=== PATIENT | female | born 1970 | race Caucasian/White ===

== ENCOUNTER → 2020-05-28 | Outpatient (CLI) | payer OTHER, SELFPAY ==
[2020-05-28 15:46] VITALS: BMI 37.3
[2020-05-28 22:19] LABS: Absolute Neutrophil Count 6.8 X10^3/uL (2.0-7.7); Basophil# 0.04 X10^3/uL; Basophil% 0.4 % (0-1); Eosinophil# 0.13 X10^3/uL; Eosinophils% 1.3 % (0-5); Hematocrit 46.8 % (37-47); Hemoglobin 14.5 g/dL (12.0-15.0); Lymphocyte % 23.5 % (19-41); Mean Corpuscular Hgb 27.7 pg (27.0-32.0); Mean Corpuscular Volume 89.5 fL (81-99); Mean Platelet Vol. 8.7 fl (6.2-12.0); Monocyte# 0.53 X10^3/uL; Monocyte% 5.4 % (0-10); NRBC Flagged by Analyzer 0 % (0-5); Neutrophil # 6.77 X10^3/uL (2.7-7.7); Neutrophil % 69.3 % (47-70); Platelet Count 443 K/mm3 (150-450); RBC Distribution Width CV 13.1 % (11.6-14.6); RBC Distribution Width SD 43.3 fl (35.1-43.9); Red Blood Count 5.23 M/mm3 (4.2-5.4); White Blood Count 9.8 K/mm3 (4.4-11.0)
[2020-05-28 22:37] LABS: ALB/GLOB Ratio 1.2 RATIO (0.9-2.4); AST(SGOT) 12 U/L (15-37); Alanine Aminotransfer ALT/SGPT 13 U/L (13-56); Albumin, Serum 4.1 g/dL (3.2-5.0); Alkaline Phosphatase 87 U/L (45-117); Anion Gap 2 (5-15); BUN 13 mg/dL (7-18); BUN/Creat Ratio 13.5 RATIO (10-20); Calcium,Total 8.8 mg/dL (8.5-10.1); Chloride 108 mmol/L (98-107); Cholesterol 171 mg/dL (200); Creatinine, Serum 0.97 mg/dL (0.55-1.02); EST Glomerular Filtration Rate 65 mL/min (>60); Est Glom Filt Rate - Afr Amer 79 mL/min (>60); Globulin 3.3 g/dL (2.2-4.2); Glucose 107 mg/dL (74-106); High Density Lipoprotein 47 mg/dL; Protein, Total 7.4 g/dL (6.4-8.2); Sodium Level 137 mmol/L (136-145); Triglycerides 117 mg/dL; Very Low Density Lipoprotein 23 mg/dL (5-40)
== END | disposition home or self-care (01) ==
PROVIDERS: Referring Provider Nurse Practitioner; Visit Provider Nurse Practitioner
DX: Z00.00 Encounter for general adult medical examination without abnormal findings (principal)
CPT/HCPCS: 80053; 80061; 85025

== ENCOUNTER → 2021-02-08 07:08 | Outpatient (CLI) | payer OTHER, SELFPAY ==
--- NOTE | 2021-02-08 07:09 | MRI_ITS ---
STUDY: MRI RIGHT SHOULDER REASON FOR EXAM: Right shoulder pain, decreased range of motion, no specific injury. TECHNIQUE: Standardized fat and water weighted pulse sequences were obtained in all 3 orthogonal planes. COMPARISON: Radiographs 10/09/2020. FINDINGS: Normal supraspinatus tendon. Normal infraspinatus tendon. Normal subscapularis tendon. Normal teres minor tendon. Normal supraspinatus muscle. Normal infraspinatus muscle. Normal subscapularis muscle. Normal teres minor muscle. Normal glenohumeral articulation. There is cystic change/bone edema in the posterior aspect of the greater tuberosity (T2 coronal images 8-10). Normal biceps labral complex. Normal intracapsular long biceps tendon. Normal labrum. Normal capsulo- ligamentous complex. There is mild acromioclavicular arthrosis without substantial undersurface osteophytes (T2 sagittal image 9). There is a Type I morphology (flat undersurface), with a neutral orientation. There is no subacromial-subdeltoid bursal fluid. Normal visualized coracohumeral and coracoacromial ligaments. Normal deltoid muscle. Normal trapezius muscle. MRI/Upper Ext Joint Only(Routine) IMPRESSION: Mild acromioclavicular arthrosis. Cystic change/bone edema in the posterior aspect of the greater tuberosity. No demonstrated rotator cuff tear. Electronically Signed: Efren Leonard MD at 8:54 EDT Tel , Service support ,
--- NOTE | 2021-02-08 07:09 | MRI_ITS ---
STUDY: MRI LEFT SHOULDER REASON FOR EXAM: Left shoulder pain, decreased range of motion, no specific injury. TECHNIQUE: Standardized fat and water weighted pulse sequences were obtained in all 3 orthogonal planes. COMPARISON: None. FINDINGS: There is mild supraspinatus tendinosis (T2 coronal images 10-12) without discrete tendon tear. There is mild subscapularis tendinosis (T2 axial image 7) without discrete tendon tear. Normal subscapularis tendon. Normal teres minor tendon. Normal supraspinatus muscle. Normal infraspinatus muscle. Normal subscapularis muscle. Normal teres minor muscle. There is a glenohumeral joint effusion with fluid extending into the bicipital tendon sheath. There is mild cystic change posterior aspect of the greater tuberosity. Normal biceps labral complex. Normal intracapsular long biceps tendon. Normal labrum. Normal capsulo- ligamentous complex. There is mild acromioclavicular arthrosis without substantial undersurface osteophytes (T2 coronal image 12). There is a Type I morphology (flat undersurface), with a neutral orientation. There is no subacromial-subdeltoid bursal fluid. Normal visualized coracohumeral and coracoacromial ligaments. Normal deltoid muscle. Normal trapezius muscle. MRI/Upper Ext Joint Only(Routine) IMPRESSION: Mild supraspinatus and infraspinatus tendinosis without demonstrated rotator cuff tear. Mild acromioclavicular arthrosis. Glenohumeral joint effusion. Electronically Signed: Efren Leonard MD at 8:36 EDT Tel , Service support ,
== END ==
PROVIDERS: PCP Nurse Practitioner; Referring Provider Orthopaedic Surgery; Visit Provider Orthopaedic Surgery
DX: M75.21 Bicipital tendinitis, right shoulder (principal); M75.22 Bicipital tendinitis, left shoulder; M75.81 Other shoulder lesions, right shoulder; M75.82 Other shoulder lesions, left shoulder; M25.512 Pain in left shoulder; R20.0 Anesthesia of skin
CPT/HCPCS: 73221

== ENCOUNTER → 2021-07-02 | Outpatient (CLI) | payer OTHER, SELFPAY ==
[2021-07-03 01:26] LABS: Absolute Lymphocyte Count 2.17 X10^3/uL (0.83-4.51); Absolute Neutrophil Count 4.9 X10^3/uL (2.0-7.7); Basophil# 0.05 X10^3/uL; Basophil% 0.6 % (0-1); Eosinophil# 0.12 X10^3/uL; Eosinophils% 1.5 % (0-5); Hematocrit 46.8 % (37-47); Hemoglobin 14.5 g/dL (12.0-15.0); Lymphocyte # 2.17 X10^3/ul (0.83-4.51); Lymphocyte % 27.7 % (19-41); Mean Corpuscular Hgb 27.9 pg (27.0-32.0); Mean Corpuscular Volume 90.2 fL (81-99); Mean Platelet Vol. 8.8 fl (6.2-12.0); Monocyte# 0.55 X10^3/uL; NRBC Flagged by Analyzer 0 % (0-5); Neutrophil # 4.93 X10^3/uL (2.7-7.7); Neutrophil % 62.9 % (47-70); Platelet Count 445 K/mm3 (150-450); RBC Distribution Width CV 12.1 % (11.6-14.6); RBC Distribution Width SD 40.4 fl (35.1-43.9); Red Blood Count 5.19 M/mm3 (4.2-5.4); White Blood Count 7.8 K/mm3 (4.4-11.0)
[2021-07-03 01:35] LABS: AST(SGOT) 10 U/L (15-37); Alanine Aminotransfer ALT/SGPT 16 U/L (13-56); Albumin, Serum 3.9 g/dL (3.2-5.0); Alkaline Phosphatase 102 U/L (45-117); Anion Gap 5 (5-15); BUN 11 mg/dL (7-18); BUN/Creat Ratio 12.9 RATIO (10-20); Calcium,Total 9.6 mg/dL (8.5-10.1); Chloride 104 mmol/L (98-107); Creatinine, Serum 0.86 mg/dL (0.55-1.02); EST Glomerular Filtration Rate 75 mL/min (>60); Est Glom Filt Rate - Afr Amer 91 mL/min (>60); Globulin 3.8 g/dL (2.2-4.2); Glucose 95 mg/dL (74-106); Potassium 5.7 mmol/L (3.5-5.1); Protein, Total 7.7 g/dL (6.4-8.2); Sodium Level 139 mmol/L (136-145)
== END | disposition home or self-care (01) ==
PROVIDERS: PCP Nurse Practitioner; Referring Provider Nurse Practitioner; Visit Provider Nurse Practitioner
DX: D64.9 Anemia, unspecified (principal)
CPT/HCPCS: 80053; 85025

== ENCOUNTER → 2022-07-30 | Outpatient (CLI) | payer OTHER, SELFPAY ==
[2022-07-30 22:10] LABS: Absolute Lymphocyte Count 2.35 X10^3/uL (0.83-4.51); Absolute Neutrophil Count 4.5 X10^3/uL (2.0-7.7); Basophil# 0.04 X10^3/uL; Basophil% 0.5 % (0-1); Eosinophils% 1.3 % (0-5); Hematocrit 43.9 % (37-47); Hemoglobin 14.6 g/dL (12.0-15.0); Lymphocyte # 2.35 X10^3/ul (0.83-4.51); Lymphocyte % 31.4 % (19-41); Mean Corp Hgb Conc 33.3 g/dL (32-36); Mean Corpuscular Hgb 29.2 pg (27.0-32.0); Mean Corpuscular Volume 87.8 fL (81-99); Mean Platelet Vol. 8.9 fl (6.2-12.0); Monocyte% 6.7 % (0-10); NRBC Flagged by Analyzer 0 % (0-5); Neutrophil # 4.48 X10^3/uL (2.7-7.7); Platelet Count 395 K/mm3 (150-450); RBC Distribution Width CV 12.7 % (11.6-14.6); RBC Distribution Width SD 40.5 fl (35.1-43.9); White Blood Count 7.5 K/mm3 (4.4-11.0)
[2022-07-30 22:35] LABS: ALB/GLOB Ratio 1.2 RATIO (0.9-2.4); AST(SGOT) 10 U/L (15-37); Alanine Aminotransfer ALT/SGPT 12 U/L (13-56); Albumin, Serum 3.9 g/dL (3.2-5.0); Alkaline Phosphatase 93 U/L (45-117); Anion Gap 4 (5-15); BUN 14 mg/dL (7-18); BUN/Creat Ratio 13.6 RATIO (10-20); CRP, High Sensitivity Cardiac 3.53 mg/L; Calcium,Total 9.6 mg/dL (8.5-10.1); Chloride 106 mmol/L (98-107); Cholesterol 184 mg/dL (200); Creatinine, Serum 1.03 mg/dL (0.55-1.02); EST Glomerular Filtration Rate 60 mL/min (>60); Est Glom Filt Rate - Afr Amer 73 mL/min (>60); Globulin 3.3 g/dL (2.2-4.2); Glucose 94 mg/dL (74-106); High Density Lipoprotein 55 mg/dL; Lipase 90 U/L (73-393); Potassium 4.4 mmol/L (3.5-5.1); Protein, Total 7.2 g/dL (6.4-8.2); Sodium Level 139 mmol/L (136-145); Thyroid Stim Hormone (TSH) 1.04 uIU/mL (0.358-3.74); Triglycerides 106 mg/dL; Very Low Density Lipoprotein 21 mg/dL (5-40)
== END | disposition home or self-care (01) ==
PROVIDERS: PCP Nurse Practitioner; Visit Provider Nurse Practitioner
DX: R10.11 Right upper quadrant pain (principal); R10.13 Epigastric pain; R14.0 Abdominal distension (gaseous)
CPT/HCPCS: 80053; 80061; 83690; 84443; 85025; 86141

== ENCOUNTER → 2023-08-19 | Outpatient (CLI) | payer OTHER, SELFPAY ==
[2023-08-19 20:33] LABS: Absolute Lymphocyte Count 2.64 X10^3/uL (0.83-4.51); Absolute Neutrophil Count 4.3 X10^3/uL (2.0-7.7); Basophil# 0.06 X10^3/uL; Basophil% 0.8 % (0-1); Eosinophil# 0.11 X10^3/uL; Eosinophils% 1.5 % (0-5); Hematocrit 44.1 % (37-47); Hemoglobin 13.8 g/dL (12.0-15.0); Lymphocyte # 2.64 X10^3/ul (0.83-4.51); Lymphocyte % 34.9 % (19-41); Mean Corp Hgb Conc 31.3 g/dL (32-36); Mean Corpuscular Hgb 27.8 pg (27.0-32.0); Mean Corpuscular Volume 88.9 fL (81-99); Mean Platelet Vol. 8.7 fl (6.2-12.0); Monocyte# 0.48 X10^3/uL; Monocyte% 6.3 % (0-10); NRBC Flagged by Analyzer 0 % (0-5); Neutrophil # 4.27 X10^3/uL (2.7-7.7); Neutrophil % 56.4 % (47-70); Platelet Count 406 K/mm3 (150-450); RBC Distribution Width CV 12.8 % (11.6-14.6); RBC Distribution Width SD 41.8 fl (35.1-43.9); Red Blood Count 4.96 M/mm3 (4.2-5.4); White Blood Count 7.6 K/mm3 (4.4-11.0)
[2023-08-19 21:03] LABS: ALB/GLOB Ratio 1.1 RATIO (0.9-2.4); AST(SGOT) 10 U/L (15-37); Alanine Aminotransfer ALT/SGPT 14 U/L (13-56); Albumin, Serum 3.8 g/dL (3.2-5.0); Alkaline Phosphatase 108 U/L (45-117); Anion Gap 2 (5-15); BUN 12 mg/dL (7-18); BUN/Creat Ratio 12.6 RATIO (10-20); Calcium,Total 9.2 mg/dL (8.5-10.1); Chloride 107 mmol/L (98-107); Cholesterol 188 mg/dL (200); Creatinine, Serum 0.95 mg/dL (0.55-1.02); EST Glomerular Filtration Rate 66 mL/min (>60); Est Glom Filt Rate - Afr Amer 79 mL/min (>60); Globulin 3.4 g/dL (2.2-4.2); Glucose 94 mg/dL (74-106); High Density Lipoprotein 62 mg/dL; Potassium 5.1 mmol/L (3.5-5.1); Protein, Total 7.2 g/dL (6.4-8.2); Sodium Level 140 mmol/L (136-145); Thyroid Stim Hormone (TSH) 1.36 uIU/mL (0.358-3.74); Triglycerides 109 mg/dL; Very Low Density Lipoprotein 22 mg/dL (5-40)
[2023-08-19 21:04] LABS: Vitamin D,25 Hydroxy 55.8 ng/mL
[2023-08-19 21:15] LABS: Hemoglobin A1c 5.5 % (3.8-5.6)
== END | disposition home or self-care (01) ==
PROVIDERS: PCP Nurse Practitioner; Visit Provider Nurse Practitioner
DX: D64.9 Anemia, unspecified (principal); F31.9 Bipolar disorder, unspecified; R53.83 Other fatigue
CPT/HCPCS: 80053; 80061; 82306; 83036; 84443; 85025

== ENCOUNTER → 2024-03-03 | Outpatient (CLI) | payer OTHER, SELFPAY ==
[2024-03-03 21:33] LABS: Absolute Lymphocyte Count 2.56 X10^3/uL (0.83-4.51); Absolute Neutrophil Count 4.6 X10^3/uL (2.0-7.7); Basophil# 0.05 X10^3/uL; Basophil% 0.6 % (0-1); Eosinophil# 0.07 X10^3/uL; Eosinophils% 0.9 % (0-5); Hematocrit 45.1 % (37-47); Hemoglobin 14.4 g/dL (12.0-15.0); Lymphocyte # 2.56 X10^3/ul (0.83-4.51); Mean Corp Hgb Conc 31.9 g/dL (32-36); Mean Corpuscular Hgb 28.2 pg (27.0-32.0); Mean Corpuscular Volume 88.4 fL (81-99); Mean Platelet Vol. 8.7 fl (6.2-12.0); Monocyte% 6.5 % (0-10); NRBC Flagged by Analyzer 0 % (0-5); Neutrophil # 4.55 X10^3/uL (2.7-7.7); Neutrophil % 58.7 % (47-70); Platelet Count 389 K/mm3 (150-450); RBC Distribution Width CV 12.9 % (11.6-14.6); White Blood Count 7.8 K/mm3 (4.4-11.0)
[2024-03-03 21:57] LABS: ALB/GLOB Ratio 1.1 RATIO (0.9-2.4); AST(SGOT) 17 U/L (15-37); Alanine Aminotransfer ALT/SGPT 15 U/L (13-56); Alkaline Phosphatase 92 U/L (45-117); Anion Gap 7 (5-15); BUN 16 mg/dL (7-18); Calcium,Total 9.9 mg/dL (8.5-10.1); Chloride 103 mmol/L (98-107); EST Glomerular Filtration Rate 62 mL/min (>60); Est Glom Filt Rate - Afr Amer 75 mL/min (>60); Globulin 3.8 g/dL (2.2-4.2); Glucose 102 mg/dL (74-106); Lipase 29 U/L (13-75); Potassium 5.2 mmol/L (3.5-5.1); Protein, Total 7.8 g/dL (6.4-8.2); Sodium Level 138 mmol/L (136-145); Thyroid Stim Hormone (TSH) 1.54 uIU/mL (0.358-3.74)
== END | disposition home or self-care (01) ==
PROVIDERS: PCP Nurse Practitioner; Visit Provider Nurse Practitioner
DX: R14.0 Abdominal distension (gaseous) (principal); R10.11 Right upper quadrant pain; R11.2 Nausea with vomiting, unspecified; M54.50 Low back pain, unspecified; N20.0 Calculus of kidney; D64.9 Anemia, unspecified
CPT/HCPCS: 80053; 83690; 84443; 85025; 87086; 87088

== ENCOUNTER → 2025-02-03 | Outpatient (CLI) | payer OTHER, SELFPAY ==
--- NOTE | 2025-02-03 14:17 | CT_ITS ---
PROCEDURE: LOW DOSE CT LUNG SCREENING 02/03/2025 REASON FOR EXAM: CURRENTLY VAPING, QUIT SMOKING CIGARETTES IN 2014 TECHNIQUE: Low Dose CT Lung screening without contrast. Coronal and Sagittal reconstruction series were provided. One or more dose reduction techniques were used (e.g., Automated exposure control, adjustment of the mA and/or kV according to patient size, use of iterative reconstruction technique). REFERENCE LINK: [facility] Lung-RADS RADIATION DOSE SUMMARY: CTDlvol: 4.0 mGy DLP: 145 mGycm COMPARISON: CT abdomen and pelvis 07/27/2024 FINDINGS: PULMONARY NODULES: (Only nodules >3mm are reported) Pulmonary Nodules: No suspicious nodule. Lymph Nodes:Unremarkable Heart and Vasculature:Normal heart size. No coronary calcification. Lungs and Airways: Scarring or atelectasis in the lingula. Otherwise clear. Pleura:Unremarkable Upper Abdomen: Cholecystectomy clips. Bones:Unremarkable CT/Low Dose CT Lung Screening IMPRESSION: Lung-RADS Category: 1 NEGATIVE. RECOMMEND 12-MONTH SCREENING LDCT. Other Significant Findings: None. Reading Location: [facility]
== END | disposition home or self-care (01) ==
PROVIDERS: PCP Nurse Practitioner; Referring Provider Nurse Practitioner Family; Visit Provider Nurse Practitioner Family
DX: Z87.891 Personal history of nicotine dependence (principal); F17.290 Nicotine dependence, other tobacco product, uncomplicated
CPT/HCPCS: 71271

== ENCOUNTER → 2025-02-07 | Outpatient (CLI) | payer OTHER, SELFPAY | END | disposition home or self-care (01) | PROVIDERS: PCP Nurse Practitioner; Referring Provider Nurse Practitioner Family; Visit Provider Nurse Practitioner Family | DX: R06.02 Shortness of breath (principal) | CPT/HCPCS: 94060; 94726; 94729 ==

== ENCOUNTER → 2025-02-09 | Outpatient (CLI) | payer OTHER, SELFPAY ==
[2025-02-09 08:15] VITALS: PULSE 103; PULSE 107; PULSE 110; PULSE 112; PULSE 113; PULSE 117; PULSE 93; O2SAT 94; O2SAT 95; O2SAT 96; O2SAT 97; O2SAT 98
--- NOTE | 2025-02-10 12:10 | PCM.PSN.6M ---
PSN 6 Minute Walk Test 6 Minute Walk Test 6 Minute Walk Test: 6 Minute Walk Test PSN:6-Minute Walk Test Start: 02/09/25 08:29 Freq: Status: Active Protocol: [id number] Document 02/09/25 08:15 AEH (Rec: 02/09/25 08:35 AEH [id number]) 6 Minute Walk Test Date Performed 02/09/25 Time Performed 08:15 Height 5 ft 5 in Weight: 198 lb Weight in Pounds 198.[address]: Helio Assistive device None used: Pre-test Oxygen Delivery Room Air Method Pulse Ox (%) 97 Pulse Rate (60-100 93 beats/min) Dyspnea Tato Scale ( 0 0-10) Exertion Tato Scale 6 (6-20) 1st minute Oxygen Delivery Room Air Method Pulse Ox (%) 95 Pulse Rate (60-100 110 H beats/min) 2nd minute Oxygen Delivery Room Air Method Pulse Ox (%) 94 Pulse Rate (60-100 107 H beats/min) 3rd minute Oxygen Delivery Room Air Method Pulse Ox (%) 95 Pulse Rate (60-100 110 H beats/min) 4th minute Oxygen Delivery Room Air Method Pulse Ox (%) 95 Pulse Rate (60-100 113 H beats/min) 5th minute Oxygen Delivery Room Air Method Pulse Ox (%) 96 Pulse Rate (60-100 112 H beats/min) 6th minute Oxygen Delivery Room Air Method Pulse Ox (%) 97 Pulse Rate (60-100 117 H beats/min) Dyspnea Tato Scale ( 1 0-10) Exertion Tato Scale 12 (6-20) Post-test Oxygen Delivery Room Air Method Pulse Ox (%) 98 Pulse Rate (60-100 103 H beats/min) Full Laps Walked 21 Partial Lap, Number 29 of Tiles Walked Total Distance 1268 Walked (ft) Interpretation Interpretation: The patient ambulated 1268 feet over the course of 6 minutes beginning on room air without assistive devices. Pretesting oxygen saturation was noted to be 97% on room air. With ambulation, the alexandra oxygen saturation was 94%. There was no significant exertional oxygen desaturation. Recommendations Recommendations: There is no indication for the use of supplemental oxygen at this time.
== END | disposition home or self-care (01) ==
LOC: PSN 08:00
PROVIDERS: PCP Nurse Practitioner; Referring Provider Nurse Practitioner Family; Visit Provider Nurse Practitioner Family
DX: R06.02 Shortness of breath (principal)
CPT/HCPCS: 94618

== ENCOUNTER → 2025-03-22 | Outpatient (CLI) | payer OTHER, SELFPAY ==
[2025-03-22 10:26] LABS: Mean Corp Hgb Conc 32.6 g/dL (32-36); Mean Corpuscular Hgb 28.7 pg (27.0-32.0); Mean Corpuscular Volume 88.3 fL (81-99); Mean Platelet Vol. 8.5 fl (6.2-12.0); Platelet Count 347 K/mm3 (150-450); RBC Distribution Width CV 12.9 % (11.6-14.6); RBC Distribution Width SD 41.9 fl (35.1-43.9); Red Blood Count 4.87 M/mm3 (4.2-5.4); White Blood Count 5.9 K/mm3 (4.4-11.0)
[2025-03-22 11:06] LABS: ALB/GLOB Ratio 1.6 RATIO (0.9-2.4); AST(SGOT) 18 U/L (<=31); Alanine Aminotransfer ALT/SGPT 8 U/L (<=34); Albumin, Serum 4.3 g/dL (3.5-5.0); Alkaline Phosphatase 129 U/L (35-104); Anion Gap 8 (5-15); BUN 16 mg/dL (4-19); BUN/Creat Ratio 16.2 RATIO (10-20); Calcium,Total 9.5 mg/dL (7.6-11.0); Carbon Dioxide 27.6 mmol/L (21.0-32.0); Chloride 107 mmol/L (98-108); Cholesterol 180 mg/dL (<=200); Creatinine, Serum 0.99 mg/dL (0.70-1.20); EST Glomerular Filtration Rate 68 (>60); Globulin 2.7 g/dL (2.2-4.2); Glucose 100 mg/dL (70-99); High Density Lipoprotein 59 mg/dL; Low Density Lipoprotein Calc. 108 mg/dL; Potassium 4.6 mmol/L (3.3-5.1); Sodium Level 143 mmol/L (133-145); Total Bilirubin 0.21 mg/dL (0.00-1.30); Triglycerides 63 mg/dL; Very Low Density Lipoprotein 13 mg/dL (5-40); cholesterol:hdl ratio screen 3.05
== END | disposition home or self-care (01) ==
LOC: LAB 09:50
PROVIDERS: PCP Nurse Practitioner; Referring Provider Internal Medicine Cardiovascular Disease; Visit Provider Internal Medicine Cardiovascular Disease
DX: R42 Dizziness and giddiness (principal); R06.09 Other forms of dyspnea; R03.0 Elevated blood-pressure reading, without diagnosis of hypertension; F17.200 Nicotine dependence, unspecified, uncomplicated
CPT/HCPCS: 36415; 80053; 80061; 84443; 85027

== ENCOUNTER 2025-04-26 12:31 | Outpatient (CLI) | payer OTHER, SELFPAY ==
--- NOTE | 2025-04-26 12:35 | ECHOD_ITS ---
Reason For Study Reason For Study: DYSPNEA/SOB Procedure This was a 2D Doppler, Color Flow transthoracic echocardiogram. Exam performed in department. Left Ventricle Normal size and thickness. The LV ejection fraction is 65 %. Normal diastololic function. Right Ventricle Normal right ventricle. Atria The left and right atria are normal. Mitral Valve Mild (1+) posteriorly directed mitral valve insufficiency. Tricuspid Valve Trivial tricuspid valve insufficiency. Unable to estimate RV systolic pressure due to insufficient tricuspid regurgitant envelope. Aortic Valve Trisinus/trileaflet aortic valve. Pulmonic Valve The pulmonic valve is not well visualized. Trivial pulmonic valve insufficiency. Great Vessels Normal sized aortic root. Pericardium/Pleural No pericardial effusion. MMode/2D Measurements & Calculations LVIDd: 4.2 cm IVSd: 1.0 cm Ao root diam: 3.2 cm LVIDs: 3.0 cm LVPWd: 0.98 cm LA dimension: 3.5 cm RVDd: 2.7 cm FS: 29.6 % LAV(MOD-bp): 21.4 ml LVAd ap4: 25.7 cm2 SV(MOD-sp4): 44.6 ml LAV(MOD-bp) Indexed: 10.8 ml/m2 LVLd ap4: 7.4 cm SI(MOD-sp4): 22.5 ml/m2 LAV(MOD-sp2): 21.9 ml EDV(MOD-sp4): 73.1 ml LAV(MOD-sp4): 20.9 ml EDV(sp4-el): 76.5 ml LVAs ap4: 14.5 cm2 LVLs ap4: 6.4 cm ESV(MOD-sp4): 28.5 ml ESV(sp4-el): 27.7 ml EF(MOD-sp4): 61.0 % EF(sp4-el): 63.8 % SV(sp4-el): 48.8 ml LA A4 area: 10.9 cm2 LA dimension(2D): 3.5 cm RA A4 area: 11.2 cm2 TAPSE: 1.9 cm Time Measurements MV dec time: 0.18 sec Doppler Measurements & Calculations MV E max darshan: 71.2 cm/sec Lat Peak E' Darshan: 9.3 cm/sec Med Peak E' Darshan: 8.4 cm/sec MV A max darshan: 75.5 cm/sec E/E' lat: 7.6 E/E' med: 8.5 MV E/A: 0.94 Ao V2 max: 118.7 cm/sec LV V1 max: 98.1 cm/sec PA V2 max: 83.2 cm/sec Ao max P.6 mmHg LV V1 max P.8 mmHg TR max darshan: 200.8 cm/sec TR max P.1 mmHg ECHO/Echo Complete Interpretation Summary The LV ejection fraction is 65 %. Mild (1+) posteriorly directed mitral valve insufficiency. Ordering Physician: Zeb Bernal Referring Physician: YOLIS ARNOLD Performed By: Mattie Hubbard RDCS
--- NOTE | 2025-04-26 12:35 | CDU_ITS ---
Reason For Study Reason For Study: Dizziness Rt. Velocities/BP Lt. Velocities/BP Prox CCA 98.1/31.1 cm/sec. Prox CCA 59.8/22 cm/sec. Mid CCA 85/27.8 cm/sec. Mid CCA 87.2/32.4 cm/sec. Dist CCA 72.9/27.8 cm/sec. Dist CCA 66.4/23 cm/sec. Prox ICA 60.8/22.3 cm/sec. Prox ICA 63.6/23 cm/sec. Mid ICA 71.8/32.2 cm/sec. Mid ICA 70.2/35.2 cm/sec. Dist ICA 73.5/13.5 cm/sec. Dist ICA 70.2/30.5 cm/sec. Rt. ICA/CCA = 0.86. Lt. ICA/CCA = 0.81. Prox ECA 79.5/23.4 cm/sec. Prox ECA 71.1/20.1 cm/sec. Rt. Vert. 45.6/21.1 cm/sec. Lt. Vert. 57/26.7 cm/sec. Right Extracranial There is intimal thickening but no significant atherosclerotic plaque noted in the right common carotid artery. There is homogeneous, smooth atherosclerotic plaque noted in the right internal carotid artery. There is intimal thickening but no significant atherosclerotic plaque noted in the right external carotid artery. Antegrade flow is noted in the right vertebral artery. Left Extracranial There is intimal thickening but no significant atherosclerotic plaque noted in the left common carotid artery. There is intimal thickening but no significant atherosclerotic plaque noted in the left internal carotid artery. There is intimal thickening but no significant atherosclerotic plaque noted in the left external carotid artery. Antegrade flow is noted in the left vertebral artery. Procedure Carotid Duplex 18322. This is a Carotid Duplex examination using B-mode, color flow and specral Doppler. Exam performed in department. VL/Carotid Duplex Ultrasound Interpretation Summary Mild (<50%) stenosis right extracranial internal carotid. Normal left extracranial internal carotid. Patent and antegrade vertebrals bilaterally. Ordering Physician: Zeb Bernal Referring Physician: Niesha Dalton Performed By: Cristine Velasco RVT
--- NOTE | 2025-04-26 12:37 | CT_ITS ---
PROCEDURE: LIMITED CHEST CT CARDIAC ONLY 04/26/2025 REASON FOR EXAM: ELEVATED BLOOD PRESSURE READING WITHOUT DIAGNOSIS OF HYPERTENSION TECHNIQUE: LIMITED CHEST CT CARDIAC ONLY CONTRAST: Isovue 370. 80 mL injected intravenously One or more dose reduction techniques were used (e.g., Automated exposure control, adjustment of the mA and/or kV according to patient size, use of iterative reconstruction technique). RADIATION DOSE SUMMARY: CTDlvol: 45 mGy DLP: 2344.91 mGycm COMPARISON: None FINDINGS: Small benign-appearing mediastinal lymph nodes. No significant coronary artery calcification is seen. The heart is not enlarged. The lungs are clear. CT/Limited Chest CT Cardiac Only IMPRESSION: No coronary artery calcification is seen. Reading Location: [id number]
[2025-04-26 13:55] VITALS: BP 91/26; PULSE 69; RESP 16; O2SAT 97; BMI 33.3
[2025-04-26 14:23] VITALS: BP 125/63; PULSE 68; RESP 14; O2SAT 99
--- NOTE | 2025-04-29 11:50 | CCTA.WCONT ---
CCTA w/Cont Coronary Arteries Date of Study:: 04/26/25 Elevated blood pressure Coronary Calcium Scoring: High-resolution Computed Tomographic imaging of the chest was performed on [04/26/2025], with particular attention paid to the coronary arteries. Intravenous contrast agent was administered per protocol and images reconstructed and displayed. LEFT MAIN CORONARY ARTERY: Arises from the left coronary cusp and bifurcates the left anterior descending artery and left circumflex artery. No significant stenosis or plaquing is noted [] LEFT ANTERIOR DESCENDING CORONARY ARTERY: Arises from the left main coronary artery and courses towards the apex of the ventricle with no significant atherosclerotic plaquing or stenosis noted. [] LEFT CIRCUMFLEX CORONARY ARTERY:No atherosclerotic plaque noted Right coronary artery; dominant vessel with no significant atherosclerotic plaquing noted. [] [] CORONARY CALCIUM SCORE:0 [] Findings Coronary Artery Left Main (LM): 0 Left Anterior Descending (LAD): 0 Left Circumflex (LCX): 0 Right Coronary Artery (RCA): 0 Total Agatston Score: 0 Percentile Rankin% Calcium Scoring Interpretation: Different methods to categorize the overall amount of coronary plaque. Overall amount CAC SIS Visual of coronary plaque P1 Mild -100 <2 1-2 vessels with mild amount of plaque P2 Moderate 101-300 3-4 1-2 vessels with moderate amount, 3 vessels with mild amount of plaque P3 Severe 301-999 5-7 3 vessels with moderate amount, 1 vessel with severe amount of plaque P4 Extensive >1000 >8 2-3 vessels with severe amount of plaque Conclusion: No atherosclerotic plaque
== END 2025-04-26 23:59 | disposition home or self-care (01) ==
LOC: CT 12:32
PROVIDERS: PCP Nurse Practitioner; Referring Provider Internal Medicine Cardiovascular Disease; Visit Provider Internal Medicine Cardiovascular Disease
DX: R03.0 Elevated blood-pressure reading, without diagnosis of hypertension (principal); R42 Dizziness and giddiness; R06.09 Other forms of dyspnea; F17.210 Nicotine dependence, cigarettes, uncomplicated; I65.21 Occlusion and stenosis of right carotid artery; I05.9 Rheumatic mitral valve disease, unspecified
CPT/HCPCS: 75571; 75574; 76380; 93306; 93880; Q9967

== ENCOUNTER → 2025-08-21 | Outpatient (CLI) | payer OTHER, SELFPAY ==
--- OUTSIDE RECORDS SUMMARY | 2025-08-21 23:48 | XMS RPT_ITS | CCD ---
Author Organization [facility] Care Team Providers Care Broacher Name Role Phone Debby Dumont Unavailable Unavailabl e Debby Dumont Unavailable Unavaila ble Dalton TEA TASTER.GAS WELDER, Yolis L Primary Care Provide r Dalton TEA TASTER.GAS WELDER, Yolis L Primary Care Provide r Dalton TEA TASTER.GAS WELDER, Yolis L Primary Care Provide r HENRI CR Attending Unavailable HENRI CR Admitting Unavailable DALTON, YOLIS L Primary Care Unavailable HENRI CR Attending Unavailable DALTON, YOLIS L Primary Care Unavailable MATEO LOPEZ Attending Unavailable DALTON, YOLIS L Primary Care Unavailable DALTON, YOLIS L Primary Care Unavailable DALTON, YOLIS L Primary Care Unavailable HENRI CR Attending Unavailable DALTON, YOLIS L Primary Care Unavailable MATEO LOPEZ Referring Unavailable DALTON, YOLIS L Primary Care Unavailable DALTON, YOLIS L Primary Care Unavailable ALEJANDRA STAPLETON Attending Unavailable DALTON, YOLIS L Primary Care Unavailable DALTON, YOLIS L Referring Unavailable DALTON, YOLIS L Primary Care Unavailable DALTON, YOLIS L Primary Care Unavailable DALTON, YOLIS L Referring Unavailable Dalton ANIMAL CARE SUPERVISOR-C, Yolis Primary Care Provider Sha ANIMAL CARE SUPERVISOR-CYolis Attending Provider [phone] Sha ANIMAL CARE SUPERVISOR-C Yolis Referring Provider Juan MAK-iDana Jackson Attending Provider Juan MAK-CDiana Referring Provider Juan MAK-Diana Jackson Other Provider Dr. Paul Coronel DO Attending Provider Dalton ANIMAL CARE SUPERVISOR-C, Yolis Primary Care Provider Dalton ANIMAL CARE SUPERVISOR-C, Yolis Referring Provider Gabe CASTANO, Dr. Carrington Attending Provider Dr. Paul Coronel DO Attending Provider Gabe CASTANO, Dr. Carrington Referring Provider Justin CASTANO, Dr. Brantley Attending Provider Gabe CASTANO, Dr. Carrington Other Provider Vinod CASTANO, Dr. Kirk Attending Provider Diana Ng Attending Unavailable Diana Ng Referring Unavailable Dalton ANIMAL CARE SUPERVISOR, Yolis Primary Care Unavailable Gabe, Zeb Referring Unavailable Gabe, Zeb Attending Unavailable Dalton ANIMAL CARE SUPERVISOR, Yolis Primary Care Unavailable Gabe, Zeb Attending Unavailable Gaeb, Zeb Referring Unavailable Dalton ANIMAL CARE SUPERVISOR, Yolis Primary Care Unavailable Diana Ng Attending Unavailable Diana Ng Referring Unavailable Dalton ANIMAL CARE SUPERVISOR, Yolis Primary Care Unavailable Gabe, Zeb Referring Unavailable Fercho Anderson Attending Unavailable Dalton ANIMAL CARE SUPERVISOR, Yolis Primary Care Unavailable Diana Ng Consulting Unavailable Diana Ng Referring Unavailable Dalton ANIMAL CARE SUPERVISOR, Yolis Primary Care Unavailable Paul Coronel Attending Unavailable Gabe, Zeb Consulting Unavailable Gabe, Zeb Referring Unavailable Dalton ANIMAL CARE SUPERVISOR, Yolis Primary Care Unavailable Reagan Brock Attending Unavailable Gabe, Zeb Attending Unavailable Dalton ANIMAL CARE SUPERVISOR, Yolis Primary Care Unavailable Dalton ANIMAL CARE SUPERVISOR, Yolis Referring Unavailable Diana Ng Attending Unavailable Dalton ANIMAL CARE SUPERVISOR, Yolis Referring Unavailable Dalton ANIMAL CARE SUPERVISOR, Yolis Primary Care Unavailable Diana Ng Attending Unavailable Dalton ANIMAL CARE SUPERVISOR, Yolis Referring Unavailable Dalton ANIMAL CARE SUPERVISOR, Yolis Primary Care Unavailable Gabe, Zeb Attending Unavailable Dalton ANIMAL CARE SUPERVISOR, Yolis Primary Care Unavailable Gabe, Zeb Referring Unavailable Dalton ANIMAL CARE SUPERVISOR, Yolis Primary Care Unavailable Reagan Brock Attending Unavailable Diana Ng Referring Unavailable Dalton ANIMAL CARE SUPERVISOR, Yolis Primary Care Unavailable Paul Coronel Attending Unavailable Diana Ng Attending Unavailable Diana Ng Referring Unavailable Yolis Dalton NP Primary Care Unavailable Diana Ng Attending Unavailable Diana Ng Referring Unavailable Yolis Dalton NP [facility] Care Unavailable Medications Current Medications Medication Drug Class(es) Dates Sig (Normalized) Sig (Original) amoxicillin 875 mg oral tablet (1 source) Penicillin-class Antibacterial Start: 11-07-2024 End: 11-14-2024 take 1 tablet by mouth twice daily amoxicillin (AMOXIL) 875 mg tablet Indications: Acute otitis media, right Take 1 tablet by mouth two times a day for 7 days. 14 tablet 11/07/2024 11/14/2024 Active ibuprofen 600 mg oral tablet (5 sources) Nonsteroidal Anti-inflammatory Drug Start: 05-19-2024 take 1 tablet by mouth every six hours as needed ibuprofen (MOTRIN) 600 mg tablet Take 1 tablet by mouth every 6 hours as needed for pain. 30 tablet 1 05/19/2024 Active lidocaine 0.05 mg/mg medicated patch (1 source) Antiarrhythmic, Amide Local Anesthetic Start: 02-11-2023 End: 03-13-2023 lidocaine (LIDODERM) 5 % Apply 1 Patch as directed once daily for 30 doses. to affected area. Remove patch after 12 hours. 15 Patch 0 02/11/2023 03/13/2023 Active Comment on above: Apply 1 Patch as dir ected once daily for 30 doses. to affected area. Remove patch after 12 hours. ondansetron 4 mg oral tablet (14 sources) Serotonin-3 Receptor Antagonist Start: 06-08-2024 End: 07-06-2024 take 1 tablet by mouth every eight hours as needed ondansetron (ZOFRAN) 4 mg tablet Take 1 tablet by mouth every 8 hours as needed for nausea/vomiting (for nausea.) for up to 28 days. 30 tablet 1 06/08/2024 07/06/2024 Active Start: 08-27-2021 End: 05-17-2024 take 1 tablet by mouth every eight hours as needed ondansetron (ZOFRAN) 4 mg tablet Take 1 tablet by mouth every 8 hours as needed for nausea/vomiting. 15 tablet 08/27/2021 05/17/2024 Discontinued (Course of therapy completed) Comment on above: Take 1 tablet by lacey every 8 hours as needed for nausea/vomiting. predniSONE 10 mg oral tablet (20 sources) Start: 11-07-2024 predniSONE (DELTASONE) 10 mg tablet Indications: Acute otitis media, right Day #1 - 6 tablets PO then Day #2 - 5 tablets PO then Day #3 - 4 tablets PO then Day #4 - 3 tablets PO then Day #5 - 2 tablets PO then Day #6 - 1 tablet PO 21 tablet 11/07/2024 Active Start: 08-25-2024 End: 11-09-2024 take 2 tablets by mouth once daily Prednisone 20 mg tablet Discontinued 40 mg PO DAILY 20 September 15, 2024 5:49pm November 09, 2024 5:17pm Start: 06-04-2021 End: 07-30-2022 take 2 tablets by mouth once daily Prednisone 20 mg tablet Discontinued 40 mg PO DAILY July 02, 2021 3:08pm July 30, 2022 3:09pm Start: 06-04-2021 End: 07-30-2022 take 40 mg by mouth once daily Prednisone Discontinued 40 MG PO DAILY July 02, 2021 2:08pm July 30, 2022 2:09pm traMADol hydrochloride 100 mg oral tablet (20 sources) Opioid Agonist Start: 11-09-2024 take 1 tablet by mouth twice daily as needed for pain Tramadol 100 mg tablet Active 100 mg PO TWICE A DAY as needed for pain 60 30 5 November 09, 2024 5:10pm Thoracic back pain Pain in thoracic spine Start: 03-04-2024 End: 05-19-2024 take 1 tablet by mouth every eight hours as needed traMADol 100 mg tablet Take 100 mg by mouth every 8 hours as needed for pain. 0 03/04/2024 05/19/2024 Discontinued Start: 03-03-2024 End: 07-25-2024 take 1 tablet by mouth twice daily as needed for pain Tramadol 100 mg tablet Discontinued 100 mg PO TWICE A DAY as needed for pain 60 30 March 03, 2024 12:00am July 25, 2024 6:04pm Start: 01-08-2022 End: 05-17-2024 take 1 tablet by mouth every four hours as needed for pain traMADol (ULTRAM) 50 mg tablet Indications: Impingement syndrome of shoulder region, unspecified laterality Take 1 tablet by mouth every 4 hours as needed for pain. for pain. 40 tablet 04/01/2022 02/11/2023 Discontinued Start: 12-03-2021 take 1 tablet by lacey th every four hours as needed for pain traMADol (ULTRAM) 50 mg tablet Indications: Impingement syndrome of shoulder region, unspecified laterality Take 1 tablet by mouth every 4 hours as needed for pain. for pain. 40 tablet 0 12/03/2021 Active Start: 09-11-2020 End: 07-02-2021 take 1 tablet by mouth every eight hours as needed for pain Tramadol 50 mg tablet Discontinued 50 mg PO Q8H as needed for pain L shoulder pain 60 5 January 24, 2021 1:29pm July 02, 2021 3:07pm stop all other narcotics and ibuprofen meds Comment on above: Take 1 tablet by lacey th every 4 hours as needed for pain. for pain. Completed/Discontinued Medications Medication Drug Class(es) Dates Sig (Normalized) Sig (Original) acetaminophen 325 mg / oxyCODONE hydrochloride 5 mg oral tablet (5 sources) Opioid Agonist Start: 02-14-2022 End: 02-11-2023 take 1-2 tablets by mouth every eight hours as needed for pain oxyCODONE-acetamino phen (PERCOCET) 5-325 mg tablet Indications: Postoperative pain Take 1-2 tablets by mouth every 8 hours as needed for pain. 20 tablet 02/14/2022 02/11/2023 Discontinued Comment on above: Take 1-2 tablets by mouth every 8 hours as needed for pain. [id number] 200 actuat albuterol 0.09 mg/actuat metered dose inhaler (20 sources) beta2-Adrenergic Agonist Start: 09-15-2024 End: 03-22-2025 Albuterol Sulfate 90 mcg/actuation HFA aerosol inhaler Discontinued 1 NMA INHALATION Q4H as needed for shortness of breath or wheezing 8.5 September 15, 2024 5:48pm March 22, 2025 8:58am Start: 06-20-2019 End: 07-30-2022 Albuterol Sulfate (Proair Hf a) 90 mcg/actuation HFA aerosol inhaler Discontinued 1 NMA INHALATION Q4H as needed for shortness of breath or wheezing 8.5 October 21, 2019 4:29pm July 30, 2022 3:09pm Start: 06-20-2019 End: 07-30-2022 take 1 puff(s) by inhalation every four hours Albuterol Sulfate (Proair Hfa) 90 mcg/actuation HFA aerosol inhaler Discontinued 1 PUFF INHALATION Q4H 8.5 October 21, 2019 3:29pm July 30, 2022 2:09pm amoxicillin 875 mg / clavulanate 125 mg oral tablet (16 sources) Penicillin-class Antibacterial Start: 09-15-2024 End: 11-09-2024 Amoxicillin-Pot Clavulanate 875-125 mg tablet Discontinued 1 {tbl} PO TWICE A DAY 20 0 September 15, 2024 5:48pm November 09, 2024 5:17pm Start: 10-21-2019 End: 05-28-2020 Amoxicillin-Pot Clavulanate 875-125 mg tablet Discontinued 1 {tbl} PO TWICE A DAY 20 0 October 21, 2019 1:00am May 28, 2020 3:43pm Start: 10-21-2019 End: 05-28-2020 take 1 tablet by mouth twice daily Amoxicillin-Pot Clavulanate Discontinued 1 TABLET PO TWICE A DAY October 21, 2019 12:00am May 28, 2020 2:43pm azithromycin 250 mg oral tablet (7 sources) Macrolide Antimicrobial Start: 08-25-2024 End: 08-30-2024 take 2 tablets by mouth once daily, then take 1 tablet by mouth once daily at mealtime Azithromycin 250 mg tablet Discontinued 250 mg PO daily 6 5 0 August 25, 2024 1:00am August 29, 2024 1:00am August 30, 2024 1:08am 2 po qd for 1 day then 1 po qd for 4 days with food or after eating benzonatate 200 mg oral capsule (9 sources) Non-narcotic Antitussive Start: 06-20-2019 End: 08-29-2019 take 1 capsule by mouth three times daily as needed for cough Benzonatate 200 mg capsule Discontinued 200 mg PO THREE TIMES A DAY as needed for cough 60 2 June 20, 2019 12:00am August 29, 2019 4:24pm 120 actuat budesonide 0.16 mg/actuat / formoterol fumarate 0.0045 mg/actuat metered dose inhaler (20 sources) Corticosteroid, beta2-Adrenergic Agonist Start: 10-21-2019 End: 10-09-2020 Budesonide-Formote rol (Symbicort) 160-4.5 mcg/actuation HFA aerosol inhaler Discontinued 2 NMA INHALATION TWICE A DAY 30.6 3 June 14, 2020 1:36pm October 09, 2020 9:13am Start: 10-21-2019 End: 10-09-2020 take 1 puff(s) by inhalation twice daily Budesonide-Formoterol (Symbicort) 160-4.5 mcg/actuation HFA aerosol inhaler Discontinued 2 PUFF INHALATION TWICE A DAY 30.6 June 14, 2020 12:36pm October 09, 2020 8:13am cefdinir 300 mg oral capsule (9 sources) Cephalosporin Antibacterial Start: 06-04-2021 End: 07-02-2021 take 1 capsule by mouth twice daily Cefdinir 300 mg capsule Discontinued 300 mg PO TWICE A DAY 20 0 June 04, 2021 12:00am July 02, 2021 3:06pm ciprofloxacin 500 mg oral tablet (20 sources) Quinolone Antimicrobial Start: 07-02-2021 End: 07-30-2022 take 1 tablet by mouth twice daily Ciprofloxacin Hcl (Cipro) 500 mg tablet Discontinued 500 mg PO TWICE A DAY 20 0 July 02, 2021 12:00am July 30, 2022 3:09pm Start: 06-20-2019 End: 10-21-2019 take 1 tablet by mouth twice daily Ciprofloxacin Hcl 500 mg tablet Discontinued 500 mg PO TWICE A DAY 20 0 August 29, 2019 4:28pm October 21, 2019 4:28pm cyclobenzaprine hydrochloride 5 mg oral tablet (7 sources) Muscle Relaxant Start: 03-03-2024 End: 03-22-2025 take 1 tablet by mouth three times daily as needed for muscle spasms Cyclobenzaprine 5 mg tablet Discontinued 5 mg PO THREE TIMES A DAY as needed for muscle spasm 90 3 March 03, 2024 12:00am March 22, 2025 8:58am DULoxetine 30 mg delayed release oral capsule (13 sources) Serotonin and Norepinephrine Reuptake Inhibitor Start: 03-03-2024 End: 03-22-2025 take 1 capsule by mouth once daily Duloxetine 30 mg capsule,delayed release(DR/EC) Discontinued 30 mg PO daily 90 3 May 30th, 2024 12:00am March 22, 2025 8:58am escitalopram 5 mg oral tablet (9 sources) Serotonin Reuptake Inhibitor Start: 04-19-2019 End: 11-07-2024 take 1 tablet by mouth once daily escitalopram oxalate (LEXAPRO) 5 mg tablet Take 5 mg by mouth once daily. 04/19/2019 11/07/2024 Discontinued (Course of therapy completed) lamoTRIgine 150 mg oral tablet (20 sources) Mood Stabilizer, Anti-epileptic Agent Start: 12-21-2019 take 2 tablets by mouth once daily lamoTRIgine (LAMICTAL) 150 mg tablet Indications: Bipolar 2 disorder (HCC) TAKE 2 TABLETS BY MOUTH EVERY DAY 60 tablet 12/21/2019 Active Start: 06-20-2019 End: 07-25-2024 take 1 tablet by mouth twice daily Lamotrigine (Lamictal) 150 mg tablet Discontinued 150 mg PO TWICE A DAY 60 June 12, 2020 7:46pm July 02, 2021 3:09pm take 1 tablet by lacey twice daily LaMICtal 150 MG Oral Tablet TAKE 1 TABLET TWICE DAILY. Refills: 0 DO Active Comment on above: TAKE 2 TABLETS BY [facility] EVERY DAY 1 ml medroxyPROGESTERone acetate 150 mg/ml injection (3 sources) Progestin Depo-Provera 150 MG/ML Intramuscular Suspension Refills: 0 DO Active meloxicam 7.5 mg oral tablet (3 sources) Nonsteroidal Anti-inflammatory Drug Start: End: take 1 tablet by mouth once daily Meloxicam 7.5 mg tablet Discontinued 7.5 mg PO daily 7 February 15, 2025 12:00am March 22, 2025 8:58am Tiotropium-Olodaterol (7 sources) Anticholinergic, beta2-Adrenergic Agonist Start: End: Tiotropium-Olodatero l (Stiolto Respimat) 2.5-2.5 mcg/actuation mist Discontinued 2 NMA INHALATION daily 4 January 13, 2025 12:00am February 15, 2025 3:52pm Start: 01-13-2025 End: 02-15-2025 Tiotropium-Olodaterol (Stiol to Respimat) 2.5-2.5 mcg/actuation mist Discontinued 2 NMA INHALATION daily January 13, 2025 12:00am February 15, 2025 3:52pm Start: 01-13-2025 Tiotropium-Olo daterol (Stiolto Respimat) 2.5-2.5 mcg/actuation mist Active 2 NMA INHALATION daily January 13, 2025 12:00am oseltamivir 75 mg oral capsule (7 sources) Neuraminidase Inhibitor Start: 08-25-2024 End: 08-30-2024 take 1 capsule by mouth twice daily Oseltamivir 75 mg capsule Discontinued 75 mg PO TWICE A DAY 10 5 0 August 25, 2024 1:00am August 29, 2024 1:00am August 30, 2024 1:08am oxyCODONE hydrochloride 5 mg oral tablet (3 sources) Opioid Agonist Start: 04-19-2019 take 1 tablet by mouth every six hours as needed for pain oxyCODONE HCl - 5 MG Oral Tablet TAKE 1 TABLET EVERY 6 HOURS NEEDED FOR SEVERE PAIN. Quantity: 20 Refills: 0 Debby Dumont DO Start : 19-Apr-2019 Active sulfamethoxazole 800 mg / trimethoprim 160 mg oral tablet (15 sources) Dihydrofolate Reductase Inhibitor Antibacterial, Sulfonamide Antimicrobial Start: 09-17-2023 End: 09-27-2023 Sulfamethoxazole- Trimethoprim 800-160 mg tablet Discontinued 1 {tbl} PO TWICE A DAY 20 10 September 17, 2023 1:00am September 26, 2023 1:00am September 27, 2023 1:04am hematuria Start: 04-30-2023 End: 05-10-2023 Sulfamethoxazole-Trimethopri m 800-160 mg tablet Discontinued 1 {tbl} PO TWICE A DAY 20 April 30, 2023 12:00am May 09, 2023 12:00am May 10, 2023 12:03am hematuria Start: 04-30-2023 End: 05-10-2023 take 1 tablet by mouth twice daily Sulfamethoxazole-Trimethoprim Discontinu ed 1 TABLET PO TWICE A DAY 20 April 29, 2023 11:00pm May 09, 2023 11:03pm Umeclidinium-Vilanterol (7 sources) Anticholinergic, beta2-Adrenergic Agonist Start: 01-11-2025 End: 01-13-2025 Umeclidinium-Vilanterol (Anoro Ellipta) 62.5-25 mcg/actuation blister with device Discontinued 1 NMA INHALATION Q24H 60 1 January 11, 2025 12:00am January 13, 2025 4:29pm Start: 01-11-2025 End: 01-13-2025 Umeclidinium-Vilanterol (Ano ro Ellipta) 62.5-25 mcg/actuation blister with device Discontinued 1 NMA INHALATION Q24H 60 January 11, 2025 12:00am January 13, 2025 4:29pm zolpidem tartrate 5 mg oral tablet (12 sources) gamma-Aminobutyric Acid-ergic Agonist Start: 10-01-2021 End: 05-17-2024 take 1 tablet by mouth at bedtime as needed zolpidem (AMBIEN) 5 mg tablet Indications: Other insomnia Take 1 tablet by mouth at bedtime as needed (insomnia) for up to 10 days. for insomnia. 10 tablet 12/06/2021 05/17/2024 Discontinued (Course of therapy completed) Comment on above: Take 1 tablet by mouth at bedtime as nee ded for up to 10 days. Take 1 tablet by lacey th at bedtime as needed (insomnia) for up to 10 days. for insomnia. Problems Active Problems Problem Classification Problem Date Documented Da te Episodic/Chronic Abdominal pain (19 sources) Right upper quadrant pain; Translations: [Right upper quadrant pain] Onset: 03-16-2024 07-30-2022 Episodic Anxiety disorders (3 sources) Anxiety; Translations: [Anxiety] Chronic Attention-deficit, conduct, and disruptive behavior disorders (17 sources) Adult attention deficit hyperactivity disorder ; Translations: [Attention-deficit hyperactivity disorder, unspecified type] Onset: 06-20-2014 11-11-2017 Chronic Biliary tract disease (17 sources) Gallstone; Translations: [Calculus of gallbladder without cholecystitis without obstruction] Onset: 05-18-2024 Resolved: 06-30-2024 05-17-2024 Episodic Calculus of urinary tract (7 sources) Kidney stone; Translations: [Calculus of kidney] 03-03-2024 Episodic Cardiac dysrhythmias (20 sources) Palpitations; Translations: [Palpitations] Onset: 11-11-2017 07-16-2017 Episodic Chronic obstructive pulmonary disease and bronchiectasis (9 sources) Bronchitis; Translations: [Bronchitis, not specified as acute or chronic] 06-20-2019 Episodic Conditions associated with dizziness or vertigo (20 sources) Dizziness; Translations: [Dizziness and giddiness] Onset: 03-29-2025 Resolved: 08-12-2021 08-12-2021 Episodic Deficiency and other anemia (9 sources) Anemia; Translations: [Anemia, unspecified] 08-19-2023 Episodic Fever of unknown origin (9 sources) Fever; Translations: [Fever, unspecified] 06-20-2019 Episodic Influenza (7 sources) Influenza; Translations: [Influenza due to unidentified influenza virus with other respiratory manifestations] 08-25-2024 Episodic Intestinal obstruction without hernia (16 sources) Unspecified intestinal obstruction, unspecified as to partial versus complete obstruction; Translations: [Gallstone ileus] Onset: 07-27-2024 07-26-2024 Episodic Malaise and fatigue (16 sources) Fatigue; Translations: [Other fatigue] Onset: 06-10-2024 08-19-2023 Episodic Mood disorders (20 sources) Bipolar disorder; Translations: [Bipolar disorder, most recent episode depression] Onset: 06-20-2014 11-11-2017 Chronic Nausea and vomiting (8 sources) Nausea with vomiting, unspecified; Translations: [Nausea and vomiting] Onset: 03-16-2024 03-06-2024 Episodic Nonspecific chest pain (10 sources) Chest pain; Translations: [Chest pain, unspecified] Onset: 03-22-2025 Episodic Nutritional deficiencies (17 sources) Vitamin D deficiency; Translations: [Vitamin D deficiency, unspecified] Onset: 11-11-2017 11-11-2017 Chronic Osteoarthritis (17 sources) Osteoarthritis of left hip joint; Translations: [Unilateral primary osteoarthritis, left hip] Onset: 06-20-2014 11-11-2017 Chronic Other circulatory disease (6 sources) Elevated blood-pressure reading without diagnosis of hypertension; Translations: [Elevated blood-pressure reading, without diagnosis of hypertension] 03-22-2025 Episodic Other circulatory disease (2 sources) Elevated blood-pressure reading, without diagnosis of hypertension; Translations: [Elevated blood-pressure reading, without diagnosis of hypertension] Onset: 05-14-2025 Episodic Other connective tissue disease (1 source) Tendinitis of shoulder region; Translations: [Other enthesopathies, not elsewhere classified] Episodic Other connective tissue disease (8 sources) Swelling of finger ; Translations: [Other specified soft tissue disorders] 04-30-2023 Episodic Other connective tissue disease (8 sources) Tendonitis of left shoulder; Translations: [Other enthesopathies, not elsewhere classified] 02-19-2021 Episodic Other ear and sense organ disorders (1 source) Otalgia, right ear; Translations: [Otalgia, unspecified] 11-07-2024 Episodic Other gastrointestinal disorders (9 sources) Abdominal bloating; Translations: [Abdominal distension (gaseous)] 07-30-2022 Episodic Other lower respiratory disease (20 sources) Dyspnea; Translations: [Shortness of breath] 05-28-2020 Episodic Other lower respiratory disease (9 sources) Wheezing; Translations: [Wheezing] 06-20-2019 Episodic Other lower respiratory disease (7 sources) Shortness of breath Episodic Other lower respiratory disease (6 sources) Dyspnea on exertion; Translations: [Other forms of dyspnea] 03-22-2025 Episodic Other lower respiratory disease (2 sources) Other forms of dyspnea; Translations: [Other forms of dyspnea] Onset: 03-22-2025 Episodic Other lower respiratory disease (2 sources) Shortness of breath; Translations: [Shortness of breath] Onset: 03-02-2025 Episodic Other nervous system disorders (9 sources) Numbness of upper limb; Translations: [Anesthesia of skin] 09-11-2020 Episodic Other non-traumatic joint disorders (1 source) Chronic pain of right upper limb; Translations: [Pain in right shoulder] Episodic Other non-traumatic joint disorders (2 sources) Shoulder pain; Translations: [Pain in left shoulder] Episodic Other non-traumatic joint disorders (8 sources) Pain in left shoulder; Translations: [Left shoulder pain] 09-11-2020 Episodic Other non-traumatic joint disorders (8 sources) Pain in right shoulder; Translations: [Right shoulder pain] 02-19-2021 Episodic Other nutritional; endocrine; and metabolic disorders (3 sources) Obesity; Translations: [Obesity] Chronic Other nutritional; endocrine; and metabolic disorders (3 sources) Body mass index 30+ - obesity; Translations: [BMI 34.0-34.9,adult] Chronic Other nutritional; endocrine; and metabolic disorders (18 sources) Obese class I; Translations: [Obesity, unspecified] Onset: 01-13-2018 01-13-2018 Chronic Other skin disorders (7 sources) Sebaceous cyst of skin; Translations: [Sebaceous cyst] 09-17-2023 Episodic Other skin disorders (7 sources) Skin lesion; Translations: [Disorder of the skin and subcutaneous tissue, unspecified] 09-18-2023 Episodic Other upper respiratory infections (9 sources) Maxillary sinusitis; Translations: [Chronic maxillary sinusitis] 10-21-2019 Chronic Other upper respiratory infections (1 source) Sore throat symptom; Translations: [Acute pharyngitis, unspecified] 11-07-2024 Episodic Otitis media and related conditions (8 sources) Acute right otitis media; Translations: [Otitis media, unspecified, right ear] 11-07-2024 Episodic Residual codes; unclassified (2 sources) Pain; Translations: [Pain, unspecified] Episodic Skin and subcutaneous tissue infections (8 sources) Infection of nail bed of finger; Translations: [Cellulitis of unspecified finger] 04-30-2023 Episodic Spondylosis; intervertebral disc disorders; other back problems (17 sources) Lumbar spondylosis; Translations: [Spondylosis without myelopathy or radiculopathy, lumbar region] Onset: 11-11-2017 11-11-2017 Chronic Spondylosis; intervertebral disc disorders; other back problems (20 sources) Pain in the coccyx; Translations: [Acute low back pain] Onset: 06-20-2014 Resolved: 08-12-2021 08-12-2021 Episodic Substance-related disorders (20 sources) Nicotine dependence with current use; Translations: [Nicotine dependence, unspecified, uncomplicated] Onset: 03-22-2025 08-12-2021 Chronic Comment on above: 24 pack year history , quit 2014 Unclassified (4 sources) increasing shortness of breath Unclassified (4 sources) R06.02 - Shortness of breath,R07.9 - Chest pain, unspecified Past or Other Problems Problem Classification Problem Date Documented Date Episodic/Chronic Essential hypertension (9 sources) Essential hypertension; Translations: [Essential (primary) hypertension] Resolved: 01-13-2018 01-13-2018 Chronic Other connective tissue disease (15 sources) Non-traumatic partial tear of left rotator cuff; Translations: [Incomplete rotator cuff tear or rupture of left shoulder, not specified as traumatic] Onset: 08-12-2021 Resolved: 07-01-2022 09-20-2021 Episodic Other connective tissue disease (19 sources) Impingement syndrome of right shoulder region; Translations: [Impingement syndrome of right shoulder] Onset: 09-18-2021 09-18-2021 Episodic Other connective tissue disease (15 sources) Abnormal posture; Translations: [Abnormal posture] Onset: 09-19-2021 Resolved: 07-01-2022 09-19-2021 Episodic Other connective tissue disease (13 sources) Shoulder girdle weakness; Translations: [Other symptoms and signs involving the musculoskeletal system] Onset: 09-20-2021 Resolved: 02-14-2022 09-20-2021 Episodic Other connective tissue disease (11 sources) Impingement syndrome of shoulder region; Translations: [Impingement syndrome of unspecified shoulder] Onset: 08-12-2021 Resolved: 08-27-2021 Episodic Other fractures (3 sources) Fracture of rib; Translations: [Fracture of rib of right side] Episodic Other injuries and conditions due to external causes (1 source) Unspecified injury of thorax, initial encounter; Translations: [Rib injury] Onset: 06-13-2024 Episodic Other non-traumatic joint disorders (15 sources) Shoulder stiff; Translations: [Stiffness of left shoulder, not elsewhere classified] Onset: 09-20-2021 Resolved: 07-01-2022 09-20-2021 Episodic Residual codes; unclassified (3 sources) H/O: Disorder; Translations: [History of attention deficit disorder] Episodic Residual codes; unclassified (3 sources) At risk of disease; Translations: [At risk for bone density loss] Screening and history of mental health and substance abuse codes (1 source) Personal history of nicotine dependence; Translations: [Personal history of nicotine dependence] Onset: 02-08-2025 Episodic Sprains and strains (13 sources) Strain of biceps brachii muscle and/or tendon; Translations: [Strain of muscle, fascia and tendon of other parts of biceps, right arm, subsequent encounter] Onset: 01-15-2022 Resolved: 02-14-2022 Episodic Unclassified (6 sources) Patient encounter status; Translations: [Contraceptive management] Unclassified (9 sources) vaginal 05-05-2022 Results Test Name Value Interpretation Reference Range Facility Echocardiogram study reportO rdered By: Zeb Bernal on 05-01-2025 Study report [facility] [place] [address] Echo Complete 04/26/25 1302 MR#: [id number] Acct: [id number] Name: RORO BAZAN Rep #:[id number] : 1970 55 From: Zeb Bernal MD Attending Dr: Dr. Zeb Bernal MD Status: REG CLI Ordering Dr: Zeb Bernal MD Date: Location: [place] Sex: F C Admitted: Reason For Study Reason For Study: DYSPNEA/SOB Procedure This was a 2D Doppler, Color Flow transthoracic echocardiogram. Exam performed in department. Left Ventricle Normal size and thickness. The LV ejection fraction is 65 %. Normal diastololic function. Right Ventricle Normal right ventricle. Atria The left and right atria are normal. Mitral Valve Mild (1+) posteriorly directed mitral valve insufficiency. Tricuspid Valve Trivial tricuspid valve insufficiency. Unable to estimate RV systolic pressure due to insufficient tricuspid regurgitant envelope. Aortic Valve Trisinus/trileaflet aortic valve. Pulmonic Valve The pulmonic valve is not well visualized. Trivial pulmonic valve insufficiency. Great Vessels Normal sized aortic root. Pericardium/Pleural No pericardial effusion. MMode/2D Measurements & Calculations LVIDd: 4.2 cm IVSd: 1.0 cm Ao root diam: 3.2 cm LVIDs: 3.0 cm LVPWd: 0.98 cm LA dimension: 3.5 cm RVDd: 2.7 cm FS: 29.6 % LAV(MOD-bp): 21.4 ml LVAd ap4: 25.7 cm2 SV(MOD-sp4): 44.6 ml LAV(MOD-bp) Indexed: 10.8 ml/m2 LVLd ap4: 7.4 cm SI(MOD-sp4): 22.5 ml/m2 LAV(MOD-sp2): 21.9 ml EDV(MOD-sp4): 73.1 ml LAV(MOD-sp4): 20.9 ml EDV(sp4-el): 76.5 ml LVAs ap4: 14.5 cm2 LVLs ap4: 6.4 cm ESV(MOD-sp4): 28.5 ml ESV(sp4-el): 27.7 ml EF(MOD-sp4): 61.0 % EF(sp4-el): 63.8 % SV(sp4-el): 48.8 ml LA A4 area: 10.9 cm2 LA dimension(2D): 3.5 cm RA A4 area: 11.2 cm2 TAPSE: 1.9 cm Time Measurements MV dec time: 0.18 sec Doppler Measurements & Calculations MV E max steve: 71.2 cm/sec Lat Peak E' Steve: 9.3 cm/sec Med Peak E' Steve: 8.4 cm/sec MV A max steve: 75.5 cm/sec E/E' lat: 7.6 E/E' med: 8.5 MV E/A: 0.94 Ao V2 max: 118.7 cm/sec LV V1 max: 98.1 cm/sec PA V2 max: 83.2 cm/sec Ao max P.6 mmHg LV V1 max P.8 mmHg TR max steve: 200.8 cm/sec TR max P.1 mmHg ECHO/Echo Complete Interpretation Summary The LV ejection fraction is 65 %. Mild (1+) posteriorly directed mitral valve insufficiency. Ordering Physician: Zeb Bernal Referring Physician: YOLIS DALTON Performed By: Mattie Hubbard RDCS 05/01/25 1209 Date _ Zeb Bernal MD CC: ANIMAL CARE SUPERVISOR-C Yolis Dalton; Dr. Zeb Bernal MD ~ Date Dictated: 04/26/25 1302 Date Transcribed: 05/01/25 1209 Phlebotomy Manager: Signed [facility] Work Phone: Coronary Angiography CTon Coronary Angiography CT [facility] Imaging Services [address] [place] [address] 04/29/25 1150 MR#: [id number] Acct: [id number] Name: RORO BAZAN Rep #: [id number] : 1970 55 From: Reagan Brock MD PCP: JRODI Stauffer Status:REG CLI Y Location: CT CCTA w/Cont Coronary Arteries Date of Study:: 04/26/25 Elevated blood pressure Coronary Calcium Scoring: High-resolution Computed Tomographic imaging of the chest was performed on [04/26/2025], with particular attention paid to the coronary arteries. Intravenous contrast agent was administered per protocol and images reconstructed and displayed. LEFT MAIN CORONARY ARTERY: Arises from the left coronary cusp and bifurcates the left anterior descending artery and left circumflex artery. No significant stenosis or plaquing is noted [] LEFT ANTERIOR DESCENDING CORONARY ARTERY: Arises from the left main coronary artery and courses towards the apex of the ventricle with no significant atherosclerotic plaquing or stenosis noted. [] LEFT CIRCUMFLEX CORONARY ARTERY:No atherosclerotic plaque noted Right coronary artery; dominant vessel with no significant atherosclerotic plaquing noted. [] [] CORONARY CALCIUM SCORE:0 [] Findings Coronary Artery Left Main (LM): 0 Left Anterior Descending (LAD): 0 Left Circumflex (LCX): 0 Right Coronary Artery (RCA): 0 Total Agatston Score: 0 Percentile Rankin% Calcium Scoring Interpretation: Different methods to categorize the overall amount of coronary plaque. Overall amount CAC SIS Visual of coronary plaque P1 Mild -100 <2 1-2 vessels with mild amount of plaque P2 Moderate 101-300 3-4 1-2 vessels with moderate amount, 3 vessels with mild amount of plaque P3 Severe 301-999 5-7 3 vessels with moderate amount, 1 vessel with severe amount of plaque P4 Extensive >1000 >8 2-3 vessels with severe amount of plaque Conclusion: No atherosclerotic plaque 04/29/25 1205 Date Reagan Brock MD Cosigner Signature (if applicable): Date CC: ANIMAL CARE SUPERVISOR-C Yolis Dalton; Dr. Zeb Bernal MD; Dr. Reagan Brock MD Signed [facility] Carotid Duplex Ultrasoundon 04-26-2025 Carotid Duplex Ultrasound [facility] Cardiovascular Services [address] [place] [address] Carotid Duplex Ultrasound 04/26/25 1248 MR#: [id number] Acct: [id number] Name: RORO BAZAN Rep #: [id number] : 1970 55 From: Fercho Anderson MD Attending Dr: Dr. Zeb Bernal MD Status: REG CLI Ordering Dr: Zeb Bernal MD Date: 04/26/25 Location: CT Sex: F C Admitted: Reason For Study Reason For Study: Dizziness Rt. Velocities/BP Lt. Velocities/BP Prox CCA 98.1/31.1 cm/sec. Prox CCA 59.8/22 cm/sec. Mid CCA 85/27.8 cm/sec. Mid CCA 87.2/32.4 cm/sec. Dist CCA 72.9/27.8 cm/sec. Dist CCA 66.4/23 cm/sec. Prox ICA 60.8/22.3 cm/sec. Prox ICA 63.6/23 cm/sec. Mid ICA 71.8/32.2 cm/sec. Mid ICA 70.2/35.2 cm/sec. Dist ICA 73.5/13.5 cm/sec. Dist ICA 70.2/30.5 cm/sec. Rt. ICA/CCA = 0.86. Lt. ICA/CCA = 0.81. Prox ECA 79.5/23.4 cm/sec. Prox ECA 71.1/20.1 cm/sec. Rt. Vert. 45.6/21.1 cm/sec. Lt. Vert. 57/26.7 cm/sec. Right Extracranial There is intimal thickening but no significant atherosclerotic plaque noted in the right common carotid artery. There is homogeneous, smooth atherosclerotic plaque noted in the right internal carotid artery. There is intimal thickening but no significant atherosclerotic plaque noted in the right external carotid artery. Antegrade flow is noted in the right vertebral artery. Left Extracranial There is intimal thickening but no significant atherosclerotic plaque noted in the left common carotid artery. There is intimal thickening but no significant atherosclerotic plaque noted in the left internal carotid artery. There is intimal thickening but no significant atherosclerotic plaque noted in the left external carotid artery. Antegrade flow is noted in the left vertebral artery. Procedure Carotid Duplex 80572. This is a Carotid Duplex examination using B-mode, color flow and specral Doppler. Exam performed in department. VL/Carotid Duplex Ultrasound Interpretation Summary Mild (<50%) stenosis right extracranial internal carotid. Normal left extracranial internal carotid. Patent and antegrade vertebrals bilaterally. Ordering Physician: Zeb Bernal Referring Physician: Yolis Dalton Performed By: Cristine Velasco, T 04/26/25 1556 Date Fercho Anderson MD CC: JORDI Dalton; Dr. Zeb Bernal MD Date Dictated: 04/26/25 1248 Date Transcribed: 04/26/251555 Phlebotomy Manager: Signed [facility] Duplex ultrasound of carotid artery reportOrdered By: Fercho Anderson on 04-26-2025 Study report [facility] Cardiovascular Services [address] [facility] [place] [address] Carotid Duplex Ultrasound 04/26/25 1248 MR#: [id number] Acct: [id number] Name: RORO BAZAN Rep #:[id number] : 1970 55 From: Fercho Boucher Attending Dr: Dr. Zeb Bernal MD Status: REG CLI Ordering Dr: Zeb Bernal MD Date: Location: CT Sex: F C Admitted: Reason For Study Reason For Study: Dizziness Rt. Velocities/BP Lt. Velocities/BP Prox CCA 98.1/31.1 cm/sec. Prox CCA 59.8/22 cm/sec. Mid CCA 85/27.8 cm/sec. Mid CCA 87.2/32.4 cm/sec. Dist CCA 72.9/27.8 cm/sec. Dist CCA 66.4/23 cm/sec. Prox ICA 60.8/22.3 cm/sec. Prox ICA 63.6/23 cm/sec. Mid ICA 71.8/32.2 cm/sec. Mid ICA 70.2/35.2 cm/sec. Dist ICA 73.5/13.5 cm/sec. Dist ICA 70.2/30.5 cm/sec. Rt. ICA/CCA = 0.86. Lt. ICA/CCA = 0.81. Prox ECA 79.5/23.4 cm/sec. Prox ECA 71.1/20.1 cm/sec. Rt. Vert. 45.6/21.1 cm/sec. Lt. Vert. 57/26.7 cm/sec. Right Extracranial There is intimal thickening but no significant atherosclerotic plaque noted in the right common carotid artery. There is homogeneous, smooth atherosclerotic plaque noted in the right internal carotid artery. There is intimal thickening but no significant atherosclerotic plaque noted in the right external carotid artery. Antegrade flow is noted in the right vertebral artery. Left Extracranial There is intimal thickening but no significant atherosclerotic plaque noted in the left common carotid artery. There is intimal thickening but no significant atherosclerotic plaque noted in the left internal carotid artery. There is intimal thickening but no significant atherosclerotic plaque noted in the left external carotid artery. Antegrade flow is noted in the left vertebral artery. Procedure Carotid Duplex 29084. This is a Carotid Duplex examination using B-mode, color flow and specral Doppler. Exam performed in department. VL/Carotid Duplex Ultrasound Interpretation Summary Mild (<50%) stenosis right extracranial internal carotid. Normal left extracranial internal carotid. Patent and antegrade vertebrals bilaterally. Ordering Physician: Zeb Bernal Referring Physician: Yolis Dalton Performed By: Cristine Velasco RVTalat 04/26/25 1556 Date _ Fercho Anderson MD CC: ANIMAL CARE SUPERVISOR-C Yolis Dalton; Dr. Zeb Bernal MD ~ Date Dictated: 04/26/25 1248 Date Transcribed: 04/26/25 1556 Phlebotomy Manager: Signed [facility] Work Phone: Echo Completeon 04-26-2025 Echo Complete [facility] Cardiovascular Services [address] [place] [address] Echo Complete 04/26/25 1302 MR#: [id number] Acct: [id number] Name: RORO BAZAN Rep #: [id number] : 1970 55 From: Zeb Bernal MD Attending Dr: Dr. Zeb Bernal MD Status: REG CLI Ordering Dr: Zeb Bernal MD Date: 04/26/25 Location: CT Sex: F C Admitted: Reason For Study Reason For Study: DYSPNEA/SOB Procedure This was a 2D Doppler, Color Flow transthoracic echocardiogram. Exam performed in department. Left Ventricle Normal size and thickness. The LV ejection fraction is 65 %. Normal diastololic function. Right Ventricle Normal right ventricle. Atria The left and right atria are normal. Mitral Valve Mild (1+) posteriorly directed mitral valve insufficiency. Tricuspid Valve Trivial tricuspid valve insufficiency. Unable to estimate RV systolic pressure due to insufficient tricuspid regurgitant envelope. Aortic Valve Trisinus/trileaflet aortic valve. Pulmonic Valve The pulmonic valve is not well visualized. Trivial pulmonic valve insufficiency. Great Vessels Normal sized aortic root. Pericardium/Pleural No pericardial effusion. MMode/2D Measurements Calculations LVIDd: 4.2 cm IVSd: 1.0 cm Ao root diam: 3.2 cm LVIDs: 3.0 cm LVPWd: 0.98 cm LA dimension: 3.5 cm RVDd: 2.7 cm FS: 29.6 % LAV(MOD-bp): 21.4 ml LVAd ap4: 25.7 cm2 SV(MOD-sp4): 44.6 ml LAV(MOD-bp) Indexed: 10.8 ml/m2 LVLd ap4: 7.4 cm SI(MOD-sp4): 22.5 ml/m2 LAV(MOD-sp2): 21.9 ml EDV(MOD-sp4): 73.1 ml LAV(MOD-sp4): 20.9 ml EDV(sp4-el): 76.5 ml LVAs ap4: 14.5 cm2 LVLs ap4: 6.4 cm ESV(MOD-sp4): 28.5 ml ESV(sp4-el): 27.7 ml EF(MOD-sp4): 61.0 % EF(sp4-el): 63.8 % SV(sp4-el): 48.8 ml LA A4 area: 10.9 cm2 LA dimension(2D): 3.5 cm RA A4 area: 11.2 cm2 TAPSE: 1.9 cm Time Measurements MV dec time: 0.18 sec Doppler Measurements Calculations MV E max steve: 71.2 cm/sec Lat Peak E' Steve: 9.3 cm/sec Med Peak E' Steve: 8.4 cm/sec MV A max steve: 75.5 cm/sec E/E' lat: 7.6 E/E' med: 8.5 MV E/A: 0.94 Ao V2 max: 118.7 cm/sec LV V1 max: 98.1 cm/sec PA V2 max: 83.2 cm/sec Ao max P.6 mmHg LV V1 max P.8 mmHg TR max steve: 200.8 cm/sec TR max P.1 mmHg ECHO/Echo Complete Interpretation Summary The LV ejection fraction is 65 %. Mild (1+) posteriorly directed mitral valve insufficiency. Ordering Physician: Zeb Bernal Referring Physician: YOLIS DALTON Performed By: Mattie Hubbard RDCS 05/01/25 1209 Date Zeb Bernal MD CC: ANIMAL CARE SUPERVISOR-C Yolis Dalton; Dr. Zeb Bernal MD Date Dictated: 04/26/25 1302 Date Transcribed: 05/01/25 1209 Phlebotomy Manager: Signed [facility] Limited Chest CT Cardiac Onl yon 04-26-[address] Cardiac Only [facility] Imaging Services [address] [place] [address] Cardiac Only MR#: [id number] Acct: [id number] Name: RORO BAZAN Rep #: [id number] : 1970 F 55 From: Maurizio calle MD PCP: JORDI Stauffer Status: [facility] CL Study: Limited Chest CT Cardiac Only Date of Exam: Exam# [id number] Ordering Dr: Zeb Bernal MD PROCEDURE: LIMITED CHEST CT CARDIAC ONLY 04/26/2025 REASON FOR EXAM: ELEVATED BLOOD PRESSURE READING WITHOUT DIAGNOSIS OF HYPERTENSION TECHNIQUE: LIMITED CHEST CT CARDIAC ONLY CONTRAST: Isovue 370. 80 mL injected intravenously One or more dose reduction techniques were used (e.g., Automated exposure control, adjustment of the mA and/or kV according to patient size, use of iterative reconstruction technique). RADIATION DOSE SUMMARY: CTDlvol: 45 mGy DLP: 2344.91 mGycm COMPARISON: None FINDINGS: Small benign-appearing mediastinal lymph nodes. No significant coronary artery calcification is seen. The heart is not enlarged. The lungs are clear. CT/Limited Chest CT Cardiac Only IMPRESSION: No coronary artery calcification is seen. Reading Location: [id number] CC: JORDI Dalton; Dr. Zeb Bernal MD Phlebotomy Manager: Signed [facility] Anion gap in Serum or Plasma Ordered By: Zeb Bernal on 03-22-2025 Anion gap [Moles/Vol] 8 mmol/L 5-15 [facility] BUN/creatinine ratioOrdered By: Zeb Bernal on 03-22-2025 Urea nitrogen/Creatinine [Mass ratio] 16.2 mg/mg 10- [facility] Bilirubin, totalOrdered By: Zeb Bernal on 03-22-2025 Bilirubin [Mass/Vol] 0.21 mg/dL 0.00-1.30 [facility] CBC-Complete Blood Cnt No Di ffon 03-22-2025 Erythrocyte distribution width (RBC) [Ratio] 12.9 % Normal 11.6-14.6 [facility] Comment on above: Performed By: #### L 500.4100, L501.9520, L500.4050, L100.0500 #### [facility] [address] [place], [address] Hematocrit (Bld) [Volume fraction] 43.0 % Normal 37-47 [facility] Comment on above: Performed By: #### L 500.4100, L501.9520, L500.4050, L100.0500 #### [facility] [address] [place], [address] Hemoglobin (Bld) [Mass/Vol] 14.0 g/dL Normal 12.0-15.0 [facility] Comment on above: Performed By: #### L 500.4100, L501.9520, L500.4050, L100.0500 #### [facility] [address] [place], [address] MCH (RBC) [Entitic mass] 28.7 pg Normal 27.0-32.0 [facility] Comment on above: Performed By: #### L 500.4100, L501.9520, L500.4050, L100.0500 #### [facility] [address] [place], [address] MCHC (RBC) [Mass/Vol] 32.6 g/dL Normal 32-36 [facility] Comment on above: Performed By: #### L 500.4100, L501.9520, L500.4050, L100.0500 #### [facility] [address] [place], [address] MCV (RBC) [Entitic vol] 88.3 fL Normal 81-99 [facility] Comment on above: Performed By: #### L 500.4100, L501.9520, L500.4050, L100.0500 #### [facility] [address] [place], [address] Platelet mean volume (Bld) [Entitic vol] 8.5 fL Normal 6.2-12.0 [facility] Comment on above: Performed By: #### L 500.4100, L501.9520, L500.4050, L100.0500 #### [facility] [address] [place], [address] Platelets (Bld) [#/Vol] 347 10*3/uL Normal 150-450 [facility] Comment on above: Performed By: #### L 500.4100, L501.9520, L500.4050, L100.0500 #### [facility] [address] [place], [address] RBC (Bld) [#/Vol] 4.87 10*6/uL Normal 4.2-5.4 [facility] Comment on above: Performed By: #### L 500.4100, L501.9520, L500.4050, L100.0500 #### [facility] [address] [place], [address] RDW SD 41.9 fl Normal 35.1-43.9 [facility] Comment on above: Performed By: #### L 500.4100, L501.9520, L500.4050, L100.0500 #### [facility] [address] [place], [address] WBC (Bld) [#/Vol] 5.9 10*3/uL Normal 4.4-11.0 [facility] Comment on above: Performed By: #### L 500.4100, L501.9520, L500.4050, L100.0500 #### [facility] [address] [place], [address] Calculated very low density lipoprotein (VLDL) cholesterol measurementOrdered By: Zeb Bernal on 03-22-2025 Calculated very low density lipoprotein (VLDL) cholesterol measurement 13 mg/dL 5-40 [facility] Carbon dioxide, total [Moles /volume] in Central venous bloodOrdered By: Zeb Bernal on 03-22-2025 CO2 [Moles/Vol] 27.6 mmol/L 21.0-32.0 [facility] Cardiology Visit Reporton Cardiology Visit Report [facility] [address] [place] [address] OFFICE VISIT Date of Service: 03/22/25 MR#: [id number] Acct: [id number] Name: RORO BAZAN Rep #: [id number] : 1970 Provider: Dr. Zeb Bernal MD Age/Sex: 55/F [place] [facility] [place]: Signed HPI HPI History of Present Illness Details: This lady has history of bipolar disorder. According to her, he has been having shortness of breath with exertion for about 2 years now. According to her, it has been worsening. Denies any associated chest tightness. No arm, neck or jaw discomfort. Denies orthopnea or PND. No ankle edema. Also complains of occasional dizziness where and she feels lightheaded. No syncope or presyncope. She has previously had a tilt table test done. It was reported as negative. Denies any palpitations. Per patient, she generally feels tired and fatigued. Per her, when she wakes up she feels exhausted. 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: No Accompanied by: Self Is patient in pain?: No Allergies No Known Allergies Allergy (Verified 03/22/25 08:57) Medications ???Medication ???Instructions ???Recorded ???Confirmed ???Type lamotrigine 150 mg tablet 150 mg PO BID #180 tabs 07/25/24 0 03/22/25 Rx (Lamictal) tramadol 100 mg tablet 100 mg PO BID PRN pain 30 days #60 11/09/24 03/22/25 Rx tabs Have you fallen in the past year?: Yes PFSH Medical History Dizziness and giddiness Chest pain Smoking greater than 20 pack years Thoracic back pain Fatigue Epigastric abdominal pain Left arm numbness Shortness of breath Gallbladder adhesions vaginal Left elbow fracture Tachycardia Bipolar 1 disorder Pneumonia Surgical History History of cholecystectomy Family History Father Myocardial infarction Hypertension Mother Breast cancer FH: cholecystectomy Brother FH: cholecystectomy Other CVA (cerebral vascular accident) Diabetes Heart disease Social History household members: spouse and children housing: house Electronic Cigarette Use: with nicotine alcohol intake: current alcohol intake frequency: holidays/special occasions only ROS Const Const: Positive for fatigue and weakness ENT ENT: Positive for dizziness; Negative for balance problems Cardio Chest Pain: No Palpitations: Yes Edema: Bilateral Muscle aches with walking: None Resp Respiratory: Positive for SOB with activity and SOB at rest; Negative for SOB orthopnea SOB lying down GI GI: Positive for heartburn; Negative nausea or vomiting Musc Musc: Negative for muscle weakness or balance problems Neuro Neuro: Positive for dizziness, lightheadedness, near syncope and weakness; Negative for syncope Endo Endo: Positive for fatigue Cardiology Exam Const Appearance: comfortable and no acute distress Nutritional Appearance: well nourished Neck Neck: no JVD Carotids: Negative bruit Chest Auscultation: Bilateral: Clear to Auscultation Cardio Rate: regular rate Rhythm: regular rhythm Heart sounds: S1 normal and S2 normal Neuro General: patient alert, patient awake and patient oriented x3 Extremities Lower Extremity Edema: None: Bilateral Supplemental Info Supplemental Information Labs: No Data to Display Diagnostics: No Data to Display Pulmonary: Pulmonary Exercise Test Past Visits: Cardiology Visit 03/22/25 Assessment and Plan Assessment and Plan (1) Dyspnea on exertion: Status: Chronic Plan: ECG shows poor R wave progression across the precordial leads. This could be because of body habitus and lead placement. However given her symptomatology, will check echocardiogram. Workup for ischemic heart disease is indicated. Patient is interested in having definitive testing done. Will check coronary CT angio. (2) Dizziness: Status: Chronic Plan: Check bilateral carotid Doppler. (3) Elevated blood pressure reading without diagnosis of hypertension: Status: Acute Plan: Diastolic blood pressure elevated. Patient will have her blood pressure checked at her PCPs office in 1 week. (4) Nicotine (more content not included)... Normal [facility] Chloride assayOrdered By: Carmelo Bernal on 03-22-2025 Chloride [Moles/Vol] 107 mmol/L 98-108 [facility] Comprehensive Metabolic Prof ilon 03-22-2025 Albumin [Mass/Vol] 4.3 g/dL Normal 3.5-5.0 [facility] Comment on above: Performed By: #### L 500.4100, L501.9520, L500.4050, L100.0500 #### [facility] [address] [place], [address] Albumin/Globulin [Mass ratio] 1.6 {ratio} Normal 0.9-2.4 [facility] Comment on above: Performed By: #### L 500.4100, L501.9520, L500.4050, L100.0500 #### [facility] [address] [place], [address] ALK PHOS 129 U/L High 35-104 [facility] Comment on above: Performed By: #### L 500.4100, L501.9520, L500.4050, L100.0500 #### [facility] [address] [place], [address] ALT [Catalytic activity/Vol] 8 U/L Normal <=34 [facility] Comment on above: Performed By: #### L 500.4100, L501.9520, L500.4050, L100.0500 #### [facility] [address] [place], [address] AST [Catalytic activity/Vol] 18 U/L Normal <=31 [facility] Comment on above: Performed By: #### L 500.4100, L501.9520, L500.4050, L100.0500 #### [facility] [address] [place], [address] Bilirubin [Mass/Vol] 0.21 mg/dL Normal 0.00-1.30 [facility] Comment on above: Performed By: #### L 500.4100, L501.9520, L500.4050, L100.0500 #### [facility] [address] [place], [address] BUN/CRE 16.2 RATIO Normal 10-20 [facility] Comment on above: Performed By: #### L 500.4100, L501.9520, L500.4050, L100.0500 #### [facility] [address] [place], [address] Calcium [Mass/Vol] 9.5 mg/dL Normal 7.6-11.0 [facility] Comment on above: Performed By: #### L 500.4100, L501.9520, L500.4050, L100.0500 #### [facility] [address] [place], [address] Chloride [Moles/Vol] 107 mmol/L Normal 98-108 [facility] Comment on above: Performed By: #### L 500.4100, L501.9520, L500.4050, L100.0500 #### [facility] [address] [place], [address] CO2 [Moles/Vol] 27.6 mmol/L Normal 21.0-32.0 [facility] Comment on above: Performed By: #### L 500.4100, L501.9520, L500.4050, L100.0500 #### [facility] [address] [place], [address] Creatinine [Mass/Vol] 0.99 mg/dL Normal 0.70-1.20 [facility] Comment on above: Performed By: #### L 500.4100, L501.9520, L500.4050, L100.0500 #### [facility] [address] [place], [address] GAP 8 Normal 5-15 [facility] Comment on above: Performed By: #### L 500.4100, L501.9520, L500.4050, L100.0500 #### [facility] [address] [place], [address] GFR/1.73 sq M.predicted among non-blacks MDRD (S/P/Bld) [Vol rate/Area] 68 mL/min/{1.73_m2} Normal >60 [facility] Comment on above: Result Comment: mL/m in/1.73m2 CKD-EPI Creatinine Equation (2020) Performed By: #### L 500.4100, L501.9520, L500.4050, L100.0500 #### [facility] [address] [place], [address] Globulin (S) [Mass/Vol] 2.7 g/dL Normal 2.2-4.2 [facility] Comment on above: Performed By: #### L 500.4100, L501.9520, L500.4050, L100.0500 #### [facility] [address] [place], [address] Glucose [Mass/Vol] 100 mg/dL High 70-99 [facility] Comment on above: Performed By: #### L 500.4100, L501.9520, L500.4050, L100.0500 #### [facility] [address] [place], [address] Potassium [Moles/Vol] 4.6 mmol/L Normal 3.3-5.1 [facility] Comment on above: Performed By: #### L 500.4100, L501.9520, L500.4050, L100.0500 #### [facility] [address] [place], [address] Sodium [Moles/Vol] 143 mmol/L Normal 133-145 [facility] Comment on above: Performed By: #### L 500.4100, L501.9520, L500.4050, L100.0500 #### [facility] [address] [place], [address] T PROT 7.0 g/dL Normal 5.9-8.4 [facility] Comment on above: Performed By: #### L 500.4100, L501.9520, L500.4050, L100.0500 #### [facility] [address] [place], [address] Urea nitrogen [Mass/Vol] 16 mg/dL Normal 4-19 [facility] Comment on above: Performed By: #### L 500.4100, L501.9520, L500.4050, L100.0500 #### [facility] [address] [place], [address] Erythrocyte distribution wid th ratioOrdered By: Zeb Bernal on 03-22-2025 Erythrocyte distribution width (RBC) [Ratio] 12.9 % 11.6-14.6 [facility] Erythrocyte distribution wid th standard deviationOrdered By: Zeb Bernal on 03-22-2025 Erythrocyte distribution width (RBC) [Ratio] 41.9 fl 35.1-43.9 [facility] Glomerular filtration rate ( GFR) estimation/1.73 sq m using serum, plasma, or whole bOrdered By: Zeb Bernal on 03-22-2025 GFR/1.73 sq M.predicted among non-blacks MDRD (S/P/Bld) [Vol rate/Area] 68 mL/min/{1.73_m2} >60 [facility] Comment on above: mL/min/1.73m2 CKD-EP I Creatinine Equation (2020) Hematocrit Auto (Bld) [Volum e fraction]Ordered By: Zeb Bernal on 03-22-2025 Hematocrit (Bld) [Volume fraction] 43.0 % 37-47 [facility] Hemoglobin measurementOrdere d By: Zeb Bernal on 03-22-2025 Hemoglobin (Bld) [Mass/Vol] 14.0 g/dL 12.0-15.0 [facility] LDL calc ser/plasOrdered By: Zeb Bernal on 03-22-2025 Cholesterol in LDL [Mass/Vol] 108 mg/dL [facility] Comment on above: Ysckpmocvy=635-583 m g/dL & Higher Ilce=205 mg/dL or greater Laboratory - Chemistry and C hemistry - challengeOrdered By: Zeb Bernal on 03-22-2025 AST [Catalytic activity/Vol] 18 U/L <32 [facility] Lipid Profileon 03-22-2025 CHOL:HDL 3.05 Normal [facility] Comment on above: Performed By: #### L 500.4100, L501.9520, L500.4050, L100.0500 #### [facility] [address] [place], [address] Cholesterol [Mass/Vol] 180 mg/dL Normal <=200 [facility] Comment on above: Result Comment: Chol esterol level, Desirable <200 mg/dL Borderline high cholesterol 200-239 mg/dL High cholesterol >=240 mg/dL Recommendations of the NCEP Adult Treatment Panel for the following risk-cutoff thresholds for the [place] population. Performed By: #### L 500.4100, L501.9520, L500.4050, L100.0500 #### [facility] [address] [place], [address] Cholesterol in HDL [Mass/Vol] 59 mg/dL Normal [facility] Comment on above: Result Comment: Bobbi onal Cholesterol Education Program (NCEP) guidelines: <40 mg/dL: Low HDL-cholesterol (major risk factor for CHD) >= 60 mg/dL: High HDL-cholesterol (negative risk factor for CHD) HDL-cholesterol is affected by a number of factors, e.g. smoking, exercise, hormones, sex and age. Performed By: #### L 500.4100, L501.9520, L500.4050, L100.0500 #### [facility] [address] [place], [address] Cholesterol in LDL [Mass/Vol] 108 mg/dL Normal [facility] Comment on above: Result Comment: Bord iphucl=645-722 mg/dL Higher Brdf=283 mg/dL or greater Performed By: #### L 500.4100, L501.9520, L500.4050, L100.0500 #### [facility] [address] [place], [address] Cholesterol in VLDL [Mass/Vol] 13 mg/dL Normal 5-40 [facility] Comment on above: Performed By: #### L 500.4100, L501.9520, L500.4050, L100.0500 #### [facility] [address] [place], [address] Triglyceride [Mass/Vol] 63 mg/dL Normal [facility] Comment on above: Result Comment: The drugs N-Acetylcysteine and Metamizole may falsely depress this assay. Normal range: <150 mg/dL Borderline High: 150-199 mg/dL High: 200-499 mg/dL Very High: >500 mg/dL Performed By: #### L 500.4100, L501.9520, L500.4050, L100.0500 #### [facility] [address] [place], [address] MCV (mean corpuscular volume ) determinationOrdered By: Zeb Bernal on 03-22-2025 MCV (RBC) [Entitic vol] 88.3 fL 81-99 [facility] Mean corpuscular hemoglobin (MCH) determinationOrdered By: Zeb Bernal on 03-22-2025 MCH (RBC) [Entitic mass] 28.7 pg 27.0-32.0 [facility] Mean corpuscular hemoglobin concentration (MCHC) determinationOrdered By: Zeb Bernal on 03-22-2025 MCHC (RBC) [Mass/Vol] 32.6 g/dL 32-36 [facility] Mean platelet volume determi nationOrdered By: Zeb Bernal on 03-22-2025 Platelet mean volume (Bld) [Entitic vol] 8.5 fL 6.2-12.0 [facility] Platelet countOrdered By: Carmelo Bernal on 03-22-2025 Platelets (Bld) [#/Vol] 347 10*3/uL 150-450 [facility] Potassium measurement (mass/ volume)Ordered By: Zeb Bernal on 03-22-2025 Potassium (Unsp spec) [Mass/Vol] 4.6 mmol/L 3.3-5.1 [facility] RBC Auto (Bld) [#/Vol]Ordere d By: Zeb Bernal on 03-22-2025 RBC (Bld) [#/Vol] 4.87 10*6/uL 4.2-5.4 [facility] Screening total cholesterol/ high density lipoprotein (HDL) cholesterol ratioOrdered By: Zeb Bernal on 03-22-2025 Cholesterol.total/Choles terol in HDL [Mass ratio] 3.05 {ratio} [facility] Serum creatinine measurement (mass/volume)Ordered By: Zeb Bernal on 03-22-2025 Creatinine [Mass/Vol] 0.99 mg/dL 0.70-1.20 [facility] Serum globulin measurementOr dered By: Zeb Bernal on 03-22-2025 Globulin (S) [Mass/Vol] 2.7 g/dL 2.2-4.2 [facility] Serum glucose measurement (m ass/volume)Ordered By: Zeb Bernal on 03-22-2025 Glucose [Mass/Vol] 100 mg/dL High 70-99 [facility] Serum or plasma alanine galvez otransferase (ALT) measurementOrdered By: Zeb Bernal on 03-22-2025 ALT [Catalytic activity/Vol] 8 U/L <35 [facility] Serum or plasma albumin kwabena urement (mass/volume)Ordered By: Zeb Bernal on 03-22-2025 Albumin [Mass/Vol] 4.3 g/dL 3.5-5.0 [facility] Serum or plasma albumin/glob ulin mass ratioOrdered By: Zeb Bernal on 03-22-2025 Albumin/Globulin [Mass ratio] 1.6 {ratio} 0.9-2.4 [facility] Serum or plasma alkaline mario sphatase measurementOrdered By: Zeb Bernal on 03-22-2025 ALP [Catalytic activity/Vol] 129 U/L High 35-104 [facility] Serum or plasma calcium kwabena urement (mass/volume)Ordered By: Zeb Bernal on 03-22-2025 Calcium [Mass/Vol] 9.5 mg/dL 7.6-11.0 [facility] Serum or plasma cholesterol in HDL measurement (mass/volume)Ordered By: Zeb Bernal on 03-22-2025 Cholesterol in HDL [Mass/Vol] 59 mg/dL >40 [facility] Comment on above: National Cholesterol Education Program (NCEP) guidelines:<40 mg/dL: Low HDL-cholesterol (major risk factor for CHD)>= 60 mg/dL: High HDL-cholesterol (negative risk factor for CHD)HDL-cholesterol is affected by a number of factors, e.g. smoking, exercise, hormones, sex and age. Serum or plasma cholesterol measurement (mass/volume)Ordered By: Zeb Bernal on 03-22-2025 Cholesterol [Mass/Vol] 180 mg/dL <201 [facility] Comment on above: Cholesterol level, D esirable <200 mg/dLBorderline high cholesterol 200-239 mg/dLHigh cholesterol >=240 mg/dLRecommendations of the NCEP Adult Treatment Panel for the following risk-cutoff thresholds for the [place] population. Serum or plasma urea nitroge n measurement (mass/volume)Ordered By: Zeb Bernal on 03-22-2025 Urea nitrogen [Mass/Vol] 16 mg/dL 4-19 [facility] Sodium levelOrdered By: Shyam Bernal on 03-22-2025 Sodium [Moles/Vol] 143 mmol/L 133-145 [facility] TSH DL <= 0.005 mIU/L QnOrde red By: Zeb Bernal on 03-22-2025 TSH Qn 1.750 uIU/mL 0.300-4.200 [facility] Thyroid Stim Hormone (TSH)on 03-22-2025 TSH 1.750 uIU/mL Normal 0.300-4.200 [facility] Comment on above: Performed By: #### L 500.8730, L501.8787, L500.4050, L100.0500 #### [facility] [address] [place], [place], [id number] Total proteinOrdered By: Telly Bernal on 03-22-2025 Protein [Mass/Vol] 7.0 g/dL 5.9-8.4 [facility] Triglycerides measurementOrd ered By: Zeb Bernal on 03-22-2025 Triglyceride [Mass/Vol] 63 mg/dL <199 [facility] Comment on above: The drugs N-Acetylcy steine and Metamizole may falsely depress this assay. Normal range: <150 mg/dLBorderline High: 150-199 mg/dLHigh: 200-499 mg/dLVery High: >500 mg/dL White blood cell (WBC) count Ordered By: Zeb Bernal on 03-22-2025 WBC (Bld) [#/Vol] 5.9 10*3/uL 4.4-11.0 [facility] Pulmonary Visit Reporton Pulmonary Visit Report [facility] [place] [address] [place] [address] OFFICE VISIT Date of Service: 02/15/25 MR#: [id number] Acct: [id number] Name: RORO BAZAN Rep #: [id number] : 1970 Provider: Diana Ng NP Age/Sex: 55/F [place] [facility] Status: Signed Assessment and Plan Assessment and Plan (1) Smoking greater than 20 pack years: Status: Acute Comment: 24 pack year history, quit 2014 Plan: Continue with complete smoking cessation. There is no pulmonary nodules identified on CT imaging. I have recommended repeating LDCT in 1 year, ordered accordingly. (2) Shortness of breath: Status: Acute Plan: Evidence of COPD and asthma are not seen on the recent PFT. The patient has not received benefit with using LABA/LAMA combination inhaled therapy, this can be discontinued at this time. Cardiovascular disease is in the differential for her shortness of breath along with chest pain. She does report family history of cardiovascular disease. An ECHO may need to be updated to evaluate her PA pressure but given her symptoms today I am recommending referral to cardiology at this time for further workup. I have recommended a nocturnal oximetry be performed and follow-up at this practice in 4 weeks to discuss results. The patient is agreeable to this plan. All questions were answered today. (3) Chest pain: Status: Acute Qualifiers: Chest pain type: unspecified Qualified Code(s): R07.9 - Chest pain, unspecified Plan: I have given the patient a trial of meloxicam for pleurisy although I am not fully convinced that this is present today. I have recommended referral to cardiology for further work up. Orders: Orders Low Dose CT Lung Screening 02/02/26 F17.210 - Nicotine dependence, cigarettes, uncomplicated OutPt Pulse Ox/Cont Overnight Today R06.02 - Shortness of breath Referrals Cardiology R06.02 - Shortness of breath, R07.9 - Chest pain, unspecified Medications: New meloxicam 7.5 mg PO QDAY 7 tabs 0RF Discontinued tiotropium-olodaterol 2.5-2.5 mcg/actuation (Stiolto Respimat) Discontinued Reason: Pt no longer taking 2 puffs inhalation QDAY 4 grams 2RF Plan Details Follow Up: 4 Weeks (LMR) HPI HPI Comments Details: Patient is a 54-year-old female who presents today for evaluation of abnormal CT. She is ambulatory and currently on room air. The patient had a CT of her abdomen completed in July 2020 for which showed atelectasis in the lingula and right middle lobe. She underwent a chest x-ray in September 2024 which showed no abnormalities. She reported to her general practitioner that she has had increasing shortness of breath in the last year. She has not completed pulmonary function studies. She reports that an ECHO was completed through [facility] approximately 5 years ago. She denies wheezing. When asked about shortness of breath she reports that she does breathe heavy . 2 flights of stairs will produce shortness of breath that will recover in a few minutes after stopping activity. Sometimes activities of daily living will produce shortness of breath. She denies chest tightness. She reports that a dry cough is present and that it is constant. Today she reports it as squeaky . She reports stabbing pain in the right side posterior back that does not radiate. Ibuprofen does not improve pain. This can occur through the night and awaken her. This occurs at random when she is exerting and also when she is seated. She does not feel rested on awakening. She reports that it is like I'm not getting enough oxygen because I yawn throughout the day. She reports that she has little energy and feels like its hard to complete her daily tasks. She does not snore or awaken herself at night gasping for air. She denies fever, chills, body aches. She has been given a trial of Stiolto inhaler and is using it compliantly but has not felt benefit in regards to her shortness of breath. She used to have bronchitis 3 times a year. She quit smoking in 2014. She started in 1990, she smoked a pack a day. She now uses e-cigarettes. She has not had pneumonia. She has no history of asthma. She has an as needed inhaler but does not use this routinely as she has not noticed significant benefit from it. I do not have a recent echocardiogram on file. There was an attempt to obtain this from the [facility] indicates that there is not one on file from that facility. Documentation reviewed with patient today includes: LDCT from February 03, 2025 shows no suspicious pulmonary nodules. Recommendation is to repeat screening in 12 months. PFT from February 07, 2025 shows grossly normal pulmonary function studies. 6-minute walk test from February 09, 2025 shows alexandra oxygen saturation at 94%. No significant exertional oxygen desaturation is present. Intake Vital Si (more content not included)... 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 Status: REG CLI Location: PSN Date: Sex: F C PSN 6 Minute Walk Test 6 Minute Walk Test 6 Minute Walk Test: 6 Minute Walk Test PSN:6-Minute Walk Test Start: 02/09/25 08:29 Freq: Status: Active Protocol: RESP.6MINW Document 02/09/25 08:15 AEH (Rec: 02/09/25 08:35 AEH [id number]) 6 Minute Walk Test Date Performed 02/09/25 Time Performed 08:15 Height 5 ft 5 in Weight: 198 lb Weight in Pounds 198.[address]: L.Rufener Assistive device None used: Pre-test Oxygen Delivery Room Air Method Pulse Ox (%) 97 Pulse Rate (60-100 93 beats/min) Dyspnea Tato Scale ( 0 0-10) Exertion Tato Scale 6 (6-20) 1st minute Oxygen Delivery Room Air Method Pulse Ox (%) 95 Pulse Rate (60-100 110 H beats/min) 2nd minute Oxygen Delivery Room Air Method Pulse Ox (%) 94 Pulse Rate (60-100 107 H beats/min) 3rd minute Oxygen Delivery Room Air Method Pulse Ox (%) 95 Pulse Rate (60-100 110 H beats/min) 4th minute Oxygen Delivery Room Air Method Pulse Ox (%) 95 Pulse Rate (60-100 113 H beats/min) 5th minute Oxygen Delivery Room Air Method Pulse Ox (%) 96 Pulse Rate (60-100 112 H beats/min) 6th minute Oxygen Delivery Room Air Method Pulse Ox (%) 97 Pulse Rate (60-100 117 H beats/min) Dyspnea Tato Scale ( 1 0-10) Exertion Tato Scale 12 (6-20) Post-test Oxygen Delivery Room Air Method Pulse Ox (%) 98 Pulse Rate (60-100 103 H beats/min) Full Laps Walked 21 Partial Lap, Number 29 of Tiles Walked Total Distance 1268 Walked (ft) Interpretation Interpretation: The patient ambulated 1268 feet over the course of 6 minutes beginning on room air without assistive devices. Pretesting oxygen saturation was noted to be 97% on room air. With ambulation, the alexandra oxygen saturation was 94%. There was no significant exertional oxygen desaturation. Recommendations Recommendations: There is no indication for the use of supplemental oxygen at this time. 02/10/25 121 Date Paul Coronel DO CC: Date Dictated: 02/10/25 121 Date Transcribed: 02/10/251209 Phlebotomy Manager: Dr. Paul Coronel DO Signed Normal [facility] Low Dose CT Lung Screeningon 02-03-[address] Lung Screening [facility] Imaging Services [address] [place] [id number] Lung Screening MR#: [id number] Acct: [id number] Name: RORO BAZAN Rep #: [id number] : 1970 F 55 From: Luis Armando Garnica MD PCP: JORDI Stauffer Status: [facility] CLI Study: Low Dose CT Lung Screening Date of Exam: 02/03 Exam# [id number] Ordering Dr: Diana Ng NP- C PROCEDURE: LOW DOSE CT LUNG SCREENING 02/03/2025 REASON FOR EXAM: CURRENTLY VAPING, QUIT SMOKING CIGARETTES IN 2014 TECHNIQUE: Low Dose CT Lung screening without contrast. Coronal and Sagittal reconstruction series were provided. One or more dose reduction techniques were used (e.g., Automated exposure control, adjustment of the mA and/or kV according to patient size, use of iterative reconstruction technique). REFERENCE LINK: [facility] Lung-RADS RADIATION DOSE SUMMARY: CTDlvol: 4.0 mGy DLP: 145 mGycm COMPARISON: CT abdomen and pelvis 07/27/2024 FINDINGS: PULMONARY NODULES: (Only nodules >3mm are reported) Pulmonary Nodules: No suspicious nodule. Lymph Nodes:Unremarkable Heart and Vasculature:Normal heart size. No coronary calcification. Lungs and Airways: Scarring or atelectasis in the lingula. Otherwise clear. Pleura:Unremarkable Upper Abdomen: Cholecystectomy clips. Bones:Unremarkable CT/Low Dose CT Lung Screening IMPRESSION: Lung-RADS Category: 1 NEGATIVE. RECOMMEND 12-MONTH SCREENING LDCT. Other Significant Findings: None. Reading Location: [id number] CC: OBDULIO-Renetta Dalton; Diana Ng NP Phlebotomy Manager: Signed Normal [facility] Pulmonary Visit Reporton Pulmonary Visit Report [facility] of [address] [place] [address] OFFICE VISIT Date of Service: 01/11/25 MR#: [id number] Acct: [id number] Name: RORO BAZAN Rep #: [id number] : 1970 Provider: Diana Ng NP Age/Sex: 54/F [place] [facility] Status: Signed Assessment and Plan Assessment and Plan (1) Smoking greater than 20 pack years: Status: Acute Comment: 24 pack year history, quit 2014 Plan: LDCT is recommended today. Discussed current USPS TF guidelines for low-dose screening lung CT. Discussed risk/benefits including overdiagnosis, false positives and need for further testing. Counseled on importance of smoking cessation and adherence to screening program until patient no longer meets criteria. Patient is asymptomatic from lung cancer and is willing to undergo further testing and treatment if lung cancer is detected. (2) Shortness of breath: Status: Acute Plan: COPD, asthma, cardiovascular disease are in the differential for her shortness of breath. PFT and 6MWT to further assess lung functioning. I am highly suspecting COPD and am recommending a trial of LABA/LAMA therapy. The patient is agreeable today. The inhaler was sent into her pharmacy- [facility], 1 puff daily. She has been given instruction on how to use it. Further recommendations will be forthcoming pending testing. An ECHO may need to be updated to evaluate her PA pressure- I would like to obtain her previous ECHO to review on follow up. Orders: Orders PFT Complete - DLCO, Spirometry b/a bronchodilators, lung volumes 02/07/25 R06.02 - Shortness of breath Simple Pulmonary Exercise Test 02/09/25 R06.02 - Shortness of breath Low Dose CT Lung Screening 01/11/25 F17.210 - Nicotine dependence, cigarettes, uncomplicated Medications: New umeclidinium-vilanter ol 62.5-25 mcg/actuation ([facility] Ellipta) 1 inh inhalation Q24H 60 ea 1RF Plan Details Follow Up: 6-8 weeks (LMR) HPI HPI Comments Details: Patient is a 54-year-old female who presents today for evaluation of abnormal CT. She is ambulatory and currently on room air. The patient had a CT of her abdomen completed in July 2020 for which showed atelectasis in the lingula and right middle lobe. She underwent a chest x-ray in September 2024 which showed no abnormalities. She reported to her general practitioner that she has had increasing shortness of breath in the last year. She has not completed pulmonary function studies. She reports that an ECHO was completed through [facility] approximately 5 years ago. She denies wheezing. She reports that she has shortness of breath which occurs when she tries to take in a deep breath. Sometimes activities of daily living will produce shortness of breath. She denies chest pain and chest tightness. She reports that a dry cough is present and that it is constant. She does not feel rested on awakening. She reports that she has little energy and feels like its hard to complete her daily tasks. She does not snore or awaken herself at night gasping for air. She denies fever, chills, body aches. She used to have bronchitis 3 times a year. She quit moking in 2014. She started in 1990, she smoked a pack a day. She now uses e-cigarettes. She has not had pneumonia. She has no history of asthma. She has an as needed inhaler but does not use this routinely as she has not noticed significant benefit from it. 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 [employer] Technician Required: No DME Vendor: n/a Accompanied by: Is patient in pain?: No Allergies No Known Allergies Allergy (Verified 01/11/25 14:09) Medications ???Medication ???Instructions ???Recorded ???Confirmed ???Type cyclobenzaprine 5 mg tablet 5 mg PO TID PRN muscle spasm #90 0 03/03/24 01/11/25 Rx tabs duloxetine 30 mg capsule,delayed 30 mg PO QDAY #90 caps 03/03/24 Rx release lamotrigine 150 mg tablet 150 mg PO BID #180 tabs 07/25/24 0 01/11/25 Rx (Lamictal) albuterol sulfate 90 mcg/actuation 1 puff inhalation Q4H PRN 01/11/25 Rx aerosol inhaler shortness of breath or wheezing #8.5 grams tramadol 100 mg tablet 100 mg PO BID PRN pain 30 days #60 11/09/24 01/11/25 Rx tabs umeclidinium 62.5 mcg-vilanterol 1 inh inhalation Q24H #60 ea 01/1101/11/25 Rx 25 mcg/actuation powdr for inhalation (Anoro Ellipta) [facility] ... Normal [facility] XR CHEST 2V FRONTAL/LATon XR CHEST 2V FRONTAL/LAT * * *Final Repor t* * * DATE OF EXAM: Sep 16 2024 4:39PM LDX 5291 - XR CHEST 2V FRONTAL/LAT / PROCEDURE REASON: shortness of breath * * * * Physician Interpretation * * * * EXAMINATION: CHEST RADIOGRAPH (2 VIEW FRONTAL and LATERAL) CLINICAL HISTORY: Shortness of breath. MQ: XC2_6 EXAM DATE/TIME: 09/16/2024 4:39 PM COMPARISON: 06/13/2024. RESULT: Lines, tubes, and devices: None. Lungs and pleura: No consolidation. No lung mass. No pleural effusion. No pneumothorax. Cardiomediastinal silhouette: Normal cardiomediastinal silhouette. Bones and soft tissues: Unremarkable. IMPRESSION: Stable and unremarkable exam with no acute radiographic abnormality. Phlebotomy Manager: PSCB Transcribe Date/Time: Sep 18 2024 10:02A Dictated by : SHERYL SAMS MD This examination was interpreted and the report reviewed and electronically signed by: SHERYL SAMS MD on Sep 18 2024 10:03AM EST [id number] N Normal [facility] CT ABDOMEN W IVCONon 10-23-[address] ABDOMEN W IVCON * * *Final Report* * * DATE OF EXAM: Jul 27 2024 3:57PM [facility] 0533 - CT ABDOMEN W IVCON / PROCEDURE REASON: K56.609 Unspecified intestinal obstruction, unspecified as to partial versus com * * * * Physician Interpretation * * * * EXAMINATION: CT ABDOMEN WITH IV CONTRAST CLINICAL HISTORY: Abdominal pain TECHNIQUE: CT of the abdomen was performed using standard technique, scanning from just above the dome of the diaphragm to the iliac crest. MQ: CTAbdW_4 Contrast: IV: 100 ml of Omnipaque 350 CT Radiation dose: Integrated Dose-length product (DLP) for this visit = 512.46 mGy*cm. CT Dose Reduction Employed: Automated exposure control(AEC) and iterative recon COMPARISON: 07/24/2005. RESULT: Liver: There is no focal discrete hepatic mass. Biliary: The patient is status post cholecystectomy. There is biliary dilation, likely related to the cholecystectomy. Spleen: No mass. No splenomegaly. Pancreas: There is no obvious focal discrete pancreatic mass or pancreatic ductal dilation. Adrenals:No mass. Kidneys: There is no hydronephrosis or perinephric fluid collection. GI tract: There are no dilated loops of bowel to suggest obstruction. Apparent wall thickening of loops of colon is felt to relate to underdistention. Lymph nodes: No abdominal lymphadenopathy. Mesentery/Peritoneum: No abdominal ascites. Retroperitoneum: No mass. Vasculature: No abdominal aortic aneurysm. Atherosclerotic disease. Bones/Soft Tissues: Tiny umbilical hernia, containing omental fat. No destructive bony lesion. Lower thorax: Atelectasis seen within the lingula and right middle lobe. IMPRESSION: 1. No acute abdominal process is identified. No bowel obstruction. 2. Status post cholecystectomy. Biliary dilation, likely related to the cholecystectomy. Phlebotomy Manager: PSCB Transcribe Date/Time: Jul 28 2024 4:26P Dictated by : TERRIE GREENFIELD MD This examination was interpreted and the report reviewed and electronically signed by: TERRIE GREENFIELD MD on Jul 28 2024 4:30PM EST [id number] N Normal [facility] ALLIED HEALTHon 06-13-2024 ALLIED HEALTH HNO ID: [id number] Author: PRESTON ARCOS RT(R) Service: ? Author Type: Technologist Type: Allied Health Filed: 06/13/2024 12:51 Note Text: Radiology Service Progress Note PATIENT NAME: Roro Bazan DATE OF SERVICE: June 13, 2024 TIME: 12:50 PM PATIENT IDENTITY VERIFICATION COMPLETED USING TWO (2) IDENTIFIERS: Name and Date of confirmed by patient verbally. FALL SCREENING: Has the patient had 2 falls in the last year or 1 fall with injury or currently using an Ambulatory Assistive Device (Walker, Cane, Wheelchair, Crutches, etc.)? Emergency Room Patient: Screened in ED PATIENT GENDER DATA: Female. status: : No status: NO. PATIENT RELEVANT IMPLANT DATA REVIEWED: Not Applicable PATIENT PRESENTS WITH AN IMPLANTABLE OR ATTACHED UTILITY LOCATOR: No RADIOLOGY DEPARTMENT: General X-ray: Exam(s) Completed: Rib X-Ray: Right PERIPHERAL IV DATA: Not applicable SIGNED BY: RT Bella(R) June 13, 2024 12:50 PM Normal [facility] ED PROV NOTEon 06-13-2024 ED PROV NOTE HNO ID: [id number] Author: ALEJANDRA STAPLETON MD Service: Emergency Medicine Author Type: Physician Type: ED Provider Notes Filed: 06/13/2024 19:41 Note Text: ED Provider Note Patient Name: Roro Bazan : 1970 SERVICE DATE: 06/13/24 History Patient presents with: Fall Rib Injury HPI Patient is a 54-year-old female who has history as below presenting with complaints of rib pain after fall. History is provided by patient, family member at the bedside. Reports that 2 days ago she was getting up off the couch when her leg and falling asleep. She states that she fell forward and hit the right side of her ribs. No head injury, did not hit her head, no LOC. Been having some right sided rib pain since then. No shortness of breath. Taking Motrin for pain as needed, last dose yesterday. Was concerned that she was having persisting pain symptoms so presents for assessment with concern for possible fracture. PAST MEDICAL HISTORY No date: Bulimia No date: Chronic back pain Comment: DDD No date: Dizzy No date: Hip pain No date: IBS (irritable bowel syndrome) Comment: pt denies No date: Impingement syndrome of shoulder region No date: Impingement syndrome of shoulder region 08/12/2021: Nontraumatic incomplete tear of left rotator cuff No date: Nontraumatic incomplete tear of right rotator cuff No date: Palpitations No date: Tachycardia PAST SURGICAL HISTORY 05/19/2024: LAPS SURG CHOLECYSTECTOMY W/CHOLANGIOGRAPHY Comment: under fluoroscopy. Dr. Cr 08/27/2021: SHOULDER SURGERY HX; Left Comment: Left shoulder surgery for rotator cuff and bursitis No date: SHOULDER SURGERY HX; Right FAMILY HISTORY Problem Relation Age of Onset other (other) Mother Breast Cancer Mother Hypertension Father Coronary Artery Disease Father other (cholecystectomy) Brother Heart Maternal Aunt NC Heart Maternal Uncle two uncles with NC Ovarian cancer Other Social History Tobacco Use Smoking status: Former Current packs/day: 0.00 Average packs/day: 0.5 packs/day for 24.0 years (12.0 ttl pk-yrs) Types: Cigarettes Start date: 1990 Quit date: 2014 Years since quittin.6 Smokeless tobacco: Never Vaping Use Vaping status: current everyday user Start date: 08/05/2016 Substances: Nicotine, Flavoring Substance and Sexual Activity Alcohol use: Yes Comment: Ocassionally Drug use: No Sexual activity: Not on file ALLERGIES No Known Allergies Review of Systems Per HPI Physical Exam Vitals [06/13/24 1143] BP Pulse Temp Temp src Resp SpO2 Weight Height 120/82 (!) 100 36.2 ?C (97.1 ?F) -- 16 95 % 90.7 kg (200 lb) 1.753 m (5' 9) Physical Exam Well-appearing, non-toxic and in no obvious distress. Hemodynamically stable and afebrile Heart RRR w/o murmurs; Distal pulses intact Lungs CTAB, present bilaterally symmetric. No wheezing rales or rhonchi. No increased work of breathing or accessory muscle usage. Does have some tenderness palpation of the right lateral chest wall without underlying crepitus or deformity. No bruising on inspection. Abd soft, NT, ND Patient moves all 4 extremities spontaneously and without deficit Diagnostic Testing ED Labs Ordered and Reviewed - No data to display Procedures ED Course / Clinical Impression Clinical Impressions as of 06/13/241936 Rib injury MDM / Disposition / Plan MDM Patient is a 54-year-old female with history as above presenting with complaints of RIGHT rib pain after fall. History and exam as above. Medical record reviewed. Additional encounters reviewed: last PCP visit from 03/03/24 HPI obtained from patient, family at bedside DDx considered: Concern at this time for rib contusion, possible overlying rib fracture. Low suspicion for pneumothorax given she does have breath sounds bilaterally present symmetric. No respiratory symptoms no shortness of breath. She does symptomatically with Rincon and recommended x-ray imaging given fall occurred a few days ago. ED COURSE: I personally reviewed the radiographs and the radiology report. CXR/RIBS RESULT: No pneumothorax. No fractures or dislocations are seen. Results reviewed with patient, at the bedside. Discussed at this time no evidence of acute traumatic injury. Recommended incentive spirometry, expectant management and supportive care. OTC recommended for pain relief. She is to follow-up outpatient with primary care. Return precautions reviewed. Patient discharged from the Emergency Department. I do not feel that the patient's evaluation reveals any acute reason for admission at this time. I instructed them to either follow up with their primary care physician or promptly return to the Emergency Department for reevaluation should symptoms worsen or new symptoms develop. I explained what symptoms would indicate the need to return to the Emergency Department. Shared decision making was used. The (more content not included)... Normal [facility] XR RIB/CHST 3V AP RIB/OBL/CH ST Abel 06-13-2024 XR RIB/CHST 3V AP RIB/OBL/CHST R * * *Final Report* * * DATE OF EXAM: Jun 13 2024 12:49PM LDX 5244 - XR RIB/CHST 3V AP RIB/OBL/CHST R / PROCEDURE REASON: Trauma * * * * Physician Interpretation * * * * XR RIB/CHST 3V AP RIB/OBL/CHST R HISTORY: 54 years old Clinical information: Trauma Fall, c/o right anterior rib pain that radiates laterally/posteriorly TECHNIQUE: Images: XR RIB/CHST 3V AP RIB/OBL/CHST R Comparison: 06/05/2020 chest exam. RESULT: No pneumothorax. No fractures or dislocations are seen. IMPRESSION: No acute abnormalities Phlebotomy Manager: GIOVANNA Transcribe Date/Time: Jun 13 2024 1:08P Dictated by : CA ALVES MD This examination was interpreted and the report reviewed and electronically signed by: CA ALVES MD on Jun 13 2024 1:09PM EST [id number] Normal [facility] CBC panel Auto (Bld)on 06-10 Erythrocyte distribution width (RBC) [Ratio] 12.6 % Normal 11.5-15.0 [facility] Comment on above: Order Comment: Speci men Type: BLOOD SPECIMEN Ordering Facility: [facility] Address: [address] [place] [address] Performed By: #### 5 8410-2 #### [facility] CLIA [id number] [address] [place] [address] [place] [facility] Hematocrit (Bld) [Volume fraction] 43.3 % Normal 36.0-46.0 [facility] Comment on above: Order Comment: Speci men Type: BLOOD SPECIMEN Ordering Facility: [facility] Address: [address] [place] [address] Performed By: #### 5 8410-2 #### [facility] CLIA [id number] [address] [place] [address] [facility] [place] Hemoglobin (Bld) [Mass/Vol] 13.7 g/dL Normal 11.5-15.5 [facility] Comment on above: Order Comment: Speci men Type: BLOOD SPECIMEN Ordering Facility: [facility] Address: [address] [place] [address] Performed By: #### 5 8410-2 #### [facility] CLIA [id number] [address] MCH (RBC) [Entitic mass] 28.5 pg Normal 26.0-34.0 [facility] Comment on above: Order Comment: Speci men Type: BLOOD SPECIMEN Ordering Facility: [facility] Address: [address] [place] [address] Performed By: #### 5 8410-2 #### [facility] CLIA [id number] [address] [place], [place] [id number] [place] MCHC (RBC) [Mass/Vol] 31.6 g/dL Normal 30.5-36.0 [facility] Comment on above: Order Comment: Speci men Type: BLOOD SPECIMEN Ordering Facility: [facility] Address: [address] [place] [address] Performed By: #### 5 8410-2 #### [facility] CLIA [id number] [address] [place] [id number] [facility] MCV (RBC) [Entitic vol] 90.0 fL Normal 80.0-100.0 [facility] Comment on above: Order Comment: Speci men Type: BLOOD SPECIMEN Ordering Facility: [facility] Address: [address] [place] [address] Performed By: #### 5 8410-2 #### [facility] CLIA [id number] [address] [place] [address] [place] Platelet mean volume (Bld) [Entitic vol] 8.3 fL Low 9.0-12.7 [facility] Comment on above: Order Comment: Speci men Type: BLOOD SPECIMEN Ordering Facility: [facility] Address: [address] [place] [address] Performed By: #### 5 8410-2 #### [facility] CLIA [id number] [address] [place] [address] [place] Platelets (Bld) [#/Vol] 324 10*3/uL Normal 150-400 [facility] Comment on above: Order Comment: Speci men Type: BLOOD SPECIMEN Ordering Facility: [facility] Address: [address] [place] [address] Performed By: #### 5 8410-2 #### [facility] CLIA [id number] [address] [place] [address] [place] RBC (Bld) [#/Vol] 4.81 10*6/uL Normal 3.90-5.20 [facility] Comment on above: Order Comment: Speci men Type: BLOOD SPECIMEN Ordering Facility: [facility] Address: [address] [place] [address] Performed By: #### 5 8410-2 #### [facility] CLIA [id number] [address] [place] [address] [place] WBC (Bld) [#/Vol] 7.60 10*3/uL Normal 3.70-11.00 [facility] Comment on above: Order Comment: Speci men Type: BLOOD SPECIMEN Ordering Facility: [facility] Address: [address] [place] [address] Performed By: #### 5 8410-2 #### [facility] CLIA [id number] [address] [place] [address] [facility] Comprehensive metabolic 2000 panelon 06-10-2024 Albumin [Mass/Vol] 4.3 g/dL Normal 3.9-4.9 [facility] Comment on above: Order Comment: Speci men Type: BLOOD SPECIMEN Ordering Facility: [facility] Address: [address] [place] [address] Performed By: #### 2 4323-8 #### [facility] CLIA [id number] [address] [place], [place] [id number] [place] [address] [place] ALP [Catalytic activity/Vol] 104 U/L Normal 34-123 [facility] Comment on above: Order Comment: Speci men Type: BLOOD SPECIMEN Ordering Facility: [facility] Address: [address] [place] [address] Performed By: #### 2 4323-8 #### [facility] CLIA [id number] [address] ALT With P-5'-P [Catalytic activity/Vol] 10 U/L Normal 7-38 [facility] Comment on above: Order Comment: Speci men Type: BLOOD SPECIMEN Ordering Facility: [facility] Address: [address] [place] [address] Performed By: #### 2 4323-8 #### [facility] CLIA [id number] [address] Anion gap [Moles/Vol] 9 mmol/L Normal 8-15 [facility] Comment on above: Order Comment: Speci men Type: BLOOD SPECIMEN Ordering Facility: [facility] Address: [address] [place] [address] Performed By: #### 2 4323-8 #### [facility] CLIA [id number] [address] [facility] AST With P-5'-P [Catalytic activity/Vol] 13 U/L Normal 13-35 [facility] Comment on above: Order Comment: Speci men Type: BLOOD SPECIMEN Ordering Facility: [facility] Address: [address] [place] [address] Performed By: #### 2 4323-8 #### [facility] CLIA [id number] [address] [place] [address] [place] Bilirubin [Mass/Vol] 0.2 mg/dL Normal 0.2-1.3 [facility] Comment on above: Order Comment: Speci men Type: BLOOD SPECIMEN Ordering Facility: [facility] Address: [address] [place] [address] Performed By: #### 2 4323-8 #### [facility] CLIA [id number] [address] [place] [address] [place] Calcium [Mass/Vol] 9.1 mg/dL Normal 8.5-10.2 [facility] Comment on above: Order Comment: Speci men Type: BLOOD SPECIMEN Ordering Facility: [facility] Address: [address] [place] [address] Performed By: #### 2 4323-8 #### [facility] CLIA [id number] [address] [place] [address] [place] Chloride [Moles/Vol] 100 mmol/L Normal 98-107 [facility] Comment on above: Order Comment: Speci men Type: BLOOD SPECIMEN Ordering Facility: [facility] Address: [address] [place] [address] Performed By: #### 2 4323-8 #### [facility] CLIA [id number] [address] [place] [address] [place] CO2 [Moles/Vol] 29 mmol/L Normal 22-30 [facility] Comment on above: Order Comment: Speci men Type: BLOOD SPECIMEN Ordering Facility: [facility] Address: [address] [place] [address] Performed By: #### 2 4323-8 #### [facility] CLIA [id number] [address] [place] [address] [place] Creatinine [Mass/Vol] 1.00 mg/dL High 0.58-0.96 [facility] Comment on above: Order Comment: Campos hoang Type: BLOOD SPECIMEN Ordering Facility: [facility] Address: [address] [place] [address] Performed By: #### 2 4323-8 #### [facility] CLIA [id number] [address] [place] [address] [place] Creatinine and Glomerular filtration rate.predicted panel (S/P/Bld) 68 mL/min/1.73m??? Normal >=60 [facility] Comment on above: Order Comment: Campos hoang Type: BLOOD SPECIMEN Ordering Facility: [facility] Address: [address] [place] [address] Result Comment: Toma mated Glomerular Filtration Rate (eGFR) is calculated using the 2020 CKD-EPI creatinine equation. This equation utilizes serum creatinine, sex, and age as parameters. The creatinine assay has traceable calibration to isotope dilution-mass spectrometry. Refer to KDIGO guidelines for clinical interpretation. In patients with unstable renal function, e.g. those with acute kidney injury, the eGFR may not accurately reflect actual GFR. Performed By: #### 2 4323-8 #### [facility] CLIA [id number] [address] [place] [address] [place] Glucose [Mass/Vol] 98 mg/dL Normal 74-99 [facility] Comment on above: Order Comment: Campos hoang Type: BLOOD SPECIMEN Ordering Facility: [facility] Address: [address] [place] [address] Result Comment: The [place] Diabetes Association (ADA) provides guidance for cutoff values for fasting glucose and random glucose. The ADA defines fasting as no caloric intake for at least 8 hours. Fasting plasma glucose results between 100 to 125 mg/dL indicate increased risk for diabetes (prediabetes). Fasting plasma glucose results greater than or equal to 126 mg/dL meet the criteria for diagnosis of diabetes. In the absence of unequivocal hyperglycemia, results should be confirmed by repeat testing. In a patient with classic symptoms of hyperglycemia or hyperglycemic crisis, random plasma glucose results greater than or equal to 200 mg/dL meet the criteria for diagnosis of diabetes. Reference: Standards of Medical Care in Diabetes 2016, [place] Diabetes Association. Diabetes Care. 2016.39(Suppl 1). Performed By: #### 2 4323-8 #### [facility] CLIA [id number] [address] [place] [address] [place] Potassium [Moles/Vol] 4.3 mmol/L Normal 3.7-5.1 [facility] Comment on above: Order Comment: Speci men Type: BLOOD SPECIMEN Ordering Facility: [facility] Address: [address] [place] [address] Performed By: #### 2 4323-8 #### [facility] CLIA [id number] [address] [place] [address] [place] Protein [Mass/Vol] 6.9 g/dL Normal 6.3-8.0 [facility] Comment on above: Order Comment: Speci men Type: BLOOD SPECIMEN Ordering Facility: [facility] Address: [address] [place] [address] Performed By: #### 2 4323-8 #### [facility] CLIA [id number] [address] [place] [address] [place] Sodium [Moles/Vol] 138 mmol/L Normal 136-144 [facility] Comment on above: Order Comment: Speci men Type: BLOOD SPECIMEN Ordering Facility: [facility] Address: [address] [place] [address] Performed By: #### 2 4323-8 #### [facility] CLIA [id number] [address] [place] [address] [place] Urea nitrogen [Mass/Vol] 10 mg/dL Normal 7-21 [facility] Comment on above: Order Comment: Speci men Type: BLOOD SPECIMEN Ordering Facility: [facility] Address: [address] [place] [address] Performed By: #### 2 4323-8 #### [facility] CLIA [id number] [address] [place] [address] [place] Ferritin SerPl-mCncon 2023 Ferritin [Mass/Vol] 73.0 ng/mL Normal 14.7-205.1 [facility] Comment on above: Order Comment: Speci men Type: BLOOD SPECIMEN Ordering Facility: [facility] Address: [address] [place] [address] Performed By: #### 2 276-4, 77589-7 #### [facility] CLIA [id number] [address] Iron and Iron binding capaci ty panelon 06-10-2024 Iron [Mass/Vol] 47 ug/dL Normal 41-186 [facility] Comment on above: Order Comment: Speci men Type: BLOOD SPECIMEN Ordering Facility: [facility] Address: [address] [place] [address] Performed By: #### 2 276-4, 41194-7 #### [facility] CLIA [id number] [address] Iron binding capacity [Mass/Vol] 286 ug/dL Normal 232-386 [facility] Comment on above: Order Comment: Speci men Type: BLOOD SPECIMEN Ordering Facility: [facility] Address: [address] [place] [address] Performed By: #### 2 276-4, 51228-3 #### [facility] CLIA [id number] [address] Iron saturation [Mass fraction] 16.4 % Normal 15.0-57.0 [facility] Comment on above: Order Comment: Speci men Type: BLOOD SPECIMEN Ordering Facility: [facility] Address: [address] [place] [address] Performed By: #### 2 276-4, 95431-3 #### [facility] CLIA [id number] [address] CNOVon 06-08-2024 CNOV Office Visit ([facility] ) RORO BAZAN ([id number]) 1970 F Date Time Provider Department 06/08/24 2:30 PM MATEO LOPEZ During your visit today, we recorded the following information about you: Mateo Lopez PA-C 06/08/2024 2:52 PM Signed IMPRESSION: Patient is status post a laparoscopic cholecystectomy WITH intraoperative cholangiograms. PLAN: Post-op patient instructions were reviewed with the patient. A low fat diet is encouraged, with slow reintroduction of fatty foods. We discussed that occasional right up quadrant symptoms similar to the preoperative complaints can occur in the first couple of weeks post operatively. Patient will obtain blood work to look for any causes of recent fatigue. Zofran was ordered for nausea. Recommend follow up with PCP/MEDICAID NURSE for additional fatigue work up. I have explained to Ms. Bazan that she may return to normal activity with the following restrictions: no lifting greater than 40 lbs for the next 2 weeks. I have encouraged her to contact me at any time with any questions or concerns that may arise. FOLLOW UP: [address] Cr SUBJECTIVE: Roro Bazan presents for follow up of her laparoscopic cholecystectomy on 05/19/[address] Henri Cr. Patient complaints: Nausea, Constipation, and continued discomfort in RUQ with fatigue Patient denies: Vomiting, Diarrhea, Fever, Chills, Redness around wound, and Drainage from incision/s OBJECTIVE: General Appearance: alert, oriented and in no acute distress Abdomen: soft and non-tender Incision: well approximated, no signs or symptoms of infection , and clean, dry and intact SURGICAL PATHOLOGY: Gallbladder, cholecystectomy: - Chronic cholecystitis with cholelithiasis and cholesterolosis Mateo Lopez PA-C 06/08/2024 Allergies As of Date: 06/08/2024 (No Known Allergies) Date Reviewed: 06/08/2024 Reviewed by: Nicol Parks MA - Fully Assessed Reason for Visit: Post-Op Visit [1236] Cmt: 05/19 SG LCw/C Primary Visit Diagnosis:S/P laparoscopic cholecystectomy [Z90.49] Other Visit Diagnoses:Malaise and fatigue [R53.81, R53.83] Gallstones [K80.20] Order(s):COMPLETE BLOOD COUNT [SQCBC] Order #: [id number] FUTURE COMPREHENSIVE METABOLIC PANEL [SQCMP] Order #: [id number] FUTURE ondansetron (ZOFRAN) 4 mg tabletTake 1 tablet by mouth every 8 hours as needed for nausea/vomiting (for nausea.) for up to 28 days.Disp: 30 tabletRfl: 1 IRON AND TIBC [SQIRON] Order #: [id number] FUTURE FERRITIN [SQFERR] Order #: [id number] FUTURE Prescriptions as of 06/08/2024 - ondansetron (ZOFRAN) 4 mg tablet Take 1 tablet by mouth every 8 hours as needed for nausea/vomiting (for nausea.) for up to 28 days. - ibuprofen (MOTRIN) 600 mg tablet Take 1 tablet by mouth every 6 hours as needed for pain. - escitalopram oxalate (LEXAPRO) 5 mg tablet Take 5 mg by mouth once daily. - DULoxetine (CYMBALTA) 30 mg capsule Take 1 capsule by mouth every afternoon. - lamoTRIgine (LAMICTAL) 150 mg tablet TAKE 2 TABLETS BY MOUTH EVERY DAY Problem List As Of Date 06/08/2024 Noted Resolved Essential hypertension [I10] 01/13/2018 Dizziness [R42] 08/12/2021 Palpitations [R00.2] Adult ADHD [F90.9] 06/20/2014 Acute lumbar back pain [M54.50] 06/20/2014 08/12/2021 Bipolar disorder with depression (HCC) [F31.9] 06/20/2014 Degenerative joint disease of left hip [M16.12] 06/20/2014 Spondylosis of lumbar region without myelopathy*11/11/2017 Tachycardia [R00.0] 11/11/2017 Vitamin D deficiency [E55.9] 11/11/2017 Obesity, Class I, BMI 30-34.9 E66.9 [E66.9] 01/13/2018 Impingement syndrome of shoulder region [M75.40]08/12/2021 08/27/2021 Nontraumatic incomplete tear of left rotator cu*08/12/2021 07/01/2022 Nicotine dependence with current use [F17.200] Impingement syndrome of right shoulder [M75.41] 09/18/2021 Posture abnormality [R29.3] 09/19/2021 07/01/2022 Limitation of joint motion of left shoulder [M2*09/20/2021 07/01/2022 Shoulder weakness [R29.898] 09/20/2021 02/14/2022 Biceps strain, right, subsequent encounter [S46*01/15/2022 02/14/2022 Gallstones [K80.20] 05/18/2024 Prescriptions ordered this encounter Disp Refills Start End ONDANSETRON HCL 4 MG TABLET 30 t* 1 06/08/2024 07/06/2024 Route: ORAL Sig: Take 1 tablet by mouth every 8 hours as needed for nausea/vomiting (for nausea.) for up to 28 days. Disposition: Return in about 2 weeks (around 06/22/2024) for LC . Follow-up and Disposition History for Encounter Date Provider Department Center 06/08/2024 [id number], [facility] Encounter Status:Closed by MATEO LOPEZ on 06/08/[address] [facility] CNCOon 05-23-2024 CNCO Letter Text Normal [facility] ANES POSTPROC EVALon 024 ANES POSTPROC EVAL HNO ID: [id number] Author: ANGUS NÚÑEZ DO Service: Anesthesiology Author Type: Anesthesiologist Type: Anesthesia Postprocedure Evaluation Filed: 05/19/2024 12:17 Note Text: POST ANESTHESIA EVALUATION NOTE : 1970 Procedure Summary Date: 05/19/24 Room / Location: [facility] OR / [facility] OR Anesthesia Start: 741 Anesthesia Stop: 918 Procedure: LAPAROSCOPIC CHOLECYSTECTOMY (Abdomen) Diagnosis: Gallstones (Gallstones [K80.20]) Surgeons: Henri Cr MD Responsible Provider: Angus Núñez DO Anesthesia Type: general ASA Status: 2 Anesthesia Type: general Airway Type: ETT Last Vitals Vitals Value Taken Time BP 137/74 05/19/24 1048 Temp 36.2 ?C (97.2 ?F) 05/19/24 1120 Pulse 79 05/19/24 1048 Resp 16 05/19/24 1048 SpO2 95 % 05/19/24 1048 Post Anesthesia Patient Status Patient Evaluation: PACU. PACU/ICU Patient Condition: stable. Anticipated Disposition: phase 2 then home. Neurological Status: aware and responsive. Pulmonary Status: breathing comfortably on room air Airway Control: returned to baseline unsupported. Cardiovascular Status: stable. Pain Management: clinically adequate - multimodal analgesia pain management approach Postoperative Hydration: acceptable. Intraoperative Events: no significant anesthesia events Post Operative Nausea/Vomiting Status: no significant post operative nausea or vomiting Recommendation: continue current plan of care and further care per PACU/ICU/floor team. Anesthesia Observations No Documentation SIGNATURE: Angus Núñez DO PATIENT NAME: Roro Bazan DATE: May 19, 2024 TIME: 12:16 PM CSN: [id number] [facility] ANES PRE-OPon 05-19-2024 ANES PRE-OP HNO ID: [id number] Author: ANGUS NÚÑEZ DO Service: Anesthesiology Author Type: Anesthesiologist Type: Anesthesia Preprocedure Evaluation Filed: 05/19/2024 07:06 Note Text: ANESTHESIOLOGY DAY OF SURGERY NOTE : 1970 Procedure Information Date/Time: 05/19/24729 Procedure: LAPAROSCOPIC CHOLECYSTECTOMY (Abdomen) - Laparoscopic cholecystectomy with intraoperative cholangiograms Location: [facility] OR / [facility] OR Surgeons: Henri Cr MD Estimated body mass index is 33.28 kg/m? as calculated from the following: Height as of this encounter: 165.1 cm (5' 5). Weight as of this encounter: 90.7 kg (200 lb). Most recent hematocrit and potassium results: Hematocrit 44.1 04/26/2019 Potassium 3.7 04/26/2019 Relevant Problems No relevant active problems I - PHYSICAL EVALUATION AIRWAY Patient intubated: No. Tracheostomy tube not present Mallampati: II. TM distance: >3 FB. Neck ROM: full ROM without neurological symptoms. Mouth opening: adequate. Short neck: no. Thick neck: no DENTAL Dental findings: teeth intact. II - ANESTHESIA PLAN ASA Score: 2 Anesthetic Plan: general Airway type: ETT NPO Status: adequate Beta Abbi Monitoring Plan Monitoring plan: standard ASA. Post Procedure Analgesic Plan Postoperative analgesic plan: parenteral or oral opioids, multimodal analgesia and per surgical service. Informed Consent Anesthetic risks, benefits, alternatives, personnel and consent discussed: yes. Patient / Responsible Democrat agrees to proceed: yes Patient / Surrogate agrees to blood products: Yes DNR status not reviewed with patient and/or family prior to surgery. Significant changes in the patient condition since the History and Physical, not otherwise documented in primary service progress note: no. Potential Anesthesia issues that may suggest increased risk of complications or contraindication to planned procedure: none. Discussed the possibility of lip / dental damage: yes Vitals Value Taken Time BP 106/70 05/19/2445 Pulse 94 05/19/2445 Resp 18 05/19/2445 Temp 36.2 ?C (97.2 ?F) 05/19/2445 SpO2 97 % 05/19/24644 Facility-Administered Medications as of 05/19/2024 Medication Dose Route Frequency acetaminophen 1,000 mg tab(s) (TYLENOL) 1,000 mg ORAL As Directed promethazine 12.5 mg tab(s) (PHENERGAN) 12.5 mg ORAL ONCE lactated ringers iv infusion 5-30 mL/hr INTRAVENOUS CONTINUOUS Outpatient Medications as of 05/19/2024 Medication Sig DULoxetine (CYMBALTA) 30 mg capsule Take 1 capsule by mouth every afternoon. lamoTRIgine (LAMICTAL) 150 mg tablet TAKE 2 TABLETS BY MOUTH EVERY DAY escitalopram oxalate (LEXAPRO) 5 mg tablet Take 5 mg by mouth once daily. traMADol 100 mg tablet Take 100 mg by mouth every 8 hours as needed for pain. I have interviewed and examined the patient. I have reviewed the medical record and/or the pre-anesthesia evaluation, pertinent labs, and test results. This contains updated information obtained within 48 hours of Surgery/Procedure. SIGNATURE: Angus Núñez DO PATIENT NAME: Roro Bazan DATE: May 19, 2024 TIME: 7:03 AM CSN: [id number] [facility] BRIEF OP NOTon 05-19-2024 BRIEF OP NOT HNO ID: [id number] Author: HENRI CR MD Service: General Surgery Author Type: Physician Type: Brief Op Note Filed: 05/19/2024 08:59 Note Text: BRIEF OPERATIVE / PROCEDURE NOTE LOG ID: [id number] SURGERY/PROCEDURE DATE: 05/19/2024 INCISION/PROCEDURE START TIME: 8:13 AM INCISION CLOSE/PROCEDURE END TIME: SURGEON(S)/PROCEDURAL IST(S) AND BUSINESS OWNER/ENGINEER(S): Surgeon(s) and Role: * Henri Cr MD - Primary Nurse Practitioner: Marielena Abel APRN.CNP Physician Paint Line Operator: Katie Winchester PA-C SURGERY/PROCEDURE(S): Laparoscopic cholecystectomy with intraoperative cholangiograms ANESTHESIA: General FINDINGS: nl ioc ESTIMATED BLOOD LOSS: minimal SPECIMENS: 1 COMPLICATIONS: None CLOSURE TECHNIQUE: Primary PRE-OP/PRE-PROCEDURE DIAGNOSIS: symptomatic cholelithiasis POST-OP/POST-PROCEDUR E DIAGNOSIS: Same as Preop Patient was accompanied to the next level of care by a licensed practitioner from the surgical team pending completion of this brief op note (or operative note) The surveyor's assistant KEIRA/ZARA was used as no other surveyor's assistant such as resident, fellow, RN or other physician available. Assistants role in surgery was assisting in exposure, and closure Dictated # [id number] SIGNATURE: Henri Cr MD PATIENT NAME: Roro Bazan DATE: May 19, 2024 TIME: 8:55 AM Normal [facility] HISTORY PHYSICALon HISTORY PHYSICAL HNO ID: [id number] Author: HENRI CR MD Service: General Surgery Author Type: Physician Type: H&P Filed: 05/19/2024 07:38 Note Text: UPDATED HISTORY AND PHYSICAL EXAMINATION SERVICE DATE: 05/19/2024 SERVICE TIME: 7:37 AM PHYSICAL EXAM MUST BE COMPLETED ON ADMISSION The History and Physical (completed in the past 30 days) has been reviewed and the patient has been examined. The contents accurately reflect the patient's condition with the following additions or revisions since the HANDP was completed. Examination indicates no changes. This HANDP can be found in the Electronic Medical Record dated 05/17/2024. SIGNATURE: Henri Cr MD PATIENT NAME: Roro Bazan DATE: May 19, 2024 TIME: 7:37 AM Normal [facility] OPERATIVE NOon 05-19-2024 OPERATIVE NO HNO ID: [id number] Author: HENRI CR MD Service: General Surgery Author Type: Physician Type: Operative Report Filed: 05/19/2024 11:29 Note Text: [facility] - Operative Report RORO BAZAN : 1970 AGE: 54. SEX: F PATIENT TYPE: A HOSP [facility]: [facility] LOCATION: [facility] ATTENDING PHYSICIAN: Henri Cr M.D. CSN NUMBER: [id number] DATE OF SURGERY/PROCEDURE: 05/19/2024 INCISION/PROCEDURE START TIME: 8:13 a.m. INCISION CLOSE/PROCEDURE END TIME: 8:59 AM PREOPERATIVE DIAGNOSIS: Symptomatic cholelithiasis. POSTOPERATIVE DIAGNOSIS: Symptomatic cholelithiasis. The surveyor's assistant PA was used as no other surveyor's assistant such as resident, fellow, RN, or other physician was available. Paint Line Operator's role in surgery was assisting in exposure and closure. SURGEON: Henri Cr M.D. BUSINESS OWNER/ENGINEER: Radha Roland CNP. SURGERY/PROCEDURE: Laparoscopic cholecystectomy with intraoperative cholangiograms under fluoroscopy. ANESTHESIA: General. FINDINGS: Normal cholangiograms. ESTIMATED BLOOD LOSS: Minimal. SPECIMEN: 1. COMPLICATIONS: None. CLOSURE TECHNIQUE: Primary. INDICATIONS: A 54-year-old female with symptomatic cholelithiasis. Risks and benefits of proceeding with laparoscopic cholecystectomy were discussed. Patient expressed understanding and wished to proceed. DESCRIPTION OF PROCEDURE: The patient was taken to operating room, placed in supine position. After satisfactory induction of general anesthesia, the patient's abdomen was prepped and draped in a sterile fashion. A 5 mm supraumbilical incision was then made. Abdomen entered under direct vision using the Optiview trocar, insufflated to 15 mmHg. I then placed an 11 mm epigastric midline trocar followed by 2 subcostal right upper quadrant 5 mm trocars. Using 2 hand technique, we identified the gallbladder which was encased in the adhesions from the mesocolon. These were bluntly taken down, identifying the cystic duct infundibular junction. This area was cleared. Cystic duct then clipped, incised. Cholangiograms were obtained showing free flow to the duodenum, patent left and right hepatic ducts, no filling defects, therefore removed the cholangiocath, clipped the cystic duct x3, and transected it. Due to some slight dilation of the duct and just barely covering clips, I opted also to add an Endoloop to secure the duct. I then identified the cystic artery, clipped x2, and transected. I identified a small posterior branch. This was also clipped. Bovie cautery was then used to take the gallbladder from the liver bed, placed in an Endopouch, removed through the epigastric port. Liver bed was lightly irrigated, aspirated, and found to be hemostatic. No evidence of bile leak. No other gross upper abdominal abnormalities noted. Therefore, removed the epigastric trocar. 0 PDS [id number] suture used to reapproximate the fascia with a good airtight closure under direct vision using the drone pilot guide. Remaining trocars were removed. CO2 expelled out of the abdomen. 5-0 Vicryl subcuticular stitch used to reapproximate the skin. Skin glue applied. The patient awakened from anesthesia without difficulty and taken to PACU in stable condition. Henri Cr M.D. SMG:[id number] /[id number] [facility] SURGICAL PATHOLOGYon 024 CASE REPORT Normal [facility] Comment on above: Order Comment: Speci men Type: TISSUE SPECIMEN Ordering Facility: [facility] Address: [address] [place] [address] Result Comment: Surg [facility] Pathology Report Case: [id number] Authorizing Provider: Henri Cr MD Collected: 05/19/2024 07:59 AM Ordering Location: [facility] Surgery Received: 05/19/2024 10:28 AM Pathologist: Oliva Werner MD Specimen: Gallbladder Performed By: #### S #### [facility] CLIA [id number] [address] [place] [address] [place] CLINICAL HISTORY Normal [facility] Comment on above: Order Comment: Speci men Type: TISSUE SPECIMEN Ordering Facility: [facility] Address: [address] [place] [address] Result Comment: Pre- op diagnosis: Gallstones [K80.20] Performed By: #### S #### [facility] CLIA [id number] [address] [place] [address] [place] FINAL DIAGNOSIS Normal [facility] Comment on above: Order Comment: Speci men Type: TISSUE SPECIMEN Ordering Facility: [facility] Address: [address] [place] [address] Result Comment: Gall bladder, cholecystectomy: - Chronic cholecystitis with cholelithiasis and cholesterolosis. Performed By: #### S #### [facility] CLIA [id number] [address] [place] [address] [place] FINAL PERFORMING LAB Normal [facility] Comment on above: Order Comment: Speci men Type: TISSUE SPECIMEN Ordering Facility: [facility] Address: [address] [place] [address] Result Comment: Diag nostic interpretation performed at [facility], [address] [place] [address] CLIA# [id number] Casing Crew Pusher: Gerald Dorado M.D. Performed By: #### S #### [facility] CLIA [id number] [address] [place] [address] GROSS DESCRIPTION A. Gallbladder Normal [facility] Comment on above: Order Comment: Speci men Type: TISSUE SPECIMEN Ordering Facility: [facility] Address: [address] [place] [address] Result Comment: Rece ived in formalin labeled as gallbladder is a fragmented gallbladder reapproximated to measures 6.7 x 3.5 x 1.8 cm. The gallbladder is completely fragmented absent neck. The recognizable cystic duct margin is slightly dilated with a 0.6 cm lumen. The pink-kumar serosa is smooth and glistening. Green-yellow viscous bile is mildly present in the lumen. A single yellow-pale green, spherical, firm calculus is present in the container measuring 1.2 x 0.8 x 0.6 cm. The mucosa is bile-stained and velvety with longitudinally oriented yellow streaks more prominent at the mucosal ridges. Sectioning reveals a wall thickness ranging from 0.2 to 0.3 cm. Subserosal adipose tissue is moderately present. Palpation does not reveal any possible lymph nodes. Lining Caser sections are submitted in 1 cassette. Gross examination performed at [facility], [address] [place] [address] CLIA#[id number] [facility] May 19, 2024 3:30 PM Performed By: #### S #### [facility] CLIA [id number] [address] [place], [place] [address] [id number] [place] XR CHOLANGIOGRAM INTRAOPon 0 05-19-2024 XR CHOLANGIOGRAM INTRAOP * * *Final Repo rt* * * DATE OF EXAM: May 19 2024 8:44AM MDR [id number] - XR CHOLANGIOGRAM INTRAOP / PROCEDURE REASON: GALLSTONES/ LAP LENA WITH GRAMS * * * * Physician Interpretation * * * * HISTORY: Gallstones TECHNIQUE: Fluoroscopic intraoperative intensifier screen images were done. Fluoroscopic Radiation Summary: Plane A, Air Kerma: 6.1 mGy Dose Area Product (DAP): Fluoro time: 0:13 min:sec Single cinematic run intensifier screen images was acquired. RESULT: Contrast is shown in the biliary tree and flowing into the duodenum. No dilatation or obvious filling defect is seen. IMPRESSION: As in results. Phlebotomy Manager: GIOVANNA Transcribe Date/Time: May 19 2024 8:56A Dictated by : EVELIA YIP MD This examination was interpreted and the report reviewed and electronically signed by: EVELIA YIP MD on May 19 2024 8:56AM EST [id number] [facility] 05-17-2024 [facility] Office Visit (HILDA ) RORO BAZAN ([id number]) 1970 F Date Time Provider Department 05/17/24 10:30 AM HENRI CR During your visit today, we recorded the following information about you: Pulse Blood pressure Weight Height 100/minute 122/90 90.7 kg 1.664 m Henri Cr MD 05/19/2024 7:36 AM Signed Assessment IMPRESSION AND PLAN: 54 year old wf with symptomatic cholelithiasis Risks, benefits and alternatives of proceeding with laparoscopic cholecystectomy were discussed with risks to include but not limited to hemorrhage, infection, possibility of common bile duct injury, possible intra-abdominal organ injury ,possible conversion to open. Patient expressed understanding and wishes to proceed. HPI: Roro Bazan is a 54 year old female,She presents for the evaluation of right upper quad and right back pain beginning this past winter assoc with fatigue,nausea and emesis, bloating. Wakes up with epigastric pain. Is not on low fat diet. Had us truq 03/18 with gallstone in neck of gb. Today mild ruq pain, has not eaten yet PAST MEDICAL HISTORY No date: Bulimia No date: Chronic back pain Comment: DDD No date: Dizzy No date: Hip pain No date: IBS (irritable bowel syndrome) Comment: pt denies No date: Impingement syndrome of shoulder region No date: Impingement syndrome of shoulder region 08/12/2021: Nontraumatic incomplete tear of left rotator cuff No date: Nontraumatic incomplete tear of right rotator cuff No date: Palpitations No date: Tachycardia PAST SURGICAL HISTORY 08/27/2021: SHOULDER SURGERY HX; Left Comment: Left shoulder surgery for rotator cuff and bursitis No date: SHOULDER SURGERY HX; Right FAMILY HISTORY Problem Relation Age of Onset other (other) Mother Breast Cancer Mother Hypertension Father Coronary Artery Disease Father other (cholecystectomy) Brother Heart Maternal Aunt NC Heart Maternal Uncle two uncles with NC Ovarian cancer Other CURRENT MEDICATIONS: escitalopram oxalate (LEXAPRO) 5 mg tablet Take 5 mg by mouth once daily. DULoxetine (CYMBALTA) 30 mg capsule Take 1 capsule by mouth every afternoon. traMADol 100 mg tablet Take 100 mg by mouth every 8 hours as needed for pain. lamoTRIgine (LAMICTAL) 150 mg tablet TAKE 2 TABLETS BY MOUTH EVERY DAY CURRENT ALLERGIES: ALLERGIES No Known Allergies Social History Tobacco Use Smoking status: Former Packs/day: 0.50 Years: 24.00 Additional pack years: 0.00 Total pack years: 12.00 Types: Cigarettes Quit date: 2014 Years since quittin.6 Smokeless tobacco: Never Vaping Use Vaping Use: current everyday user Start date: 08/05/2016 Substances: Nicotine, Flavoring Substance Use Topics Alcohol use: Yes Comment: Ocassionally Drug use: No Ros: As above EXAM: BP 122/90 Pulse 100 Ht 166.4 cm (5' 5.51) Wt 90.7 kg (200 lb) LMP (LMP Unknown) BMI 32.76 kg/m? BP 122/90 Pulse 100 Ht 166.4 cm (5' 5.51) Wt 90.7 kg (200 lb) LMP (LMP Unknown) BMI 32.76 kg/m? Body mass index is 32.76 kg/m?. General appearance: Well appearing, alert, in no acute distress Head: Normocephalic, atraumatic Eyes: Anicteric sclera , Pupils are equally round and reactive Neck: No JVD, Trachea midline Lungs:Clear to auscultation, no wheezing or rhonchi Heart: RRR without murmur, gallop, or rubs. No ectopy Abdomen: Abdomen soft, tn in ruq,Non distended. No masses, organomegaly Extremities:No clubbing, cyanosis, or edema. Neuro: Alert and oriented times three, No apparent distress RADIOLOGY: 03/16/2024 ruq us Gallstone in neck of gallbladder Henri Cr MD 05/18/2024 2:16 PM Allergies As of Date: 05/17/2024 (No Known Allergies) Date Reviewed: 05/17/2024 Reviewed by: Henri Cr MD - Fully Assessed Reason for Visit: Consult [173] Cmt: Gallbladder pains Primary Visit Diagnosis:Gallstones [K80.20] Order(s):SURGICAL REQUEST - ELECTIVE (05/2020) [[id number]] Order #: [id number]: 1 Prescriptions as of 05/19/2024 - escitalopram oxalate (LEXAPRO) 5 mg tablet Take 5 mg by mouth once daily. - DULoxetine (CYMBALTA) 30 mg capsule Take 1 capsule by mouth every afternoon. - traMADol 100 mg tablet Take 100 mg by mouth every 8 hours as needed for pain. - lamoTRIgine (LAMICTAL) 150 mg tablet TAKE 2 TABLETS BY MOUTH EVERY DAY Facility-Administered Medications as of 05/19/2024 - acetaminophen 1,000 mg tab(s) (TYLENOL) - lactated ringers iv infusion - scopolamine 1 mg over 3 days 1 Patch (TRANSDERM-SCOP) Problem List As Of Date 05/17/2024 Noted Resolved Essential hypertension [I10] 01/13/2018 Dizziness [R42] 08/12/2021 Palpitations [R00.2] Adult ADHD [F90.9] 06/20/2014 Acute lumbar back pain [M54.50] 06/20/2014 08/12/2021 Bipolar disorder with depression (HCC) [F31.9] 06/20/2014 Degenerative joint disease of left (more content not included)... Normal [facility] US ABD RIGHT UPPER QUADRANTo n 03-16-2024 US ABD RIGHT UPPER QUADRANT * * *Final Report* * * DATE OF EXAM: Mar 16 2024 5:05PM LDU 1032 - US ABD RIGHT UPPER QUADRANT / PROCEDURE REASON: R10.11 RUQ pain, R11.2 Nauesa and vomiting * * * * Physician Interpretation * * * * EXAMINATION: RIGHT UPPER QUADRANT ULTRASOUND CLINICAL HISTORY: Right upper quadrant pain, nausea and vomiting TECHNIQUE: Sonography of the right upper quadrant was performed. Images were obtained and stored in a permanent archive. MQ: [id number] COMPARISON: 03/07/2024 renal ultrasound. RESULT: Pancreas: Normal sonographic appearance. Portions obscured: tail Liver: Echotexture: Normal, homogeneous. Echogenicity: Normal Surface contour: Smooth Lesions: None. Biliary: No intrahepatic biliary duct dilation. CBD: 0.5 cm at the hilum. Gallbladder: Normal caliber -Contents: Gallstone near the neck of the gallbladder -Wall: Normal -Other: No pericholecystic fluid. Right Kidney: No hydronephrosis. Ascites: None. IMPRESSION: Gallstone in the neck of the gallbladder. No wall thickening, bile duct dilatation or pericholecystic fluid Phlebotomy Manager: [facility] Transcribe Date/Time: Mar 18 2024 2:23P Dictated by : CA ALVES MD This examination was interpreted and the report reviewed and electronically signed by: CA LAVES MD on Mar 18 2024 2:24PM EST [id number] N Normal [facility] US KIDNEY/BLADDERon 03-07-20 US KIDNEY/BLADDER * * *Final Report* * * DATE OF EXAM: Mar 07 2024 3:03PM LDU 1055 - US KIDNEY/BLADDER / PROCEDURE REASON: N20.0 Kidney stones * * * * Physician Interpretation * * * * EXAMINATION: RENAL ULTRASOUND CLINICAL HISTORY: Right-sided flank pain TECHNIQUE: Sonography of the kidneys and urinary bladder was performed. Images were obtained and stored in a permanent archive. MQ: [id number] COMPARISON: None RESULT: Right Kidney: -Renal length: 10.8 cm -Parenchyma: Normal parenchymal echogenicity. Normal parenchymal thickness. -Collecting system: No hydronephrosis. -Calculus: No echogenic, shadowing calculus. -Lesion: None. Left Kidney: -Renal length: 9.6 cm -Parenchyma: Normal parenchymal echogenicity. Normal parenchymal thickness. -Collecting system: No hydronephrosis. -Calculus: No echogenic, shadowing calculus. -Lesion: None. Bladder: Normal sonographic appearance. IMPRESSION: Normal sonographic appearance of the kidneys and urinary bladder. Negative for hydronephrosis. [facility]bot[facility] Transcribe Date/Time: Mar 08 2024 8:05A Dictated by : NIKKIE BENTLEY MD This examination was interpreted and the report reviewed and electronically signed by: NIKKIE BENTLEY MD on Mar 08 2024 8:07AM EST [id number] N Normal [facility] Absolute lymphocyte countOrd ered By: Yolis Dalton on 08-19-2023 Lymphocytes Auto (Unsp spec) [#/Vol] 2.64 10*3/uL 0.83-4.51 [facility] Basophil percentageOrdered B y: Yolis Dalton on 08-19-2023 Basophils/100 WBC (Bld) 0.8 % 0-1 [facility] Bilirubin [Mass/Vol] 0.20 mg/dL 0.20-1.00 [facility] Comment on above: For patients on eltr ombopag therapy, use of Dimension Schulter TBIL is not recommended. Chloride [Moles/Vol] 107 mmol/L 98-107 [facility] Cholesterol [Mass/Vol] 188 mg/dL <200 [facility] Comment on above: <200 mg/dL Desirable 200-240 mg/dL Borderline >240 mg/dL High Risk Eosinophils/100 WBC (Bld) 1.5 % 0-5 [facility] Glucose [Mass/Vol] 94 mg/dL 74-106 [facility] Neutrophils (Bld) [#/Vol] 4.3 10*3/uL 2.0-7.7 [facility] Neutrophils/100 WBC (Bld) 56.4 % 47-70 [facility] Potassium [Moles/Vol] 5.1 mmol/L 3.5-5.1 [facility] Protein [Mass/Vol] 7.2 g/dL 6.4-8.2 [facility] Sodium [Moles/Vol] 140 mmol/L 136-145 [facility] Triglyceride [Mass/Vol] 109 mg/dL <199 [facility] Comment on above: The drugs N-Acetylcy steine and Metamizole may falsely depress this assay.Serum Triglycerides Reference Interval Normal <150 mg/dL Borderline high 150 - 199 mg/dL High 200 - 499 mg/dL Very High > or = 500 mg/dL WBC (Bld) [#/Vol] 7.6 10*3/uL 4.4-11.0 [facility] Blood erythrocytes count (nu mber/volume)Ordered By: Yolis Dalton on 08-19-2023 RBC (Bld) [#/Vol] 4.96 10*6/uL 4.2-5.4 [facility] Blood hemoglobin measurement (mass/volume)Ordered By: Yolis Dalton on 08-19-2023 Hemoglobin (Bld) [Mass/Vol] 13.8 g/dL 12.0-15.0 [facility] Blood lymphocytes/100 leukoc ytesOrdered By: Yolis Dalton on 08-19-2023 Lymphocytes/100 WBC (Bld) 34.9 % 19-41 [facility] Blood monocytes/100 leukocyt esOrdered By: Yolis Dalton on 08-19-2023 Monocytes/100 WBC (Bld) 6.3 % 0-10 [facility] Blood platelet mean volumeOr dered By: Yolis Dalton on 08-19-2023 Platelet mean volume (Bld) [Entitic vol] 8.7 fL 6.2-12.0 [facility] Determination of erythrocyte mean corpuscular volume (MCV)Ordered By: Yolis Dalton on 08-19-2023 MCV (RBC) [Entitic vol] 88.9 fL 81-99 [facility] Hematocrit Auto (Bld) [Volum e fraction]Ordered By: Yolis Dalton on 08-19-2023 Hematocrit (Bld) [Volume fraction] 44.1 % 37-47 [facility] Laboratory - Chemistry and C hemistry - challengeOrdered By: Yolis Dalton on 08-19-2023 ALP [Catalytic activity/Vol] 108 U/L 45-117 [facility] ALT [Catalytic activity/Vol] 14 U/L 13-56 [facility] CO2 [Moles/Vol] 31.0 mmol/L 21.0-32.0 [facility] Globulin (S) [Mass/Vol] 3.4 g/dL 2.2-4.2 [facility] Urea nitrogen/Creatinine [Mass ratio] 12.6 mg/mg 10-20 [facility] - Hematology and Cell countsOrdered By: Yolis Dalton on 08-19-2023 Erythrocyte distribution width (RBC) [Entitic vol] 41.8 fL 35.1-43.9 [facility] Erythrocyte distribution width (RBC) [Ratio] 12.8 % 11.6-14.6 [facility] Immature granulocytes/100 WBC (Bld) 0.100 % 0.0-0.9 [facility] Comment on above: IG% - Immature Granu locytes (promyelocytes, myelocytes and metamyelocytes) > 1% indicates that a LEFT SHIFT is Present. MCH (RBC) [Entitic mass] 27.8 pg 27.0-32.0 [facility] Nucleated RBC/100 WBC (Bld) [Ratio] 0 % 0-5 [facility] MCHC Auto (RBC) [Mass/Vol]Or dered By: Yolis Dalton on 08-19-2023 MCHC (RBC) [Mass/Vol] 31.3 g/dL 32-36 [facility] No Panel InformationOrdered By: Yolis Dalton on 08-19-2023 Estimated GFR (MDRD) Amer 79 mL/min >60 [facility] Comment on above: GFR Calc Estimated GFR (MDRD) Non-Af Amer 66 mL/min >60 [facility] Comment on above: Non- GFR Calc Thyroid Stimulating Hormone (TSH) 1.36 uIU/mL 0.358-3.74 [facility] Vitamin D 25-Hydroxy 55.8 ng/mL [facility] Comment on above: Vitamin D 25(OH) Sta tus Range Deficiency <20 ng/mL (50nmol/L) Insufficiency 20 - 30 ng/mL (50 - 75 nmol/L) Sufficiency 30 - 100 ng/mL (75 - 250 nmol/L) Toxicity >100 ng/mL (>250 nmol/L) Platelets bldOrdered By: Thom Dalton on 08-19-2023 Platelets (Bld) [#/Vol] 406 10*3/uL 150-450 [facility] Serum or plasma albumin kwabena urement (mass/volume)Ordered By: Yolis Dalton on 08-19-2023 Albumin [Mass/Vol] 3.8 g/dL 3.2-5.0 [facility] Serum or plasma albumin/glob ulin mass ratioOrdered By: Yolis Dalton on 08-19-2023 Albumin/Globulin [Mass ratio] 1.1 {ratio} 0.9-2.4 [facility] Serum or plasma calcium wkabena urement (mass/volume)Ordered By: Yolis Dalton on 08-19-2023 Calcium [Mass/Vol] 9.2 mg/dL 8.5-10.1 [facility] Serum or plasma cholesterol in HDL measurement (mass/volume)Ordered By: Yolis Dalton on 08-19-2023 Cholesterol in HDL [Mass/Vol] 62 mg/dL >40 [facility] Comment on above: The drugs N-Acetylcy steine and Metamizole may falsely depress this assay. Reference Range HDL <40 mg/dL Low HDL Cholesterol HDL >or= 60 mg/dL High HDL Cholesterol Serum or plasma cholesterol in VLDL measurement (mass/volume)Ordered By: Yolis Dalton on 08-19-2023 Cholesterol in VLDL [Mass/Vol] 22 mg/dL 5-40 [facility] Serum or plasma creatinine m easurement (mass/volume)Ordered By: Yolis Dalton on 08-19-2023 Creatinine [Mass/Vol] 0.95 mg/dL 0.55-1.02 [facility] Comment on above: The validity of the calculated GFR & GFRAA in patients over 70 years has not been determined. Clinical correlation is essential. Serum or plasma low density lipoprotein (LDL) cholesterol measurement (mass/volume)Ordered By: Yolis Dalton on 08-19-2023 Cholesterol in LDL [Mass/Vol] 104 mg/dL 0-130 [facility] Serum or plasma urea nitroge n measurement (mass/volume)Ordered By: Yolis Dalton on 08-19-2023 Urea nitrogen [Mass/Vol] 12 mg/dL 7-18 [facility] Thin prep Papanicolaou smear with manual screeningOrdered By: Yolis Dalton on 08-19-2023 Thin prep Papanicolaou smear with manual screening 10 U/L 15-37 [facility] Thin prep Papanicolaou smear with manual screening 2 5-15 [facility] Whole blood hemoglobin A1c/t otal hemoglobin ratio (mass fraction)Ordered By: Yolis Dalton on 08-19-2023 HbA1c (Bld) [Mass fraction] 5.5 % 3.8-5.6 [facility] Comment on above: Normal < 5.7 % Predi abetic 5.7 - 6.4 % Diabetic >or= 6.5 % Please note range changes. XR Shoulder - left 3 Viewson 02-13-2023 IMPRESSION: Findings suggestive glenohumeral joint Phlebotomy Manager: [facility] Transcribe Date/Time: Feb 13 2023 1:02P Dictated by : MARISELA GUZMAN MD This examination was interpreted and the report reviewed and electronically signed by: MARISELA GUZMAN MD on Feb 13 2023 1:04PM [facility] * * *Final Report* * * DATE OF EXAM: Feb 11 2023 8:11AM CARLEE 5252 - XR SHLDR >/=3V AP/ANSHUL AP/OTHR LT / PROCEDURE REASON: [id number] * * * * Physician Interpretation * * * * PROCEDURE: Left shoulder INDICATION: Pain .LEFT SHOULDER PAIN TECHNIQUE: XR SHLDR >/=3V AP/ANSHUL AP/OTHR LT COMPARISON: 02/11/2023 FINDINGS: Inferior subluxation of the humeral head in relation to the bony glenoid. This can be seen with joint effusion. No fracture. Minimal spurring at the glenohumeral and acromioclavicular joints without joint space narrowing. Acromiohumeral interval is maintained. [facility] Provider, Laura Kaye - 02/13/2023 * * *Final Report* * * DATE OF EXAM: Feb 11 2023 8:11AM CARLEE 5252 - XR SHLDR >/=3V AP/ANSHUL AP/OTHR LT / PROCEDURE REASON: [id number] * * * * Physician Interpretation * * * * PROCEDURE: Left shoulder INDICATION: Pain .LEFT SHOULDER PAIN TECHNIQUE: XR SHLDR >/=3V AP/ANSHUL AP/OTHR LT COMPARISON: 02/11/2023 FINDINGS: Inferior subluxation of the humeral head in relation to the bony glenoid. This can be seen with joint effusion. No fracture. Minimal spurring at the glenohumeral and acromioclavicular joints without joint space narrowing. Acromiohumeral interval is maintained. IMPRESSION IMPRESSION: Findings suggestive glenohumeral joint Phlebotomy Manager[facility] Transcribe Date/Time: Feb 13 2023 1:02P Dictated by : MARISELA GUZMAN MD This examination was interpreted and the report reviewed and electronically signed by: MARISELA GUZMAN MD on Feb 13 2023 1:04PM EST [facility] XR Shoulder - left 3 ViewsOr dered By: [facility] Provider on 02-13-2023 [facility] XR Shoulder - left 3 Viewson 02-11-2023 Radiology Study [facility]narrative[facility] Absolute lymphocyte counton 07-30-2022 Lymphocytes Auto (Unsp spec) [#/Vol] 2.35 10*3/uL 0.83-4.51 [facility] Work Phone: Basophil percentageon 2021 Basophils/100 WBC (Bld) 0.5 % 0-1 [facility] Work Phone: Bilirubin [Mass/Vol] 0.30 mg/dL 0.20-1.00 [facility] Work Phone: Comment on above: For patients on eltr ombopag therapy, use of Dimension Schulter TBIL is not recommended. Chloride [Moles/Vol] 106 mmol/L 98-107 [facility] Work Phone: Cholesterol [Mass/Vol] 184 mg/dL <200 [facility] Work Phone: Comment on above: <200 mg/dL Desirable 200-240 mg/dL Borderline >240 mg/dL High Risk Eosinophils/100 WBC (Bld) 1.3 % 0-5 [facility] Work Phone: Glucose [Mass/Vol] 94 mg/dL 74-106 [facility]: Neutrophils (Bld) [#/Vol] 4.5 10*3/uL 2.0-7.7 [facility] Work Phone: Neutrophils/100 WBC (Bld) 60.0 % 47-70 [facility] Work Phone: Potassium [Moles/Vol] 4.4 mmol/L 3.5-5.1 [facility] Work Phone: Protein [Mass/Vol] 7.2 g/dL 6.4-8.2 [facility] Work Phone: Sodium [Moles/Vol] 139 mmol/L 136-145 [facility] Work Phone: Triglyceride [Mass/Vol] 106 mg/dL <199 [facility] Work Phone: Comment on above: The drugs N-Acetylcy steine and Metamizole may falsely depress this assay.Serum Triglycerides Reference Interval Normal <150 mg/dL Borderline high 150 - 199 mg/dL High 200 - 499 mg/dL Very High > or = 500 mg/dL WBC (Bld) [#/Vol] 7.5 10*3/uL 4.4-11.0 [facility] Work Phone: Blood erythrocytes count (nu mber/volume)on 07-30-2022 RBC (Bld) [#/Vol] 5.00 10*6/uL 4.2-5.[facility]: Blood hemoglobin measurement (mass/volume)on 07-30-2022 Hemoglobin (Bld) [Mass/Vol] 14.6 g/dL 12.0-15.0 [facility] Work Phone: Blood lymphocytes/100 leukoc yteson 07-30-2022 Lymphocytes/100 WBC (Bld) 31.4 % 19-41 [facility] Work Phone: Blood monocytes/100 leukocyt eson 07-30-2022 Monocytes/100 WBC (Bld) 6.7 % 0-10 [facility] Work Phone: Blood platelet mean volumeon 07-30-2022 Platelet mean volume (Bld) [Entitic vol] 8.9 fL 6.2-12.0 [facility] Work Phone: Determination of erythrocyte mean corpuscular volume (MCV)on 07-30-2022 MCV (RBC) [Entitic vol] 87.8 fL 81-99 [facility] Work Phone: Hematocrit Auto (Bld) [Volum e fraction]on 07-30-2022 Hematocrit (Bld) [Volume fraction] 43.9 % 37-47 [facility] Work Phone: Laboratory - Chemistry and C hemistry - challengeon 07-30-2022 ALP [Catalytic activity/Vol] 93 U/L 45-117 [facility] Work Phone: ALT [Catalytic activity/Vol] 12 U/L 13-56 [facility] Work Phone: CO2 [Moles/Vol] 29.0 mmol/L 21.0-32.0 [facility] Work Phone: Globulin (S) [Mass/Vol] 3.3 g/dL 2.2-4.2 [facility] Work Phone: Lipase [Catalytic activity/Vol] 90 U/L 73-393 [facility] Work Phone: Urea nitrogen/Creatinine [Mass ratio] 13.6 mg/mg 10-20 [facility] Work Phone: Laboratory - Hematology and Cell countson 07-30-2022 Erythrocyte distribution width (RBC) [Entitic vol] 40.5 fL 35.1-43.9 [facility] Work Phone: Erythrocyte distribution width (RBC) [Ratio] 12.7 % 11.6-14.6 [facility] Work Phone: Immature granulocytes/100 WBC (Bld) 0.100 % 0.0-0.9 [facility] Work Phone: Comment on above: IG% - Immature Granu locytes (promyelocytes, myelocytes and metamyelocytes) > 1% indicates that a LEFT SHIFT is Present. MCH (RBC) [Entitic mass] 29.2 pg 27.0-32.0 [facility] Work Phone: Nucleated RBC/100 WBC (Bld) [Ratio] 0 % 0-5 [facility] Work Phone: MCHC Auto (RBC) [Mass/Vol]on 07-30-2022 MCHC (RBC) [Mass/Vol] 33.3 g/dL 32-36 [facility] Work Phone: No Panel Informationon 07-30 C-Reactive Protein High Sensitivity 3.53 mg/L <3.00 [facility] Work Phone: Comment on above: Low Relative Risk of CVD <1.0 mg/L Average Relative Risk of CVD 1.0 - 3.0 mg/L High Relative Risk of CVD >3.0 mg/L Estimated GFR (MDRD) Amer 73 mL/min >60 [facility] Work Phone: Comment on above: GFR Calc Estimated GFR (MDRD) Non-Af Amer 60 mL/min >60 [facility] Work Phone: Comment on above: Non- GFR Calc Thyroid Stimulating Hormone (TSH) 1.04 uIU/mL 0.358-3.74 [facility] Work Phone: Platelets bldon 07-30-2022 Platelets (Bld) [#/Vol] 395 10*3/uL 150-450 [facility] Work Phone: Serum or plasma albumin kwabena urement (mass/volume)on 07-30-2022 Albumin [Mass/Vol] 3.9 g/dL 3.2-5.0 [facility] Work Phone: Serum or plasma albumin/glob ulin mass ratioon 07-30-2022 Albumin/Globulin [Mass ratio] 1.2 {ratio} 0.9-2.4 [facility] Work Phone: Serum or plasma calcium kwabena urement (mass/volume)on 07-30-2022 Calcium [Mass/Vol] 9.6 mg/dL 8.5-10.1 [facility] Work Phone: Serum or plasma cholesterol in HDL measurement (mass/volume)on 07-30-2022 Cholesterol in HDL [Mass/Vol] 55 mg/dL >40 [facility] Work Phone: Comment on above: The drugs N-Acetylcy steine and Metamizole may falsely depress this assay. Reference Range HDL <40 mg/dL Low HDL Cholesterol HDL >or= 60 mg/dL High HDL Cholesterol Serum or plasma cholesterol in VLDL measurement (mass/volume)on 07-30-2022 Cholesterol in VLDL [Mass/Vol] 21 mg/dL 5-40 [facility] Work Phone: Serum or plasma creatinine m easurement (mass/volume)on 07-30-2022 Creatinine [Mass/Vol] 1.03 mg/dL 0.55-1.02 [facility] Work Phone: Comment on above: The validity of the calculated GFR & GFRAA in patients over 70 years has not been determined. Clinical correlation is essential. Serum or plasma low density lipoprotein (LDL) cholesterol measurement (mass/volume)on 07-30-2022 Cholesterol in LDL [Mass/Vol] 108 mg/dL 0-130 [facility] Work Phone: Serum or plasma urea nitroge n measurement (mass/volume)on 07-30-2022 Urea nitrogen [Mass/Vol] 14 mg/dL 7-18 [facility] Work Phone: Thin prep Papanicolaou smear with manual screeningon 07-30-2022 Thin prep Papanicolaou smear with manual screening 10 U/L 15-37 [facility] Work Phone: Thin prep Papanicolaou smear with manual screening 4 5-15 [facility] Work Phone: XR SHOULDER 2V AP/TRUE AP LT on 09-13-2020 XR SHOULDER 2V AP/TRUE AP LT Final Report DATE OF EXAM: Sep 13 2020 2:51PM LDX 5254 - XR SHOULDER 2V AP/TRUE AP LT / PROCEDURE REASON: LT. SHOULDER PAIN Physician Interpretation EXAMINATION: XR SHOULDER 2V AP/TRUE AP LT CLINICAL HISTORY: Pt. states she fell three yrs. ago fractured elbow, has had pain in left shoulder since then it keeps getting worse Technique: XR SHOULDER 2V AP/TRUE AP LT -- LEFT with 3 views on 4 images Comparison: None RESULT: No fracture or dislocation. Normal glenohumeral joint space. Normal AC joint. Acromiohumeral interval is maintained. Visualized ribs are intact. Adjacent lungs are clear. IMPRESSION: No acute osseous findings. Phlebotomy Manager: [facility] Transcribe Date/Time: Sep 13 2020 3:41P Dictated by : REYNALDO NAIDU MD This examination was interpreted and the report reviewed and electronically signed by: REYNALDO NAIDU MD on Sep 13 2020 3:42PM EST Normal [facility] XR CHEST 2V FRONTAL/LATon XR CHEST 2V FRONTAL/LAT Final Report DATE OF EXAM: Jun 05 2020 2:40PM LDX 5291 - XR CHEST 2V FRONTAL/LAT / PROCEDURE REASON: SOB R06.02 Physician Interpretation XR CHEST 2V FRONTAL/LAT INDICATION: SOB R06.02 50 years/Female RESULT: COMPARISON: 02/16/2019 The heart size is normal. No pneumothorax The lung gonzalez are clear of infiltrate. No mediastinal or hilar adenopathy. The costophrenic angles are clear. The bony structures are intact. IMPRESSION: no active cardiopulmonary disease Phlebotomy Manager: [facility] Transcribe Date/Time: Jun 05 2020 6:35P Dictated by : MACI BARTLETT MD This examination was interpreted and the report reviewed and electronically signed by: MACI BARTLETT MD on Jun 05 2020 6:36PM EST Normal [facility] Otheron 04-19-2019 XR Ribs - left 3 views Please click on t he link to view the study images Normal [facility] Work Phone: XR Sacrum and Coccyx 2 views Please click on the link to view the study images Normal [facility] Work Phone: XR Ribs - left 3 views Interpreted by: JENNY CHAIREZ04/20/19 17:43MRN: [id number] Name: RORO BAZAN STUDY:BN RIBS, UNILATERAL, W PA CXR 3 VIEWS;Right; 04/19/2019 11:39 am INDICATION:fragility rib fracture - right 5th rib. COMPARISON:None. ORDERING CLINICIAN:DEBBY DUMONT FINDINGS:PA view of the chest and 2 additional views of the right ribs wereobtained. Chest: There is no evidence of a pneumothorax, pleural effusion orfocal consolidation. The cardiomediastinal silhouette is withinnormal limits. Ribs: There is no evidence of an acute fracture or expansile lesion.A radiopaque density is noted overlying the right lateral chest wall. IMPRESSION:1. No evidence of a right rib fracture.2. No acute pulmonary process. Electronically signed by: JENNY CHAIREZ 04/20/19 17:43 Normal [facility] Work Phone: Comment on above: ORDER REVISED TO A R IBS, UNILATERAL, W PA CXR 3 VIEWS BY RADIOLOGIST XR Sacrum and Coccyx 2 views Interpreted by: KATHERINE OLIVIER04/21/19 07:27MRN: [id number] Name: RORO BAZAN STUDY:SACRUM/COCCYX, MIN 2 VIEWS; 04/19/2019 11:39 am INDICATION:pain, fall. COMPARISON:None. ORDERING CLINICIAN:DEBBY DUMONT FINDINGS:No fracture identified. IMPRESSION:No fracture of the sacrum or coccyx identified. Electronically signed by: KATHERINE OLIVIER 04/21/19 07:27 [facility] Work Phone: Comment on above: ORDER REVISED TO A S ACRUM/COCCYX, MIN 2 VIEWS BY RADIOLOGIST Primary Care Visit (Text/For ms)on 04-19-2019 Primary Care Visit (Text/Forms) Diagnoses/Problems Bipolar disorder (296.80) (F31.9) Fracture of rib of right side (807.00) (S22.31XA) At risk for bone density loss (V49.89) (Z91.89) Contraceptive management (V25.9) (Z30.9) Coccyx pain (724.79) (M53.3) Anxiety (300.00) (F41.9) Encounter for screening for osteoporosis (V82.81) (Z13.820) Orders Start: Escitalopram Oxalate 5 MG Oral Tablet; Take 1 tablet daily C Reactive Protein, Serum; Specimen Source:Blood (BLD); Status:Active; Requested for:[id number]; Complete Blood Count + Differential; Specimen Source:Blood (BLD); Status:Active; Requested for:[id number]; Comprehensive Metabolic Panel; Status:Active; Requested for:[id number]; Parathormone Intact, Serum; Specimen Source:Blood (BLD); Status:Active; Requested for:[id number]; Phosphorus, Serum; Specimen Source:Blood (BLD); Status:Active; Requested for:[id number]; Protein Electrophoresis + IF Serum; Specimen Source:Blood (BLD); Status:Active; Requested for:[id number]; Sedimentation Rate, Erythrocyte; Specimen Source:Blood (BLD); Status:Active; Requested for:[id number]; TSH WITH REFLEX TO FREE T4 IF ABNORMAL; Specimen Source:Blood (BLD); Status:Active; Requested for:[id number]; Vitamin D 25-Hydroxy; Specimen Source:Blood (BLD); Status:Active; Requested for:[id number]; Endocrinology Referral Evaluation and Treatment 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 : pain, fall Start: oxyCODONE HCl - 5 MG Oral Tablet; TAKE 1 TABLET EVERY 6 HOURS NEEDED FOR SEVERE PAIN Xray Bone Density, Dexa 1 or More Sites; Status:Hold For - Scheduling; Requested for:[id number]; Radiologist to Determine Optimal Study : Y What are the patient's signs and symptoms? : fragility rib fracture Xray Ribs Unilateral 2 View; Status:Hold For - Scheduling; Requested for:[id number]; Laterality : Right Radiologist to Determine Optimal Study : Y What are the patient's signs and symptoms? : fragility rib fracture - right 5th rib Patient Discussion/Summary 5th Right Rib fracture, fragility, no known trauma or preceding event- Check bone density test Check dedicated rib xray- ensure no other rib fractures Refer to endocrinology --- Dr. Laith Abbasi DO [facility] [address] [place] [id number] Bone health support: Make sure you are getting at least 1,200 mg daily of calcium (preferred via dietary intake, okay for supplements if needed), and 2,000 IU of vitamin D3 daily. Encourage weight bearing exercise as able, along with balance and strength training Reduce fall risk in the home Sacral/coccyx pain, fall on stairs- Check xrays NSAIDs- start with ibuprofen or aleve, rest, ice Short course of oxycocdone for severe pain -- advised will not be refilled. Do not drive with this medication. Do not use alcohol with this medication. [place]AR[place] reviewed Refer to MEDICAID NURSE for contraceptive management- consider IUD Advised stopping DEPO and switching to alternative management due to concerns for bone density Dr. Jaylyn Cee, Dr. Ivonne Santana [employer] [facility] [id number] [facility], [address] [place], [place] [id number] Bipolar disorder- Refer to psychiatry Will start low dose lexapro for anxiety for now - she was cautioned that this can sometimes worsen bipolar disorder so will watch closely. Psychologist AND Psychiatrist [facility] Adult [phone] [facility] [email or web address] [address] [place] [address] [facility] [place] [id number], [place] [address] [place] [address] [place] [address] Follow up 2 months Provider Impressions Provider Impressions Free Text Note Form: A total of 50 minutes were spent [id number] with the patient during this encounter and over half of that time was spent on counseling and coordination of care. Chief Complaint to establish History of Present Illness RORO is a new patient here to get established. Prior PCP: - Dr Nicol Hutchinson Specialists include: - None She is on lamictal for bipolar disorder - was managed per last PCP - saw psychiatry years ago but has been stable Not doing counseling - did in past but didn't help much She was on zoloft at one time but didn't seem to help She has been very tearful and feeling anxious lately Denies any manic episodes recently She would like to try a medication for the anxiety She is on depo for contraception -- has been on for 17 years Prior to that was on OCP Weight gain- 12 pounds since Nov - no changes in diet or exercise Feels a little moodier and anxious- mostly about work, daughter (age 17), feels like she is going to jump out of her skin Works at [employer] She had labs done through work this morning- screening labs Previously was on concerta for ADD - reports was diagnosed as an adult Then switched PCPs as hers retired and last PCP would not prescribe Recently diagnosed with a right 5th rib fracture-- pain started end of february- saw last PCP for it- reports CXR was normal, she had a normal mammogram, not sure how it fractured Then had U/S done finally weeks later which showed rib fracture Still has minimal pain Slipped down stairs this weekend - still having some tailbone pain and has bruising on right buttocks Hurts to sit on that side Review of Systems See scanned document Active Problems Bipolar disorder (296.80) (F31.9) BMI 34.0-34.9,adult (V85.34) (Z68.34) Obesity (278.00) (E66.9) Past Medical History History of attention deficit disorder (V11.8) (Z86.59) Surgical History No history of surgery Family History Family history of malignant neoplasm of breast (V16.3) (Z80.3) Family history of hypertension (V17.49) (Z82.49) Family history of myocardial infarction (V17.3) (Z82.49) Family history of malignant neoplasm of ovary (V16.41) (Z80.41) Social History Alcohol use (V49.89) (Z78.9) Caffeine use (V49.89) (Z78.9) Employed Former smoker (V15.82) (Z87.891) Parent Current Meds Medication NameInstruction Depo-Provera 150 MG/ML Intramuscular Suspension LaMICtal 150 MG Oral TabletTAKE 1 TABLET TWICE DAILY. Allergies No Known Allergies Vitals Vital Signs Recorded: [id number] 10:20AM Temperature: 98.8 F Heart Rate: 83 Respiration: 14 Systolic: 123 Diastolic: 85 Height: 5 ft 5.5 in Weight: 212 lb 3 oz BMI Calculated: 34.77 BSA Calculated: 2.04 O2 Saturation: 98 LMP: Depo Physical Exam Constitutional: Well developed, well nourished, alert and in no acute distress Eyes: Normal external exam. Neck: Supple, no lymphadenopathy or masses. Thyroid normal. Cardiovascular: Regular rate and rhythm, normal S1 and S2, no murmurs, gallops, or rubs. Radial pulses normal. No peripheral edema. Pulmonary: No respiratory distress, lungs clear to auscultation bilaterally. No wheezes, rhonchi, rales. Chest: Right 5th anterior rib is mildly tender. Sacrum: Ecchymosis noted over right sacrum, with tenderness. Skin: Warm, well perfused, normal skin turgor and color. Neurologic: Cranial nerves II-XII grossly intact. Psychiatric: Mood calm and affect normal. Signatures Electronically signed by : Debby Dumont DO; Apr 19 2019 11:15AM EST (Author) Normal [facility] RIBS, UNILATERAL, W PA CXR 3 VIEWSon 04-19-2019 RIBS, UNILATERAL, W PA CXR 3 VIEWS Patient Name: RORO BAZAN STUDY: BN RIBS, UNILATERAL, W PA CXR 3 VIEWS;Right; 04/19/2019 11:39 am INDICATION: fragility rib fracture - right 5th rib. COMPARISON: None. ACCESSION NUMBER(S): [id number] ORDERING CLINICIAN: DEBBY DUMONT FINDINGS: PA view of the chest and 2 additional views of the right ribs were obtained. Chest: There is no evidence of a pneumothorax, pleural effusion or focal consolidation. The cardiomediastinal silhouette is within normal limits. Ribs: There is no evidence of an acute fracture or expansile lesion. A radiopaque density is noted overlying the right lateral chest wall. IMPRESSION: 1. No evidence of a right rib fracture. 2. No acute pulmonary process. Electronically signed by: JENNY CHAIREZ DO Normal [facility] SACRUM/COCCYX, MIN 2 VIEWSon 04-19-2019 SACRUM/COCCYX, MIN 2 VIEWS Patient Name: RORO BAZAN STUDY: SACRUM/COCCYX, MIN 2 VIEWS; 04/19/2019 11:39 am INDICATION: pain, fall. COMPARISON: None. ACCESSION NUMBER(S): [id number] ORDERING CLINICIAN: DEBBY DUMONT FINDINGS: No fracture identified. IMPRESSION: No fracture of the sacrum or coccyx identified. Electronically signed by: KATHERINE OLIVIER MD Normal [facility] Primary Care Visit (Text/For ms)on 04-11-2019 Primary Care Visit (Text/Forms) No report was sent Normal [facility] Vital Signs Date Time Vital Sign Value Performing Clinician Facility 04-26-2025 14:23-0400 Diastolic blood pressure 63 mm[Hg] Yolis Dalton ANIMAL CARE SUPERVISOR-C Work Phone: [facility] 04-26-2025 14:23-0400 Heart rate 68 /min Yolis Dalton ANIMAL CARE SUPERVISOR-C Work Phone: [facility] 04-26-2025 14:23-0400 Respiratory rate 14 /min Yolis Dalton ANIMAL CARE SUPERVISOR-C Work Phone: [facility] 04-26-2025 14:23-0400 SaO2% (BldA) [Mass fraction] 99 % Yolis Dalton ANIMAL CARE SUPERVISOR-C Work Phone: [facility] 04-26-2025 14:23-0400 Systolic blood pressure 125 mm[Hg] Yolis Dalton ANIMAL CARE SUPERVISOR-C Work Phone: [facility] 04-26-2025 13:55-0400 Body height 165.1 cm Yolis Dalton ANIMAL CARE SUPERVISOR-C Work Phone: [facility] 04-26-2025 13:55-0400 Body mass index (BMI) [Ratio] 33.3 kg/m2 Yolisxander Dalton ANIMAL CARE SUPERVISOR-C Work Phone: [facility] 04-26-2025 13:55-0400 Body weight 90.71 kg Yolis Dalton ANIMAL CARE SUPERVISOR-C Work Phone: [facility] 03-22-2025 08:56-0400 Body height 166.37 cm Yolisxander Dalton ANIMAL CARE SUPERVISOR-C Work Phone: [facility] 03-22-2025 08:56-0400 Body mass index (BMI) [Ratio] 33 kg/m2 Yolisxander Dalton ANIMAL CARE SUPERVISOR-C Work Phone: [facility] 03-22-2025 08:56-0400 Body weight 91.62 kg Yolis Dalton ANIMAL CARE SUPERVISOR-C Work Phone: [facility] 03-22-2025 08:56-0400 Diastolic blood pressure 91 mm[Hg] Yolis Dalton ANIMAL CARE SUPERVISOR-C Work Phone: [facility] 03-22-2025 08:56-0400 Heart rate 82 /min Yolis Dalton ANIMAL CARE SUPERVISOR-C Work Phone: [facility] 03-22-2025 08:56-0400 SaO2% (BldA) [Mass fraction] 99 % Yolsi Dalton ANIMAL CARE SUPERVISOR-C Work Phone: [facility] 03-22-2025 08:56-0400 Systolic blood pressure 125 mm[Hg] Yolis Dalton ANIMAL CARE SUPERVISOR-C Work Phone: [facility] 02-15-2025 08:44-0400 Body height 165.1 cm Yolis Dalton ANIMAL CARE SUPERVISOR-C Work Phone: [facility] 02-15-2025 08:44-0400 Body mass index (BMI) [Ratio] 33.3 kg/m2 Yolisxander Dalton ANIMAL CARE SUPERVISOR-C Work Phone: [facility] 02-15-2025 08:44-0400 Body temperature 97.2 [degF] Yolisxander Dalton ANIMAL CARE SUPERVISOR-C Work Phone: [facility] 02-15-2025 08:44-0400 Body weight 90.71 kg Yolis Dalton ANIMAL CARE SUPERVISOR-C Work Phone: [facility] 02-15-2025 08:44-0400 Diastolic blood pressure 85 mm[Hg] Yolis Dalton ANIMAL CARE SUPERVISOR-C Work Phone: [facility] 02-15-2025 08:44-0400 Heart rate 83 /min Yolis Dalton ANIMAL CARE SUPERVISOR-C Work Phone: [phone] [place] [address] 02-15-2025 08:44-0400 Respiratory rate 20 /min Yolisxander Dalton ANIMAL CARE SUPERVISOR-C Work Phone: [facility] 02-15-2025 08:44-0400 SaO2% (BldA) [Mass fraction] 95 % Yolis Dalton ANIMAL CARE SUPERVISOR-C Work Phone: [facility] 02-15-2025 08:44-0400 Systolic blood pressure 122 mm[Hg] Yolis Dalton ANIMAL CARE SUPERVISOR-C Work Phone: [facility] 02-09-2025 08:15-0400 Body height 165.1 cm Yolis Dalton ANIMAL CARE SUPERVISOR-C Work Phone: [facility] 02-09-2025 08:15-0400 Body weight 89.81 kg Yolis Dalton ANIMAL CARE SUPERVISOR-C Work Phone: [facility] 02-09-2025 08:15-0400 Heart rate 93 /min oYlis Dalton ANIMAL CARE SUPERVISOR-C Work Phone: [facility] 02-09-2025 08:15-0400 SaO2% (BldA) [Mass fraction] 97 % Yolisxander MooreDalton ANIMAL CARE SUPERVISOR-C Work Phone: [facility] 01-11-2025 08:25-0400 Body height 167.64 cm Yolis Dalton ANIMAL CARE SUPERVISOR-C Work Phone: [facility] 01-11-2025 08:25-0400 Body mass index (BMI) [Ratio] 31.8 kg/m2 Yolis Dalton ANIMAL CARE SUPERVISOR-C Work Phone: [facility] 01-11-2025 08:25-0400 Body temperature 97.3 [degF] Yolisxander Dalton ANIMAL CARE SUPERVISOR-C Work Phone: [facility] 01-11-2025 08:25-0400 Body weight 89.35 kg Yolisxander Dalton ANIMAL CARE SUPERVISOR-C Work Phone: [facility] 01-11-2025 08:25-0400 Diastolic blood pressure 93 mm[Hg] Yolisxander Dalton ANIMAL CARE SUPERVISOR-C Work Phone: [facility] 01-11-2025 08:25-0400 Heart rate 97 /min Yolisxander MooreDalton ANIMAL CARE SUPERVISOR-C Work Phone: [facility] 01-11-2025 08:25-0400 Respiratory rate 18 /min Yolis Dalton ANIMAL CARE SUPERVISOR-C Work Phone: [facility] 01-11-2025 08:25-0400 SaO2% (BldA) [Mass fraction] 95 % Yolis Dalton ANIMAL CARE SUPERVISOR-C Work Phone: [facility] 01-11-2025 08:25-0400 Systolic blood pressure 130 mm[Hg] Yolis Dalton ANIMAL CARE SUPERVISOR-C Work Phone: [facility] 11-09-2024 16:01-0500 Body mass index (BMI) [Ratio] 32.8 kg/m2 Yolisxander Dalton ANIMAL CARE SUPERVISOR-C Work Phone: [facility] 11-09-2024 16:01-0500 Body temperature 97.5 [degF] Yolis Dalton ANIMAL CARE SUPERVISOR-C Work Phone: [facility] 11-09-2024 16:01-0500 Body weight 92.07 kg Yolis Dalton ANIMAL CARE SUPERVISOR-C Work Phone: [facility] 11-09-2024 16:01-0500 Diastolic blood pressure 70 mm[Hg] Yolis Dalton ANIMAL CARE SUPERVISOR-C Work Phone: [facility] 11-09-2024 16:01-0500 Heart rate 104 /min Yolis Dalton ANIMAL CARE SUPERVISOR-C Work Phone: [facility] 11-09-2024 16:01-0500 Respiratory rate 18 /min Yolis Dalton ANIMAL CARE SUPERVISOR-C Work Phone: [facility] 11-09-2024 16:01-0500 SaO2% (BldA) [Mass fraction] 97 % Yolis Dalton ANIMAL CARE SUPERVISOR-C Work Phone: [facility] 11-09-2024 16:01-0500 Systolic blood pressure 100 mm[Hg] Yolis Dalton ANIMAL CARE SUPERVISOR-C Work Phone: [facility] 11-07-2024 09:52-0500 Body height 166.4 cm Olga Wormald PA-C Work Phone: [facility] 11-07-2024 09:52-0500 Body mass index (BMI) [Ratio] 33.13 kg/m2 Olga Wormald PA-C Work Phone: [facility] 11-07-2024 09:52-0500 Body temperature 98.71 [degF] Olga Wormald PA-C Work Phone: [facility] 11-07-2024 09:52-0500 Body weight 91.7 kg Olga Wormald PA-C Work Phone: [facility] 11-07-2024 09:52-0500 Diastolic blood pressure 91 mm[Hg] Olga Wormald PA-C Work Phone: [facility] 11-07-2024 09:52-0500 Heart rate 102 /min Olga Mckinneyald PA-C Work Phone: [facility] 11-07-2024 09:52-0500 SaO2% (BldA) [Mass fraction] 98 % Olga Mckinneyald PA-C Work Phone: [facility] 11-07-2024 09:52-0500 Systolic blood pressure 130 mm[Hg] Olga Mckinneyald PA-C Work Phone: [facility] 05-17-2024 11:08-0400 Body height 166.4 cm Henri rC MD Work Phone: [facility] 05-17-2024 11:08-0400 Body mass index (BMI) [Ratio] 32.76 kg/m2 Henri Cr MD Work Phone: [facility] 05-17-2024 11:08-0400 Body weight 90.72 kg Henri Cr MD Work Phone: [facility] 05-17-2024 11:08-0400 Diastolic blood pressure 90 mm[Hg] Henri Cr MD Work Phone: [facility] 05-17-2024 11:08-0400 Heart rate 100 /min Henri Cr MD Work Phone: [facility] 05-17-2024 11:08-0400 Systolic blood pressure 122 mm[Hg] Henri Cr MD Work Phone: [facility] 08-19-2023 15:34-0500 Body height 167.64 cm [facility] 08-19-2023 15:34-0500 Body mass index (BMI) [Ratio] 32.5 kg/m2 [facility] 08-19-2023 15:34-0500 Body weight 91.62 kg [facility] 04-30-2023 15:16-0400 Body mass index (BMI) [Ratio] 32.5 kg/m2 [facility] 04-30-2023 15:16-0400 Body temperature 97.2 [degF] [facility] 04-30-2023 15:16-0400 Body weight 91.62 kg [facility] 04-30-2023 15:16-0400 Diastolic blood pressure 80 mm[Hg] [facility] 04-30-2023 15:16-0400 Heart rate 96 /min [facility] 04-30-2023 15:16-0400 Respiratory rate 18 /min [facility] 04-30-2023 15:16-0400 SaO2% (BldA) [Mass fraction] 96 % [facility] 04-30-2023 15:16-0400 Systolic blood pressure 115 mm[Hg] [facility] 07-30-2022 15:08-0400 Body height 167.64 cm [facility] Work Phone: 07-30-2022 15:08-0400 Body mass index (BMI) [Ratio] 32.5 kg/m2 [facility] Work Phone: 07-30-2022 15:08-0400 Body temperature 97 [degF] [facility] Work Phone: 07-30-2022 15:08-0400 Body weight 91.62 kg [facility] Work Phone: 07-30-2022 15:08-0400 Diastolic blood pressure 80 mm[Hg] [facility] Work Phone: 07-30-2022 15:08-0400 Heart rate 95 /min [facility] Work Phone: 07-30-2022 15:08-0400 Respiratory rate 18 /min [facility] Work Phone: 07-30-2022 15:08-0400 SaO2% (BldA) [Mass fraction] 97 % [facility] Work Phone: 07-30-2022 15:08-0400 Systolic blood pressure 122 mm[Hg] [facility] Work Phone: 01-15-2022 15:23-0400 Body height 166.4 cm Pacc 1 Work Phone: [facility] 01-15-2022 15:23-0400 Body temperature 97.5 [degF] Pacc 1 Work Phone: [facility] 01-15-2022 15:23-0400 Body weight 95.25 kg Pacc 1 Work Phone: [facility] 01-15-2022 15:23-0400 Diastolic blood pressure 82 mm[Hg] Pacc 1 Work Phone: [facility] 01-15-2022 15:23-0400 Heart rate 104 /min Pacc 1 Work Phone: [facility] 01-15-2022 15:23-0400 Respiratory rate 16 /min Pacc 1 Work Phone: [facility] 01-15-2022 15:23-0400 SaO2% (BldA) [Mass fraction] 96 % Pacc 1 Work Phone: [facility] 01-15-2022 15:23-0400 Systolic blood pressure 120 mm[Hg] Pacc 1 Work Phone: [facility] 04-19-2019 12:20-0400 BMI (Body Mass Index) 34.77 kg/m2 Debby Dumont [facility] Work Phone: 04-19-2019 12:20-0400 Body Temperature 98.8 [degF] Debby Dumont [facility] Work Phone: 04-19-2019 12:20-0400 Body weight 96.25 kg Debby Dumont [facility] Work Phone: 04-19-2019 12:20-0400 BP Diastolic 85 mm[Hg] Debby Dumont [facility] Work Phone: 04-19-2019 12:20-0400 BP Systolic 123 mm[Hg] Debby Dumont -[facility] Work Phone: 04-19-2019 12:20-0400 BSA (Body Surface Area) 2.04 m2 Debby Dumont MP-[facility] Work Phone: 04-19-2019 12:20-0400 Height 166.37 cm Debby Cazaresl MP-[facility] Work Phone: 04-19-2019 12:20-0400 Pulse (Heart Rate) 83 /min Debby Julia [facility] Work Phone: 04-19-2019 12:20-0400 Pulse Oximetry 98 % Debby Julia [facility] Work Phone: 04-19-2019 12:20-0400 Respiratory Rate 14 /min Debby Dumont [facility] Work Phone: Encounters Encounter Date Encounter Type Care Provider Facility Start: 04-29-2025 ambulatory [facility] Facility:[facility] Start: 04-29-2025 Non-patient / Non-visit Dr. Myra CASTANO -[facility] Start: 04-26-2025 Non-patient / Non-visit Dr. Zeb rodríguez MD -[facility] Start: 04-26-2025 End: 04-26-[address] Zeb Bernal MD -Cat Scan [facility] Work Phone: Start: 04-26-2025 End: 04-26-2025 ambulatory Yolis Dalton ANIMAL CARE SUPERVISOR-C Work Phone: -Cat Scan [facility] Start: 04-26-2025 ambulatory Zeb Gabe Facility:[facility] Start: 03-22-2025 End: 03-22-2025 ambulatory Yolis Dalton ANIMAL CARE SUPERVISOR-C Work Phone: [facility] Work Phone: Start: 03-22-2025 End: 03-22-[address] Zeb Bernal MD -Laboratory Work Phone: Start: 03-22-2025 End: 03-22-[address] Zeb Bernal MD -[facility] Work Phone: Start: 03-22-2025 End: 03-22-2025 ambulatory Yolis Dalton ANIMAL CARE SUPERVISOR-C Work Phone: [facility] Work Phone: Start: 03-22-2025 End: 03-22-2025 ambulatory Zeb Bernal Facility:[facility] Start: 03-07-2025 ambulatory Diana Ng Facili ty:[facility] Start: 02-15-2025 End: 02-15-2025 Patient encounter procedure OBDULIO Ng -[facility] Work Phone: Start: 02-15-2025 End: 02-15-2025 ambulatory Yolis Dalton ANIMAL CARE SUPERVISOR-C Work Phone: [facility] Work Phone: Start: 02-10-2025 ambulatory Diana Ng Facili ty:[facility] Start: 02-10-2025 Non-patient / Non-visit Dr. Paul See own DO -[facility] Start: 02-09-2025 End: 02-09-2025 ambulatory Yolis Dalton ANIMAL CARE SUPERVISOR-C Work Phone: [facility] Work Phone: Start: 02-09-2025 End: 02-09-2025 Patient encounter procedure OBDULIO Ng -Pulmonary Services/Neurology Work Phone: Start: 02-09-2025 End: 02-09-2025 ambulatory Diana Ng Facility:[facility] Start: 02-07-2025 Non-patient / Non-visit Dr. Paul See own DO -[facility] Start: 02-07-2025 End: 02-07-2025 ambulatory Yolis Dalton ANIMAL CARE SUPERVISOR-C Work Phone: [facility] Work Phone: Start: 02-07-2025 End: 02-07-2025 Patient encounter procedure OBDULIO Ng -Pulmonary Services/Neurology Work Phone: Start: 02-07-2025 End: 02-07-2025 ambulatory Diana Ng Facility:[facility] Start: 02-03-2025 End: 02-03-2025 ambulatory Yolis Dalton ANIMAL CARE SUPERVISOR-C Work Phone: [facility] Work Phone: Start: 02-03-2025 End: 02-03-2025 Patient encounter procedure OBDULIO Ng -Cat Scan, [facility] Work Phone: Start: 02-03-2025 End: 02-03-2025 ambulatory Diana Ng Facility:[facility] Start: 01-11-2025 End: 01-11-2025 Patient encounter procedure OBDULIO Ng -[facility] Work Phone: Start: 01-11-2025 End: 01-11-2025 ambulatory Diana Ng [facility] Start: 11-07-2024 End: 11-07-2024 Patient encounter procedure Olga Jorge PA-C Work Phone: [facility] Comment on above: Acute otitis media, right (Primary Dx); Sore throat; Fatigue, unspecified type; Right ear pain Start: 09-16-2024 ambulatory YOLIS DALTON Facil ity:[facility] Start: 09-16-2024 End: 09-16-2024 Subsequent hospital visit by physician [facility] Start: 07-27-2024 ambulatory YOLIS DALTON Facil ity:[facility] Start: 07-27-2024 End: 07-27-2024 Subsequent hospital visit by physician [facility] Work Phone: [facility] Comment on above: Unspecified intestin al obstruction, unspecified as to partial versus complete obstruction [K56.609] Start: 06-22-2024 End: 06-22-2024 ambulatory HENRI CR Facility:[facility] Start: 06-22-2024 End: 06-22-2024 Patient encounter procedure Henri Cr MD Work Phone: General Surgery Comment on above: Gallstones (Primary Dx) Start: 06-13-2024 End: 06-13-2024 Emergency department patient visit YOLIS DALTON Facility:[facility] Start: 06-10-2024 End: 06-10-2024 ambulatory YOLIS DALTON Facility:[facility] Start: 06-08-2024 End: 06-08-2024 ambulatory MATEO LOPEZ Facility:[facility] Start: 06-08-2024 End: 06-08-2024 Patient encounter procedure Mateo Lopez PA-C Work Phone: General Surgery Comment on above: S/P laparoscopic cho lecystectomy (Primary Dx); Malaise and fatigue; Gallstones Start: 05-19-2024 End: 05-19-2024 ambulatory HENRI CR Facility:[facility] Start: 05-17-2024 End: 05-17-2024 ambulatory YOLIS DALTON Facility:[facility] Start: 05-17-2024 End: 05-17-2024 ambulatory YOLIS DALTON Facility:[facility] Start: 05-17-2024 End: 05-17-2024 Patient encounter procedure Henri Cr MD Work Phone: General Surgery Comment on above: Gallstones (Primary Dx) Start: 03-16-2024 ambulatory YOLIS DALTON Facil ity:[facility] Start: 03-16-2024 End: 03-16-2024 Subsequent hospital visit by physician [facility] Comment on above: Right upper quadrant pain [R10.11] Start: 03-07-2024 ambulatory YOLIS Misael MOOREDALTON Facil ity:[facility] Start: 03-07-2024 End: 03-07-2024 Subsequent hospital visit by physician [facility] Comment on above: Back Pain Start: 08-19-2023 End: 08-19-2023 ambulatory [facility] Work Phone: Start: 08-19-2023 End: 08-19-2023 Patient encounter procedure [facility]Laboratory, Specimen Work Phone: Start: 02-11-2023 End: 02-11-2023 Patient encounter procedure Vibha Delgado DO Work Phone: Orthopaedics Comment on above: Impingement syndrome of right shoulder (Primary Dx); Impingement syndrome of shoulder region, unspecified laterality; Strain of right biceps, initial encounter; Strain of long head of biceps, left, initial encounter Start: 02-11-2023 End: 02-11-2023 Subsequent hospital visit by physician [facility] Nahed Gautam Work Phone: Radiology Comment on above: Pain [R52] Start: 01-06-2023 Orders Only Vibha Dickerson Sandy DO Work Phone: [facility] Comment on above: Pain (Primary Dx) Start: 07-30-2022 End: 07-30-2022 ambulatory [facility] Work Phone: Start: 07-30-2022 End: 07-30-2022 Patient encounter procedure [facility]Labor[facility], Specimen Start: 03-27-2022 ambulatory Vibha Delgado DO Work Phone: Orthopaedics Comment on above: Tramidol Start: 02-28-2022 End: 02-28-2022 Patient encounter procedure Vibha Delgado DO Work Phone: Orthopaedics Comment on above: Impingement syndrome of right shoulder (Primary Dx); Chronic right shoulder pain Start: 01-15-2022 End: 01-15-2022 PAT [place] [id number] Work Phone: Pre Anesthesia Comment on above: Pre-operative examin ation (Primary Dx); Biceps strain, right, subsequent encounter; Bipolar disorder with depression (HCC); Nicotine dependence with current use; Obesity, Class I, BMI 30-34.9 E66.9; Tachycardia Start: 01-15-2022 End: 01-15-2022 Preprocedural examination done [facility] Work Phone: Pre Anesthesia Start: 01-03-2022 ambulatory Vibha Partidaaylin Work Phone: Orthopaedics Comment on above: FMLA Start: 12-26-2021 ambulatory Vibha Delgado DO Work Phone: Orthopaedics Comment on above: FMLA Start: 12-17-2021 Admission to [facility] Vibha Delgado DO Work Phone: Orthopaedics Comment on above: Surgery Start: 12-17-2021 ambulatory Vibha Delgado DO Work Phone: [facility] Start: 05-28-2020 Patient encounter status [facility] Procedures Date Procedure Procedure Detail Performing Clinician Start: 04-26-2025 Cardiac computed tomography for calcium scoring Yolis Dalton ANIMAL CARE SUPERVISOR-C Work Phone: Start: 02-03-2025 CT of chest Yolis Dalton ANIMAL CARE SUPERVISOR-C Work Phone: Start: 02-11-2023 Radex shoulder complete minimum 2 views Vibha Partidafabianoberry DO Work Phone: Start: 04-19-2019 25 hydroxy includes fractions if performed Debby Julia Start: 04-19-2019 Assay of parathormone Debby Carmicha el Start: 04-19-2019 Assay of phosphorus inorganic Debby Julia Start: 04-19-2019 Blood count complete auto&auto difrntl wbc Debby Athens Start: 04-19-2019 C-reactive protein Debby Athens Start: 04-19-2019 Comprehensive metabolic 2000 panel Debby Julia Start: 04-19-2019 Protein Electrophoresis + IF Serum Debby Athens Start: 04-19-2019 Sedimentation rate rbc automated Debby [place] Start: 04-19-2019 TSH WITH REFLEX TO FREE T4 IF ABNORMAL Debby Julia Start: 04-19-2019 Xray Bone Density, Dexa 1 or More Sites Debby Athens Start: 04-19-2019 Xray Ribs Unilateral 2 View Debby Julia Start: 04-19-2019 Xray Sacrum + Coccyx Min 2 View Debby Julia Start: 04-19-2019 Lipid 1996 panel - Serum or Plasma [facility] Start: 02-22-2019 Mammography Vibha Delgado DO Work Phone: Start: 12-28-2018 Adult depression screening assessment Vibha Delgado DO Work Phone: History of cholecystectomy S/P laparoscopic cholecystectomy Mateo Lopez PA-C Work Phone: History of No histor y of surgery Debby Dumont Plan of Treatment Date Care Activity Detail Author Start: 07-22-2028 Urine microalbumin profile [facility] Start: 06-10-2027 Diabetes Screening Diabetes Screenin g [facility] Start: 03-22-2025 Evaluation of diagnostic study results [facility] Start: 02-15-2025 Patient referral [facility] Work Phone: Start: 02-09-2025 Walking distance 6 minutes [facility] Start: 11-09-2024 Patient referral [facility] Work Phone: Start: 06-22-2024 End: 06-22-2024 Patient encounter procedure 06/22/2024 8:00 AM EDT Office Visit General Surgery [address] [facility] [address] [place], [place] [id number] Henri Cr MD [address] [facility] [address] [place], [place] [id number] 2 wk LC General Surgery Comment on above: 2 wk LC Start: 06-08-2024 End: 09-07-2024 CBC panel - Blood by Automated count COMPLETE BLOOD COUNT Lab Routine Malaise and fatigue Expected: 06/08/2024, Expires: 09/07/2024 [facility] Work Phone: Comment on above: Expected: 06/08/2024 , Expires: 09/07/2024 Start: 06-08-2024 End: 09-07-2024 Comprehensive metabolic 2000 panel - Serum or Plasma COMPREHENSIVE METABOLIC PANEL Lab Routine Malaise and fatigue Expected: 06/08/2024, Expires: 09/07/2024 [facility] Comment on above: Expected: 06/08/2024 , Expires: 09/07/2024 Start: 06-08-2024 End: 09-07-2024 Ferritin [Mass/volume] in Serum or Plasma FERRITIN Lab Routine Malaise and fatigue Expected: 06/08/2024, Expires: 09/07/2024 [facility] Comment on above: Expected: 06/08/2024 , Expires: 09/07/2024 Start: 06-08-2024 End: 09-07-2024 Iron and Iron binding capacity panel - Serum or Plasma IRON AND TIBC Lab Routine Malaise and fatigue Expected: 06/08/2024, Expires: 09/07/2024 [facility] Comment on above: Expected: 06/08/2024 , Expires: 09/07/2024 Start: 06-05-2024 Covid-19 Vaccine ( season) Covid-19 Vaccine () [facility] Start: 06-05-2024 Covid-19 Vaccine () Covid-19 Vaccine () [facility] Start: 06-05-2024 Influenza vaccination [facility] Start: 06-02-2024 End: 06-02-2024 Patient encounter procedure 06/02/2024 1:45 PM EDT Office Visit General Surgery [address] [place] [id number] Mateo Lopez PA-C [address] [place] [address] Follow up Laparoscopic cholecystectomy with intraoperative cholangiograms 05/19 General Surgery Comment on above: Follow up Laparoscop ic cholecystectomy with intraoperative cholangiograms 05/19 Start: 05-19-2024 End: 05-19-2024 Laparoscopy surg cholecystectomy LAPAROSCOPIC CHOLECYSTECTOMY Gallstones 05/19/2024 7:42 AM EDT [facility] Start: 04-19-2024 Lipid panel Lipid Screening [facility] Start: 04-19-2024 LIPID SCREEN LIPID SCREEN [facility] Start: 03-11-2024 End: 03-11-2024 Patient encounter procedure 03/11/2024 5:00 PM EDT Appointment [facility] [address] [place] [id number] R10.11 RUQ pain [facility] Comment on above: R10.11 RUQ pain Start: 10-05-2023 Behavioral Health Screening Behavioral Health Screening [facility] Start: 06-05-2023 Covid-19 Vaccine ( season) Covid-19 Vaccine ( season) [facility] Start: 06-05-2023 Influenza vaccination INFLUENZ A (Season Ended) [facility] Start: 10-05-2022 DEPRESSION ASSESSMENT DEPRESSION ASS ESSMENT [facility] Start: 06-05-2022 Influenza vaccination INFLUENZ A (Season Ended) [facility] Start: 04-26-2022 DIABETES SCREEN DIABETES SCREEN [facility] Start: 04-26-2022 Diabetes Screening Diabetes Screenin g [facility] Start: 01-27-2022 Pneumococcal Vaccine : 50+ (1 of 1 - PCV) Pneumococcal Vaccine: 50+ (1 of 1 - PCV) [facility] Start: 01-27-2022 SHINGRIX VACCINE (1 of 2) SHINGRIX VACCINE (1 of 2) [facility] Start: 01-22-2022 PAP TESTING PAP TESTING [facility] Start: 01-22-2022 Screening for malign ant neoplasm of cervix Pap Testing [facility] Start: 06-05-2021 Influenza vaccination INFLUENZA (#1) [facility] Start: 02-23-2020 Mammography MAMMOGRAM [facility] Start: 02-23-2020 Screening for malign ant neoplasm of breast Mammogram Screening [facility] Start: 01-23-2020 Screening for malign ant neoplasm of cervix Cervical Cancer Screening [facility] Start: 12-29-2019 Adult depression screening assessment DEPRESSION SCREENING [facility] Start: 04-19-2019 Xray Bone Dens ity, Dexa 1 or More Sites [facility] Work Phone: Start: 01-27-2017 COLOGUARD (FIT-DNA) COLOGUARD (FIT-D NA) [facility] Start: 01-27-2017 Colonoscopy COLONOSCOPY [facility] Start: 01-27-2017 COLORECTAL CANCER SCREENING COLORECTAL CANCER SCREENING [facility] Start: 01-27-[address] COLONOGRAPHY [facility] Start: 01-27-2017 FECAL OCCULT BLOOD FECAL OCCULT BLOO D [facility] Start: 01-27-2017 Screening for malign ant neoplasm of colon [facility] Start: 01-27-2017 SIGMOIDOSCOPY SIGMOIDOSCOPY [facility] Start: 01-27-2002 HPV TESTING HPV TESTING [facility] Start: 01-27-2002 Screening for malign ant neoplasm of cervix HPV Testing [facility] Start: 01-27-1991 Hepatitis B Vaccine (1 of 3 - 19+ 3-dose series) Hepatitis B Vaccine (1 of 3 - 19+ 3-dose series) [facility] Start: 01-27-1990 Anxiety Screening Anxiety Screening [facility] Start: 01-27-1990 Depression Screening Depression Scre ening [facility] Start: 01-27-1990 HIV SCREENING HIV SCREENING [facility] Start: 01-27-1990 HIV screening HIV Screening [facility] Start: 01-27-1977 COVID-19 VACCINE (#1) COVID-19 VACCI NE (#1) [facility] Start: 01-27-1977 COVID-19 VACCINE (1) COVID-19 VACCIN E (1) [facility] Start: 1972 COVID-19 VACCINE (#1) COVID-19 VACCI NE (#1) [facility] Start: 1970 HEPATITIS B (1 of 3 - 3-dose series) HEPATITIS B (1 of 3 - 3-dose series) [facility] Complete blood count [facility] Comprehensive metabo lic 1999 panel - Serum or Plasma [facility] Continuous pulse oximetry [facility] CT Chest [facility] Chest [facility] CT for calcium scori ng WO contrast and CTA W contrast IV Heart and coronary arteries [facility] Lipid 1996 panel - Serum or Plasma [facility] Patient referral [facility] Work Phone: Thyroid stimulating hormone measurement [facility] US Carotid arteries [facility] Gallbladder [facility] Work Phone: US Heart [facility] End: 02-05-2024 XR SHOULDER GENERAL 3V OR MORE AP/TRUE AP/OTHER LEFT XR SHOULDER GENERAL 3V OR MORE AP/TRUE AP/OTHER LEFT Radiology Routine Pain 1 Occurrences starting 01/06/2023 until 02/05/2024 [facility] Work Phone: Comment on above: 1 Occurrences starti ng 01/06/2023 until 02/05/2024 [facility] Work Phone: [facility] NEGATED: Highlighted row has been ruled out! 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 [employer] [id number] 2017-Present [phone] [address] [place] [address] PPO [id number] Unknown [id number] Unknown [facility] [place] [id number] Unknown [id number] 62 Unknown [id number] 62 Unknown [id number] 62 Unknown [id number] [id number] 62 Unknown [id number] [id number] 62 Unknown [id number] [id number] 62 Unknown [id number] [id number] 62 Unknown [id number] [id number] 62 Unknown [id number] [id number] 62 Unknown [id number] [id number] 62 Unknown [id number] [id number] 62 Unknown [id number] [id number] 62 Unknown [id number] [id number] 62 Unknown [id number] [id number] 62 Unknown [id number] [id number] 62 Social History Date Type Detail Facility Start: 01-22-2017 End: 02-11-2023 Tobacco smoking status NHIS Ex-smoker [facility] Start: 10-05-1990 End: 10-05-2014 History of tobacco use Current smoker [facility] Start: 10-05-1990 End: 10-05-2014 History of tobacco use Cigarette Smoker [facility] Start: 01-22-2017 End: 02-11-2023 Cigarettes smoked current (pack per day) - Reported 0.5 [facility] Start: 01-22-2017 End: 02-11-2023 Tobacco use and exposure Smokeless tobacco non-user [facility] Start: 12-06-2021 End: 11-07-2024 Alcohol intake Current drinker of alcohol (finding) [facility] Start: 09-18-2021 History SDOH Alcohol Comment Ocassionally [facility] Start: 1970 Sex Assigned At Not on file [facility] Start: 12-08-2021 End: 12-18-2021 Exposure to SARS-CoV-2 (event) Unable to assess [facility] Start: 01-05-2022 End: 02-14-2022 Exposure to SARS-CoV-2 (event) Not sure [facility] Start: 1970 Sex Assigned At Female [facility] Start: 01-24-2021 End: 01-24-2021 Tobacco smoking status NHIS Unknown if ever smoked [facility] Start: 12-28-2018 End: 02-11-2023 Tobacco use panel [facility] Adult Depression Screening Assessment 0 [facility] Start: 02-21-2022 Gender identity Identifies as female gender (finding) [facility] NEGATED: Highlighted row - - [facility] Work Phone: Medical Equipment Procedure Code Equipment Code Equipment Origin al Text Equipment Identifier Dates Lnt Implant Syst em 4.75 Bc [id number] [id number] Start: 08-27-2021 Lnt Implant Syst em 4.75 Bc [employer] [id number] Start: 10-01-2021 Functional Status Date Assessment Result Facility 04-19-2019 IO PHQ9 IO PHQ9 11- Mode rate Depression [facility] Work Phone: NEGATED: Highlighted row Functional performance Functional status health issues are not documented Disease [facility] Work Phone: Mental Status Date Assessment Result Facility 04-26-2025 Cognitive function Awake;Alert;[facility] Work Phone: NEGATED: Highlighted row Cognitive function [Interpretation] Cognitive status health issues are not documented Disease [facility] Work Phone: Clinical Notes 08-12-2021 to 05-01-2025 Note Date & Type Note Facility 05-01-2025 Radiology Diagnostic study note [facility] Imaging Services [address] [place], [place] [address] Limited Chest CT Cardiac Only MR#: [id number] Acct: [id number] Name: RORO BAZAN Rep #: [id number] : 1970 F 55 From: Jefe Duarte MD PCP: Yolis Dalton NP-C Status: REG CLI Study:Limited Chest CT Cardiac Only Date of E xam: 04/26/25 Exam# [id number] Ordering Dr: Carmelo Bernal MD PROCEDURE: LIMITED CHEST CT CARDIAC ONLY 04/26/2025 REASON FOR EXAM: ELEVATED BLOOD PRESSURE READING WITHOUT DIAGNOSIS OF HYPERTENSION TECHNIQUE: LIMITED CHEST CT CARDIAC ONLY CONTRAST: Isovue 370. 80 mL injected intravenously One or more dose reduction techniques were used (e.g., Automated exposure control, adjustment of the mA and/or kV according to patient size, use of iterative reconstruction technique). RADIATION DOSE SUMMARY: CTDlvol: 45 mGy DLP: 2344.91 mGycm COMPARISON: None FINDINGS: Small benign-appearing mediastinal lymph nodes. No significant coronary artery calcification is seen. The heart is not enlarged. The lungs are clear. CT/Limited Chest CT Cardiac Only IMPRESSION: No coronary artery calcification is seen. Reading Location: [id number] CC: JORDI Dalton; Dr. Zeb Bernal MD ~ Phlebotomy Manager: Signed [facility] 04-29-2025 Radiology Diagnostic study note [facility] Imaging Services [address] [place] [address] 04/29/25 1150 MR#: [id number] Acct: [id number] Name: RORO BAZAN Rep #:[id number] : 1970 55 From: Reagan Brock MD PCP: JORDI Stauffer Status:REG CLI Y Location: CT CCTA w/Cont Coronary Arteries Date of Study:: 04/26/25 Elevated blood pressure Coronary Calcium Scoring: High-resolution Computed Tomographic imaging of the chest was performed on [04/26/2025], with particular attention paid to the coronary arteries. Intravenous contrast agent was administered per protocol and images reconstructed and displayed. LEFT MAIN CORONARY ARTERY: Arises from the left coronary cusp and bifurcates the left anterior descending artery and left circumflex artery. No significant stenosis or plaquing is noted [] LEFT ANTERIOR DESCENDING CORONARY ARTERY: Arises from the left main coronary artery and courses towards the apex of the ventricle with no significant atherosclerotic plaquing or stenosis noted. [] LEFT CIRCUMFLEX CORONARY ARTERY:No atherosclerotic plaque noted Right coronary artery; dominant vessel with no significant atherosclerotic plaquing noted. [] [] CORONARY CALCIUM SCORE:0 [] Findings Coronary Artery Left Main (LM): 0 Left Anterior Descending (LAD): 0 Left Circumflex (LCX): 0 Right Coronary Artery (RCA): 0 Total Agatston Score: 0 Percentile Rankin% Calcium Scoring Interpretation: Different methods to categorize the overall amount of coronary plaque. Overall amount CAC SIS Visual of coronary plaque P1 Mild -100 <2 1-2 vessels with mild amount of plaque P2 Moderate 101-300 3-4 1-2 vessels with moderate amount, 3 vessels with mild amount of plaque P3 Severe 301-999 5-7 3 vessels with moderate amount, 1 vessel with severe amount of plaque P4 Extensive >1000 >8 2-3 vessels with severe amount of plaque Conclusion: No atherosclerotic plaque 04/29/25 1205 Date __ _ Reagan Brock MD Cosigner Signature (if applicable): Date ___ CC: ANIMAL CARE SUPERVISOR-C Yolis Dalton; Dr. Zeb Bernal MD; Dr. Reagan Brock MD ~ Signed [facility] Work Phone: 03-22-2025 Progress note [facility] 03-22-2025 Progress note Note Date/Time March 22, 2025 9:25am [facility] [address] [place] [address]. [address] [place] [address] OFFICE VISIT Date of Service: 03/22/25 MR#: [id number] Acct: [id number] Name: RORO BAZAN Rep #: [id number] : 1970 Provider: Dr. Shyam Bernal MD Age/Sex: 55/F Location[facility] Status: Signed HPI HPI History of Present Illness Details: This lady has history of bipolar disorder. According to her, he has been havingshortness of breath with exertion for about 2 years now. According to her, it has been worsening. Denies any associated chest tightness. No arm, neck or jawdiscomfort. Denies orthopnea or PND. No ankle edema. Also complains of occasional dizziness where and she feels lightheaded. No syncope or presyncope. She has previously had a tilt table test done. It was reported as negative. Denies any palpitations. Per patient, she generally feels tired and fatigued. Per her, when she wakes upshe feels exhausted. 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: No Accompanied by: Self Is patient in pain?: No Allergies No Known Allergies Allergy (Verified 03/22/25 08:57) Medications ?Medication ?Instructions ?Recorded ?Confirmed ?Type lamotrigine 150 mg tablet 150 mg PO BID #180 tabs 07/0603/22/25 Rx (Lamictal) tramadol 100 mg tablet 100 mg PO BID PRN pain 30 da ys #60 11/09/24 03/22/25 Rx tabs Have you fallen in the past year?: Yes PFSH Medical History Dizziness and giddiness Chest pain Smoking greater than 20 pack years Thoracic back pain Fatigue Epigastric abdominal pain Left arm numbness Shortness of breath Gallbladder adhesions vaginal Left elbow fracture Tachycardia Bipolar 1 disorder Pneumonia Surgical History History of cholecystectomy Family History Father Myocardial infarction Hypertension Mother Breast cancer FH: cholecystectomy Brother FH: cholecystectomy Other CVA (cerebral vascular accident) Diabetes Heart disease Social History household members: spouse and children housing: house Electronic Cigarette Use: with nicotine alcohol intake: current alcohol intake frequency: holidays/special occasions only ROS Const Const: Positive for fatigue and weakness ENT ENT: Positive for dizziness; Negative for balance problems Cardio Chest Pain: No Palpitations: Yes Edema: Bilateral Muscle aches with walking: None Resp Respiratory: Positive for SOB with activity and SOB at rest; Negative for SOB orthopneaundefinedSOB lying down GI GI: Positive for heartburn; Negative nausea or vomiting Musc Musc: Negative for muscle weakness or balance problems Neuro Neuro: Positive for dizziness, lightheadedness, near syncope and weakness; Negative for syncope Endo Endo: Positive for fatigue Cardiology Exam Const Appearance: comfortable and no acute distress Nutritional Appearance: well nourished Neck Neck: no JVD Carotids: Negative bruit Chest Auscultation: Bilateral: Clear to Auscultation Cardio Rate: regular rate Rhythm: regular rhythm Heart sounds: S1 normal and S2 normal Neuro General: patient alert, patient awake and patient oriented x3 Extremities Lower Extremity Edema: None: Bilateral Supplemental Info Supplemental Information Labs: No Data to Display Diagnostics: No Data to Display Pulmonary: Pulmonary Exercise Test Past Visits: Cardiology Visit 03/22/25 Assessment and Plan Assessment and Plan (1) Dyspnea on exertion: Status: Chronic Plan: ECG shows poor R wave progression across the precordial leads. This could be because of body habitus and lead placement. However given her symptomatology, will check echocardiogram. Workup for ischemic heart disease is indicated. Patient is interested in havingdefinitive testing done. Will check coronary CT angio. (2) Dizziness: Status: Chronic Plan: Check bilateral carotid Doppler. (3) Elevated blood pressure reading without diagnosis of hypertension: Status: Acute Plan: Diastolic blood pressure elevated. Patient will have her blood pressure checkedat her PCPs office in 1 week. (4) Nicotine dependence: Status: Chronic Plan: Previous history of smoking but now vapes. Counseled to quit. (5) Bipolar disorder: Status: Chronic Plan: As per PCP/neurology. (6) Fatigue: Status: Chronic Qualifiers: Fatigue type: unspecified Qualified Code(s): R53.83 - Other fatigue Plan: I recommend that patient be screened for sleep apnea. Defer workup to PCP. Check complete blood count, complete metabolic panel and TSH. Orders: Orders 12 Lead EKG performed by [facility] Today R06.02 - Shortness of breath, R07.9 - Chest pain, unspecified, R42 - Dizziness and giddiness Plan Details Follow Up: 3 Months Coding Level of Care Code Off vis,new,level 4 Diagnoses Dyspnea on exertion R06.09 Dizziness R42 Elevated blood pressure reading without diagnosis of hypertension R03.0 Nicotine dependence F17.200 Bipolar disorder F31.9 Fatigue, unspecified type R53.83 Fatigue type: unspecified Coding Level of Care Code Off vis,new,level 4 Diagnoses Dyspnea on exertion R06.09 Dizziness R42 Elevated blood pressure reading without diagnosis of hypertension R03.0 Nicotine dependence F17.200 Bipolar disorder F31.9 Fatigue, unspecified type R53.83 Fatigue type: unspecified Clinical Quality Measures Falls Risk Screening/Assistive Devices Have you fallen in the past year?: Yes 03/22/25924 <Electronically signed by Zeb Bernal MD> Date _ Zeb Bernal MD Cosigner Signature: Date (if applicable) CC: BLANCAC Yolis Dalton ~ [facility] Work Phone: 1(722) 735-763905-09-2025 Procedure [facility]Neurology [address] [place] [address] MR#: [id number] Acct: [id number] Name: RORO BAZAN [place] Rep #:[id number] : 1970 55 From: Paul Coronel DO Referring Dr: Diana Ng ANIMAL CARE SUPERVISOR-C Status: REG CLI Location: N Date: Sex: F C PSN 6 Minute Walk Test 6 Minute Walk Test 6 Minute Walk Test: 6 Minute Walk Test PSN:6-Minute Walk Test Start: 02/09/25 08:29 Freq: Status: Active Protocol: [id number] Document 02/09/25 08:15 AEH (Rec: 02/09/25 08:35 AEH [id number]) 6 Minute Walk Test Date Performed 02/09/25 Time Performed 08:15 Height 5 ft 5 in Weight: 198 lb Weight in Pounds 198.[address]: Helio Assistive device None used: Pre-test Oxygen Delivery Room Air Method Pulse Ox (%) 97 Pulse Rate (60-100 93 beats/min) Dyspnea Tato Scale ( 0 0-10) Exertion Tato Scale 6 (6-20) 1st minute Oxygen Delivery Room Air Method Pulse Ox (%) 95 Pulse Rate (60-100 110 H beats/min) 2nd minute Oxygen Delivery Room Air Method Pulse Ox (%) 94 Pulse Rate (60-100 107 H beats/min) 3rd minute Oxygen Delivery Room Air Method Pulse Ox (%) 95 Pulse Rate (60-100 110 H beats/min) 4th minute Oxygen Delivery Room Air Method Pulse Ox (%) 95 Pulse Rate (60-100 113 H beats/min) 5th minute Oxygen Delivery Room Air Method Pulse Ox (%) 96 Pulse Rate (60-100 112 H beats/min) 6th minute Oxygen Delivery Room Air Method Pulse Ox (%) 97 Pulse Rate (60-100 117 H beats/min) Dyspnea Tato Scale ( 1 0-10) Exertion Tato Scale 12 (6-20) Post-test Oxygen Delivery Room Air Method Pulse Ox (%) 98 Pulse Rate (60-100 103 H beats/min) Full Laps Walked 21 Partial Lap, Number 29 of Tiles Walked Total Distance 1268 Walked (ft) Interpretation Interpretation: The patient ambulated 1268 feet over the course of 6 minutes beginning on room air without assistive devices. Pretesting oxygen saturation was noted to be 97%on room air. With ambulation, the alexandra oxygen saturation was 94%. There was no significant exertional oxygen desaturation. Recommendations Recommendations: There is no indication for the use of supplemental oxygen at this time. 02/10/25 1211 O> Date _ Paul Coronel DO CC: ~ Date Dictated: 02/10/25 1210 Date Transcribed: 02/10/25 1210 Phlebotomy Manager: Dr. Paul Coronel DO Signed [facility]05-04-2025 Radiology Diagnostic study note [facility] Imaging Services [address] [place], [place] [address] Low Dose CT Lung Screening MR#: [id number] Acct: [id number] Name: RORO BAZAN Rep #: [id number] : 1970 F 55 From: Elsie Garnica MD PCP: JORDI Stauffer Status: REG CLI Study:Low Dose CT Lung Screening Date of Exam : 02/03/25 Exam# [id number] Ordering Dr: Diana NgC PROCEDURE: LOW DOSE CT LUNG SCREENING 02/03/2025 REASON FOR EXAM: CURRENTLY VAPING, QUIT SMOKING CIGARETTES IN 2014 TECHNIQUE: Low Dose CT Lung screening without contrast. Coronal and Sagittal reconstructionseries were provided. One or more dose reduction techniques were used (e.g., Automated exposure control, adjustment of the mA and/or kV according to patient size, use of iterative reconstruction technique). REFERENCE LINK: [place] Lung-RADS RADIATION DOSE SUMMARY: CTDlvol: 4.0 mGy DLP: 145 mGycm COMPARISON: CT abdomen and pelvis 07/27/2024 FINDINGS: PULMONARY NODULES: (Only nodules >3mm are reported) Pulmonary Nodules: No suspicious nodule. Lymph Nodes:Unremarkable Heart and Vasculature:Normal heart size. No coronary calcification. Lungs and Airways: Scarring or atelectasis in the lingula. Otherwise clear. Pleura:Unremarkable Upper Abdomen: Cholecystectomy clips. Bones:Unremarkable CT/Low Dose CT Lung Screening IMPRESSION: Lung-RADS Category: 1 NEGATIVE. RECOMMEND 12-MONTH SCREENING LDCT. Other Significant Findings: None. Reading Location: [facility] CC: JORDI Dalton; Diana Ng NP ~ Phlebotomy Manager: Signed [facility]04-09-2025 Evaluation note* Diagnosis Onset Date Resolution Status Admit Date Shortness of breath acute January 11, 2025 1:55pm Smoking greater than 20 pack years acute January 11, 2025 1:55pm Chest pain acute February 15, 2025 3:02pm Shortness of breath acute February 022024 3:02pm Smoking greater than 20 pack years acute February 15, 2025 3 :02pm Elevated blood pressure read ing without diagnosis of hypertension acute March 22, 2025 8:46am Bipolar disorder chronic March 8:46am Dizziness chronic March 22 8:46am Dyspnea on exertion chronic March 22, 2025 8:46am Fatigue chronic March 22 8:46am Nicotine dependence chronic March 22, 2025 8:46am [facility] Work Phone: 1(181) 696-551402-05-2025 Chief complaint+Reason for visit Narrative * Chief Complaint Admit Date medication refills & referral pulmonary November 09, 2024 3:28pm Increasing SOB, atelectasis RML January 1:55pm CURRENTLY VAPING, QUIT SMOKING CIGARETTE S February 03, 2025 2:14pm R06.02 - Shortness of breath February 07 6:39am Reason for Visit Admit Date Shortness of breath November 09, 2024 3 :28pm Thoracic back pain November 09, 2024 3 :28pm Shortness of breath January 11, 2025 1:55 pm Smoking greater than 20 pack years January 11, 2025 1:55pm [facility] Work Phone: 1(575) 172-508502-05-2025 Chief complaint+Reason for visit Narrative * Chief Complaint Admit Date medication refills & referral pulmonary November 09, 2024 3:28pm Increasing SOB, atelectasis RML January 1:55pm CURRENTLY VAPING, QUIT SMOKING CIGARETTE S February 03, 2025 2:14pm R06.02 - Shortness of breath February 07 6:39am R06.02 - Shortness of breath February 09 8:00am R06.02 - Shortness of breath February 10 12:10pm Reason for Visit Admit Date Shortness of breath November 09, 2024 3 :28pm Thoracic back pain November 09, 2024 3 :28pm Shortness of breath January 11, 2025 1:55 pm Smoking greater than 20 pack years January 11, 2025 1:55pm [facility] Work Phone: 1(539) 962-430702-05-2025 Chief complaint+Reason for visit Narrative * Chief Complaint Admit Date medication refills & referral pulmonary November 09, 2024 3:28pm Increasing SOB, atelectasis RML January 1:55pm CURRENTLY VAPING, QUIT SMOKING CIGARETTE S February 03, 2025 2:14pm R06.02 - Shortness of breath February 07 6:39am R06.02 - Shortness of breath February 09 8:00am R06.02 - Shortness of breath February 10 12:10pm 5 wk fu February 15, 2025 3:02p m Reason for Visit Admit Date Shortness of breath November 09, 2024 3 :28pm Thoracic back pain November 09, 2024 3 :28pm Shortness of breath January 11, 2025 1:55 pm Smoking greater than 20 pack years January 11, 2025 1:55pm Shortness of breath February 15, 2025 3:02p m Smoking greater than 20 pack years February 022024 3:02pm [facility] Work Phone: 1(675) 775-292002-05-2025 Evaluation note* Diagnosis Onset Date Resolution Status Admit Date Shortness of breath acute u 2024 3:28pm Thoracic back pain acute 2024 3:28pm Shortness of breath acute January 11, 2025 1:55pm Smoking greater than 20 pack years acute January 11, 2025 1:55pm [facility] Work Phone: 1([phone]) 589-818202-05-2025 Evaluation note* Diagnosis Onset Date Resolution Status Admit Date Shortness of breath acute Febru 2024 3:28pm Thoracic back pain acute Februa 2024 3:28pm Shortness of breath acute January 11, 2025 1:55pm Smoking greater than 20 pack years acute January 11, 2025 1:55pm Shortness of breath acute February 022024 3:02pm Smoking greater than 20 pack years acute February 15, 2025 3 :02pm [facility] Work Phone: 1(524) 762-211502-03-2025 Instructions* Patient Instructions* Olga Jorge PA-C - 11/07/2024 10:00 AM EST Otitis Media An ear infection is also called otitis media. Blocked or swollen eustachian tubes can cause an infection. Eustachian tubes connect the middle ear to the back of the nose and throat. They drain fluid from the middle ear. You may have a buildup of fluid in your ear. Germs build up in the fluid and infection develops. Medicines: You may need any of the following: Acetaminophen decreases pain and fever. It is available without a doctor's order. Ask how much to take and how often to take it. Follow directions. Read the labels of all other medicines you are using to see if they also contain acetaminophen, or ask your doctor or pharmacist. Acetaminophen can cause liver damage if not taken correctly. Do not use more than 4 grams (4,000 milligrams) total of acetaminophen in one day. NSAIDs , such as ibuprofen, help decrease swelling, pain, and fever. This medicine is available with or without a doctor's order. NSAIDs can cause stomach bleeding or kidney problems in certain people. If you take blood thinner medicine, always ask your healthcare provider if NSAIDs are safe for you. Always read the medicine label and follow directions. Ear drops may contain medicine to decrease pain and inflammation. Antibiotics help treat a bacterial infection. Take your medicine as directed. Contact your healthcare provider if you think your medicine is not helping or if you have side effects. Tell him or her if you are allergic to any medicine. Keep a list of the medicines, vitamins, and herbs you take. Include the amounts, and when and why you take them. Bring the list or the pill bottles to follow-up visits. Carry your medicine list with you in caseof an emergency. Self-care: Apply heat on your ear for 15 to 20 minutes, 3 to 4 times a day or as directed. You can apply heat with an electric heating pad, hot water bottle, or warm compress. Always put a cloth between your skin and the heat pack to prevent velasco. Heat helps decrease pain. Apply ice on your ear for 15 to 20 minutes, 3 to 4 times a day for 2 days or as directed. Use an ice pack, or put crushed ice in a plastic bag. Cover it with a towel before you apply it to your ear. Ice decreases swelling and pain. Call your doctor if: You see blood or pus draining from your ear. Your ear pain gets worse or does not go away, even after treatment. The outside of your ear is red or swollen. You are vomiting or have diarrhea. You have questions or concerns about your condition or care. Go to the emergency department if: You have clear fluid coming from your ear. You have a stiff neck, headache, and a fever. documented in this [facility] History of Present illness Narrative* Olga Jorge PA-C - 11/07/2024 9:38 AM EST Subjective Roro Bazan is a 54 year old female with a past medical history of bipolar disorder and ADHD who presents to [facility] care today for evaluation of right- sided sore throat, right ear pain, and right-sided chest tightness for the past couple days. She denies having any fevers. No known exposure to COVID-19, influenza, RSV, or strep pharyngitis. Review of Systems Constitutional: Negative for chills, diaphoresis and fever. HENT: Positive for ear pain (right) and sore throat (right sided). Negative for congestion. Eyes: Negative for discharge and redness. Respiratory: Positive for chest tightness (right sided). Negative for cough and shortness of breath. Neurological: Negative for weakness and headaches. All other systems reviewed and are negative. Objective LMP (LMP Unknown) Physical Exam Vitals reviewed. Constitutional: General: She is not in acute distress. Appearance: Normal appearance. She is normal weight. She is not ill-appearing or toxic-appearing. Comments: The patient appears to be non-toxic, in no acute distress, and resting comfortably on thetable. HENT: Head: Normocephalic and atraumatic. Right Ear: Ear canal and external ear normal. Tympanic membrane is injected and erythematous. Left Ear: Tympanic membrane, ear canal and external ear normal. Mouth/Throat: Mouth: Mucous membranes are moist. Pharynx: Oropharynx is clear. Posterior oropharyngeal erythema present. No oropharyngeal exudate. Eyes: Extraocular Movements: Extraocular movements intact. Cardiovascular: Rate and Rhythm: Normal rate and regular rhythm. Heart sounds: Normal heart sounds. No murmur heard. No friction rub. No gallop. Pulmonary: Effort: Pulmonary effort is normal. No respiratory distress. Breath sounds: Normal breath sounds. No wheezing. Musculoskeletal: General: Normal range of motion. Cervical back: Normal range of motion. Skin: General: Skin is warm and dry. Findings: No erythema or rash. Neurological: General: No focal deficit present. Mental Status: She is alert and oriented to person, place, and time. Mental status is at baseline. Psychiatric: Mood and Affect: Mood normal. Behavior: Behavior normal. Thought Content: Thought content normal. Assessment and Plan Examination of the oropharynx reveals posterior oropharyngeal erythema with no edema or exudate. Uvula is midline. No trismus. Examination of the right ear reveals erythema and injection of the tympanic membrane consistent with acute otitis media. Patient counseled regarding suspected diagnosis andgiven prescriptions for amoxicillin and prednisone. Advised to follow-up with primary care as needed for any new or worsening symptoms. ASSESSMENT/PLAN: 1. Acute otitis media, right - ICD9: 382.9, ICD10: H66.91 (primary diagnosis) - AMOXICILLIN 875 MG TABLET - PREDNISONE 10 MG TABLET 2. Sore throat - ICD9: 462, ICD10: J02.9 3. Fatigue, unspecified type - ICD9: 780.79, ICD10: R53.83 4. Right ear pain - ICD9: 388.70, ICD10: H92.01 Medical Decision Making: Problems: Low: Acute, uncomplicated illness or injury Risk: Minimal: Minimal risk from testing/treatment Moderate: Drug management Medical Decision Making Level: 3 - Low I spent a total of 20 minutes on the date of the service which included preparing to see the patient, [id number] patient care, completing clinical documentation, performing a medically appropriate examination, counseling and educating the patient/family/caregiver, and ordering medications, tests,or procedures. Olga Jorge PA-C documented in this encounterMer[facility]10-23-2024 History of Present illness Narrative* Luis Armando Mota, CT - 07/27/2024 4:00 PM EDT Radiology Service Progress Note DATE OF SERVICE: July 27, 2024 TIME: 3:58 PM PATIENT IDENTITY VERIFICATION COMPLETED USING TWO (2) STANDARD IDENTIFIERS: Name and Date of confirmed by patient verbally. FALL SCREENING: Has the patient had 2 falls in the last year or 1 fall with injury or currently using an Ambulatory Assistive Device (Walker, Cane, Wheelchair, Crutches, etc.)? No PATIENT GENDER DATA: Female. status: : No status: NO. PATIENT RELEVANT IMPLANT DATA REVIEWED: Not Applicable PATIENT PRESENTS WITH AN IMPLANTABLE OR ATTACHED UTILITY LOCATOR: No ALLERGIES: Reviewed and unchanged CONTRAST ALLERGY: NO. EXAM: CT -CONTRAST INDUCED NEPHROPATHY RISK FACTORS: Not applicable CREATININE: Creatinine Date Value Ref Range Status 06/10/2024 1.00 (H) 0.58 - 0.96 mg/dL Final 04/26/2019 0.85 0.51 - 0.95 mg/dL Final 04/19/2019 0.88 0.51 - 0.95 mg/dL Final Estimated Glomerular Filtration Rate Date Value Ref Range Status 06/10/2024 68 >=60 mL/min/1.73m Final Comment: Estimated Glomerular Filtration Rate (eGFR) is calculated using the 2020 CKD-EPI creatinine equation. This equation utilizes serum creatinine, sex, and age as parameters. The creatinine assay has traceable calibration to isotope dilution- mass spectrometry. Refer to KDIGO guidelines for clinical interpretation. In patients with unstable renal function, e.g. those with acute kidney injury, the eGFRmay not accurately reflect actual GFR. P.O.C.T. RESULTS: N/A July 27, 2024 TREATMENT: N/A PERIPHERAL IV DATA: Ambulatory: A peripheral IV was started in the Right upper extremity antecubital site with a Angio cath: 22 gauge. RADIOLOGY DEPARTMENT: CT; Exam(s) Completed: Abdomen SIGNATURE: CORIE Knowles PATIENT NAME: Roro Bazan DATE: July 27, 2024 TIME: 3:58 PM documented in this encounterMer[facility]10-23-2024 NoteHNO ID: [id number] Author: LUIS ARMANDO MOTA CT Service: Radiology Author Type: Technologist Type: Progress Notes Filed: 07/27/2024 15:58 Note Text: Radiology Service Progress Note DATE OF SERVICE: July 27, 2024 TIME: 3:58 PM PATIENT IDENTITY VERIFICATION COMPLETED USING TWO (2) STANDARD IDENTIFIERS: Name and Date of confirmed by patient verbally. FALL SCREENING: Has the patient had 2 falls in the last year or 1 fall with injury or currently using an Ambulatory Assistive Device (Walker, Cane, Wheelchair, Crutches, etc.)? No PATIENT GENDER DATA: Female. status: : No status: NO. PATIENT RELEVANT IMPLANT DATA REVIEWED: Not Applicable PATIENT PRESENTS WITH AN IMPLANTABLE OR ATTACHED UTILITY LOCATOR: No ALLERGIES: Reviewed and unchanged CONTRAST ALLERGY: NO. EXAM: CT -CONTRAST INDUCED NEPHROPATHY RISK FACTORS: Not applicable CREATININE: Creatinine Date Value Ref Range Status 06/10/2024 1.00 (H) 0.58 - 0.96 mg/dL Final 04/26/2019 0.85 0.51 - 0.95 mg/dL Final 04/19/2019 0.88 0.51 - 0.95 mg/dL Final Estimated Glomerular Filtration Rate Date Value Ref Range Status 06/10/2024 68 >=60 mL/min/1.73m? Final Comment: Estimated Glomerular Filtration Rate (eGFR) is calculated using the 2020 CKD-EPI creatinine equation. This equation utilizes serum creatinine, sex, and age as parameters. The creatinine assay has traceable calibration to isotope dilution-mass spectrometry. Refer to KDIGO guidelines for clinical interpretation. In patients with unstable renal function, e.g. those with acute kidney injury, the eGFR may not accurately reflect actual GFR. P.O.C.T. RESULTS: N/A July 27, 2024 TREATMENT: N/A PERIPHERAL IV DATA: Ambulatory: A peripheral IV was started in the Right upper extremity antecubital site with a Angio cath: 22 gauge. RADIOLOGY DEPARTMENT: CT; Exam(s) Completed: Abdomen SIGNATURE: CORIE Knowles PATIENT NAME: Roro Bazan DATE: July 27, 2024 TIME: 3:58 [facility]09-26-2024 History of Present illness Narrative* Henri Cr MD - 06/30/2024 2:09 PM EDT POST OP Patient presents with: Post-Op Visit: 05/19 SG LC w/C HPI: last seen 06/08. Still c/o fatigue, bloating, mild nausea, typically occurs mid day. Constipation 3-4 weeks. Poor water and fiber intake. Has ruq pain radiating to back since having a fall 06/13 with assoc rib injury. On Cymbalta, new in February Cmp and cbc 06/10 wnl VITALS: LMP (LMP Unknown) MEDS: ondansetron (ZOFRAN) 4 mg tablet Take 1 tablet by mouth every 8 hours as needed for nausea/vomiting(for nausea.) for up to 28 days. ibuprofen (MOTRIN) 600 mg tablet Take 1 tablet by mouth every 6 hours as needed for pain. escitalopram oxalate (LEXAPRO) 5 mg tablet Take 5 mg by mouth once daily. (Patient not taking: Reported on 06/22/2024) DULoxetine (CYMBALTA) 30 mg capsule Take 1 capsule by mouth every afternoon. lamoTRIgine (LAMICTAL) 150 mg tablet TAKE 2 TABLETS BY MOUTH EVERY DAY PHYSICAL EXAM: Abdomen- Soft, non-tender, non-distended and incisions satisfactory, no reproducible right sided pain Extremities: No edema or swelling Neuro: Oriented to person, place, and time. IMPRESSION: Post op course: constipation and right sided pain. Recommend increase water, high fiberdiet education provided. D/w PCP going off or changing cymbalta as may contribute to constipation I have explained to Ms. Bazan that she may return to normal activity with no lifting, pulling, pushing over 50 pounds, no core exercises and no lifting and twisting for a total of 6 weeks. I haveencouraged her to contact me at any time with any questions or concerns that may arise. Follow up: When necessary Henri Cr MD 06/30/2024 2:10 PM documented in this encounterMer[facility]09-04-2024 NoteHNO ID: [id number] Author: MATEO LOPEZ PA-C Service: ? Author Type: Physician Paint Line Operator Type: Progress Notes Filed: 06/08/2024 14:52 Note Text: IMPRESSION: Patient is status post a laparoscopic cholecystectomy WITH intraoperative cholangiograms. PLAN: Post-op patient instructions were reviewed with the patient. A low fat diet is encouraged, with slow reintroduction of fatty foods. We discussed that occasional right up quadrant symptoms similar to the preoperative complaints can occur in the first couple of weeks post operatively. Patient will obtain blood work to look for any causes of recent fatigue. Zofran was ordered for nausea. Recommend follow up with PCP/MEDICAID NURSE for additional fatigue work up. I have explained to Ms. Bazan that she may return to normal activity with the following restrictions: no lifting greater than 40 lbs for the next 2 weeks. I have encouraged her to contact me at any time with any questions or concerns that may arise. FOLLOW UP: [address] Cr SUBJECTIVE: Roro Bazan presents for follow up of her laparoscopic cholecystectomy on 05/19/[address] Henri Cr. Patient complaints: Nausea, Constipation, and continued discomfort in RUQ with fatigue Patient denies: Vomiting, Diarrhea, Fever, Chills, Redness around wound, and Drainage from incision/s OBJECTIVE: General Appearance: alert, oriented and in no acute distress Abdomen: soft and non-tender Incision: well approximated, no signs or symptoms of infection , and clean, dry and intact SURGICAL PATHOLOGY: Gallbladder, cholecystectomy: - Chronic cholecystitis with cholelithiasis and cholesterolosis Mateo Lopez PA-C 06/08/2024[facility]09-04-[facility] History of Present illness Narrative* Mateo Lopez PA-C - 06/08/2024 2:23 PM EDT IMPRESSION: Patient is status post a laparoscopic cholecystectomy WITH intraoperative cholangiograms. PLAN: Post-op patient instructions were reviewed with the patient. A low fat diet is encouraged, with slow reintroduction of fatty foods. We discussed that occasional right up quadrant symptoms similar to the preoperative complaints can occur in the first couple of weeks post operatively. Patient will obtain blood work to look for any causes of recent fatigue. Zofran was ordered for nausea. Recommend follow up with PCP/MEDICAID NURSE for additional fatigue work up. I have explained to Ms. Bazan that she may return to normal activity with the following restrictions: no lifting greater than 40 lbs for the next 2 weeks. I have encouraged her to contact me at any time with any questions or concerns that may arise. FOLLOW UP: [address] Cr SUBJECTIVE: Roro Bazan presents for follow up of her laparoscopic cholecystectomy on 05/19/[address] Henri Cr. Patient complaints: Nausea, Constipation, and continued discomfort in RUQ with fatigue Patient denies: Vomiting, Diarrhea, Fever, Chills, Redness around wound, and Drainage from incision/s OBJECTIVE: General Appearance: alert, oriented and in no acute distress Abdomen: soft and non-tender Incision: well approximated, no signs or symptoms of infection , and clean, dry and intact SURGICAL PATHOLOGY: Gallbladder, cholecystectomy: - Chronic cholecystitis with cholelithiasis and cholesterolosis Mateo Lopez PA-C 06/08/2024 documented in this encounterMercy [facility]08-15-2024 NoteHNO ID: [id number] Author: EDELMIRA LÓPEZ APRN.CRNA Service: ? Author Type: Nurse Securities Supervisor Type: Anesthesia Procedure Notes Filed: 05/19/2024 08:15 Note Text: ANESTHESIOLOGY PROCEDURE NOTE Airway General Information Procedure Start Time/Medication Administration: 05/19/2024 7:47 AM Procedure End Time: 05/19/2024 7:49 AM Patient location during procedure: OR Timeout Performed Pre-procedure: timeout performed Consent Obtained: Yes Patient identity confirmed: arm band and patient Staffing METAL CABINET FINISHER: Edelmira López APRN.METAL CABINET FINISHER Performed by: ANA LAURA Indications and Patient Condition Indications for airway management: anesthesia Preoxygenated: yes anesthesia circuit Patient position: sniffing Method: sleep Cricoid Pressure: Yes Difficult Mask: No Final Airway Details Final airway type: endotracheal airway Final Endotracheal Airway: ETT Cuffed: yes Successful intubation technique: direct laryngoscopy Devices used: intubating stylet Endotracheal tube insertion site: oral Blade: [place] Blade size: #4 ETT size (mm): 7.5 Measurement (cm): 22 Placement verified by: capnometry Cormack-Lehane Classification: grade IIa - partial view of glottis Number of attempts at approach: 1 Other Attempts Unsuccessful attempted endotracheal techniques: direct laryngoscopy Failed airway: yes - Unrecognized esophageal intubation: no Airway not difficult Comments Esophageal intubation noted with absent breath sounds. Second attempt successful Grade II view Cricoid given SIGNATURE: Edelmira López APRN.CRNA PATIENT NAME: Roro Bazan DATE: May 19, 2024 TIME: 8:09 AM CSN: [id number] NoteHNO ID: [id number] Author: HENRI CR MD Service: ? Author Type: Physician Type: Progress Notes Filed: 05/19/2024 07:36 Note Text: Assessment IMPRESSION AND PLAN: 54 year old wf with symptomatic cholelithiasis Risks, benefits and alternatives of proceeding with laparoscopic cholecystectomy were discussed with risks to include but not limited to hemorrhage, infection, possibility of common bile duct injury, possible intra-abdominal organ injury ,possible conversion to open. Patient expressed understanding and wishes to proceed. HPI: Roro Bazan is a 54 year old female,She presents for the evaluation of right upper quad and right back pain beginning this past winter assoc with fatigue,nausea and emesis, bloating. Wakes up with epigastric pain. Is not on low fat diet. Had us truq 03/18 with gallstone in neck of gb. Today mild ruq pain, has not eaten yet PAST MEDICAL HISTORY No date: Bulimia No date: Chronic back pain Comment: DDD No date: Dizzy No date: Hip pain No date: IBS (irritable bowel syndrome) Comment: pt denies No date: Impingement syndrome of shoulder region No date: Impingement syndrome of shoulder region 08/12/2021: Nontraumatic incomplete tear of left rotator cuff No date: Nontraumatic incomplete tear of right rotator cuff No date: Palpitations No date: Tachycardia PAST SURGICAL HISTORY 08/27/2021: SHOULDER SURGERY HX; Left Comment: Left shoulder surgery for rotator cuff and bursitis No date: SHOULDER SURGERY HX; Right FAMILY HISTORY Problem Relation Age of Onset other (other) Mother Breast Cancer Mother Hypertension Father Coronary Artery Disease Father other (cholecystectomy) Brother Heart Maternal Aunt NC Heart Maternal Uncle two uncles with NC Ovarian cancer Other CURRENT MEDICATIONS: escitalopram oxalate (LEXAPRO) 5 mg tablet Take 5 mg by mouth once daily. DULoxetine (CYMBALTA) 30 mg capsule Take 1 capsule by mouth every afternoon. traMADol 100 mg tablet Take 100 mg by mouth every 8 hours as needed for pain. lamoTRIgine (LAMICTAL) 150 mg tablet TAKE 2 TABLETS BY MOUTH EVERY DAY CURRENT ALLERGIES: ALLERGIES No Known Allergies Social History Tobacco Use Smoking status: Former Packs/day: 0.50 Years: 24.00 Additional pack years: 0.00 Total pack years: 12.00 Types: Cigarettes Quit date: 2015 Years since quittin.6 Smokeless tobacco: Never Vaping Use Vaping Use: current everyday user Start date: 08/05/2016 Substances: Nicotine, Flavoring Substance Use Topics Alcohol use: Yes Comment: Ocassionally Drug use: No Ros: As above EXAM: BP 122/90 Pulse 100 Ht 166.4 cm (5' 5.51) Wt 90.7 kg (200 lb) LMP (LMP Unknown) BMI 32.76 kg/m? BP 122/90 Pulse 100 Ht 166.4 cm (5' 5.51) Wt 90.7 kg (200 lb) LMP (LMP Unknown) BMI 32.76 kg/m? Body mass index is 32.76 kg/m?. General appearance: Well appearing, alert, in no acute distress Head: Normocephalic, atraumatic Eyes: Anicteric sclera , Pupils are equally round and reactive Neck: No JVD, Trachea midline Lungs:Clear to auscultation, no wheezing or rhonchi Heart: RRR without murmur, gallop, or rubs. No ectopy Abdomen: Abdomen soft, tn in ruq,Non distended. No masses, organomegaly Extremities:No clubbing, cyanosis, or edema. Neuro: Alert and oriented times three, No apparent distress RADIOLOGY: 03/16/2024 ruq us Gallstone in neck of gallbladder Henri Cr MD 05/18/2024 2:16 [facility]08-14-2024 History of Present illness Narrative * Henri Cr MD - 05/18/2024 2:16 PM EDT Assessment IMPRESSION AND PLAN: 54 year old wf with symptomatic cholelithiasis Risks, benefits and alternatives of proceeding with laparoscopic cholecystectomy were discussed with risks to include but not limited to hemorrhage, infection, possibility of common bile duct injury,possible intra-abdominal organ injury ,possible conversion to open. Patient expressed understandingand wishes to proceed. HPI: Roro Bazan is a 54 year old female,She presents for the evaluation of right upper quad and right back pain beginning this past winter assoc with fatigue,nausea and emesis, bloating. Wakes up with epigastric pain. Is not on low fat diet. Had us truq 03/18 with gallstone in neck of gb. Today mild ruq pain, has not eaten yet PAST MEDICAL HISTORY No date: Bulimia No date: Chronic back pain Comment: DDD No date: Dizzy No date: Hip pain No date: IBS (irritable bowel syndrome) Comment: pt denies No date: Impingement syndrome of shoulder region No date: Impingement syndrome of shoulder region 08/12/2021: Nontraumatic incomplete tear of left rotator cuff No date: Nontraumatic incomplete tear of right rotator cuff No date: Palpitations No date: Tachycardia PAST SURGICAL HISTORY 08/27/2021: SHOULDER SURGERY HX; Left Comment: Left shoulder surgery for rotator cuff and bursitis No date: SHOULDER SURGERY HX; Right FAMILY HISTORY Problem Relation Age of Onset other (other) Mother Breast Cancer Mother Hypertension Father Coronary Artery Disease Father other (cholecystectomy) Brother Heart Maternal Aunt NC Heart Maternal Uncle two uncles with NC Ovarian cancer Other CURRENT MEDICATIONS: escitalopram oxalate (LEXAPRO) 5 mg tablet Take 5 mg by mouth once daily. DULoxetine (CYMBALTA) 30 mg capsule Take 1 capsule by mouth every afternoon. traMADol 100 mg tablet Take 100 mg by mouth every 8 hours as needed for pain. lamoTRIgine (LAMICTAL) 150 mg tablet TAKE 2 TABLETS BY MOUTH EVERY DAY CURRENT ALLERGIES: ALLERGIES No Known Allergies Social History Tobacco Use Smoking status: Former Packs/day: 0.50 Years: 24.00 Additional pack years: 0.00 Total pack years: 12.00 Types: Cigarettes Quit date: 2014 Years since quittin.6 Smokeless tobacco: Never Vaping Use Vaping Use: current everyday user Start date: 08/05/2016 Substances: Nicotine, Flavoring Substance Use Topics Alcohol use: Yes Comment: Ocassionally Drug use: No Ros: As above EXAM: BP 122/90 Pulse 100 Ht 166.4 cm (5' 5.51) Wt 90.7 kg (200 lb) LMP (LMP Unknown) BMI 32.76 kg/m BP 122/90 Pulse 100 Ht 166.4 cm (5' 5.51) Wt 90.7 kg (200 lb) LMP (LMP Unknown) BMI 32.76 kg/m Body mass index is 32.76 kg/m . General appearance: Well appearing, alert, in no acute distress Head: Normocephalic, atraumatic Eyes: Anicteric sclera , Pupils are equally round and reactive Neck: No JVD, Trachea midline Lungs:Clear to auscultation, no wheezing or rhonchi Heart: RRR without murmur, gallop, or rubs. No ectopy Abdomen: Abdomen soft, tn in ruq,Non distended. No masses, organomegaly Extremities:No clubbing, cyanosis, or edema. Neuro: Alert and oriented times three, No apparent distress RADIOLOGY: 03/16/2024 ruq us Gallstone in neck of gallbladder Henri Cr MD 05/18/2024 2:16 PM documented in [facility] History of Present illness Narrative* Susana Ceja TECHNOLOGIST - 03/16/2024 5:00 PM EDT Radiology Service Progress Note PATIENT NAME: Roro Bazan DATE OF SERVICE: March 16, 2024 TIME: 5:06 PM PATIENT IDENTITY VERIFICATION COMPLETED USING TWO (2) IDENTIFIERS: Name and Date of confirmedby patient verbally. FALL SCREENING: Has the patient had 2 falls in the last year or 1 fall with injury or currently using an Ambulatory Assistive Device (Walker, Cane, Wheelchair, Crutches, etc.)? No PATIENT GENDER DATA: Female. status: : No status: NO. PATIENT RELEVANT IMPLANT DATA REVIEWED: Yes PATIENT PRESENTS WITH AN IMPLANTABLE OR ATTACHED UTILITY LOCATOR: No RADIOLOGY DEPARTMENT: Ultrasound PERIPHERAL IV DATA: Not applicable SIGNED BY: TECHNOLOGIST Nerissa March 16, 2024 5:06 PM documented in this encounterMer[facility]06-12-2024 NoteHNO ID: [id number] Author: SUSANA CEJA TECHNOLOGIST Service: ? Author Type: Technologist Type: Progress Notes Filed: 03/16/2024 17:06 Note Text: Radiology Service Progress Note PATIENT NAME: Roro Bazan DATE OF SERVICE: March 16, 2024 TIME: 5:06 PM PATIENT IDENTITY VERIFICATION COMPLETED USING TWO (2) IDENTIFIERS: Name and Date of confirmed by patient verbally. FALL SCREENING: Has the patient had 2 falls in the last year or 1 fall with injury or currently using an Ambulatory Assistive Device (Walker, Cane, Wheelchair, Crutches, etc.)? No PATIENT GENDER DATA: Female. status: : No status: NO. PATIENT RELEVANT IMPLANT DATA REVIEWED: Yes PATIENT PRESENTS WITH AN IMPLANTABLE OR ATTACHED UTILITY LOCATOR: No RADIOLOGY DEPARTMENT: Ultrasound PERIPHERAL IV DATA: Not applicable SIGNED BY: Susana Ceja TECHNOLOGIST March 16, 2024 5:06 [facility]06-03-2024 History of Present illness Narrative* Sol Hunter RT(R) - 03/07/2024 3:00 PM EDT Radiology Service Progress Note PATIENT NAME: Roro Bazan DATE OF SERVICE: March 07, 2024 TIME: 2:58 PM PATIENT IDENTITY VERIFICATION COMPLETED USING TWO (2) IDENTIFIERS: Name and Date of confirmedby patient verbally. FALL SCREENING: Has the patient had 2 falls in the last year or 1 fall with injury or currently using an Ambulatory Assistive Device (Walker, Cane, Wheelchair, Crutches, etc.)? No PATIENT GENDER DATA: Female. status: : No status: NO. PATIENT RELEVANT IMPLANT DATA REVIEWED: Yes PATIENT PRESENTS WITH AN IMPLANTABLE OR ATTACHED UTILITY LOCATOR: No RADIOLOGY DEPARTMENT: Ultrasound PERIPHERAL IV DATA: Not applicable SIGNED BY: Sol Hunter RDMS, RVT March 07, 2024 2:58 PM documented in this encounterMer[facility]06-03-2024 NoteHNO ID: [id number] Author: SOL HUNTER RT(Stephan) Service: ? Author Type: Technologist Type: Progress Notes Filed: 03/07/2024 14:58 Note Text: Radiology Service Progress Note PATIENT NAME: Roro Bazan DATE OF SERVICE: March 07, 2024 TIME: 2:58 PM PATIENT IDENTITY VERIFICATION COMPLETED USING TWO (2) IDENTIFIERS: Name and Date of confirmed by patient verbally. FALL SCREENING: Has the patient had 2 falls in the last year or 1 fall with injury or currently using an Ambulatory Assistive Device (Walker, Cane, Wheelchair, Crutches, etc.)? No PATIENT GENDER DATA: Female. status: : No status: NO. PATIENT RELEVANT IMPLANT DATA REVIEWED: Yes PATIENT PRESENTS WITH AN IMPLANTABLE OR ATTACHED UTILITY LOCATOR: No RADIOLOGY DEPARTMENT: Ultrasound PERIPHERAL IV DATA: Not applicable SIGNED BY: Sol Hunter RDMS, RVT March 07, 2024 2:58 [facility]05-10-2023 History of Present illness Narrative* Vibha Delgado, DO - 02/11/2023 8:43 AM EDT Images from the original note were not included. Follow Up Visit Chief Complaint Rroo Bazan is a 53 year old female who presents today for follow up office visit. Patient presents with: Left Shoulder - Established Patient, Pain History of Present Illness PAIN EVALUATION 02/04/2023 0911 Pain Level: 7 Pain Location: Shoulder-Left Description: Burning;Sharp;Sore Duration Amount of Time: 70 Duration Units: Days Frequency: Intermittent Intervention/Comfort measure: Medication HPI: Roro Bazan is a 53 year old female for a follow up visit left shoulder re-injury. Patient had Left shoulder arthroscopy, biceps tenodesis, rc debridement, sad/acromioplasty on 08/27/2021.About a month ago patient was pulling towel up back when she felt a popping sensation in shoulder. She believes she has re-torn something. Pain history is noted as above. Is there any overall improvement in your condition? No due to injury Any new injury, since being seen last: Yes, states above REVIEW OF SYMPTOMS: Patient did not have, and does not currently have, any weight loss, malaise, fever, chills, headache, chest pain, chest pressure, palpitations, cough, shortness of breath, orthopnea, paroxsymal nocturnal dyspnea, nausea, vomiting, diarrhea, constipation, melena, hematochezia, urinary difficulties, prolonged bleeding, easily bruising, heat or cold intolerance, new onset joint pain or swelling, newonset extremity weakness or numbness, new onset auditory or visual disturbances, lightheadedness, dizziness, partial loss of consciousness or full loss of consciousness. Current Outpatient Medications Medication Sig lamoTRIgine (LAMICTAL) 150 mg tablet TAKE 2 TABLETS BY MOUTH EVERY DAY traMADol (ULTRAM) 50 mg tablet Take 1 tablet by mouth every 4 hours as needed for pain. for pain. lidocaine (LIDODERM) 5 % Apply 1 Patch as directed once daily for 30 doses. to affected area. Remove patch after 12 hours. zolpidem (AMBIEN) 5 mg tablet Take 1 tablet by mouth at bedtime as needed (insomnia) for up to 10 days. for insomnia. ondansetron (ZOFRAN) 4 mg tablet Take 1 tablet by mouth every 8 hours as needed for nausea/vomiting. No current facility-administered medications for this visit. Physical Exam Vitals: There were no vitals taken for this visit. Psych: Pleasant, good affect and mood General Appearance: Well appearing, alert, in no acute distress, well-hydrated, well nourished.. Skin: Skin color, texture, turgor normal, no suspicious rashes or lesions. Peripheral Pulses: Normal. Neurologic: Gait normal. Reflexes normal and symmetric. Sensation grossly intact.. Lymph Nodes: No cervical lymphadenopathy, No supraclavicular lymphadenopathy, No axillary lymphadenopathy., and No inguinal lymphadenopathy.. Respiratory: No recent pulmonary infection, hemoptysis, chronic cough, or shortness of breath at rest Rheumatologic: Joint deformities: left shoulder pain Right Elbow Exam Right elbow exam is normal. Tenderness The patient is experiencing no tenderness. Range of Motion Extension: normal Flexion: normal Pronation: normal Supination: normal Muscle Strength Pronation: 5/5 Supination: 5/5 Other Erythema: absent Sensation: normal Pulse: present Left Elbow Exam Left elbow exam is normal. Tenderness The patient is experiencing no tenderness. Range of Motion Extension: normal Flexion: normal Pronation: normal Supination: normal Muscle Strength Pronation: 5/5 Supination: 5/5 Other Erythema: absent Sensation: normal Pulse: present Right Shoulder Exam Right shoulder exam is normal. Tenderness The patient is experiencing no tenderness. Range of Motion Active abduction: normal Passive abduction: normal Extension: normal External rotation: normal Forward flexion: normal Internal rotation 0 degrees: normal Internal rotation 90 degrees: normal Muscle Strength Abduction: 5/5 Internal rotation: 5/5 External rotation: 5/5 Supraspinatus: 5/5 Subscapularis: 5/5 Biceps: 5/5 Tests Apprehension: negative Chase test: positive Cross arm: negative Impingement: positive Other Erythema: absent Sensation: normal Pulse: present Comments: B/l med, uln, rad, ax nerves intact Left Shoulder Exam Left shoulder exam is normal. Tenderness The patient is experiencing no tenderness. Range of Motion Active abduction: normal Passive abduction: normal Extension: normal External rotation: normal Forward flexion: normal Internal rotation 0 degrees: normal Internal rotation 90 degrees: normal Muscle Strength Abduction: 5/5 Internal rotation: 5/5 External rotation: 5/5 Supraspinatus: 5/5 Subscapularis: 5/5 Biceps: 5/5 Tests Apprehension: negative Chase test: positive Cross arm: negative Impingement: positive Other Erythema: absent Sensation: normal Pulse: present Comments: Pos speeds/pos yergason, strength intact Assessment and Plan Radiographs: No imaging to review. Impression: Encounter Diagnosis ICD-10-CM 1. Impingement syndrome of right shoulder M75.41 2. Impingement syndrome of shoulder region, unspecified laterality M75.40 CONSULT TO PHYSICAL THERAPY traMADol (ULTRAM) 50 mg tablet 3. Strain of right biceps, initial encounter S46.211A 4. Strain of long head of biceps, left, initial encounter S46.112A Today, in detail, through a thorough evaluation, we discussed possible etiologies of pain and our plans for further diagnostic and therapeutic interventions. We discussed strategies for decreasing pain and improving strength, stability and motion. Patient's questions were answered in detailed. Patient verbalizes understanding and agrees with the treatment plan as discussed. Biceps tendinosis Biceps scar tissue strain Lidocaine patch ordered Tramadol ordered PT modalities only Follow up prn Patient aware and in agreement of plan. All questions answered. documented in this encounterMer[facility]05-10-2023 History of Present illness Narrative* Iliana Molina CT - 02/11/2023 8:30 AM EDT Radiology Service Progress Note PATIENT NAME: Roro Bazan DATE OF SERVICE: February 11, 2023 TIME: 8:12 AM PATIENT IDENTITY VERIFICATION COMPLETED USING TWO (2) IDENTIFIERS: Name and Date of confirmedby patient verbally. FALL SCREENING: Has the patient had 2 falls in the last year or 1 fall with injury or currently using an Ambulatory Assistive Device (Walker, Cane, Wheelchair, Crutches, etc.)? No PATIENT GENDER DATA: Female. status: : No status: NO. PATIENT RELEVANT IMPLANT DATA REVIEWED: Not Applicable RADIOLOGY DEPARTMENT: General X-ray: Exam(s) Completed: Upper Extremity X- Ray(s): Shoulder, AP / TRUE AP / AXILLARY left PERIPHERAL IV DATA: Not applicable SIGNED BY: CORIE Correa February 11, 2023 8:12 AM documented in this encounterMer[facility]05-27-2022 History of Present illness Narrative* Vibha Deglado, - 02/28/2022 10:32 AM EDT Images from the original note were not included. Follow Up Visit Chief Complaint Roro Bazan is a 52 year old female who presents today for follow up office visit. Patient presents with: Right Shoulder - Post Op, Pain History of Present Illness PAIN EVALUATION 02/28/2022 1027 Pain Level: 4 Pain Location: Shoulder-Right Description: Aching;Dull;Throbbing Duration Amount of Time: DOS: 02/14/22 Frequency: Continuous Intervention/Comfort measure: Reposition;Relaxation;Medication;Other: See comment;Cold sling HPI: Roro Bazan is a 52 year old female for a follow up visit S/P Right shoulder arthroscopy, biceps tenotomy, sad/acromioplasty. Patient is doing well, some achy pains. Pain history is noted as above. Denies calf pain, numbness, tingling, fever, chills or other constitutional symptoms. Is there any overall improvement in your condition? No Any new injury, since being seen last: No REVIEW OF SYMPTOMS: Patient did not have, and does not currently have, any weight loss, malaise, fever, chills, headache, chest pain, chest pressure, palpitations, cough, shortness of breath, orthopnea, paroxsymal nocturnal dyspnea, nausea, vomiting, diarrhea, constipation, melena, hematochezia, urinary difficulties, prolonged bleeding, easily bruising, heat or cold intolerance, new onset joint pain or swelling, newonset extremity weakness or numbness, new onset auditory or visual disturbances, lightheadedness, dizziness, partial loss of consciousness or full loss of consciousness. Current Outpatient Medications Medication Sig oxyCODONE-acetaminophen (PERCOCET) 5-325 mg tablet Take 1-2 tablets by mouth every 8 hours as needed for pain. traMADol (ULTRAM) 50 mg tablet Take 1 tablet by mouth every 4 hours as needed for pain. for pain. ondansetron (ZOFRAN) 4 mg tablet Take 1 tablet by mouth every 8 hours as needed for nausea/vomiting. lamoTRIgine (LAMICTAL) 150 mg tablet TAKE 2 TABLETS BY MOUTH EVERY DAY zolpidem (AMBIEN) 5 mg tablet Take 1 tablet by mouth at bedtime as needed (insomnia) for up to 10 days. for insomnia. No current facility-administered medications for this visit. Physical Exam Vitals: There were no vitals taken for this visit. Psych: Pleasant, good affect and mood General Appearance: Well appearing, alert, in no acute distress, well-hydrated, well nourished.. Skin: Skin color, texture, turgor normal, no suspicious rashes or lesions. Peripheral Pulses: Normal. Neurologic: Gait normal. Reflexes normal and symmetric. Sensation grossly intact.. Lymph Nodes: No cervical lymphadenopathy, No supraclavicular lymphadenopathy, No axillary lymphadenopathy. and No inguinal lymphadenopathy.. Respiratory: No recent pulmonary infection, hemoptysis, chronic cough, or shortness of breath at rest Rheumatologic: Joint deformities: Right shoulder pain Right Shoulder Exam Right shoulder exam is normal. Tenderness The patient is experiencing no tenderness. Range of Motion Active abduction: normal Passive abduction: normal Extension: normal External rotation: normal Forward flexion: normal Internal rotation 0 degrees: normal Internal rotation 90 degrees: normal Muscle Strength Abduction: 5/5 Internal rotation: 5/5 External rotation: 5/5 Supraspinatus: 5/5 Subscapularis: 5/5 Biceps: 5/5 Tests Apprehension: negative Chase test: negative Cross arm: negative Impingement: negative Other Erythema: absent Sensation: normal Pulse: present Left Shoulder Exam Left shoulder exam is normal. Tenderness The patient is experiencing no tenderness. Range of Motion Active abduction: normal Passive abduction: normal Extension: normal External rotation: normal Forward flexion: normal Internal rotation 0 degrees: normal Internal rotation 90 degrees: normal Muscle Strength Abduction: 5/5 Internal rotation: 5/5 External rotation: 5/5 Supraspinatus: 5/5 Subscapularis: 5/5 Biceps: 5/5 Tests Apprehension: negative Chase test: negative Cross arm: negative Impingement: negative Other Erythema: absent Sensation: normal Pulse: present Assessment and Plan Radiographs: I have reviewed the images with the patient and family. Impression: Encounter Diagnosis ICD-10-CM 1. Impingement syndrome of right shoulder M75.41 2. Chronic right shoulder pain M25.511 G89.29 Do PT on own, as has HEP and been thru in past Discussed images Doing better- good rom, etc D/c sling Ice prn Nsaids/pain meds Patient aware and in agreement of plan. All questions answered. Today, in detail, through a thorough evaluation, we discussed possible etiologies of pain and our plans for further diagnostic and therapeutic interventions. We discussed strategies for decreasing pain and improving strength, stability and motion. Patient's questions were answered in detailed. Patient verbalizes understanding and agrees with the treatment plan as discussed. documented in this encounterMer[facility]04-13-2022 Instructions* Patient Instructions* Adri Whyte APRN.[facility] - 01/15/2022 3:41 PM EDT PATIENT PREOPERATIVE INSTRUCTIONS Vibha Delgado,* has scheduled you for your procedure at this surgery center: [facility]: [phone] -- [address] [address]. Please read below carefully for your personalized instructions. Dietary Restrictions: - No solid food after midnight. - You may have 12 ounces of clear liquids (water, clear juices such as apple juice or gatorade, carbonated beverages, clear tea, black coffee, jello) until 2 hours before scheduled arrival at facility. No red/purple coloring and no creamer/sugar Medications: Unless instructed differently below, stay on all of your medications until your surgery. Approved medications to take the morning of surgery with a sip of water: Lamictal If you start any new medications after today's visit, please contact the surgeon's office. Blood Thinning Medications: - Stop NSAIDS (Ibuprofen, Advil, Aleve, Motrin, Celebrex, Mobic, etc.) 7 days before surgery, as directed by your surgeon. - Stop Aspirin 7 days before surgery, as directed by your surgeon. - Stop Vitamin E, ALL multi-vitamins, herbals and dietary supplements 7 days before surgery. - You may take Tylenol (Acetaminophen) or any of your pain medications that do not contain aspirin or NSAIDS as needed. Important Reminders: - If you use CPAP/BIPAP, bring the machine with you to the surgery center. - If you are prescribed inhalers for breathing, continue using them. - Candy, mints, and tobacco products are NOT permitted the morning of surgery. - Hearing aids, dentures and glasses may be worn the morning of surgery. - NO jewelry, body piercings, makeup, hairpins or contacts are to be worn the day of surgery. If you develop symptoms such as a fever, cold, or flu, or have other changes to your health within TWO DAYS of scheduled surgery or the morning of surgery, please contact the surgery center above. Personal Belongings: -Please have photo ID and insurance cards. -If you do not have a copy of advance directives on file with us, please bring a copy with you on the day of surgery. - Leave ALL valuables and money at home or with family members. For Outpatient Procedures: - YOU MUST HAVE A RESPONSIBLE RADIO ENGINEER TAKE YOU HOME. A GUARD CHIEF OR HEARING AID REPAIRER CANNOT BE MADE A RESPONSIBLE RADIO ENGINEER. - We recommend that a responsible person stays with you overnight to take care of you. - You cannot stay in a hotel alone after outpatient surgery. You will not be permitted to have yoursurgery, if you do not have someone to take care of you. Arrival Time for Surgery: - The Surgery Center or hospital where you are having surgery will call the afternoon before surgery (or Thursday for Thursday surgery) with a scheduled arrival time. - If you have not heard by 4 pm, please contact the surgery center above. Please be aware that emergency situations arise, which may delay or change your surgical time. If this happens, we will notify you as soon as possible and regret any inconvenience. If you already have an Advance Directive, please fax a copy to [phone] or email to for it to be added to your chart. If you do not have an Advance Directive, you can find the appropriate form and more information at [email or web address]. We recommend that youcomplete the Advance Directive form found on the website and bring it with you the day of your surgery. It can be witnessed and scanned into your chart that day. Adri Whyte APRN.CNP documented in this encounterMercy Health [facility]04-13-2022 History and physical note * Adri Whyte APRN.CNP - 01/15/2022 3:40 PM EDT HISTORY AND PHYSICAL EXAMINATION SERVICE DATE: 01/15/2022 SERVICE TIME: 3:40 PM PRIMARY CARE PHYSICIAN: Yolis Dalton APRN.CNP REASON FOR VISIT: Roro Bazan is a 51 year old female who is scheduled for at the request of Dr. Vibha Delgado for. My final recommendation will be communicated back to the requesting physician by way of shared medical record or letter. 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 CHIEF COMPLAINT: Pre-op exam HPI: DU is a 51 yo seen for PAC due to scheduled above surgery because of right bicep strain. 12/06/2021 Dr. Sandy Bazan is a 51 year old female who presents today for follow up office visit. Patient presents with: Right Shoulder - Follow Up, Pain, Swelling History of Present Illness PAIN EVALUATION 12/06/2021 1050 Pain Level: 5 Pain Location: Shoulder-Right Description: Aching;Dull;Sore Duration Amount of Time: - ongoing Frequency: Intermittent Intervention/Comfort measure: Reposition;Relaxation;Cold;Medication sling HPI: Roro Bazan is a 51 year old female for a follow up visit right arm pain. Here for MRI results. Had surgery 10/01/2021. Pain history is noted as above. Denies numbness, tingling, fever, chills or other constitutional symptoms. Is there any overall improvement in your condition? No Any new injury, since being seen last: No REVIEW OF SYSTEMS: General: No weight loss, malaise or fevers. Neurological: Negative for: cerebral palsy, [employer]LVING SUPER[employer]OR tumor, headaches, impaired sensorium, multiple sclerosis, Parkinson's disease, seizures, TIA and strokes. Respiratory: +former smoker, currently vapes. No history of current cough or dyspnea, or pneumonia in the past 6 weeks. No history of respiratory/pulmonary symptoms or problems. Cardiovascular: Positive for: arrhythmia (Tachycardia - very occasional flutter) Negative for: anticoagulation therapy, atrial fibrillation, CAD, chest pain, CHF, DVT/PE, hyperlipidemia, hypertension, recent NC, murmur/valvular heart disease, open heart surgery and valve surgery. GI: No history of GI symptoms or problems. No history of esophageal varices, recent ascites, or ETOH greater than 2 drinks per day. : No history of dysuria, frequency or incontinence, stones or chronic kidney disease. No difficulty urinating, nocturia > 1 time per night or hematuria. MEDICAID NURSE: Negative for abnormal vaginal bleeding, abnormal vaginal discharge. Endocrine: No history of diabetes. Has not taken steroids within the past 30 days. No history of endocrinological symptoms or problems. Hematology: No history of bleeding or clotting disorder. Patient is not taking anti-coagulation or platelet medications. No history of hematological symptoms or problems. Oncology: No history of CA metastasis, chemo within 30 days, or radiotherapy within 90 days. No history of oncological symptoms or problems. Psych: Positive for: bipolar disorder (Stable on Rx). Negative for: anxiety and depression. Musculoskeletal: Positive for: joint pain (SEE HPI). Negative for: swelling. Skin: Negative for lesions, rash and itching. PAST MEDICAL HISTORY Diagnosis Date Bulimia Chronic back pain DDD Dizzy Hip pain IBS (irritable bowel syndrome) pt denies Impingement syndrome of shoulder region Impingement syndrome of shoulder region Nontraumatic incomplete tear of right rotator cuff Palpitations Tachycardia PAST SURGICAL HISTORY Procedure Laterality Date SHOULDER SURGERY HX Left 08/27/2021 Left shoulder surgery for rotator cuff and bursitis FAMILY HISTORY Problem Relation Age of Onset Breast Cancer Mother Hypertension Father Coronary Artery Disease Father Heart Maternal Aunt NC Heart Maternal Uncle two uncles with NC Ovarian cancer Other Social History Tobacco Use Smoking status: Former Smoker Packs/day: 0.50 Years: 24.00 Pack years: 12.00 Types: Cigarettes Quit date: 2014 Years since quittin.2 Smokeless tobacco: Never Used Vaping Use Vaping Use: current everyday user Start date: 08/05/2016 Substances: Nicotine, Flavoring Substance Use Topics Alcohol use: Yes Comment: Ocassionally Drug use: No Prior to Admission medications as of 01/15/22 1522 Medication Sig Last Dose Taking traMADol (ULTRAM) 50 mg tablet Take 1 tablet by mouth every 4 hours as needed for pain. for pain. Taking Yes ondansetron (ZOFRAN) 4 mg tablet Take 1 tablet by mouth every 8 hours as needed for nausea/vomiting. Taking Yes lamoTRIgine (LAMICTAL) 150 mg tablet TAKE 2 TABLETS BY MOUTH EVERY DAY Taking Yes zolpidem (AMBIEN) 5 mg tablet Take 1 tablet by mouth at bedtime as needed (insomnia) for up to 10 days. for insomnia. zolpidem (AMBIEN) 5 mg tablet Take 1 tablet by mouth at bedtime as needed for up to 10 days. No medication comments found. ALLERGIES No Known Allergies Objective PHYSICAL EXAM: General: alert and oriented (x3), healthy appearance and obese. Pertinent negatives noted - not distressed. Skin: normal color, no rash or lesions. HEENT: EOM intact and pupils equal round. Pertinent negatives noted - no carotid bruit. Cardiovascular: regular rate and rhythm, normal S1 and S2, no rub, murmurs, or gallop. Respiratory: normal breath sounds, no wheezes or crackles. No chest wall deformity or tenderness. Abdomen: soft. Pertinent negatives noted - not tender. Extremities: no deformity, no edema or tenderness, no joint swelling or clubbing. Neurological: normal cognition and motor skills. Gait normal. No weakness or sensory deficit. PAIN ASSESSMENT: Pain Pain Level: 6 Pain Location: Shoulder-Right Description: Sharp Duration Amount of Time: 4 Duration Units: Months Frequency: Intermittent Intervention/Comfort measure: Medication VITALS: BP 120/82 Pulse 104 Temp (Src) 97.5 (Temporal) Resp 16 Ht 5' 5.5 (1.66m) Wt 210 lb (95.3kg) SpO2 96% BMI 34.40 kg/(m^2). Diagnostic tests reviewed for today's visit: Lab Value Units Date High Low HB No results within date range. HCT No results within date range. WBC No results within date range. PLT No results within date range. NA No results within date range. K No results within date range. GLUC No results within date range. BUN No results within date range. CREAT No results within date range. PTSEC No results within date range. INR No results within date range. APTT No results within date range. ALT No results within date range. AST No results within date range. TBILI No results within date range. TSH No results within date range. Lab Value Units Date High Low HCGQT No results within date range. UHCG No results within date range. HCG, BODY* No results within date range. Lab Value Units Date High Low ABORHD No results within date range. ABSCREEN No results within date range. Hemoglobin A1C (%) Date Value 11/11/2017 5.4 No results found for this or any previous visit (from the past 8760 hour(s)). No results found for this or any previous visit (from the past 65049 hour(s)). Assessment Bipolar disorder with depression (HCC) Assessment: stable on rx per pt Nicotine dependence with current use Assessment: former cigarette smoker, currently using a vape Obesity, Class I, BMI 30-34.9 E66.9 Assessment: Body mass index is 34.41 kg/m . Tachycardia Assessment: hx, no current tx, work up done in the pas, asymptomatic currently METS: Climb a flight of stairs or walk up a hill (5.50 METs) DASI Score: 5.5; Patient denies any chest pain or undue shortness of breath with the above physicalactivity. Clinical Frailty Scale: 3. Well, with treated comorbid disease ASA Class: 2 ANESTHESIA FINDINGS: Intubation History: No history of difficult intubation Significant Anesthesia Considerations: none Airway History: No history of difficult airway [id number] Score: Age: <65 Sex: Female CHF history: No Hypertension history: No Stroke/TIA/thromboembolism history: No Vascular disease history: No Diabetes history: No Score: 1 I - PHYSICAL EVALUATION AIRWAY Tracheostomy tube not present Mallampati: II. TM distance: >3 FB. Neck ROM: full ROM without neurological symptoms. Mouth opening: adequate. Short neck: no. Thick neck: yes DENTAL Dental findings: missing tooth/teeth. II - ANESTHESIA PLAN ASA Score: 2 Anesthetic Plan: general Informed Consent Anesthetic risks, benefits, alternatives, personnel and consent discussed: yes. Patient / Responsible Democrat agrees to proceed: yes Patient / Surrogate agrees to blood products: blood products not planned Prepared for Surgery: optimally prepared for surgery. CONSULTS: Patient does not require consults for optimization at this time The Following Tests/Procedures Have Been Initiated: No orders of the defined types were placed in this encounter. Planned Anesthetic: general Instructions Given to Patient: Instructions located in the after visit summary. Patient given verbal and written preop instructions and voices comprehension and compliance. SIGNATURE: Adri Whyte APRN.CNP PATIENT NAME: Roro Bazan DATE: January 15, 2022 TIME: 3:40 PM PAGER/CONTACT #: [facility] History of Past illness Narrative* Problem Noted Date Resolved Date Biceps strain, right, subsequent encounter 01/1502/14/2022 Shoulder weakness 09/20/2021 02/14/2022 Impingement syndrome of shoulder region 08/12/20 21 08/27/2021 Acute lumbar back pain 06/20/2014 1 Essential hypertension 8 Dizziness 08/12/2021 documented as of this encounter (statuses as of 02/28/2022) [facility] of Past illness Narrative* Problem Noted Date Resolved Date Biceps strain, right, subsequent encounter 01/1502/14/2022 Shoulder weakness 09/20/2021 02/14/2022 Impingement syndrome of shoulder region 08/12/20 21 08/27/2021 Acute lumbar back pain 06/20/2014 1 Essential hypertension 8 Dizziness 08/12/2021 documented as of this encounter (statuses as of 04/01/2022) [facility] of Past illness Narrative* Problem Noted Date Resolved Date Biceps strain, right, subsequent encounter 01/1502/14/2022 Limitation of joint motion of left shoulder 09/0407/01/2022 Shoulder weakness 09/20/2021 02/14/2022 Posture abnormality 09/19/2021 07/01/2022 Impingement syndrome of shoulder region 08/12/2008/27/2021 Nontraumatic incomplete tear of left rotator cuf f 08/12/2021 07/01/2022 Acute lumbar back pain 06/20/2014 Essential hypertension 8 Dizziness 08/12/2021 documented as of this encounter (statuses as of 01/06/2023) [facility] of Past illness Narrative* Problem Noted Date Resolved Date Biceps strain, right, subsequent encounter 01/1502/14/2022 Limitation of joint motion of left shoulder 09/0407/01/2022 Shoulder weakness 09/20/2021 02/14/2022 Posture abnormality 09/19/2021 07/01/2022 Impingement syndrome of shoulder region 08/12/2008/27/2021 Nontraumatic incomplete tear of left rotator cuf f 08/12/2021 07/01/2022 Acute lumbar back pain 06/20/2014 Essential hypertension 8 Dizziness 08/12/2021 documented as of this encounter (statuses as of 02/11/2023) [facility] Miscellaneous Notes* Telephone Encounter - Alona Naik - 12/27/2021 9:18 AM EDT Forms redone, fax sent. [facility] Miscellaneous Notes* Telephone Encounter - Nilam Gifford - 12/23/2021 8:18 AM EDT Team, 1. Yes off for 6-8 weeks 2. Patient cannot drive for 6 weeks 3. Not permitted to lift any weights at all with operative arm for 6 weeks. Vibha Delgado, DO Response for the additional information that needed added [facility] History of Past illness Narrative* Problem Noted Date Resolved Date Impingement syndrome of shoulder region 08/12/20 21 08/27/2021 Acute lumbar back pain 06/20/2014 1 Essential hypertension 8 Dizziness 08/12/2021 documented as of this encounter (statuses as of 12/27/2021) [facility] of Past illness Narrative* Problem Noted Date Resolved Date Impingement syndrome of shoulder region 08/12/20 21 08/27/2021 Acute lumbar back pain 06/20/2014 1 Essential hypertension 8 Dizziness 08/12/2021 documented as of this encounter (statuses as of 12/27/2021) [facility] of Past illness Narrative* Problem Noted Date Resolved Date Impingement syndrome of shoulder region 08/12/20 21 08/27/2021 Acute lumbar back pain 06/20/2014 1 Essential hypertension 8 Dizziness 08/12/2021 documented as of this encounter (statuses as of 01/03/2022) [facility] of Past illness Narrative* Problem Noted Date Resolved Date Impingement syndrome of shoulder region 08/12/20 21 08/27/2021 Acute lumbar back pain 06/20/2014 1 Essential hypertension 8 Dizziness 08/12/2021 documented as of this encounter (statuses as of 01/15/2022) [facility] Pre-operative examination- Primary Preoperative examination, unspecified Biceps strain, right, subsequent encounter Bipolar disorder with depression (HCC) Bipolar I disorder, most recent episode (or current) depressed, unspecified Nicotine dependence with current use Obesity, Class I, BMI 30-34.9 E66.9 Obesity, unspecified Tachycardia Tachycardia, unspecified Strain of right biceps, initial encounter [facility] Diagnosis Impingement syndrome of right shoulder- Primary Other affections of shoulder region, not elsewhere classified Chronic right shoulder pain Pain in joint, shoulder region [facility] Diagnosis Impingement syndrome of shoulder region, unspecified laterality [facility]* Diagnosis Onset Date Resolution Status Bloating acute Epigastric abdominal pain ac celso RUQ abdominal pain acute [facility] Work Phone: Evaluation note* Diagnosis Pain- Primary Generalized pain [facility]* Diagnosis Impingement syndrome of right shoulder- Primary Other affections of shoulder region, not elsewhere classified Impingement syndrome of shoulder region, unspecified laterality Strain of right biceps, initial encounter Strain of long head of biceps, left, initial encounter [facility] Diagnosis Onset Date Resolution Status Infected nailbed of finger a cute Swollen finger acute Anemia acute Bipolar 1 disorder acute Fatigue acute [facility] Work Phone: Evaluation note* Diagnosis Gallstones- Primary Calculus of gallbladder without mention of cholecystitis or obstruction documented in this encounter [facility] note* Diagnosis Preoperative examination- Primary Preoperative examination, unspecified Impingement syndrome of shoulder region, unspecified laterality Nontraumatic incomplete tear of left rotator cuff Partial tear of rotator cuff Tachycardia Tachycardia, unspecified Bipolar disorder with depression (HCC) Bipolar I disorder, most recent episode (or current) depressed, unspecified Obesity, Class I, BMI 30-34.9 E66.9 Obesity, unspecified Nicotine dependence with current use Pre-operative examination- Primary Preoperative examination, unspecified Impingement syndrome of right shoulder Other affections of shoulder region, not elsewhere classified Nicotine dependence with current use Tachycardia Tachycardia, unspecified Bipolar disorder with depression (HCC) Bipolar I disorder, most recent episode (or current) depressed, unspecified Obesity, Class I, BMI 30-34.9 E66.9 Obesity, unspecified Pre-operative examination- Primary Preoperative examination, unspecified Biceps strain, right, subsequent encounter Bipolar disorder with depression (HCC) Bipolar I disorder, most recent episode (or current) depressed, unspecified Nicotine dependence with current use Obesity, Class I, BMI 30-34.9 E66.9 Obesity, unspecified Tachycardia Tachycardia, unspecified S/P laparoscopic cholecystectomy- Primary Other postprocedural status Malaise and fatigue Other malaise and fatigue Gallstones Calculus of gallbladder without mention of cholecystitis or obstruction documented in this encounter [facility] note* Diagnosis Preoperative examination- Primary Preoperative examination, unspecified Impingement syndrome of shoulder region, unspecified laterality Nontraumatic incomplete tear of left rotator cuff Partial tear of rotator cuff Tachycardia Tachycardia, unspecified Bipolar disorder with depression (HCC) Bipolar I disorder, most recent episode (or current) depressed, unspecified Obesity, Class I, BMI 30-34.9 E66.9 Obesity, unspecified Nicotine dependence with current use Pre-operative examination- Primary Preoperative examination, unspecified Impingement syndrome of right shoulder Other affections of shoulder region, not elsewhere classified Nicotine dependence with current use Tachycardia Tachycardia, unspecified Bipolar disorder with depression (HCC) Bipolar I disorder, most recent episode (or current) depressed, unspecified Obesity, Class I, BMI 30-34.9 E66.9 Obesity, unspecified Pre-operative examination- Primary Preoperative examination, unspecified Biceps strain, right, subsequent encounter Bipolar disorder with depression (HCC) Bipolar I disorder, most recent episode (or current) depressed, unspecified Nicotine dependence with current use Obesity, Class I, BMI 30-34.9 E66.9 Obesity, unspecified Tachycardia Tachycardia, unspecified Pain Generalized pain documented in this encounter [facility] note* Diagnosis Preoperative examination- Primary Preoperative examination, unspecified Impingement syndrome of shoulder region, unspecified laterality Nontraumatic incomplete tear of left rotator cuff Partial tear of rotator cuff Tachycardia Tachycardia, unspecified Bipolar disorder with depression (HCC) Bipolar I disorder, most recent episode (or current) depressed, unspecified Obesity, Class I, BMI 30-34.9 E66.9 Obesity, unspecified Nicotine dependence with current use Pre-operative examination- Primary Preoperative examination, unspecified Impingement syndrome of right shoulder Other affections of shoulder region, not elsewhere classified Nicotine dependence with current use Tachycardia Tachycardia, unspecified Bipolar disorder with depression (HCC) Bipolar I disorder, most recent episode (or current) depressed, unspecified Obesity, Class I, BMI 30-34.9 E66.9 Obesity, unspecified Pre-operative examination- Primary Preoperative examination, unspecified Biceps strain, right, subsequent encounter Bipolar disorder with depression (HCC) Bipolar I disorder, most recent episode (or current) depressed, unspecified Nicotine dependence with current use Obesity, Class I, BMI 30-34.9 E66.9 Obesity, unspecified Tachycardia Tachycardia, unspecified Gallstones- Primary Calculus of gallbladder without mention of cholecystitis or obstruction [facility] Diagnosis Preoperative examination- Primary Preoperative examination, unspecified Impingement syndrome of shoulder region, unspecified laterality Nontraumatic incomplete tear of left rotator cuff Partial tear of rotator cuff Tachycardia Tachycardia, unspecified Bipolar disorder with depression (HCC) Bipolar I disorder, most recent episode (or current) depressed, unspecified Obesity, Class I, BMI 30-34.9 E66.9 Obesity, unspecified Nicotine dependence with current use Pre-operative examination- Primary Preoperative examination, unspecified Impingement syndrome of right shoulder Other affections of shoulder region, not elsewhere classified Nicotine dependence with current use Tachycardia Tachycardia, unspecified Bipolar disorder with depression (HCC) Bipolar I disorder, most recent episode (or current) depressed, unspecified Obesity, Class I, BMI 30-34.9 E66.9 Obesity, unspecified Pre-operative examination- Primary Preoperative examination, unspecified Biceps strain, right, subsequent encounter Bipolar disorder with depression (HCC) Bipolar I disorder, most recent episode (or current) depressed, unspecified Nicotine dependence with current use Obesity, Class I, BMI 30-34.9 E66.9 Obesity, unspecified Tachycardia Tachycardia, unspecified Acute otitis media, right- Primary Unspecified otitis media Sore throat Acute pharyngitis Fatigue, unspecified type Right ear pain Otalgia, unspecified documented in this encounter [facility] for referral (narrative)* Diagnostic Procedure Only (Routine) - Authorized Specialty Diagnoses / Procedures Referred By Contac t Referred To Contact XR IMAGING Diagnoses Pain Procedures XR SHOULDER GENERAL 3V OR MORE AP/TRUE AP/OTHER LEFT RADEX SHOULDER COMPLETE MINIMUM 2 VIEWS Vibha Delgado DO [address] [facility] [address] [place] [id number] Xr Imaging Referral ID Status Reason Start Date Expiration Date Visits Requested Visits Authorized [id number] Authorized Auto-Generat ed Referral 01/06/2023 02/05/2024 1 1 [facility] for referral (narrative)* Diagnostic Procedure Only (Routine) - Closed Specialty Diagnoses / Procedures Referred By Contac t Referred To Contact XR IMAGING Diagnoses Pain Procedures XR SHOULDER GENERAL 3V OR MORE AP/TRUE AP/OTHER LEFT RADEX SHOULDER COMPLETE MINIMUM 2 VIEWS Vibha Delgado DO [address] [place] [address] [place] [address] Referral ID Status Reason Start Date Expiration Date V isits Requested Visits Authorized [id number] Closed Auto-Generate d Referral 01/06/2023 02/05/2024 1 1 [facility] for visit Narrative* Diagnostic Procedure Only (Routine) - Closed Specialty Diagnoses / Procedures Referred By Nataliya quintero Referred To Contact XR IMAGING Diagnoses Pain Procedures XR SHOULDER GENERAL 3V OR MORE AP/TRUE AP/OTHER LEFT RADEX SHOULDER COMPLETE MINIMUM 2 VIEWS Vibha Delgado DO [address] [place] [address] [place] [address] Referral ID Status Reason Start Date Expiration Date V isits Requested Visits Authorized [id number] Closed Auto-Generate d Referral 01/06/2023 02/05/2024 1 1 [facility] Summary Purpose Family History No Family History Records Found aunt Name Dates Details Family history of malignant neoplasm of ovary(V16.41, Z80.41) Status:Active Mother Name Dates Details Family history of malignant neoplasm of breast(V16.3, Z80.3) Status:Active Father Name Dates Details Family history of hypertensi on(V17.49, Z82.49) Status:Active Family history of myocardial infarction(V17.3, Z82.49) Status:Active aunt Name Dates Details Family history of malignant neoplasm of ovary(V16.41, Z80.41) Status:Active Mother Name Dates Details Family history of malignant neoplasm of breast(V16.3, Z80.3) Status:Active Father Name Dates Details Family history of hypertensi on(V17.49, Z82.49) Status:Active Family history of myocardial infarction(V17.3, Z82.49) Status:Active Relationship Condition Age at Onset Recorded Date/T rosalinda Not Specified Diabetes mellitus Unknown Cardiac disease Unknown Cerebrovascular accident (CVA) Unknown father Myocardial infarction Unknown Hypertension Unknown mother Malignant neoplasm of breast Unknown Family history of cholecystectomy Unknown brother Family history of cholecystectomy Unknown Advance Directives No Advanced Directives Records FoundDocuments on File Type Date Recorded Patient Lining Caser Expl anation Advance Directive(s) 10/01/2021 6:10 AM Advance Directive(s) 08/09/2021 9:23 AM Advance Directive(s) 12/18/2017 7:46 AM Documents on File Type Date Recorded Patient Lining Caser Expl anation Advance Directive(s) 01/09/2022 12:15 PM Advance Directive(s) 10/01/2021 6:10 AM Advance Directive(s) 08/09/2021 9:23 AM Advance Directive(s) 12/18/2017 7:46 AM Documents on File Type Date Recorded Patient Lining Caser Expl anation Advance Directive(s) 02/14/2022 11:30 AM Advance Directive(s) 01/09/2022 12:15 PM Advance Directive(s) 10/01/2021 6:10 AM Advance Directive(s) 08/09/2021 9:23 AM Advance Directive(s) 12/18/2017 7:46 AM Chief Complaint and Reason for Visit Chief Complaint medication refills & pain under ribs Reason for Visit Bloating Epigastric abdominal pain RUQ abdominal pain Chief Complaint Infected finger Very painful medication refills/labs Reason for Visit Infected nailbed of finger Swollen finger Anemia Bipolar 1 disorder Fatigue Chief Complaint Admit Date Increasing SOB, atelectasis RML January 1:55pm CURRENTLY VAPING, QUIT SMOKING CIGARETTE S February 03, 2025 2:14pm R06.02 - Shortness of breath February 07 6:39am R06.02 - Shortness of breath February 09 8:00am R06.02 - Shortness of breath February 10 12:10pm 5 wk fu February 15, 2025 3:02p m SOB/CP (RUFENER) March 22, 2025 8:46 am Reason for Visit Admit Date Shortness of breath January 11, 2025 1:55 pm Smoking greater than 20 pack years January 11, 2025 1:55pm Chest pain February 15, 2025 3:02p m Shortness of breath February 15, 2025 3:02p m Smoking greater than 20 pack years February 022024 3:02pm Elevated blood pressure read ing without diagnosis of hypertension March 22, 2025 8:46am Bipolar disorder March 22, 2025 8:46 am Dizziness March 22, 2025 8:46 am Dyspnea on exertion March 22, 2025 8:46 am Fatigue March 22, 2025 8:46 am Nicotine dependence March 22, 2025 8:46 am Chief Complaint Admit Date Increasing SOB, atelectasis RML January 1:55pm CURRENTLY VAPING, QUIT SMOKING CIGARETTE S February 03, 2025 2:14pm R06.02 - Shortness of breath February 07 6:39am R06.02 - Shortness of breath February 07 7:06am R06.02 - Shortness of breath February 09 8:00am R06.02 - Shortness of breath February 10 12:10pm 5 wk fu February 15, 2025 3:02p m SOB/CP (RUFENER) March 22, 2025 8:46 am INT LABS March 22, 2025 9:49 am Chief Complaint Admit Date Increasing SOB, atelectasis RML January 1:55pm CURRENTLY VAPING, QUIT SMOKING CIGARETTE S February 03, 2025 2:14pm R06.02 - Shortness of breath February 07 6:39am R06.02 - Shortness of breath February 07 7:06am R06.02 - Shortness of breath February 09 8:00am R06.02 - Shortness of breath February 10 12:10pm 5 wk fu February 15, 2025 3:02p m SOB/CP (RUFENER) March 22, 2025 8:46 am INT LABS March 22, 2025 9:49 am ELEVATED BLOOD PREASURE ,DIZZINESS,SOB J shilpi 2024 12:31pm ELEVATED BLOOD PREASURE ,DIZZINESS,SOB J shilpi 2024 11:50am Reason for Referral Specialty Diagnoses / Procedures Referred By Nataliya t Referred To Contact [facility] Diagnoses Impingement syndrome of shoulder region, unspecified laterality Procedures CONSULT TO PHYSICAL THERAPY PHYSICAL THERAPY EVALUATION HIGH COMPLEX 45 MINS Vibha Delgado DO [address] [facility] [address] [place] [address] [facility] [address] [place] [address] Referral ID Status Reason Start Date Expiration Date Visits Requested Visits Authorized [id number] Pending Review Auto-Generat ed Referral 02/11/2023 02/11/2024 1 1 Additional Source Comments INFORMATION SOURCE (unrecogn ized section and content) DATE CREATED AUTHOR 04/24/2019 [employer] DATE CREATED AUTHOR AUTHOR'S ORGANIZ ATION 05/10/2019 [facility] DATE CREATED AUTHOR AUTHOR'S ORGANIZ ATION 09/15/2020 [facility] DATE CREATED AUTHOR AUTHOR'S ORGANIZ ATION 05/25/2024 [facility] DATE CREATED AUTHOR AUTHOR'S ORGANIZ ATION 06/24/[address] [facility] DATE CREATED AUTHOR AUTHOR'S ORGANIZ ATION 09/19/2024 [facility] DATE CREATED AUTHOR AUTHOR'S ORGANIZ ATION 05/24/2025 [facility] Source Comments (unrecognize d section and content) In the event this informatio n is protected by the Federal Confidentiality of Alcohol and Drug Abuse Patient Records regulations: The Federal rules restrict any use of the information to criminally investigate or prosecute any alcohol or drug abuse patient.[facility] Hospital[facility] the event this information is protected by the Federal Confidentiality of Alcohol and Drug Abuse Patient Records regulations: The Federal rules restrict any use of the information to criminally investigate or prosecute any alcohol or drug abuse patient.[facility] HospitalIn the event this information is protected by the Federal Confidentiality of Alcohol and Drug Abuse Patient Records regulations: The Federal rules restrict any use of the information to criminally investigate or prosecute any alcohol or drug abuse patient.[facility] HospitalIn the event this information is protected by the Federal Confidentiality of Alcohol and Drug Abuse Patient Records regulations: The Federal rules restrict any use of the information to criminally investigate or prosecute any alcohol or drug abuse patient.[facility] HospitalIn the event this information is protected by the Federal Confidentiality of Alcohol and Drug Abuse Patient Records regulations: The Federal rules restrict any use of the information to criminally investigate or prosecute any alcohol or drug abuse patient.[facility] HospitalIn the event this information is protected by the Federal Confidentiality of Alcohol and Drug Abuse Patient Records regulations: The Federal rules restrict any use of the information to criminally investigate or prosecute any alcohol or drug abuse patient.[facility] HospitalIn the event this information is protected by the Federal Confidentiality of Alcohol and Drug Abuse Patient Records regulations: The Federal rules restrict any use of the information to criminally investigate or prosecute any alcohol or drug abuse patient.[facility] HospitalIn the event this information is protected by the Federal Confidentiality of Alcohol and Drug Abuse Patient Records regulations: The Federal rules restrict any use of the information to criminally investigate or prosecute any alcohol or drug abuse patient.[facility] HospitalIn the event this information is protected by the Federal Confidentiality of Alcohol and Drug Abuse Patient Records regulations: The Federal rules restrict any use of the information to criminally investigate or prosecute any alcohol or drug abuse patient.[facility] HospitalIn the event this information is protected by the Federal Confidentiality of Alcohol and Drug Abuse Patient Records regulations: The Federal rules restrict any use of the information to criminally investigate or prosecute any alcohol or drug abuse patient.[facility] HospitalIn the event this information is protected by the Federal Confidentiality of Alcohol and Drug Abuse Patient Records regulations: The Federal rules restrict any use of the information to criminally investigate or prosecute any alcohol or drug abuse patient.[facility] HospitalIn the event this information is protected by the Federal Confidentiality of Alcohol and Drug Abuse Patient Records regulations: The Federal rules restrict any use of the information to criminally investigate or prosecute any alcohol or drug abuse patient.[facility] HospitalIn the event this information is protected by the Federal Confidentiality of Alcohol and Drug Abuse Patient Records regulations: The Federal rules restrict any use of the information to criminally investigate or prosecute any alcohol or drug abuse patient.[facility] HospitalIn the event this information is protected by the Federal Confidentiality of Alcohol and Drug Abuse Patient Records regulations: The Federal rules restrict any use of the information to criminally investigate or prosecute any alcohol or drug abuse patient.[facility] HospitalIn the event this information is protected by the Federal Confidentiality of Alcohol and Drug Abuse Patient Records regulations: The Federal rules restrict any use of the information to criminally investigate or prosecute any alcohol or drug abuse patient.[facility] HospitalIn the event this information is protected by the Federal Confidentiality of Alcohol and Drug Abuse Patient Records regulations: The Federal rules restrict any use of the information to criminally investigate or prosecute any alcohol or drug abuse patient.[facility] HospitalIn the event this information is protected by the Federal Confidentiality of Alcohol and Drug Abuse Patient Records regulations: The Federal rules restrict any use of the information to criminally investigate or prosecute any alcohol or drug abuse patient.[facility] Care Teams (unrecognized sec tion and content) Broacher Relationship Specialty Start Date End Date Yolis Dalton, MENA.GAS WELDER [address] [facility] [address] [place] [address] PCP - General Family Practice 08/09/21 Broacher Relationship Specialty Start Date End Date Yolis Dalton APRN.GAS WELDER [address] [place], [place] [id number] PCP - General Family Practice 08/09/21 Broacher Relationship Specialty Start Date End Date Yolis Dalton, TEA TASTER.GAS WELDER [address] [place], [place] [phone] PCP - General Family Practice 08/09/21 Broacher Relationship Specialty Start Date End Date Yolis aDlton, TEA TASTER.GAS WELDER [address] [place], [place] [id number] PCP - General Family Practice 08/09/21 Broacher Relationship Specialty Start Date End Date Yolis Dalton, MENA.GAS WELDER [address] [place] [phone] PCP - General Family Practice 08/09/21 Broacher Relationship Specialty Start Date End Date Yolis Dalton, MENA.GAS WELDER [address] [place] [phone] PCP - General Family Medicine 08/09/21 Broacher Relationship Specialty Start Date End Date Yolis Dalton APRN.GAS WELDER [address] [place] [phone] PCP - General Family Medicine 08/09/21 Team Status: Active Member Role Status Dates Yolis Dalton ANIMAL CARE SUPERVISOR, ANIMAL CARE SUPERVISOR-C Primary Care Provider Active Team Status: Inactive Member Role Status Dates Yolis Dalton ANIMAL CARE SUPERVISOR, ANIMAL CARE SUPERVISOR-C Primary Care Pr ovider, Attending Provider, Referring Provider Active Team Status: Inactive Member Role Status Dates Yolis Dalton ANIMAL CARE SUPERVISOR, ANIMAL CARE SUPERVISOR-C Primary Care Provider, Attend ing Provider Active Broacher Relationship Specialty Start Date End Date Yolis Dalton, TEA TASTER.GAS WELDER [address] [place], [place] [phone] PCP - General Family Medicine 08/09/21 Broacher Relationship Specialty Start Date End Date Yolis Dalton, TEA TASTER.GAS WELDER [address] [place], [place] [phone] PCP - General Family Medicine 08/09/21 Broacher Relationship Specialty Start Date End Date Yolis Dalton, TEA TASTER.GAS WELDER [address] [place], [place] [phone] PCP - General Family Medicine 08/09/21 Broacher Relationship Specialty Start Date End Date Yolis Dalton, TEA TASTER.GAS WELDER [address] [place], [place] [phone] PCP - General Family Medicine 08/09/21 Broacher Relationship Specialty Start Date End Date Yolis Dalton, TEA TASTER.GAS WELDER [address] [place], [place] [phone] PCP - General Family Medicine 08/09/21 Broacher Relationship Specialty Start Date End Date Yolis Dalton, TEA TASTER.GAS WELDER [address] [place], [place] [phone] PCP - General Family Medicine 08/09/21 Broacher Relationship Specialty Start Date End Date Yolis Dalton, TEA TASTER.GAS WELDER [address] [place], [place] [phone] PCP - General Family Medicine 08/09/21 Team Status: Inactive Member Role Status Dates Yolis Dalton ANIMAL CARE SUPERVISOR, ANIMAL CARE SUPERVISOR-C Primary Care Provider Active Start: November 09, 2024 End: November 09, 2024 Yolis Dalton ANIMAL CARE SUPERVISOR, ANIMAL CARE SUPERVISOR-C Attending Provider Active Start: November 09, 2024 End: November 09, 2024 Yolis Dalton ANIMAL CARE SUPERVISOR, ANIMAL CARE SUPERVISOR-C Referring Provider Active Start: November 09, 2024 End: November 09, 2024 Team Status: Inactive Member Role Status Dates Yolis Dalton ANIMAL CARE SUPERVISOR, ANIMAL CARE SUPERVISOR-C Primary Care Provider Active Start: January 11, 2025 End: January 11, 2025 Yolis Dalton ANIMAL CARE SUPERVISOR, ANIMAL CARE SUPERVISOR-C Referring Provider Active Start: January 11, 2025 End: January 11, 2025 Diana Ng ANIMAL CARE SUPERVISOR-C Attending Provider Active Start: January 11, 2025 End: January 11, 2025 Team Status: Inactive Member Role Status Dates Yolis Dalton ANIMAL CARE SUPERVISOR, ANIMAL CARE SUPERVISOR-C Primary Care Provider Active Start: February 03, 2025 End: February 03, 2025 Diana Ng ANIMAL CARE SUPERVISOR-C Attending Provider Active Start: February 03, 2025 End: February 03, 2025 Diana Ng ANIMAL CARE SUPERVISOR-C Referring Provider Active Start: February 03, 2025 End: February 03, 2025 Team Status: Active Member Role Status Dates Yolis Dalton ANIMAL CARE SUPERVISOR, ANIMAL CARE SUPERVISOR-C Primary Care Provider Active Start: February 07, 2025 Diana Ng ANIMAL CARE SUPERVISOR-C Attending Provider Active Start: February 07, 2025 Diana Ng ANIMAL CARE SUPERVISOR-C Referring Provider Active Start: February 07, 2025 Team Status: Inactive Member Role Status Dates Yolis Dalton ANIMAL CARE SUPERVISOR, ANIMAL CARE SUPERVISOR-C Primary Care Provider Active Start: February 07, 2025 End: February 07, 2025 Diana Ng ANIMAL CARE SUPERVISOR-C Attending Provider Active Start: February 07, 2025 End: February 07, 2025 Diana Ng ANIMAL CARE SUPERVISOR-C Referring Provider Active Start: February 07, 2025 End: February 07, 2025 Team Status: Active Member Role Status Dates Yolis Dalton ANIMAL CARE SUPERVISOR, ANIMAL CARE SUPERVISOR-C Primary Care Provider Active Start: February 09, 2025 Diana Ng ANIMAL CARE SUPERVISOR-C Attending Provider Active Start: February 09, 2025 Diana Ng ANIMAL CARE SUPERVISOR-C Referring Provider Active Start: February 09, 2025 Team Status: Active Member Role Status Dates Yolis Dalton ANIMAL CARE SUPERVISOR, ANIMAL CARE SUPERVISOR-C Primary Care Provider Active Start: February 10, 2025 Diana Ng ANIMAL CARE SUPERVISOR-C Referring Provider Active Start: February 10, 2025 Diana Ng NP-C Other Provider Active St art: February 10, 2025 Dr. Paul Coronel , Attending Provider Active S tart: February 10, 2025 Team Status: Inactive Member Role Status Dates Yolis Dalton NP, ANIMAL CARE SUPERVISOR-C Primary Care Provider Active Start: February 09, 2025 End: February 09, 2025 Diana Ng ANIMAL CARE SUPERVISOR-C Attending Provider Active Start: February 09, 2025 End: February 09, 2025 Diana Ng ANIMAL CARE SUPERVISOR-C Referring Provider Active Start: February 09, 2025 End: February 09, 2025 Team Status: Inactive Member Role Status Dates Yolis Dalton ANIMAL CARE SUPERVISOR, ANIMAL CARE SUPERVISOR-C Primary Care Provider Active Start: February 15, 2025 End: February 15, 2025 Yolis Dalton NP, ANIMAL CARE SUPERVISOR-C Referring Provider Active Start: February 15, 2025 End: February 15, 2025 Diana Ng ANIMAL CARE SUPERVISOR-C Attending Provider Active Start: February 15, 2025 End: February 15, 2025 Team Status: Inactive Member Role Status Dates Yolis Dalton ANIMAL CARE SUPERVISOR, ANIMAL CARE SUPERVISOR-C Primary Care Provider Active Start: March 22, 2025 End: March 22, 2025 Yolis Dalton ANIMAL CARE SUPERVISOR, ANIMAL CARE SUPERVISOR-C Referring Provider Active Start: March 22, 2025 End: March 22, 2025 Dr. Zeb Bernal MD Attending Provider Active Start: March 22, 2025 End: March 22, 2025 Team Status: Active Member Role Status Dates Yolis Dalton NP, ANIMAL CARE SUPERVISOR-C Primary Care Provider Active Start: February 07, 2025 Dr. Paul Coronel , Attending Provider Active S tart: February 07, 2025 Diana Ng ANIMAL CARE SUPERVISOR-C Referring Provider Active Start: February 07, 2025 Team Status: Inactive Member Role Status Dates Yolis Dalton NP, ANIMAL CARE SUPERVISOR-C Primary Care Provider Active Start: March 22, 2025 End: March 22, 2025 Dr. Zeb Bernal MD Attending Provider Active Start: March 22, 2025 End: March 22, 2025 Dr. Zeb Bernal MD Referring Provider Active Start: March 22, 2025 End: March 22, 2025 Team Status: Active Member Role/Relationship Status Dates Yolis Dalton ANIMAL CARE SUPERVISOR, ANIMAL CARE SUPERVISOR-C Primary Care Provider Active Team Status: Inactive Member Role/Relationship Status Dates Yolis Dalton ANIMAL CARE SUPERVISOR, ANIMAL CARE SUPERVISOR-C Primary Care Provider Active Start: January 11, 2025 End: January 11, 2025 Yolis Dalton ANIMAL CARE SUPERVISOR, ANIMAL CARE SUPERVISOR-C Referring Provider Active Start: January 11, 2025 End: January 11, 2025 Diana Ng ANIMAL CARE SUPERVISOR-C Attending Provider Active Start: January 11, 2025 End: January 11, 2025 Team Status: Inactive Member Role/Relationship Status Dates Yolis Dalton ANIMAL CARE SUPERVISOR, ANIMAL CARE SUPERVISOR-C Primary Care Provider Active Start: February 03, 2025 End: February 03, 2025 Diana Ng ANIMAL CARE SUPERVISOR-C Attending Provider Active Start: February 03, 2025 End: February 03, 2025 Diana Ng ANIMAL CARE SUPERVISOR-C Referring Provider Active Start: February 03, 2025 End: February 03, 2025 Team Status: Inactive Member Role/Relationship Status Dates Yolis Dalton ANIMAL CARE SUPERVISOR, ANIMAL CARE SUPERVISOR-C Primary Care Provider Active Start: February 07, 2025 End: February 07, 2025 Diana Ng ANIMAL CARE SUPERVISOR-C Attending Provider Active Start: February 07, 2025 End: February 07, 2025 Diana Ng ANIMAL CARE SUPERVISOR-C Referring Provider Active Start: February 07, 2025 End: February 07, 2025 Team Status: Active Member Role/Relationship Status Dates Yolis Dalton NP, ANIMAL CARE SUPERVISOR-C Primary Care Provider Active Start: February 07, 2025 Dr. Paul Coronel , DO Attending Provider Active S tart: February 07, 2025 Diana Ng ANIMAL CARE SUPERVISOR-C Referring Provider Active Start: February 07, 2025 Team Status: Inactive Member Role/Relationship Status Dates Yolis Dalton ANIMAL CARE SUPERVISOR, ANIMAL CARE SUPERVISOR-C Primary Care Provider Active Start: February 09, 2025 End: February 09, 2025 Diana Ng ANIMAL CARE SUPERVISOR-C Attending Provider Active Start: February 09, 2025 End: February 09, 2025 Diana Ng NP-C Referring Provider Active Start: February 09, 2025 End: February 09, 2025 Team Status: Active Member Role/Relationship Status Dates Yolis Dalton NP, ANIMAL CARE SUPERVISOR-C Primary Care Provider Active Start: February 10, 2025 Diana Ng ANIMAL CARE SUPERVISOR-C Referring Provider Active Start: February 10, 2025 Diana M Rufener , ANIMAL CARE SUPERVISOR-C Other Provider Active St art: February 10, 2025 Dr. Paul Coronel DO Attending Provider Active S tart: February 10, 2025 Team Status: Inactive Member Role/Relationship Status Dates Yolis Dalton ANIMAL CARE SUPERVISOR, ANIMAL CARE SUPERVISOR-C Primary Care Provider Active Start: February 15, 2025 End: February 15, 2025 Yolis Dalton ANIMAL CARE SUPERVISOR, ANIMAL CARE SUPERVISOR-C Referring Provider Active Start: February 15, 2025 End: February 15, 2025 Diana Ng , ANIMAL CARE SUPERVISOR-C Attending Provider Active Start: February 15, 2025 End: February 15, 2025 Team Status: Inactive Member Role/Relationship Status Dates Yolis Dalton ANIMAL CARE SUPERVISOR, ANIMAL CARE SUPERVISOR-C Primary Care Provider Active Start: March 22, 2025 End: March 22, 2025 Yolis Dalton ANIMAL CARE SUPERVISOR, ANIMAL CARE SUPERVISOR-C Referring Provider Active Start: March 22, 2025 End: March 22, 2025 Dr. Zeb Bernal MD Attending Provider Active Start: March 22, 2025 End: March 22, 2025 Team Status: Inactive Member Role/Relationship Status Dates Yolis Dalton ANIMAL CARE SUPERVISOR, ANIMAL CARE SUPERVISOR-C Primary Care Provider Active Start: March 22, 2025 End: March 22, 2025 Dr. Zeb Bernal MD Attending Provider Active Start: March 22, 2025 End: March 22, 2025 Dr. Zeb Bernal MD Referring Provider Active Start: March 22, 2025 End: March 22, 2025 Team Status: Inactive Member Role/Relationship Status Dates Yolis Dalton ANIMAL CARE SUPERVISOR, ANIMAL CARE SUPERVISOR-C Primary Care Provider Active Start: April 26, 2025 End: April 26, 2025 Dr. Zeb Bernal MD Attending Provider Active Start: April 26, 2025 End: April 26, 2025 Dr. Zeb Bernal MD Referring Provider Active Start: April 26, 2025 End: April 26, 2025 Team Status: Active Member Role/Relationship Status Dates Yolis Dalton ANIMAL CARE SUPERVISOR, ANIMAL CARE SUPERVISOR-C Primary Care Provider Active Start: April 26, 2025 Dr. Fercho Anderson MD Attending Provider Active S tart: April 26, 2025 Team Status: Active Member Role/Relationship Status Dates Yolis Dalton ANIMAL CARE SUPERVISOR, ANIMAL CARE SUPERVISOR-C Primary Care Provider Active Start: April 26, 2025 Dr. Zeb Bernal MD Attending Provider Active Start: April 26, 2025 Team Status: Active Member Role/Relationship Status Dates Yolis Dalton ANIMAL CARE SUPERVISOR, ANIMAL CARE SUPERVISOR-C Primary Care Provider Active Start: April 29, 2025 Dr. Zeb Bernal MD Referring Provider Active Start: April 29, 2025 Dr. Zeb Bernal MD Other Provider Active Star t: April 29, 2025 Dr. 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 Unspecified intestinal obstruction, unspecified as to partial versus complete obstruction K56.[address] Gall[place] [address] CT ABD & PELVIS W/CONTRAST CT WWO ABD1 [id number] Yolis Dalton, TEA TASTER.GAS WELDER [address] [facility] [address] [place] [address] Scan [facility] [address] [place] [address] Referral ID Status Reason Start Date Expiration Date V isits Requested Visits Authorized [id number] Closed Patient Cleared - Admin/Chairm an/Director advise to proceed or did not respond 07/27/2024 10/04/2024 1 1 Reason Comments Sore Throat Right Ear pain,Right Lung Pain x 4 Days Goals (unrecognized section and content) Goals may be documented in a n alternate sectionGoals may be documented in an alternate sectionGoals may be documented in an alternate sectionGoals may be documented in an alternate sectionGoals may be documented in an alternate sectionGoals may be documented in an alternate sectionGoals may be documented in an alternate sectionGoals may be documented in an alternate sectionGoals may be documented in an alternate section FOR RECORDS PERTAINING TO PATIENTS WHO ARE OR HAVE BEEN ENROLLED IN A CHEMICAL DEPENDENCY/SUBSTANCEABUSE PROGRAM, SOME INFORMATION MAY BE OMITTED. This clinical summary was aggregated from multiple sources. Caution should be exercised in using it in the provision of clinical care. This summary normalizes information from multiple sources, and as a consequence, information in this document may materially change the coding, format and clinical context of patient data. In addition, data may be omitted in some cases. CLINICAL DECISIONS SHOULD BE BASED ON THE PRIMARY CLINICAL RECORDS. [facility] [facility]. provides no warranty or guarantee of the accuracy or completeness of information in this document.
[2025-08-22 00:21] LABS: Hematocrit 45.7 % (37-47); Hemoglobin 14.8 g/dL (12.0-15.0); Immature Granulocytes Count 0.030 X10^3/uL (0.0-0.0); Mean Corp Hgb Conc 32.4 g/dL (32-36); Mean Corpuscular Volume 88.6 fL (81-99); Mean Platelet Vol. 8.8 fl (6.2-12.0); NRBC Flagged by Analyzer 0 % (0-5); Platelet Count 417 K/mm3 (150-450); RBC Distribution Width CV 12.7 % (11.6-14.6); RBC Distribution Width SD 41.5 fl (35.1-43.9); Red Blood Count 5.16 M/mm3 (4.2-5.4); White Blood Count 9.0 K/mm3 (4.4-11.0)
[2025-08-22 02:44] LABS: CORTISOL PM 9.77 ug/dL (2.68-10.50); Cholesterol 198 mg/dL (<=200); Low Density Lipoprotein Calc. 119 mg/dL; Triglycerides 119 mg/dL; Very Low Density Lipoprotein 24 mg/dL (5-40); cholesterol:hdl ratio screen 3.40
[2025-08-22 02:55] LABS: AST(SGOT) 14 U/L (<=31); Alanine Aminotransfer ALT/SGPT 8 U/L (<=34); Albumin, Serum 4.3 g/dL (3.5-5.0); Alkaline Phosphatase 109 U/L (35-104); Anion Gap 11 (5-15); BUN 14 mg/dL (4-19); BUN/Creat Ratio 14.5 RATIO (10-20); Calcium,Total 9.7 mg/dL (7.6-11.0); Carbon Dioxide 26.5 mmol/L (21.0-32.0); Chloride 106 mmol/L (98-108); Globulin 2.9 g/dL (2.2-4.2); Glucose 103 mg/dL (70-99); Potassium 4.5 mmol/L (3.3-5.1)
[2025-08-23 14:09] LABS: EBV Acute VCA IgM < 36.0 U/mL (0.0-35.9); EBV-VCA IgG > 600.0 U/mL (0.0-17.9)
[2025-08-24 13:08] LABS: Anti-Chromatin <0.2 AI (0.0-0.9); Anti-Jo <0.2 AI (0.0-0.9); Anti-dsDNA Ab <1 IU/mL (0-9); SJOGREN'S Anti-SS-A test < 0.2 AI (0.0-0.9); SJOGREN'S Anti-SS-B test < 0.2 AI (0.0-0.9); Vitamin D 1,25-Dihydroxy 46.0 pg/mL (24.8-81.5)
== END | disposition home or self-care (01) ==
PROVIDERS: PCP Nurse Practitioner; Referring Provider Nurse Practitioner; Visit Provider Nurse Practitioner
DX: R42 Dizziness and giddiness (principal); M54.6 Pain in thoracic spine; G89.29 Other chronic pain; R11.14 Bilious vomiting; R53.83 Other fatigue; D64.9 Anemia, unspecified
CPT/HCPCS: 80053; 80061; 82533; 82652; 85025; 86225; 86235; 86431; 86664; 86665

== ENCOUNTER → 2025-09-14 | Outpatient (CLI) | payer OTHER, SELFPAY ==
--- OUTSIDE RECORDS SUMMARY | 2025-09-14 22:38 | XMS RPT_ITS | CCD ---
Author Organization [facility] Care Team Providers Care Therapist Phys Name Role Phone Debby Dumont Unavailable Unavailabl e Debby Dumont Unavailable Unavaila ble Dalton WHARF TENDER HELPER.HIDE SORTER, Yolis L Primary Care Provide r Dalton WHARF TENDER HELPER.HIDE SORTER, Yolis L Primary Care Provide r Dalton WHARF TENDER HELPER.HIDE SORTER, Yolis L Primary Care Provide r HENRI [...] Unavailable DALTON, YOLIS L Referring Unavailable Dalton LARD MAKER-C, Yolis Primary Care Provider Sha LARD MAKER-CYolis Attending Provider Sha LARD MAKER-C Yolis Referring Provider Juan MAK-Diana Jackson Attending Provider Juan MAK-CDiana Referring Provider Juan MAK-Diana Jackson Other Provider Dr. Paul Coronel DO Attending Provider Dalton LARD MAKER-C, Yolis Primary Care Provider Dalton LARD MAKER-C, Yolis Referring Provider Gabe CASTANO, Dr. Carrington Attending Provider Dr. Paul Coronel DO Attending Provider Gabe CASTANO, Dr. Carrington Referring Provider Justin CASTANO, Dr. Brantley Attending Provider Gabe CASTANO, Dr. Carrington Other Provider Vinod CASTANO, Dr. Kirk Attending Provider Diana Ng Attending Unavailable Diana Ng Referring Unavailable Dalton LARD MAKER, Yolis Primary Care Unavailable Gabe, Zeb Referring Unavailable Gabe, Zeb Attending Unavailable Dalton LARD MAKER, Yolis Primary Care Unavailable Gabe, Zeb Attending Unavailable Gabe, Zeb Referring Unavailable Dalton LARD MAKER, Yolis Primary Care Unavailable Diana Ng Attending Unavailable Diana Ng Referring Unavailable Dalton LARD MAKER, Yolis Primary Care Unavailable Gabe, Zeb Referring Unavailable Fercho Anderson Attending Unavailable Dalton LARD MAKER, Yolis Primary Care Unavailable Diana Ng Consulting Unavailable Diana Ng Referring Unavailable Dalton LARD MAKER, Yolis Primary Care Unavailable Paul Coronel Attending Unavailable Gabe, Zeb Consulting Unavailable Gabe, Zeb Referring Unavailable Dalton LARD MAKER, Yolis Primary Care Unavailable Reagan Brock Attending Unavailable Gabe, Zeb Attending Unavailable Dalton LARD MAKER, Yolis Primary Care Unavailable Dalton LARD MAKER, Yolis Referring Unavailable Diana Ng Attending Unavailable Dalton LARD MAKER, Yolis Referring Unavailable Dalton LARD MAKER, Yolis Primary Care Unavailable Diana Ng Attending Unavailable Dalton LARD MAKER, Yolis Referring Unavailable Dalton LARD MAKER, Yolis Primary Care Unavailable Gabe, Zeb Attending Unavailable Dalton LARD MAKER, Yolis Primary Care Unavailable Gabe, Zeb Referring Unavailable Dalton LARD MAKER, Yolis Primary Care Unavailable Reagan Brock Attending Unavailable Diana Ng Referring Unavailable Dalton LARD MAKER, Yolis Primary Care Unavailable Paul Coronel Attending Unavailable Diana Ng Attending Unavailable Diana Ng Referring Unavailable Yolis Dalton NP Primary Care Unavailable Diana Ng Attending Unavailable Diana Ng Referring Unavailable Yolis Dalton NP [facility] Care Unavailable Medications Current Medications Medication [...] every 8 hours as needed for pain. [id number] 200 actuat albuterol 0.09 mg/actuat metered dose [...] on above: TAKE 2 TABLETS BY MO [facility] EVERY DAY 1 ml medroxyPROGESTERone acetate 150 [...] By: Zeb Bernal on 05-01-2025 Study report [facility] [place] [address] Echo Complete 04/26/25 1302 MR#: [id number] Acct: [id number] Name: RORO BAZAN Rep #:[id number] : 1970 55 From: Zeb Bernal MD Attending Dr: Dr. Zeb Bernal MD Status: REG CLI Ordering Dr: Zeb Bernal MD Date: Location: [place] Sex: F C Admitted: Reason For Study [...] 1209 Date _ Zeb Bernal MD CC: LARD MAKER-C Yolis Dalton; Dr. Zeb Bernal MD ~ Date Dictated: 04/26/25 1302 Date Transcribed: 05/01/25 1209 Microelectronics Assembler: Signed [facility] Work Phone: Coronary Angiography CTon Coronary Angiography CT [facility] Imaging Services [address] [place] [address] 04/29/25 1150 MR#: [id number] Acct: [id number] Name: RORO BAZAN Rep #: [id number] : 1970 55 From: Reagan Brock MD [...] MD Cosigner Signature (if applicable): Date CC: LARD MAKER-C Yolis Dalton; Dr. Zeb Bernal MD; Dr. Reagan Brokc MD Signed Normal [facility] Carotid Duplex Ultrasoundon 04-26-2025 Carotid Duplex Ultrasound [facility] Cardiovascular Services [address] [place] [address] Carotid Duplex Ultrasound 04/26/25 1248 MR#: [id number] Acct: [id number] Name: RORO BAZAN Rep #: [id number] : 1970 55 From: Fercho Anderson MD [...] the left vertebral artery. Procedure Carotid Duplex 49650. This is a Carotid Duplex examination using [...] Date Dictated: 04/26/25 1248 Date Transcribed: 04/26/251555 Microelectronics Assembler: Signed Normal [facility] Duplex ultrasound of carotid artery reportOrdered By: Fercho Anderson on 04-26-2025 Study report [facility] [address] [facility] [place] [address] Carotid Duplex Ultrasound 04/26/25 1248 MR#: [id number] Acct: [id number] Name: RORO BAZAN Rep #:[id number] : 1970 55 From: Fercho Boucher [...] the left vertebral artery. Procedure Carotid Duplex 39509. This is a Carotid Duplex examination using B-mode, color flow and specral Doppler. Exam performed in department. VL/Carotid Duplex Ultrasound Interpretation Summary Mild (<50%) stenosis right extracranial internal carotid. Normal left extracranial internal carotid. Patent and antegrade vertebrals bilaterally. Ordering Physician: Zeb Bernal Referring Physician: Yolis Dalton Performed By: Cristine Velasco RVTalat 04/26/25 1556 Date _ Fercho Anderson MD CC: LARD MAKER-C Yolis Dalton; Dr. Zeb Bernal MD ~ Date Dictated: 04/26/25 1248 Date Transcribed: 04/26/25 1556 Microelectronics Assembler: Signed [facility] Work Phone: Echo Completeon 04-26-2025 Echo Complete [facility] Services [address] [place] [address] Echo Complete 04/26/25 1302 MR#: [id number] Acct: [id number] Name: RORO BAZAN Rep #: [id number] : 1970 55 From: Zeb Bernal MD [...] 05/01/25 1209 Date Zeb Bernal MD CC: LARD MAKER-C Yolis Dalton; Dr. Zeb Bernal MD Date Dictated: 04/26/25 1302 Date Transcribed: 05/01/25 1209 Microelectronics Assembler: Signed Normal [facility] Limited Chest CT Cardiac Onl yon 04-26-[address] Cardiac Only [facility] Imaging Services [address] [place] [address] Cardiac Only MR#: [id number] Acct: [id number] Name: RORO BAZAN Rep #: [id number] : 1970 F 55 From: Maurizio calle MD PCP: JORDI Stauffer Status: [facility] Study: Limited Chest CT Cardiac Only Date of Exam: Exam# [id number] Ordering Dr: Zeb Bernal MD PROCEDURE: LIMITED [...] coronary artery calcification is seen. Reading Location: [id number] CC: JORDI Dalton; Dr. Zeb Bernal MD Microelectronics Assembler: Signed Normal [facility] Anion gap in Serum or Plasma Ordered By: Zeb Bernal on 03-22-2025 Anion gap [Moles/Vol] 8 mmol/L 5-15 [facility] BUN/creatinine ratioOrdered By: Zeb Bernal on 03-22-2025 Urea nitrogen/Creatinine [Mass ratio] 16.2 mg/mg 10- [facility] Bilirubin, totalOrdered By: Zeb Bernal on 03-22-2025 Bilirubin [Mass/Vol] 0.21 mg/dL 0.00-1.[address] [facility] CBC-Complete Blood Cnt No Di ffon 03-22-2025 Erythrocyte distribution width (RBC) [Ratio] 12.9 % Normal 11.6-14.6 [facility] Comment on above: Performed By: #### L 500.4100, L501.9520, L500.4050, L100.0500 #### [facility] [address] [place], [address] Hematocrit (Bld) [Volume fraction] 43.0 % Normal 37-47 [facility] Comment on above: Performed By: #### L 500.4100, L501.9520, L500.4050, L100.0500 #### [facility] [address] [place], [address] Hemoglobin (Bld) [Mass/Vol] 14.0 g/dL Normal 12.0-15.0 [facility] Comment on above: Performed By: #### L 500.4100, L501.9520, L500.4050, L100.0500 #### [facility] [address] [place], [address] MCH (RBC) [Entitic mass] 28.7 pg Normal 27.0-32.0 [facility] Comment on above: Performed By: #### L 500.4100, L501.9520, L500.4050, L100.0500 #### [facility] [address] [place], [address] MCHC (RBC) [Mass/Vol] 32.6 g/dL Normal 32-36 [facility] Comment on above: Performed By: #### L 500.4100, L501.9520, L500.4050, L100.0500 #### [facility] [address] [place], [address] MCV (RBC) [Entitic vol] 88.3 fL Normal 81-99 [facility] Comment on above: Performed By: #### L 500.4100, L501.9520, L500.4050, L100.0500 #### [facility] [address] [place], [address] Platelet mean volume (Bld) [Entitic vol] 8.5 fL Normal 6.2-12.0 [facility] Comment on above: Performed By: #### L 500.4100, L501.9520, L500.4050, L100.0500 #### [facility] [address] [place], [address] Platelets (Bld) [#/Vol] 347 10*3/uL Normal 150-450 [facility] Comment on above: Performed By: #### L 500.4100, L501.9520, L500.4050, L100.0500 #### [facility] [address] [place], [address] RBC (Bld) [#/Vol] 4.87 10*6/uL Normal 4.2-5.4 [facility] Comment on above: Performed By: #### L 500.4100, L501.9520, L500.4050, L100.0500 #### [facility] [address] [place], [address] RDW SD 41.9 fl Normal 35.1-43.9 [facility] Comment on above: Performed By: #### L 500.4100, L501.9520, L500.4050, L100.0500 #### [facility] [address] [place], [address] WBC (Bld) [#/Vol] 5.9 10*3/uL Normal 4.4-11.0 [facility] Comment on above: Performed By: #### L 500.4100, L501.9520, L500.4050, L100.0500 #### [facility] [address] [place], [address] Calculated very low density lipoprotein (VLDL) cholesterol measurementOrdered By: Zeb Bernal on 03-22-2025 Calculated very low density lipoprotein (VLDL) cholesterol measurement 13 mg/dL 5-40 [facility] Carbon dioxide, total [Moles /volume] in Central venous bloodOrdered By: Zeb Bernal on 03-22-2025 CO2 [Moles/Vol] 27.6 mmol/L 21.0-32.0 [facility] Cardiology Visit Reporton Cardiology Visit Report [facility] [address] [place] [address] OFFICE VISIT Date of Service: 03/22/25 MR#: [id number] Acct: [id number] Name: RORO BAZAN Rep #: [id number] : 1970 Provider: Dr. Zeb Bernal MD Age/Sex: 55/F Location: [facility] Status: Signed HPI HPI History of Present [...] room air Intake Visit Reasons: SOB/CP (JUAN) Front Office Associate Required: No Accompanied by: Self Is patient [...] (4) Nicotine (more content not included)... Normal [facility] Chloride assayOrdered By: Carmelo Bernal on 03-22-2025 Chloride [Moles/Vol] 107 mmol/L 98-[address] [facility] Comprehensive Metabolic Prof ilon 03-22-2025 Albumin [Mass/Vol] 4.3 g/dL Normal 3.5-5.0 [facility] Comment on above: Performed By: #### L 500.4100, L501.9520, L500.4050, L100.0500 #### [facility] [address] [place], [address] Albumin/Globulin [Mass ratio] 1.6 {ratio} Normal 0.9-2.4 [facility] Comment on above: Performed By: #### L 500.4100, L501.9520, L500.4050, L100.0500 #### [facility] [address] [place], [address] ALK PHOS 129 U/L High 35-104 [facility] Comment on above: Performed By: #### L 500.4100, L501.9520, L500.4050, L100.0500 #### [facility] [address] [place], [address] ALT [Catalytic activity/Vol] 8 U/L Normal <=34 [facility] Comment on above: Performed By: #### L 500.4100, L501.9520, L500.4050, L100.0500 #### [facility] [address] [place], [address] AST [Catalytic activity/Vol] 18 U/L Normal <=31 [facility] Comment on above: Performed By: #### L 500.4100, L501.9520, L500.4050, L100.0500 #### [facility] [address] [place], [address] Bilirubin [Mass/Vol] 0.21 mg/dL Normal 0.00-1.[address] [facility] Comment on above: Performed By: #### L 500.4100, L501.9520, L500.4050, L100.0500 #### [facility] [address] [place], [address] BUN/CRE 16.2 RATIO Normal 10-20 [facility] Comment on above: Performed By: #### L 500.4100, L501.9520, L500.4050, L100.0500 #### [facility] [address] [place], [address] Calcium [Mass/Vol] 9.5 mg/dL Normal 7.6-11.0 [facility] Comment on above: Performed By: #### L 500.4100, L501.9520, L500.4050, L100.0500 #### [facility] [address] [place], [address] Chloride [Moles/Vol] 107 mmol/L Normal 98-[address] [facility] Comment on above: Performed By: #### L 500.4100, L501.9520, L500.4050, L100.0500 #### [facility] [address] [place], [address] CO2 [Moles/Vol] 27.6 mmol/L Normal 21.0-32.0 [facility] Comment on above: Performed By: #### L 500.4100, L501.9520, L500.4050, L100.0500 #### [facility] [address] [place], [address] Creatinine [Mass/Vol] 0.99 mg/dL Normal 0.70-1.20 [facility] Comment on above: Performed By: #### L 500.4100, L501.9520, L500.4050, L100.0500 #### [facility] [address] [place], [address] GAP 8 Normal 5-15 [facility] Comment on above: Performed By: #### L 500.4100, L501.9520, L500.4050, L100.0500 #### [facility] [address] [place], [address] GFR/1.73 sq M.predicted among non-blacks MDRD (S/P/Bld) [Vol rate/Area] 68 mL/min/{1.73_m2} Normal >60 [facility] Comment on above: Result Comment: mL/m in/1.73m2 CKD-EPI Creatinine Equation (2020) Performed By: #### L 500.4100, L501.9520, L500.4050, L100.0500 #### [facility] [address] [place], [address] Globulin (S) [Mass/Vol] 2.7 g/dL Normal 2.2-4.2 [facility] Comment on above: Performed By: #### L 500.4100, L501.9520, L500.4050, L100.0500 #### [facility] [address] [place], [address] Glucose [Mass/Vol] 100 mg/dL High 70-99 [facility] Comment on above: Performed By: #### L 500.4100, L501.9520, L500.4050, L100.0500 #### [facility] [address] [place], [address] Potassium [Moles/Vol] 4.6 mmol/L Normal 3.3-5.1 [facility] Comment on above: Performed By: #### L 500.4100, L501.9520, L500.4050, L100.0500 #### [facility] [address] [place], [address] Sodium [Moles/Vol] 143 mmol/L Normal 133-145 [facility] Comment on above: Performed By: #### L 500.4100, L501.9520, L500.4050, L100.0500 #### [facility] [address] [place], [address] T PROT 7.0 g/dL Normal 5.9-8.4 [facility] Comment on above: Performed By: #### L 500.4100, L501.9520, L500.4050, L100.0500 #### [facility] [address] [place], [address] Urea nitrogen [Mass/Vol] 16 mg/dL Normal 4-19 [facility] Comment on above: Performed By: #### L 500.4100, L501.9520, L500.4050, L100.0500 #### [facility] [address] [place], [address] Erythrocyte distribution wid th ratioOrdered By: Zeb Bernal on 03-22-2025 Erythrocyte distribution width (RBC) [Ratio] 12.9 % 11.6-14.6 [facility] Erythrocyte distribution wid th standard deviationOrdered By: Zeb Bernal on 03-22-2025 Erythrocyte distribution width (RBC) [Ratio] 41.9 fl 35.1-43.9 [facility] Glomerular filtration rate ( GFR) estimation/1.73 sq m using serum, plasma, or whole bOrdered By: Zeb Bernal on 03-22-2025 GFR/1.73 sq M.predicted among non-blacks MDRD (S/P/Bld) [Vol rate/Area] 68 mL/min/{1.73_m2} >60 [facility] Comment on above: mL/min/1.73m2 CKD-EP I Creatinine Equation (2020) Hematocrit Auto (Bld) [Volum e fraction]Ordered By: Zeb Bernal on 03-22-2025 Hematocrit (Bld) [Volume fraction] 43.0 % 37-47 [facility] Hemoglobin measurementOrdere d By: Zeb Bernal on 03-22-2025 Hemoglobin (Bld) [Mass/Vol] 14.0 g/dL 12.0-15.0 [facility] LDL calc ser/plasOrdered By: Zeb Bernal on 03-22-2025 Cholesterol in LDL [Mass/Vol] 108 mg/dL [facility] Comment on above: Yoqlabejvj=052-991 m g/dL & Higher Pxqj=238 mg/dL or greater Laboratory - Chemistry and C hemistry - challengeOrdered By: Zeb Bernal on 03-22-2025 AST [Catalytic activity/Vol] 18 U/L <32 [facility] Lipid Profileon 03-22-2025 CHOL:HDL 3.05 Normal [facility] Comment on above: Performed By: #### L 500.4100, L501.9520, L500.4050, L100.0500 #### [facility] [address] [place], [address] Cholesterol [Mass/Vol] 180 mg/dL Normal <=200 [facility] Comment on above: Result Comment: Chol esterol level, Desirable <200 mg/dL Borderline high cholesterol 200-239 mg/dL High cholesterol >=240 mg/dL Recommendations of the NCEP Adult Treatment Panel for the following risk-cutoff thresholds for the [place] population. Performed By: #### L 500.4100, L501.9520, L500.4050, L100.0500 #### [facility] [address] [place], [address] Cholesterol in HDL [Mass/Vol] 59 mg/dL Normal [facility] Comment on above: Result Comment: Bobbi onal Cholesterol Education Program (NCEP) guidelines: <40 mg/dL: Low HDL-cholesterol (major risk factor for CHD) >= 60 mg/dL: High HDL-cholesterol (negative risk factor for CHD) HDL-cholesterol is affected by a number of factors, e.g. smoking, exercise, hormones, sex and age. Performed By: #### L 500.4100, L501.9520, L500.4050, L100.0500 #### [facility] [address] [place], [address] Cholesterol in LDL [Mass/Vol] 108 mg/dL Normal [facility] Comment on above: Result Comment: Bord davwxr=992-345 mg/dL Higher Tvop=233 mg/dL or greater Performed By: #### L 500.4100, L501.9520, L500.4050, L100.0500 #### [facility] [address] [place], [address] Cholesterol in VLDL [Mass/Vol] 13 mg/dL Normal 5-40 [facility] Comment on above: Performed By: #### L 500.4100, L501.9520, L500.4050, L100.0500 #### [facility] [address] [place], [address] Triglyceride [Mass/Vol] 63 mg/dL Normal [facility] Comment on above: Result Comment: The drugs N-Acetylcysteine and Metamizole may falsely depress this assay. Normal range: <150 mg/dL Borderline High: 150-199 mg/dL High: 200-499 mg/dL Very High: >500 mg/dL Performed By: #### L 500.4100, L501.9520, L500.4050, L100.0500 #### [facility] [address] [place], [address] MCV (mean corpuscular volume ) determinationOrdered By: Zeb Bernal on 03-22-2025 MCV (RBC) [Entitic vol] 88.3 fL 81-99 [facility] Mean corpuscular hemoglobin (MCH) determinationOrdered By: Zeb Bernal on 03-22-2025 MCH (RBC) [Entitic mass] 28.7 pg 27.0-32.0 [facility] Mean corpuscular hemoglobin concentration (MCHC) determinationOrdered By: Zeb Bernal on 03-22-2025 MCHC (RBC) [Mass/Vol] 32.6 g/dL 32-36 [facility] Mean platelet volume determi nationOrdered By: Zeb Bernal on 03-22-2025 Platelet mean volume (Bld) [Entitic vol] 8.5 fL 6.2-12.0 [facility] Platelet countOrdered By: Carmelo Bernal on 03-22-2025 Platelets (Bld) [#/Vol] 347 10*3/uL 150-450 [facility] Potassium measurement (mass/ volume)Ordered By: Zeb Bernal on 03-22-2025 Potassium (Unsp spec) [Mass/Vol] 4.6 mmol/L 3.3-5.1 [facility] RBC Auto (Bld) [#/Vol]Ordere d By: Zeb Bernal on 03-22-2025 RBC (Bld) [#/Vol] 4.87 10*6/uL 4.2-5.4 [facility] Screening total cholesterol/ high density lipoprotein (HDL) cholesterol ratioOrdered By: Zeb Bernal on 03-22-2025 Cholesterol.total/Choles terol in HDL [Mass ratio] 3.05 {ratio} [facility] Serum creatinine measurement (mass/volume)Ordered By: Zeb Bernal on 03-22-2025 Creatinine [Mass/Vol] 0.99 mg/dL 0.70-1.20 [facility] Serum globulin measurementOr dered By: Zeb Bernal on 03-22-2025 Globulin (S) [Mass/Vol] 2.7 g/dL 2.2-4.2 [facility] Serum glucose measurement (m ass/volume)Ordered By: Zeb Bernal on 03-22-2025 Glucose [Mass/Vol] 100 mg/dL High 70-99 [facility] Serum or plasma alanine galvez otransferase (ALT) measurementOrdered By: Zeb Bernal on 03-22-2025 ALT [Catalytic activity/Vol] 8 U/L <35 [facility] Serum or plasma albumin kwabena urement (mass/volume)Ordered By: Zeb Bernal on 03-22-2025 Albumin [Mass/Vol] 4.3 g/dL 3.5-5.0 [facility] Serum or plasma albumin/glob ulin mass ratioOrdered By: Zeb Bernal on 03-22-2025 Albumin/Globulin [Mass ratio] 1.6 {ratio} 0.9-2.4 [facility] Serum or plasma alkaline mario sphatase measurementOrdered By: Zeb Bernal on 03-22-2025 ALP [Catalytic activity/Vol] 129 U/L High 35-104 [facility] Serum or plasma calcium kwabena urement (mass/volume)Ordered By: Zeb Bernal on 03-22-2025 Calcium [Mass/Vol] 9.5 mg/dL 7.6-11.0 [facility] Serum or plasma cholesterol in HDL measurement (mass/volume)Ordered By: Zeb Bernal on 03-22-2025 Cholesterol in HDL [Mass/Vol] 59 mg/dL >40 [facility] Comment on above: National Cholesterol Education Program (NCEP) guidelines:<40 mg/dL: Low HDL-cholesterol (major risk factor for CHD)>= 60 mg/dL: High HDL-cholesterol (negative risk factor for CHD)HDL-cholesterol is affected by a number of factors, e.g. smoking, exercise, hormones, sex and age. Serum or plasma cholesterol measurement (mass/volume)Ordered By: Zeb Bernal on 03-22-2025 Cholesterol [Mass/Vol] 180 mg/dL <201 [facility] Comment on above: Cholesterol level, D esirable <200 mg/dLBorderline high cholesterol 200-239 mg/dLHigh cholesterol >=240 mg/dLRecommendations of the NCEP Adult Treatment Panel for the following risk-cutoff thresholds for the [place] population. Serum or plasma urea nitroge n measurement (mass/volume)Ordered By: Zeb Bernal on 03-22-2025 Urea nitrogen [Mass/Vol] 16 mg/dL 4-19 [facility] Sodium levelOrdered By: Shyam Bernal on 03-22-2025 Sodium [Moles/Vol] 143 mmol/L 133-145 [facility] TSH DL <= 0.005 mIU/L QnOrde red By: Zeb Bernal on 03-22-2025 TSH Qn 1.750 uIU/mL 0.300-4.200 [facility] Thyroid Stim Hormone (TSH)on 03-22-2025 TSH 1.750 uIU/mL Normal 0.300-4.200 [facility] Comment on above: Performed By: #### L 500.9260, L501.6779, L500.4050, L100.0500 #### [facility] [address] [place], [place], [id number] Total proteinOrdered By: Telly Bernal on 03-22-2025 Protein [Mass/Vol] 7.0 g/dL 5.9-8.4 [facility] [place] Triglycerides measurementOrd ered By: Zeb Bernal on 03-22-2025 Triglyceride [Mass/Vol] 63 mg/dL <199 [facility] Comment on above: The drugs N-Acetylcy steine and Metamizole may falsely depress this assay. Normal range: <150 mg/dLBorderline High: 150-199 mg/dLHigh: 200-499 mg/dLVery High: >500 mg/dL White blood cell (WBC) count Ordered By: Zeb Bernal on 03-22-2025 WBC (Bld) [#/Vol] 5.9 10*3/uL 4.4-11.0 [facility] [place] Pulmonary Visit Reporton Pulmonary Visit Report [facility] [place] [address] [place] [address] OFFICE VISIT Date of Service: 02/15/25 MR#: [id number] Acct: [id number] Name: RORO BAZAN Rep #: [id number] : 1970 Provider: Diana Ng NP Age/Sex: 55/F Location[place] [facility] Status: Signed Assessment and Plan Assessment and [...] reports that an ECHO was completed through [facility] approximately 5 years ago. She denies [...] Vital Si (more content not included)... Normal [facility] 6 Minute Walk Teston 025 6 Minute Walk Test y [facility] Pulmonary Services/Neurology [address] [place] [address] MR#: [id number] Acct: [id number] Name: RORO BAZAN Rep #: [id number] : 1970 55 From: Paul Coronel DO Referring Dr: Diana Ng LARD MAKER-C Status: REG CLI Location: PSN Date: Sex: [...] Date Dictated: 02/10/25 121 Date Transcribed: 02/10/251209 Microelectronics Assembler: Dr. Paul Coronel DO Signed Normal [facility] Low Dose CT Lung Screeningon 02-03-[address] Lung Screening [facility] Imaging Services [address] [place] [id number] Lung Screening MR#: [id number] Acct: [id number] Name: RORO BAZAN Rep #: [id number] : 1970 F 55 From: Luis Armando Garnica MD PCP: JORDI Stauffer Status: [facility] CLI Study: Low Dose CT Lung Screening Date of Exam: 02/03 Exam# [id number] Ordering Dr: Diana Ng NP- C PROCEDURE: [...] use of iterative reconstruction technique). REFERENCE LINK: [facility] Lung-RADS RADIATION DOSE SUMMARY: CTDlvol: 4.0 mGy [...] LDCT. Other Significant Findings: None. Reading Location: [id number] CC: OBDULIO-Renetta Dalton; Diana Ng NP Microelectronics Assembler: Signed Normal [facility] Pulmonary Visit Reporton Pulmonary Visit Report [facility] of [address] [place] [address] OFFICE VISIT Date of Service: 01/11/25 MR#: [id number] Acct: [id number] Name: RORO BAZAN Rep #: [id number] : 1970 Provider: Diana Ng NP Age/Sex: 54/F Location: [facility] Status: Signed Assessment and Plan Assessment and [...] reports that an ECHO was completed through [facility] approximately 5 years ago. She denies [...] Intake Visit Reasons: Increasing SOB, atelectasis RML Front Office Associate Required: No DME Vendor: n/a Accompanied by: [...] 25 mcg/actuation powdr for inhalation (Anoro Ellipta) [facility] ... Normal [facility] XR CHEST 2V FRONTAL/LATon XR CHEST 2V [...] unremarkable exam with no acute radiographic abnormality. Microelectronics Assembler: PSCB Transcribe Date/Time: Sep 18 2024 10:02A Dictated by : SHERYL SAMS MD This examination was interpreted and the report reviewed and electronically signed by: SHERYL SAMS MD on Sep 18 2024 10:03AM EST [id number] N Normal [facility] CT ABDOMEN W IVCONon 10-23-[address] ABDOMEN W IVCON * * *Final Report* * * DATE OF EXAM: Jul 27 2024 3:57PM [facility] 0533 - CT ABDOMEN W IVCON / [...] Biliary dilation, likely related to the cholecystectomy. Microelectronics Assembler: PSCB Transcribe Date/Time: Jul 28 2024 4:26P Dictated by : TERRIE GREENFIELD MD This examination was interpreted and the report reviewed and electronically signed by: TERRIE GREENFIELD MD on Jul 28 2024 4:30PM EST [id number] N Normal [facility] ALLIED HEALTHon 06-13-2024 ALLIED HEALTH HNO ID: [id number] Author: PRESTON ARCOS RT(R) Service: ? Author [...] PATIENT PRESENTS WITH AN IMPLANTABLE OR ATTACHED TIBCO DEVELOPER: No RADIOLOGY DEPARTMENT: General X-ray: Exam(s) Completed: Rib X-Ray: Right PERIPHERAL IV DATA: Not applicable SIGNED BY: RT Bella(R) June 13, 2024 12:50 PM Normal [facility] ED PROV NOTEon 06-13-2024 ED PROV NOTE HNO ID: [id number] Author: ALEJANDRA STAPLETON MD Service: Emergency Medicine [...] Father other (cholecystectomy) Brother Heart Maternal Aunt [place] Heart Maternal Uncle two uncles with SC Ovarian cancer Other Social History Tobacco Use [...] shortness of breath. She does symptomatically with [place] and recommended x-ray imaging given fall occurred [...] used. The (more content not included)... Normal [facility] XR RIB/CHST 3V AP RIB/OBL/CH ST Abel [...] dislocations are seen. IMPRESSION: No acute abnormalities Microelectronics Assembler: GIOVANNA Transcribe Date/Time: Jun 13 2024 1:08P Dictated by : CA ALVES MD This examination was interpreted and the report reviewed and electronically signed by: CA ALVES MD on Jun 13 2024 1:09PM EST [id number] N Normal [facility] CBC panel Auto (Bld)on 06-10 Erythrocyte distribution width (RBC) [Ratio] 12.6 % Normal 11.5-15.0 [facility] Comment on above: Order Comment: Speci men Type: BLOOD SPECIMEN Ordering Facility: [facility] Address: [address] [place] [address] Performed By: #### 5 8410-2 #### [facility] CLIA [id number] [address] [place] [address] [place] [facility] Hematocrit (Bld) [Volume fraction] 43.3 % Normal 36.0-46.0 [facility] Comment on above: Order Comment: Speci men Type: BLOOD SPECIMEN Ordering Facility: [facility] Address: [address] [place] [address] Performed By: #### 5 8410-2 #### [facility] CLIA [id number] [address] [place] [address] [facility] [place] Hemoglobin (Bld) [Mass/Vol] 13.7 g/dL Normal 11.5-15.5 [facility] Comment on above: Order Comment: Speci men Type: BLOOD SPECIMEN Ordering Facility: [facility] Address: [address] [place] [address] Performed By: #### 5 8410-2 #### [facility] CLIA [id number] [address] MCH (RBC) [Entitic mass] 28.5 pg Normal 26.0-34.0 [facility] Comment on above: Order Comment: Speci men Type: BLOOD SPECIMEN Ordering Facility: [facility] Address: [address] [place] [address] Performed By: #### 5 8410-2 #### [facility] CLIA [id number] [address] [place], [place] [address] [place] MCHC (RBC) [Mass/Vol] 31.6 g/dL Normal 30.5-36.0 [facility] Comment on above: Order Comment: Speci men Type: BLOOD SPECIMEN Ordering Facility: [facility] Address: [address] [place] [address] Performed By: #### 5 8410-2 #### [facility] CLIA [id number] [address] [place] [id number] [facility] [place] MCV (RBC) [Entitic vol] 90.0 fL Normal 80.0-100.0 [facility] Comment on above: Order Comment: Speci men Type: BLOOD SPECIMEN Ordering Facility: [facility] Address: [address] [place] [address] Performed By: #### 5 8410-2 #### [facility] CLIA [id number] [address] [place] [address] [place] Platelet mean volume (Bld) [Entitic vol] 8.3 fL Low 9.0-12.7 [facility] Comment on above: Order Comment: Speci men Type: BLOOD SPECIMEN Ordering Facility: [facility] Address: [address] [place] [address] Performed By: #### 5 8410-2 #### [facility] CLIA [id number] [address] [place] [address] [place] Platelets (Bld) [#/Vol] 324 10*3/uL Normal 150-400 [facility] Comment on above: Order Comment: Speci men Type: BLOOD SPECIMEN Ordering Facility: [facility] Address: [address] [place] [address] Performed By: #### 5 8410-2 #### [facility] CLIA [id number] [address] [place] [address] [place] RBC (Bld) [#/Vol] 4.81 10*6/uL Normal 3.90-5.20 [facility] Comment on above: Order Comment: Speci men Type: BLOOD SPECIMEN Ordering Facility: [facility] Address: [address] [place] [address] Performed By: #### 5 8410-2 #### [facility] CLIA [id number] [address] [place] [address] [place] WBC (Bld) [#/Vol] 7.60 10*3/uL Normal 3.70-11.00 [facility] Comment on above: Order Comment: Speci men Type: BLOOD SPECIMEN Ordering Facility: [facility] Address: [address] [place] [address] Performed By: #### 5 8410-2 #### [facility] CLIA [id number] [address] [place] [address] [facility] Comprehensive metabolic 2000 panelon 06-10-2024 Albumin [Mass/Vol] 4.3 g/dL Normal 3.9-4.9 [facility] Comment on above: Order Comment: Speci men Type: BLOOD SPECIMEN Ordering Facility: [facility] Address: [address] [place] [address] Performed By: #### 2 4323-8 #### [facility] CLIA [id number] [address] [place], [place] [address] [place] [address] [place] ALP [Catalytic activity/Vol] 104 U/L Normal 34-123 [facility] Comment on above: Order Comment: Speci men Type: BLOOD SPECIMEN Ordering Facility: [facility] Address: [address] [place] [address] Performed By: #### 2 4323-8 #### [facility] CLIA [id number] [address] ALT With P-5'-P [Catalytic activity/Vol] 10 U/L Normal 7-38 [facility] Comment on above: Order Comment: Speci men Type: BLOOD SPECIMEN Ordering Facility: [facility] Address: [address] [place] [address] Performed By: #### 2 4323-8 #### [facility] CLIA [id number] [address] Anion gap [Moles/Vol] 9 mmol/L Normal 8-15 [facility] Comment on above: Order Comment: Speci men Type: BLOOD SPECIMEN Ordering Facility: [facility] Address: [address] [place] [address] Performed By: #### 2 4323-8 #### [facility] CLIA [id number] [address] OF [facility] AST With P-5'-P [Catalytic activity/Vol] 13 U/L Normal 13-35 [facility] Comment on above: Order Comment: Speci men Type: BLOOD SPECIMEN Ordering Facility: [facility] Address: [address] [place] [address] Performed By: #### 2 4323-8 #### [facility] CLIA [id number] [address] [place] [address] [place] Bilirubin [Mass/Vol] 0.2 mg/dL Normal 0.2-1.3 [facility] Comment on above: Order Comment: Speci men Type: BLOOD SPECIMEN Ordering Facility: [facility] Address: [address] [place] [address] Performed By: #### 2 4323-8 #### [facility] CLIA [id number] [address] [place] [address] [place] Calcium [Mass/Vol] 9.1 mg/dL Normal 8.5-10.2 [facility] Comment on above: Order Comment: Speci men Type: BLOOD SPECIMEN Ordering Facility: [facility] Address: [address] [place] [address] Performed By: #### 2 4323-8 #### [facility] CLIA [id number] [address] [place] [address] [place] Chloride [Moles/Vol] 100 mmol/L Normal 98-107 [facility] Comment on above: Order Comment: Speci men Type: BLOOD SPECIMEN Ordering Facility: [facility] Address: [address] [place] [address] Performed By: #### 2 4323-8 #### [facility] CLIA [id number] [address] [place] [address] [place] CO2 [Moles/Vol] 29 mmol/L Normal 22-30 [facility] Comment on above: Order Comment: Speci men Type: BLOOD SPECIMEN Ordering Facility: [facility] Address: [address] [place] [address] Performed By: #### 2 4323-8 #### [facility] CLIA [id number] [address] [place] [address] [place] Creatinine [Mass/Vol] 1.00 mg/dL High 0.58-0.96 [facility] Comment on above: Order Comment: Campos hoang Type: BLOOD SPECIMEN Ordering Facility: [facility] Address: [address] [place] [address] Performed By: #### 2 4323-8 #### [facility] CLIA [id number] [address] [place] [address] [place] Creatinine and Glomerular filtration rate.predicted panel (S/P/Bld) 68 mL/min/1.73m??? Normal >=60 [facility] Comment on above: Order Comment: Campos hoang Type: BLOOD SPECIMEN Ordering Facility: [facility] Address: [address] [place] [address] Result Comment: Toma mated Glomerular Filtration Rate [...] GFR. Performed By: #### 2 4323-8 #### [facility] CLIA [id number] [address] [place] [address] [place] Glucose [Mass/Vol] 98 mg/dL Normal 74-99 [facility] Comment on above: Order Comment: Campos hoang Type: BLOOD SPECIMEN Ordering Facility: [facility] Address: [address] [place] [address] Result Comment: The [place] Diabetes Association (ADA) provides guidance for cutoff [...] Standards of Medical Care in Diabetes 2016, [place] [employer] Association. Diabetes Care. 2016.39(Suppl 1). Performed By: #### 2 4323-8 #### [facility] CLIA [id number] [address] [place] [address] [place] Potassium [Moles/Vol] 4.3 mmol/L Normal 3.7-5.1 [facility] Comment on above: Order Comment: Speci men Type: BLOOD SPECIMEN Ordering Facility: [facility] Address: [address] [place] [address] Performed By: #### 2 4323-8 #### [facility] CLIA [id number] [address] [place] [address] [place] Protein [Mass/Vol] 6.9 g/dL Normal 6.3-8.0 [facility] Comment on above: Order Comment: Speci men Type: BLOOD SPECIMEN Ordering Facility: [facility] Address: [address] [place] [address] Performed By: #### 2 4323-8 #### [facility] CLIA [id number] [address] [place] [address] [place] Sodium [Moles/Vol] 138 mmol/L Normal 136-144 [facility] Comment on above: Order Comment: Speci men Type: BLOOD SPECIMEN Ordering Facility: [facility] Address: [address] [place] [address] Performed By: #### 2 4323-8 #### [facility] CLIA [id number] [address] [place] [address] [place] Urea nitrogen [Mass/Vol] 10 mg/dL Normal 7-21 [facility] Comment on above: Order Comment: Speci men Type: BLOOD SPECIMEN Ordering Facility: [facility] Address: [address] [place] [address] Performed By: #### 2 4323-8 #### [facility] CLIA [id number] [address] [place] [address] [place] Ferritin SerPl-mCncon 2023 Ferritin [Mass/Vol] 73.0 ng/mL Normal 14.7-205.1 [facility] Comment on above: Order Comment: Speci men Type: BLOOD SPECIMEN Ordering Facility: [facility] Address: [address] [place] [address] Performed By: #### 2 276-4, 83217-7 #### [facility] CLIA [id number] [address] Iron and Iron binding capaci ty panelon 06-10-2024 Iron [Mass/Vol] 47 ug/dL Normal 41-186 [facility] Comment on above: Order Comment: Speci men Type: BLOOD SPECIMEN Ordering Facility: [facility] Address: [address] [place] [address] Performed By: #### 2 276-4, 48343-4 #### [facility] CLIA [id number] [address] Iron binding capacity [Mass/Vol] 286 ug/dL Normal 232-386 [facility] Comment on above: Order Comment: Speci men Type: BLOOD SPECIMEN Ordering Facility: [facility] Address: [address] [place] [address] Performed By: #### 2 276-4, 85891-8 #### [facility] CLIA [id number] [address] Iron saturation [Mass fraction] 16.4 % Normal 15.0-57.0 [facility] Comment on above: Order Comment: Speci men Type: BLOOD SPECIMEN Ordering Facility: [facility] Address: [address] [place] [address] Performed By: #### 2 276-4, 60788-0 #### [facility] CLIA [id number] [address] CNOVon 06-08-2024 CNOV Office Visit ([facility] ) RORO BAZAN ([id number]) 1970 F Date Time Provider Department 06/08/24 [...] ordered for nausea. Recommend follow up with PCP/AMBULATORY CARE COORDINATOR for additional fatigue work up. I have [...] [K80.20] Order(s):COMPLETE BLOOD COUNT [SQCBC] Order #: [id number] FUTURE COMPREHENSIVE METABOLIC PANEL [SQCMP] Order #: [id number] FUTURE ondansetron (ZOFRAN) 4 mg tabletTake 1 tablet by mouth every 8 hours as needed for nausea/vomiting (for nausea.) for up to 28 days.Disp: 30 tabletRfl: 1 IRON AND TIBC [SQIRON] Order #: [id number] FUTURE FERRITIN [SQFERR] Order #: [id number] FUTURE Prescriptions as of 06/08/2024 - ondansetron [...] for Encounter Date Provider Department Center 06/08/2024 [id number], ANN [facility] Encounter Status:Closed by MATEO LOPEZ on 06/08/24 Normal [facility] CNCOon 05-23-2024 CNCO Letter Text Normal [facility] ANES POSTPROC EVALon 024 ANES POSTPROC EVAL HNO ID: [id number] Author: ANGUS NÚÑEZ DO Service: Anesthesiology Author Type: Anesthesiologist Type: Anesthesia Postprocedure Evaluation Filed: 05/19/2024 12:17 Note Text: POST ANESTHESIA EVALUATION NOTE : 1970 Procedure Summary Date: 05/19/24 Room / Location: NM OR / NM OR Anesthesia Start: 741 Anesthesia Stop: 918 [...] May 19, 2024 TIME: 12:16 PM CSN: [id number] [facility] ANES PRE-OPon 05-19-2024 ANES PRE-OP HNO ID: [id number] Author: ANGUS NÚÑEZ DO Service: Anesthesiology Author Type: Anesthesiologist Type: Anesthesia Preprocedure Evaluation Filed: 05/19/2024 07:06 Note Text: ANESTHESIOLOGY DAY OF SURGERY NOTE : 1970 Procedure Information Date/Time: 05/19/24729 Procedure: LAPAROSCOPIC CHOLECYSTECTOMY (Abdomen) - Laparoscopic cholecystectomy with intraoperative cholangiograms Location: NM OR / NM OR Surgeons: Henri Cr MD Estimated body [...] and consent discussed: yes. Patient / Responsible Constitution Party agrees to proceed: yes Patient / Surrogate [...] May 19, 2024 TIME: 7:03 AM CSN: [id number] [facility] BRIEF OP NOTon 05-19-2024 BRIEF OP NOT HNO ID: [id number] Author: HENRI CR MD Service: General Surgery Author Type: Physician Type: Brief Op Note Filed: 05/19/2024 08:59 Note Text: BRIEF OPERATIVE / PROCEDURE NOTE LOG ID: [id number] SURGERY/PROCEDURE DATE: 05/19/2024 INCISION/PROCEDURE START TIME: 8:13 AM INCISION CLOSE/PROCEDURE END TIME: SURGEON(S)/PROCEDURAL IST(S) AND MASTER CHEF(S): Surgeon(s) and Role: * Henri Cr MD - Primary Nurse Practitioner: Marielena Abel APRN.CNP Physician Photo Equipment Technician: Katie Winchester PA-C SURGERY/PROCEDURE(S): Laparoscopic cholecystectomy with intraoperative cholangiograms ANESTHESIA: General FINDINGS: nl ioc ESTIMATED BLOOD LOSS: minimal SPECIMENS: 1 COMPLICATIONS: None CLOSURE TECHNIQUE: Primary PRE-OP/PRE-PROCEDURE DIAGNOSIS: symptomatic cholelithiasis POST-OP/POST-PROCEDUR E DIAGNOSIS: Same as Preop Patient was accompanied to the next level of care by a licensed practitioner from the surgical team pending completion of this brief op note (or operative note) The doctor assistant KEIRA/ZARA was used as no other doctor assistant such as resident, fellow, RN or other physician available. Assistants role in surgery was assisting in exposure, and closure Dictated # [id number] SIGNATURE: Henri Cr MD PATIENT NAME: Roro Bazan DATE: May 19, 2024 TIME: 8:55 AM Normal [facility] HISTORY PHYSICALon HISTORY PHYSICAL HNO ID: [id number] Author: HENRI CR MD Service: General Surgery [...] May 19, 2024 TIME: 7:37 AM Normal [facility] OPERATIVE NOon 05-19-2024 OPERATIVE NO HNO ID: [id number] Author: HENRI CR MD Service: General Surgery Author Type: Physician Type: Operative Report Filed: 05/19/2024 11:29 Note Text: [facility] - Operative Report RORO BAZAN : 1970 AGE: 54. SEX: F PATIENT TYPE: [facility] LOCATION: [facility] ATTENDING PHYSICIAN: Henri rC M.D. CSN NUMBER: [id number] DATE OF SURGERY/PROCEDURE: 05/19/2024 INCISION/PROCEDURE START TIME: 8:13 a.m. INCISION CLOSE/PROCEDURE END TIME: 8:59 AM PREOPERATIVE DIAGNOSIS: Symptomatic cholelithiasis. POSTOPERATIVE DIAGNOSIS: Symptomatic cholelithiasis. The doctor assistant PA was used as no other doctor assistant such as resident, fellow, RN, or other physician was available. Photo Equipment Technician's role in surgery was assisting in exposure and closure. SURGEON: Henri Cr M.D. MASTER CHEF: Radha Roland CNP. SURGERY/PROCEDURE: Laparoscopic cholecystectomy with [...] Therefore, removed the epigastric trocar. 0 PDS ljcnuv-ux-kpbbl suture used to reapproximate the fascia with a good airtight closure under direct vision using the harbor pilot guide. Remaining trocars were removed. CO2 expelled out of the abdomen. 5-0 Vicryl subcuticular stitch used to reapproximate the skin. Skin glue applied. The patient awakened from anesthesia without difficulty and taken to PACU in stable condition. Henri Cr M.D. SMG:[id number] [facility] SURGICAL PATHOLOGYon 024 CASE REPORT Normal [facility] Comment on above: Order Comment: Speci men Type: TISSUE SPECIMEN Ordering Facility: [facility] Address: [address] [place] [address] Result Comment: Surg [facility] Pathology Report Case: [id number] Authorizing Provider: Henri Cr MD Collected: 05/19/2024 07:59 AM Ordering Location: [facility] Surgery Received: 05/19/2024 10:28 AM Pathologist: Oliva Werner MD Specimen: Gallbladder Performed By: #### S #### [facility] CLIA [id number] [address] [place] [address] [place] CLINICAL HISTORY [facility] [facility] Comment on above: Order Comment: Speci men Type: TISSUE SPECIMEN Ordering Facility: [facility] Address: [address] [place] [address] Result Comment: Pre- op diagnosis: Gallstones [K80.20] Performed By: #### S #### [facility] CLIA [id number] [address] [place] [address] [place] FINAL DIAGNOSIS Normal [facility] Comment on above: Order Comment: Speci men Type: TISSUE SPECIMEN Ordering Facility: [facility] Address: [address] [place] [address] Result Comment: Gall bladder, cholecystectomy: - Chronic cholecystitis with cholelithiasis and cholesterolosis. Performed By: #### S #### [facility] CLIA [id number] [address] [place] [address] [place] FINAL PERFORMING LAB Normal [facility] Comment on above: Order Comment: Speci men Type: TISSUE SPECIMEN Ordering Facility: [facility] Address: [address] [place] [address] Result Comment: Diag nostic interpretation performed at [facility], [address] [place] [address] CLIA# [id number] Aluminum Polisher: Gerald Dorado M.D. Performed By: #### S #### [facility] CLIA [id number] [address] [place] [address] GROSS DESCRIPTION A. Gallbladder Normal [facility] Comment on above: Order Comment: Speci men Type: TISSUE SPECIMEN Ordering Facility: [facility] Address: [address] [place] [address] Result Comment: Rece ived in formalin labeled [...] does not reveal any possible lymph nodes. Shoe Handler sections are submitted in 1 cassette. Gross examination performed at [facility], [address] [place] [address] CLIA#[id number] [facility] May 19, 2024 3:30 PM Performed By: #### S #### [facility] CLIA [id number] [address] [place], [place] [address] [place] [id number] [place] XR CHOLANGIOGRAM INTRAOPon [...] defect is seen. IMPRESSION: As in results. Microelectronics Assembler: GIOVANNA Transcribe Date/Time: May 19 2024 8:56A Dictated by : EVELIA YIP MD This examination was interpreted and the report reviewed and electronically signed by: EVELIA YIP MD on May 19 2024 8:56AM EST [id number] N [facility] 05-17-2024 [facility] Office Visit (HILDA ) RORO BAZAN ([id number]) 1970 F Date Time Provider Department 05/17/24 [...] Father other (cholecystectomy) Brother Heart Maternal Aunt SC Heart Maternal Uncle two uncles with SC Ovarian cancer Other CURRENT MEDICATIONS: escitalopram oxalate [...] Diagnosis:Gallstones [K80.20] Order(s):SURGICAL REQUEST - ELECTIVE (05/2020) [[id number]] Order #: [id number]: 1 Prescriptions as of 05/19/2024 - escitalopram [...] of left (more content not included)... Normal [facility] US ABD RIGHT UPPER QUADRANTo n 03-16-2024 [...] thickening, bile duct dilatation or pericholecystic fluid Microelectronics Assembler: PSYCHIATRIC Transcribe Date/Time: Mar 18 2024 2:23P Dictated by : CA ALVES MD This examination was interpreted and the report reviewed and electronically signed by: CA ALVES MD on Mar 18 2024 2:24PM EST [id number] N Normal [facility] US KIDNEY/BLADDERon 03-07-20 US KIDNEY/BLADDER * * [...] kidneys and urinary bladder. Negative for hydronephrosis. Microelectronics Assembler: [facility] Transcribe Date/Time: Mar 08 2024 8:05A Dictated by : NIKKIE BENTLEY MD This examination was interpreted and the report reviewed and electronically signed by: NIKKIE BENTLEY MD on Mar 08 2024 8:07AM EST [id number] N Normal [facility] Absolute lymphocyte countOrd ered By: Yolis Dalton on 08-19-2023 Lymphocytes Auto (Unsp spec) [#/Vol] 2.64 10*3/uL 0.83-4.51 [facility] Basophil percentageOrdered B y: Yolis Dalton on 08-19-2023 Basophils/100 WBC (Bld) 0.8 % 0-1 [facility] Bilirubin [Mass/Vol] 0.20 mg/dL 0.20-1.[address] [facility] Comment on above: For patients on eltr ombopag therapy, use of Dimension [place] TBIL is not recommended. Chloride [Moles/Vol] 107 mmol/L 98-[address] [facility] Cholesterol [Mass/Vol] 188 mg/dL <200 [facility] Comment on above: <200 mg/dL Desirable 200-240 mg/dL Borderline >240 mg/dL High Risk Eosinophils/100 WBC (Bld) 1.5 % 0-5 [facility] Glucose [Mass/Vol] 94 mg/dL 74-106 [facility] Neutrophils (Bld) [#/Vol] 4.3 10*3/uL 2.0-7.7 [facility] Neutrophils/100 WBC (Bld) 56.4 % 47-70 [facility] Potassium [Moles/Vol] 5.1 mmol/L 3.5-5.1 [facility] Protein [Mass/Vol] 7.2 g/dL 6.4-8.2 [facility] Sodium [Moles/Vol] 140 mmol/L 136-145 [facility] Triglyceride [Mass/Vol] 109 mg/dL <199 [facility] Comment on above: The drugs N-Acetylcy steine and Metamizole may falsely depress this assay.Serum Triglycerides Reference Interval Normal <150 mg/dL Borderline high 150 - 199 mg/dL High 200 - 499 mg/dL Very High > or = 500 mg/dL WBC (Bld) [#/Vol] 7.6 10*3/uL 4.4-11.0 [facility] Blood erythrocytes count (nu mber/volume)Ordered By: Yolis Dalton on 08-19-2023 RBC (Bld) [#/Vol] 4.96 10*6/uL 4.2-5.4 [facility] Blood hemoglobin measurement (mass/volume)Ordered By: Yolis Dalton on 08-19-2023 Hemoglobin (Bld) [Mass/Vol] 13.8 g/dL 12.0-15.0 [facility] Blood lymphocytes/100 leukoc ytesOrdered By: Yolis Dalton on 08-19-2023 Lymphocytes/100 WBC (Bld) 34.9 % 19-41 [facility] Blood monocytes/100 leukocyt esOrdered By: Yolis Dalton on 08-19-2023 Monocytes/100 WBC (Bld) 6.3 % 0-10 [facility] Blood platelet mean volumeOr dered By: Yolis Dalton on 08-19-2023 Platelet mean volume (Bld) [Entitic vol] 8.7 fL 6.2-12.0 [facility] Determination of erythrocyte mean corpuscular volume (MCV)Ordered By: Yolis Dalton on 08-19-2023 MCV (RBC) [Entitic vol] 88.9 fL 81-99 [facility] Hematocrit Auto (Bld) [Volum e fraction]Ordered By: Yolis Dalton on 08-19-2023 Hematocrit (Bld) [Volume fraction] 44.1 % 37-47 [facility] Laboratory - Chemistry and C hemistry - challengeOrdered By: Yolis Dalton on 08-19-2023 ALP [Catalytic activity/Vol] 108 U/L 45-117 [facility] ALT [Catalytic activity/Vol] 14 U/L 13-56 [facility] CO2 [Moles/Vol] 31.0 mmol/L 21.0-32.0 [facility] Globulin (S) [Mass/Vol] 3.4 g/dL 2.2-4.2 [facility] Urea nitrogen/Creatinine [Mass ratio] 12.6 mg/mg 10-20 [facility] Laboratory - Hematology and Cell countsOrdered By: Yolis Dalton on 08-19-2023 Erythrocyte distribution width (RBC) [Entitic vol] 41.8 fL 35.1-43.9 [facility] Erythrocyte distribution width (RBC) [Ratio] 12.8 % 11.6-14.6 [facility] Immature granulocytes/100 WBC (Bld) 0.100 % 0.0-0.9 [facility] Comment on above: IG% - Immature Granu locytes (promyelocytes, myelocytes and metamyelocytes) > 1% indicates that a LEFT SHIFT is Present. MCH (RBC) [Entitic mass] 27.8 pg 27.0-32.0 [facility] Nucleated RBC/100 WBC (Bld) [Ratio] 0 % 0-5 [facility] MCHC Auto (RBC) [Mass/Vol]Or dered By: Yolis Dalton on 08-19-2023 MCHC (RBC) [Mass/Vol] 31.3 g/dL 32-36 [facility] No Panel InformationOrdered By: Yolis Dalton on 08-19-2023 Estimated GFR (MDRD) Amer 79 mL/min >60 [facility] Comment on above: GFR Calc Estimated GFR (MDRD) Non-Af Amer 66 mL/min >60 [facility] Comment on above: Non- GFR Calc Thyroid Stimulating Hormone (TSH) 1.36 uIU/mL 0.358-3.74 [facility] Vitamin D 25-Hydroxy 55.8 ng/mL [facility] Comment on above: Vitamin D 25(OH) Sta tus Range Deficiency <20 ng/mL (50nmol/L) Insufficiency 20 - 30 ng/mL (50 - 75 nmol/L) Sufficiency 30 - 100 ng/mL (75 - 250 nmol/L) Toxicity >100 ng/mL (>250 nmol/L) Platelets bldOrdered By: Thom Dalton on 08-19-2023 Platelets (Bld) [#/Vol] 406 10*3/uL 150-450 [facility] Serum or plasma albumin kwabena urement (mass/volume)Ordered By: Yolis Dalton on 08-19-2023 Albumin [Mass/Vol] 3.8 g/dL 3.2-5.0 [facility] Serum or plasma albumin/glob ulin mass ratioOrdered By: Yolis Dalton on 08-19-2023 Albumin/Globulin [Mass ratio] 1.1 {ratio} 0.9-2.4 [facility] Serum or plasma calcium kwabena urement (mass/volume)Ordered By: Yolis Dalton on 08-19-2023 Calcium [Mass/Vol] 9.2 mg/dL 8.5-10.1 [facility] Serum or plasma cholesterol in HDL measurement (mass/volume)Ordered By: Yolis Dalton on 08-19-2023 Cholesterol in HDL [Mass/Vol] 62 mg/dL >40 [facility] Comment on above: The drugs N-Acetylcy steine and Metamizole may falsely depress this assay. Reference Range HDL <40 mg/dL Low HDL Cholesterol HDL >or= 60 mg/dL High HDL Cholesterol Serum or plasma cholesterol in VLDL measurement (mass/volume)Ordered By: Yolis Dalton on 08-19-2023 Cholesterol in VLDL [Mass/Vol] 22 mg/dL 5-40 [facility] Serum or plasma creatinine m easurement (mass/volume)Ordered By: Yolis Dalton on 08-19-2023 Creatinine [Mass/Vol] 0.95 mg/dL 0.55-1.02 [facility] Comment on above: The validity of the calculated GFR & GFRAA in patients over 70 years has not been determined. Clinical correlation is essential. Serum or plasma low density lipoprotein (LDL) cholesterol measurement (mass/volume)Ordered By: Yolis Dalton on 08-19-2023 Cholesterol in LDL [Mass/Vol] 104 mg/dL 0-130 [facility] Serum or plasma urea nitroge n measurement (mass/volume)Ordered By: Yolis Dalton on 08-19-2023 Urea nitrogen [Mass/Vol] 12 mg/dL 7-18 [facility] Thin prep Papanicolaou smear with manual screeningOrdered By: Yolis Dalton on 08-19-2023 Thin prep Papanicolaou smear with manual screening 10 U/L 15-37 [facility] Thin prep Papanicolaou smear with manual screening 2 5-15 [facility] Whole blood hemoglobin A1c/t otal hemoglobin ratio (mass fraction)Ordered By: Yolis Dalton on 08-19-2023 HbA1c (Bld) [Mass fraction] 5.5 % 3.8-5.6 [facility] Comment on above: Normal < 5.7 % Predi abetic 5.7 - 6.4 % Diabetic >or= 6.5 % Please note range changes. XR Shoulder - left 3 Viewson 02-13-2023 IMPRESSION: Findings suggestive glenohumeral joint Microelectronics Assembler: PSYCHIATRIC Transcribe Date/Time: Feb 13 2023 1:02P Dictated by : MARISELA GUZMAN MD This examination was interpreted and the report reviewed and electronically signed by: MARISELA GUZMAN MD on Feb 13 2023 1:04PM [facility] * * *Final Report* * * DATE OF EXAM: Feb 11 2023 8:11AM CARLEE 5252 - XR SHLDR >/=3V AP/ANSHUL AP/OTHR LT / PROCEDURE REASON: [id number] * * * * Physician Interpretation * [...] joint space narrowing. Acromiohumeral interval is maintained. [facility] Provider, Laura Kaye - 02/13/2023 * * *Final Report* * * DATE OF EXAM: Feb 11 2023 8:11AM CARLEE 5252 - XR SHLDR >/=3V AP/ANSHUL AP/OTHR LT / PROCEDURE REASON: [id number] * * * * Physician Interpretation * [...] maintained. IMPRESSION IMPRESSION: Findings suggestive glenohumeral joint Microelectronics Assembler: [facility] Transcribe Date/Time: Feb 13 2023 1:02P Dictated by : MARISELA GUZMAN MD This examination was interpreted and the report reviewed and electronically signed by: MARISELA GUZMAN MD on Feb 13 2023 1:04PM EST [facility] XR Shoulder - left 3 ViewsOr dered By: Ccf Provider on 02-13-2023 [facility] XR Shoulder - left 3 Viewson 02-11-2023 Radiology Study observation (narrative) [facility] Absolute lymphocyte counton 07-30-2022 Lymphocytes Auto (Unsp spec) [#/Vol] 2.35 10*3/uL 0.83-4.51 [facility] Work Phone: Basophil percentageon 2021 Basophils/100 WBC (Bld) 0.5 % 0-1 [facility] Work Phone: Bilirubin [Mass/Vol] 0.30 mg/dL 0.20-1.[address] [facility] Work Phone: Comment on above: For patients on eltr ombopag therapy, use of Dimension [place] TBIL is not recommended. Chloride [Moles/Vol] 106 mmol/L 98-[address] [facility] Work Phone: Cholesterol [Mass/Vol] 184 mg/dL <200 Wo brian [facility] Work Phone: Comment on above: <200 mg/dL Desirable 200-240 mg/dL Borderline >240 mg/dL High Risk Eosinophils/100 WBC (Bld) 1.3 % 0-5 [facility] Work Phone: Glucose [Mass/Vol] 94 mg/dL 74-106 [facility] Work Phone: Neutrophils (Bld) [#/Vol] 4.5 10*3/uL 2.0-7.7 [facility] Work Phone: Neutrophils/100 WBC (Bld) 60.0 % 47-70 [facility] Work Phone: Potassium [Moles/Vol] 4.4 mmol/L 3.5-5.1 [facility] Work Phone: Protein [Mass/Vol] 7.2 g/dL 6.4-8.2 [facility] Work Phone: Sodium [Moles/Vol] 139 mmol/L 136-145 [facility] Work Phone: Triglyceride [Mass/Vol] 106 mg/dL <199 [facility] Work Phone: Comment on above: The drugs N-Acetylcy steine and Metamizole may falsely depress this assay.Serum Triglycerides Reference Interval Normal <150 mg/dL Borderline high 150 - 199 mg/dL High 200 - 499 mg/dL Very High > or = 500 mg/dL WBC (Bld) [#/Vol] 7.5 10*3/uL 4.4-11.0 [facility] Work Phone: Blood erythrocytes count (nu mber/volume)on 07-30-2022 RBC (Bld) [#/Vol] 5.00 10*6/uL 4.2-5.4 [facility] Work Phone: Blood hemoglobin measurement (mass/volume)on 07-30-2022 Hemoglobin (Bld) [Mass/Vol] 14.6 g/dL 12.0-15.0 [facility] Work Phone: Blood lymphocytes/100 leukoc yteson 07-30-2022 Lymphocytes/100 WBC (Bld) 31.4 % 19-41 [facility] Work Phone: Blood monocytes/100 leukocyt eson 07-30-2022 Monocytes/100 WBC (Bld) 6.7 % 0-10 [facility] Work Phone: Blood platelet mean volumeon 07-30-2022 Platelet mean volume (Bld) [Entitic vol] 8.9 fL 6.2-12.0 [facility] Work Phone: Determination of erythrocyte mean corpuscular volume (MCV)on 07-30-2022 MCV (RBC) [Entitic vol] 87.8 fL 81-99 [facility] Work Phone: Hematocrit Auto (Bld) [Volum e fraction]on 07-30-2022 Hematocrit (Bld) [Volume fraction] 43.9 % 37-47 [facility] Work Phone: Laboratory - Chemistry and C hemistry - challengeon 07-30-2022 ALP [Catalytic activity/Vol] 93 U/L 45-117 [facility] Work Phone: ALT [Catalytic activity/Vol] 12 U/L 13-56 [facility] Work Phone: CO2 [Moles/Vol] 29.0 mmol/L 21.0-32.0 [facility] Work Phone: Globulin (S) [Mass/Vol] 3.3 g/dL 2.2-4.2 [facility] Work Phone: Lipase [Catalytic activity/Vol] 90 U/L 73-393 [facility] Work Phone: Urea nitrogen/Creatinine [Mass ratio] 13.6 mg/mg 10-20 [facility] Work Phone: Laboratory - Hematology and Cell countson 07-30-2022 Erythrocyte distribution width (RBC) [Entitic vol] 40.5 fL 35.1-43.9 [facility] Work Phone: Erythrocyte distribution width (RBC) [Ratio] 12.7 % 11.6-14.6 [facility] Work Phone: Immature granulocytes/100 WBC (Bld) 0.100 % 0.0-0.9 [facility] Work Phone: Comment on above: IG% - Immature Granu locytes (promyelocytes, myelocytes and metamyelocytes) > 1% indicates that a LEFT SHIFT is Present. MCH (RBC) [Entitic mass] 29.2 pg 27.0-32.0 [facility] Work Phone: Nucleated RBC/100 WBC (Bld) [Ratio] 0 % 0-5 [facility] Work Phone: MCHC Auto (RBC) [Mass/Vol]on 07-30-2022 MCHC (RBC) [Mass/Vol] 33.3 g/dL 32-36 [facility] Work Phone: No Panel Informationon 07-30 C-Reactive Protein High Sensitivity 3.53 mg/L <3.00 [facility] Work Phone: Comment on above: Low Relative Risk of CVD <1.0 mg/L Average Relative Risk of CVD 1.0 - 3.0 mg/L High Relative Risk of CVD >3.0 mg/L Estimated GFR (MDRD) Amer 73 mL/min >60 [facility] Work Phone: Comment on above: GFR Calc Estimated GFR (MDRD) Non-Af Amer 60 mL/min >60 [facility] Work Phone: Comment on above: Non- GFR Calc Thyroid Stimulating Hormone (TSH) 1.04 uIU/mL 0.358-3.74 [facility] Work Phone: Platelets bldon 07-30-2022 Platelets (Bld) [#/Vol] 395 10*3/uL 150-450 [facility] Work Phone: Serum or plasma albumin kwabena urement (mass/volume)on 07-30-2022 Albumin [Mass/Vol] 3.9 g/dL 3.2-5.0 [facility] Work Phone: Serum or plasma albumin/glob ulin mass ratioon 07-30-2022 Albumin/Globulin [Mass ratio] 1.2 {ratio} 0.9-2.4 [facility] Work Phone: Serum or plasma calcium kwabena urement (mass/volume)on 07-30-2022 Calcium [Mass/Vol] 9.6 mg/dL 8.5-10.1 [facility] Work Phone: Serum or plasma cholesterol in HDL measurement (mass/volume)on 07-30-2022 Cholesterol in HDL [Mass/Vol] 55 mg/dL >40 [facility] Work Phone: Comment on above: The drugs N-Acetylcy steine and Metamizole may falsely depress this assay. Reference Range HDL <40 mg/dL Low HDL Cholesterol HDL >or= 60 mg/dL High HDL Cholesterol Serum or plasma cholesterol in VLDL measurement (mass/volume)on 07-30-2022 Cholesterol in VLDL [Mass/Vol] 21 mg/dL 5-40 [facility] Work Phone: Serum or plasma creatinine m easurement (mass/volume)on 07-30-2022 Creatinine [Mass/Vol] 1.03 mg/dL 0.55-1.02 [facility] Work Phone: Comment on above: The validity of the calculated GFR & GFRAA in patients over 70 years has not been determined. Clinical correlation is essential. Serum or plasma low density lipoprotein (LDL) cholesterol measurement (mass/volume)on 07-30-2022 Cholesterol in LDL [Mass/Vol] 108 mg/dL 0-130 [facility] Work Phone: Serum or plasma urea nitroge n measurement (mass/volume)on 07-30-2022 Urea nitrogen [Mass/Vol] 14 mg/dL 7-18 [facility] Work Phone: Thin prep Papanicolaou smear with manual screeningon 07-30-2022 Thin prep Papanicolaou smear with manual screening 10 U/L 15-37 [facility] Work Phone: Thin prep Papanicolaou smear with manual screening 4 5-15 [facility] Work Phone: XR SHOULDER 2V AP/TRUE AP [...] are clear. IMPRESSION: No acute osseous findings. Microelectronics Assembler: PSYCHIATRIC Transcribe Date/Time: Sep 13 2020 3:41P Dictated by : REYNALDO NAIDU MD This examination was interpreted and the report reviewed and electronically signed by: REYNALDO NAIDU MD on Sep 13 2020 3:42PM EST Normal [facility] XR CHEST 2V FRONTAL/LATon XR CHEST 2V [...] are intact. IMPRESSION: no active cardiopulmonary disease Microelectronics Assembler: PSYCHIATRIC Transcribe Date/Time: Jun 05 2020 6:35P Dictated by : MACI BARTLETT MD This examination was interpreted and the report reviewed and electronically signed by: MACI BARTLETT MD on Jun 05 2020 6:36PM EST Normal [facility] Otheron 04-19-2019 XR Ribs - left 3 views Please click on t he link to view the study images Normal [facility] Work Phone: XR Sacrum and Coccyx 2 views Please click on the link to view the study images Normal [facility] Work Phone: XR Ribs - left 3 views Interpreted by: JENNY CHAIREZ04/20/19 17:43MRN: [id number] Name: RORO BAZAN STUDY:BN RIBS, UNILATERAL, W [...] signed by: JENNY CHAIREZ 04/20/19 17:43 Normal [facility] Work Phone: Comment on above: ORDER REVISED TO A R IBS, UNILATERAL, W PA CXR 3 VIEWS BY RADIOLOGIST XR Sacrum and Coccyx 2 views Interpreted by: KATHERINE OLIVIER04/21/19 07:27MRN: [id number] Name: RORO BAZAN STUDY:SACRUM/COCCYX, MIN 2 VIEWS; 04/19/2019 11:39 am INDICATION:pain, fall. COMPARISON:None. ORDERING CLINICIAN:DEBBY DUMONT FINDINGS:No fracture identified. IMPRESSION:No fracture of the sacrum or coccyx identified. Electronically signed by: KATHERINE OLIVIER 04/21/19 07:27 [facility] Work Phone: Comment on [...] Protein, Serum; Specimen Source:Blood (BLD); Status:Active; Requested for:[id number]; Complete Blood Count + Differential; Specimen Source:Blood (BLD); Status:Active; Requested for:[id number]; Comprehensive Metabolic Panel; Status:Active; Requested for:[id number]; Parathormone Intact, Serum; Specimen Source:Blood (BLD); Status:Active; Requested for:[id number]; Phosphorus, Serum; Specimen Source:Blood (BLD); Status:Active; Requested for:[id number]; Protein Electrophoresis + IF Serum; Specimen Source:Blood (BLD); Status:Active; Requested for:[id number]; Sedimentation Rate, Erythrocyte; Specimen Source:Blood (BLD); Status:Active; Requested for:[id number]; TSH WITH REFLEX TO FREE T4 IF ABNORMAL; Specimen Source:Blood (BLD); Status:Active; Requested for:[id number]; Vitamin D 25-Hydroxy; Specimen Source:Blood (BLD); Status:Active; Requested for:[id number]; Endocrinology Referral Evaluation and Treatment Fragility fracture president [employer] or [employer] depo use Status: Hold For - Scheduling Requested for: [id number] [facility] Referral Evaluation and Treatment Evaluate AND Treat Status: Hold For - Scheduling Requested for: [id number] Adult Psychiatry Referral Evaluation and Treatment Evaluate AND Treat Status: Hold For - Scheduling Requested for: [id number] Xray Sacrum + Coccyx Min 2 View; Status:Hold For - Scheduling; Requested for:[id number]; Radiologist to Determine Optimal Study : Y What are the patient's signs and symptoms? : pain, fall Start: oxyCODONE HCl - 5 MG Oral Tablet; TAKE 1 TABLET EVERY 6 HOURS NEEDED FOR SEVERE PAIN Xray Bone Density, Dexa 1 or More Sites; Status:Hold For - Scheduling; Requested for:[id number]; Radiologist to Determine Optimal Study : Y What are the patient's signs and symptoms? : fragility rib fracture Xray Ribs Unilateral 2 View; Status:Hold For - Scheduling; Requested for:[id number]; Laterality : Right Radiologist to Determine Optimal Study : Y What are the patient's signs and symptoms? : fragility rib fracture - right 5th rib Patient Discussion/Summary 5th Right Rib fracture, fragility, no known trauma or preceding event- Check bone density test Check dedicated rib xray- ensure no other rib fractures Refer to endocrinology --- Dr. Laith Abbasi DO [facility] Endocrinology [facility] [address] [place] [id number] Bone health support: Make sure you are [...] with this medication. OARRS reviewed Refer to AMBULATORY CARE COORDINATOR for contraceptive management- consider IUD Advised stopping DEPO and switching to alternative management due to concerns for bone density Dr. Jaylyn Cee, Dr. Ivonne Santana [place] [employer] [facility] [address] [facility] [address] [facility] [address], [address] [place], [place] [id number] Bipolar disorder- Refer to psychiatry Will start low dose lexapro for anxiety for now - she was cautioned that this can sometimes worsen bipolar disorder so will watch closely. Psychologist AND Psychiatrist [facility] Psychiatry Adult [phone] [facility] [email or web address] [address] [place] [address] [facility] [place] [id number], [place] [address] [place] [address] [place] [address] Follow up 2 months Provider Impressions Provider Impressions Free Text Note Form: A total of 50 minutes were spent [id number] with the patient during this encounter and [...] jump out of her skin Works at [employer] She had labs done through work this [...] No Known Allergies Vitals Vital Signs Recorded: [id number] 10:20AM Temperature: 98.8 F Heart Rate: 83 [...] right 5th rib. COMPARISON: None. ACCESSION NUMBER(S): [id number] ORDERING CLINICIAN: DEBBY DUMONT FINDINGS: PA view [...] Electronically signed by: JENNY CHAIREZ DO Normal [facility] SACRUM/COCCYX, MIN 2 VIEWSon 04-19-2019 SACRUM/COCCYX, MIN 2 VIEWS Patient Name: RORO BAZAN STUDY: SACRUM/COCCYX, MIN 2 VIEWS; 04/19/2019 11:39 am INDICATION: pain, fall. COMPARISON: None. ACCESSION NUMBER(S): [id number] ORDERING CLINICIAN: DEBBY DUMONT FINDINGS: No fracture identified. IMPRESSION: No fracture of the sacrum or coccyx identified. Electronically signed by: KATHERINE OLIVIER MD Normal [facility] Primary Care Visit (Text/For ms)on 04-11-2019 Primary Care Visit (Text/Forms) No report was sent Normal [email or web address] Vital Signs Date Time Vital Sign Value Performing Clinician Facility 04-26-2025 14:23-0400 Diastolic blood pressure 63 mm[Hg] Yolis Dalton LARD MAKER-C Work Phone: [facility] 04-26-2025 14:23-0400 Heart rate 68 /min Yolis Dalton [employer] Work Phone: [facility] 04-26-2025 14:23-0400 Respiratory rate 14 /min Yolis Dalton [employer] Work Phone: [facility] 04-26-2025 14:23-0400 SaO2% (BldA) [Mass fraction] 99 % Yolis Dalton [employer] Work Phone: [facility] 04-26-2025 14:23-0400 Systolic blood pressure 125 mm[Hg] Yolis Dalton [employer]ARD MA[employer]C Work Phone: [facility] 04-26-2025 13:55-0400 Body height 165.1 cm Yolis Dalton [employer] Work Phone: [facility] 04-26-2025 13:55-0400 Body mass index (BMI) [Ratio] 33.3 kg/m2 Yolisxander Dalton [employer]ARD MAKER-C Work Phone: [facility] 04-26-2025 13:55-0400 Body weight 90.71 kg Yolis Dalton [employer]C Work Phone: [facility] 03-22-2025 08:56-0400 Body height 166.37 cm Yolisxander Dalton [employer] MAKER-C Work Phone: [facility] 03-22-2025 08:56-0400 Body mass index (BMI) [Ratio] 33 kg/m2 Yolisxander Dalton [employer] MAKER-C Work Phone: [facility] 03-22-2025 08:56-0400 Body weight 91.62 kg Yolis Dalton [employer]C Work Phone: [facility] 03-22-2025 08:56-0400 Diastolic blood pressure 91 mm[Hg] Yolis Dalton [employer] MAKER-C Work Phone: [facility] 03-22-2025 08:56-0400 Heart rate 82 /min Yolis Dalton [employer] MA[employer]ER-C Work Phone: [facility] 03-22-2025 08:56-0400 SaO2% (BldA) [Mass fraction] 99 % Yolis Dalton [employer] MAKER[employer]C Work Phone: [facility] 03-22-2025 08:56-0400 Systolic blood pressure 125 mm[Hg] Yolis Dalton LARD MAKER-C Work Phone: [facility] 02-15-2025 08:44-0400 Body height 165.1 cm Yolis Dalton [employer] MAKER[employer]C Work Phone: [facility] 02-15-2025 08:44-0400 Body mass index (BMI) [Ratio] 33.3 kg/m2 Yolisxander Dalton [employer] MAKER-C Work Phone: [facility] 02-15-2025 08:44-0400 Body temperature 97.2 [degF] Yolisxander Dalton [employer] MAKER-C Work Phone: [facility] 02-15-2025 08:44-0400 Body weight 90.71 kg Yolis Dalton [employer]ARD MAKER-C Work Phone: [facility] 02-15-2025 08:44-0400 Diastolic blood pressure 85 mm[Hg] Yolis Dalton LARD MAKER-C Work Phone: [facility] 02-15-2025 08:44-0400 Heart rate 83 /min Yolis Dalton LARD MAKER-C Work Phone: [phone] [place] [address] 02-15-2025 08:44-0400 Respiratory rate 20 /min Yolisxander Dalton [employer] MAKER-C Work Phone: [facility] 02-15-2025 08:44-0400 SaO2% (BldA) [Mass fraction] 95 % Yolis Dalton [employer]ARD MAKER-C Work Phone: [facility] 02-15-2025 08:44-0400 Systolic blood pressure 122 mm[Hg] Yolis Dalton LARD MAKER-C Work Phone: [facility] 02-09-2025 08:15-0400 Body height 165.1 cm Yolis Dalton [employer]ARD MAKER-C Work Phone: [facility] 02-09-2025 08:15-0400 Body weight 89.81 kg Yolis Dalton [employer] MAK[employer]C Work Phone: [facility] 02-09-2025 08:15-0400 Heart rate 93 /min Yolis Dalton [employer] MAKER-C Work Phone: [facility] 02-09-2025 08:15-0400 SaO2% (BldA) [Mass fraction] 97 % Yolisxander MooreDalton LARD MAKER-C Work Phone: [facility] 01-11-2025 08:25-0400 Body height 167.64 cm Yolis Dalton [employer] MAKER[employer]C Work Phone: [facility] 01-11-2025 08:25-0400 Body mass index (BMI) [Ratio] 31.8 kg/m2 Yolis Dalotn LARD MAKER-C Work Phone: [facility] 01-11-2025 08:25-0400 Body temperature 97.3 [degF] Yolisxander Dalton [employer] MAKER-C Work Phone: [facility] 01-11-2025 08:25-0400 Body weight 89.35 kg Yolisxander Dalton [employer]ARD MAKER-C Work Phone: [facility] 01-11-2025 08:25-0400 Diastolic blood pressure 93 mm[Hg] Yolisxander Dalton LARD MAKER-C Work Phone: [facility] 01-11-2025 08:25-0400 Heart rate 97 /min Yolisxander MooreDalton LARD MAKER-C Work Phone: [facility] 01-11-2025 08:25-0400 Respiratory rate 18 /min Yolis Dalton [employer]ARD MAKER-C Work Phone: [facility] 01-11-2025 08:25-0400 SaO2% (BldA) [Mass fraction] 95 % Yolis Dalton [employer]ARD MAKER-C Work Phone: [facility] 01-11-2025 08:25-0400 Systolic blood pressure 130 mm[Hg] Yolis Dalton LARD MAKER-C Work Phone: [facility] 11-09-2024 16:01-0500 Body mass index (BMI) [Ratio] 32.8 kg/m2 Yolisxander Dalton [employer] MAKER-C Work Phone: [facility] 11-09-2024 16:01-0500 Body temperature 97.5 [degF] Yolis Dalton [employer]ARD MAKER-C Work Phone: [facility] 11-09-2024 16:01-0500 Body weight 92.07 kg Yolis Dalton [employer]ARD MAKER-C Work Phone: [facility] 11-09-2024 16:01-0500 Diastolic blood pressure 70 mm[Hg] Yolis Dalton LARD MAKER-C Work Phone: [facility] 11-09-2024 16:01-0500 Heart rate 104 /min Yolis Dalton [employer]ARD MAKER-C Work Phone: [facility] 11-09-2024 16:01-0500 Respiratory rate 18 /min Yolis Dalton [employer]ARD MAKER-C Work Phone: [facility] 11-09-2024 16:01-0500 SaO2% (BldA) [Mass fraction] 97 % Yolis Dalton [employer]ARD MAKER-C Work Phone: [facility] 11-09-2024 16:01-0500 Systolic blood pressure 100 mm[Hg] Yolis Dalton [employer]ARD MAKER-C Work Phone: [facility] 11-07-2024 09:52-0500 Body height 166.4 cm Olga Wormald PA-C Work Phone: [facility] 11-07-2024 09:52-0500 Body mass index (BMI) [Ratio] 33.13 kg/m2 Olga Wormald PA-C Work Phone: [facility] 11-07-2024 09:52-0500 Body temperature 98.71 [degF] Olga Wormald PA-C Work Phone: [facility] 11-07-2024 09:52-0500 Body weight 91.7 kg Olga Wormald PA-C Work Phone: [facility] 11-07-2024 09:52-0500 Diastolic blood pressure 91 mm[Hg] Olga Wormald PA-C Work Phone: [facility] 11-07-2024 09:52-0500 Heart rate 102 /min Olga Mckinneyald PA-C Work Phone: [facility] 11-07-2024 09:52-0500 SaO2% (BldA) [Mass fraction] 98 % Olga Mckinneyald PA-C Work Phone: [facility] 11-07-2024 09:52-0500 Systolic blood pressure 130 mm[Hg] Olga Mckinneyald PA-C Work Phone: [facility] 05-17-2024 11:08-0400 Body height 166.4 cm Henri Cr MD Work Phone: [facility] 05-17-2024 11:08-0400 Body mass index (BMI) [Ratio] 32.76 kg/m2 Henri Cr MD Work Phone: [facility] 05-17-2024 11:08-0400 Body weight 90.72 kg Henri Cr MD Work Phone: [facility] 05-17-2024 11:08-0400 Diastolic blood pressure 90 mm[Hg] Henri Cr MD Work Phone: [facility] 05-17-2024 11:08-0400 Heart rate 100 /min Henri Cr MD Work Phone: [facility] 05-17-2024 11:08-0400 Systolic blood pressure 122 mm[Hg] Henri Cr MD Work Phone: [facility] 08-19-2023 15:34-0500 Body height 167.64 cm [facility] 08-19-2023 15:34-0500 Body mass index (BMI) [Ratio] 32.5 kg/m2 [facility] 08-19-2023 15:34-0500 Body weight 91.62 kg [facility] 04-30-2023 15:16-0400 Body mass index (BMI) [Ratio] 32.5 kg/m2 [facility] 04-30-2023 15:16-0400 Body temperature 97.2 [degF] [facility] 04-30-2023 15:16-0400 Body weight 91.62 kg [facility] 04-30-2023 15:16-0400 Diastolic blood pressure 80 mm[Hg] [facility] 04-30-2023 15:16-0400 Heart rate 96 /min [facility] 04-30-2023 15:16-0400 Respiratory rate 18 /min [facility] 04-30-2023 15:16-0400 SaO2% (BldA) [Mass fraction] 96 % [facility] 04-30-2023 15:16-0400 Systolic blood pressure 115 mm[Hg] [facility] 07-30-2022 15:08-0400 Body height 167.64 cm [facility] Work Phone: 07-30-2022 15:08-0400 Body mass index (BMI) [Ratio] 32.5 kg/m2 [facility] Work Phone: 07-30-2022 15:08-0400 Body temperature 97 [degF] [facility] Work Phone: 07-30-2022 15:08-0400 Body weight 91.62 kg [facility] Work Phone: 07-30-2022 15:08-0400 Diastolic blood pressure 80 mm[Hg] [facility] Work Phone: 07-30-2022 15:08-0400 Heart rate 95 /min [facility] Work Phone: 07-30-2022 15:08-0400 Respiratory rate 18 /min [facility] Work Phone: 07-30-2022 15:08-0400 SaO2% (BldA) [Mass fraction] 97 % [facility] Work Phone: 07-30-2022 15:08-0400 Systolic blood pressure 122 mm[Hg] [facility] Work Phone: 01-15-2022 15:23-0400 Body height 166.4 cm Pacc 1 Work Phone: [facility] 01-15-2022 15:23-0400 Body temperature 97.5 [degF] Pacc 1 Work Phone: [facility] 01-15-2022 15:23-0400 Body weight 95.25 kg Pacc 1 Work Phone: [facility] 01-15-2022 15:23-0400 Diastolic blood pressure 82 mm[Hg] Pacc 1 Work Phone: [facility] 01-15-2022 15:23-0400 Heart rate 104 /min Pacc 1 Work Phone: [facility] 01-15-2022 15:23-0400 Respiratory rate 16 /min Pacc 1 Work Phone: [facility] 01-15-2022 15:23-0400 SaO2% (BldA) [Mass fraction] 96 % Pacc 1 Work Phone: [facility] 01-15-2022 15:23-0400 Systolic blood pressure 120 mm[Hg] Pacc 1 Work Phone: [facility] 04-19-2019 12:20-0400 BMI (Body Mass Index) 34.77 kg/m2 Debby Dumont [facility] Work Phone: 04-19-2019 12:20-0400 Body Temperature 98.8 [degF] Debby Dumont [facility] Work Phone: 04-19-2019 12:20-0400 Body weight 96.25 kg Debby Dumont [facility] Work Phone: 04-19-2019 12:20-0400 BP Diastolic 85 mm[Hg] Debby Dumont [facility] Work Phone: 04-19-2019 12:20-0400 [...] Type Care Provider Facility Start: 04-29-2025 [facility]ulatory [facility] Start: 04-29-2025 Non-patient / Non-visit Dr. Myra CASTANO -[facility] Start: 04-26-2025 Non-patient / Non-visit Dr. Zeb rodríguez MD -[facility] Start: 04-26-2025 End: 04-26-[address] Zeb Bernal MD -Cat Scan [facility] Work Phone: Start: 04-26-2025 End: 04-26-2025 ambulatory Yolis Dalton LARD MAKER-C Work Phone: -Cat Scan [facility] Start: 04-26-2025 ambulatory Zeb Gabe Facility:[facility] Start: 03-22-2025 End: 03-22-2025 ambulatory Yolis Dalton LARD MAKER-C Work Phone: [facility] Work Phone: Start: 03-22-2025 End: 03-22-[address] Zeb Bernal MD -Laboratory Work Phone: Start: 03-22-2025 End: 03-22-[address] Zeb Bernal MD -[facility] Work Phone: Start: 03-22-2025 End: 03-22-2025 ambulatory Yolis Dalton LARD MAKER-C Work Phone: [facility] Work Phone: Start: 03-22-2025 End: 03-22-2025 ambulatory Zeb Bernal Facility:[facility] Start: 03-07-2025 ambulatory Diana Ng Facili ty:[facility] Start: 02-15-2025 End: 02-15-2025 Patient encounter procedure OBDULIO Ng -[facility] Work Phone: Start: 02-15-2025 End: 02-15-2025 ambulatory Yolis Dalton LARD MAKER-C Work Phone: [facility] Work Phone: Start: 02-10-2025 ambulatory Diana Ng Facili ty:[facility] Start: 02-10-2025 Non-patient / Non-visit Dr. Paul See own DO -[facility] Start: 02-09-2025 End: 02-09-2025 ambulatory Yolis Dalton LARD MAKER-C Work Phone: [facility] Work Phone: Start: 02-09-2025 End: 02-09-2025 Patient encounter procedure OBDULIO Ng -Pulmonary Services/Neurology Work Phone: Start: 02-09-2025 End: 02-09-2025 ambulatory Diana Ng Facility:[facility] Start: 02-07-2025 Non-patient / Non-visit Dr. Paul See own DO -[facility] Start: 02-07-2025 End: 02-07-2025 ambulatory Yolis Dalton LARD MAKER-C Work Phone: [facility] Work Phone: Start: 02-07-2025 End: 02-07-2025 Patient encounter procedure OBDULIO Ng -Pulmonary Services/Neurology Work Phone: Start: 02-07-2025 End: 02-07-2025 ambulatory Diana Ng Facility:[facility] Start: 02-03-2025 End: 02-03-2025 ambulatory Yolis Dalton LARD MAKER-C Work Phone: [facility] Work Phone: Start: 02-03-2025 End: 02-03-2025 Patient encounter procedure OBDULIO Ng -Cat Scan, [facility] Work Phone: Start: 02-03-2025 End: 02-03-2025 ambulatory Diana Ng Facility:[facility] Start: 01-11-2025 End: 01-11-2025 Patient encounter procedure OBDULIO Ng -[facility] Work Phone: Start: 01-11-2025 End: 01-11-2025 ambulatory Diana Ng Facility[facility] Start: 11-07-2024 End: 11-07-2024 Patient encounter procedure Olga Jorge PA-C Work Phone: [facility] Comment on above: Acute otitis media, right (Primary Dx); Sore throat; Fatigue, unspecified type; Right ear pain Start: 09-16-2024 ambulatory YOLIS DALTON Facil ity:[facility] Start: 09-16-2024 End: 09-16-2024 Subsequent hospital visit by physician [facility] Start: 07-27-2024 ambulatory YOLIS DALTON Facil ity:[facility] Start: 07-27-2024 End: 07-27-2024 Subsequent hospital visit by physician [facility] Work Phone: [facility] Comment on above: Unspecified intestin al obstruction, unspecified as to partial versus complete obstruction [K56.609] Start: 06-22-2024 End: 06-22-2024 ambulatory HENRI CR Facility:[facility] Start: 06-22-2024 End: 06-22-2024 Patient encounter procedure Henri Cr MD Work Phone: General Surgery Comment on above: Gallstones (Primary Dx) Start: 06-13-2024 End: 06-13-2024 Emergency department patient visit YOLIS DALTON Facility:[facility] Start: 06-10-2024 End: 06-10-2024 ambulatory YOLIS DALTON Facility:[facility] Start: 06-08-2024 End: 06-08-2024 ambulatory MATEO LOPEZ Facility:[facility] Start: 06-08-2024 End: 06-08-2024 Patient encounter procedure Mateo Lopez PA-C Work Phone: General Surgery Comment on above: S/P laparoscopic cho lecystectomy (Primary Dx); Malaise and fatigue; Gallstones Start: 05-19-2024 End: 05-19-2024 ambulatory HENRI CR Facility:[facility] Start: 05-17-2024 End: 05-17-2024 ambulatory YOLIS DALTON Facility:[facility] Start: 05-17-2024 End: 05-17-2024 ambulatory YOLIS DALTON Facility:[facility] Start: 05-17-2024 End: 05-17-2024 Patient encounter procedure Henri Cr MD Work Phone: General Surgery Comment on above: Gallstones (Primary Dx) Start: 03-16-2024 ambulatory YOLIS DALTON Facil ity:[facility] Start: 03-16-2024 End: 03-16-2024 Subsequent hospital visit by physician [facility] Comment on above: Right upper quadrant pain [R10.11] Start: 03-07-2024 ambulatory YOLIS Misael MOOREDALTON Facil ity:[facility] Start: 03-07-2024 End: 03-07-2024 Subsequent hospital visit by physician [facility] Comment on above: Back Pain Start: 08-19-2023 End: 08-19-2023 ambulatory [facility] Work Phone: Start: 08-19-2023 End: 08-19-2023 Patient encounter procedure [facility]-Laboratory, Specimen Work Phone: Start: 02-11-2023 End: 02-11-2023 [...] Sandy DO Work Phone: [facility] [place] Comment on above: Pain (Primary Dx) Start: 07-30-2022 End: 07-30-2022 ambulatory [facility] Work Phone: Start: 07-30-2022 End: 07-30-2022 Patient encounter procedure [facility]Labor[facility], Specimen Start: 03-27-2022 ambulatory Vibha Delgado DO Work Phone: Orthopaedics Comment on above: Tramidol Start: 02-28-2022 End: 02-28-2022 Patient encounter procedure Vibha Delgado DO Work Phone: Orthopaedics Comment on above: Impingement syndrome of right shoulder (Primary Dx); Chronic right shoulder pain Start: 01-15-2022 End: 01-15-2022 PAT [place] [address] Work Phone: Pre Anesthesia Comment on above: Pre-operative examin ation (Primary Dx); Biceps strain, right, subsequent encounter; Bipolar disorder with depression (HCC); Nicotine dependence with current use; Obesity, Class I, BMI 30-34.9 E66.9; Tachycardia Start: 01-15-2022 End: 01-15-2022 Preprocedural examination done [facility] 1 Work Phone: Pre Anesthesia Start: 01-03-2022 ambulatory Vibha Partdiaaylin Work Phone: Orthopaedics Comment on above: FMLA Start: 12-26-2021 ambulatory Vibha Delgado DO Work Phone: Orthopaedics Comment on above: FMLA Start: 12-17-[address] [facility] center Vibha Delgado DO Work Phone: Orthopaedics Comment on above: Surgery Start: 12-17-2021 ambulatory Vibha Delgado DO Work Phone: [facility] Start: 05-28-2020 Patient encounter status [facility] Procedures Date Procedure Procedure Detail Performing Clinician Start: 04-26-2025 Cardiac computed tomography for calcium scoring Yolis Dalton LARD MAKER-C Work Phone: Start: 02-03-2025 CT of chest Yolis Dalton LARD MAKER-C Work Phone: Start: 02-11-2023 Radex shoulder complete minimum 2 views Vibha Partidafabianoberry DO Work Phone: Start: 04-19-2019 25 hydroxy includes fractions if performed Debby Julia Start: 04-19-2019 Assay of parathormone Debby Carmicha el Start: 04-19-2019 Assay of phosphorus inorganic Debby Julia Start: 04-19-2019 Blood count complete auto&auto difrntl wbc Debby [place] Start: 04-19-2019 C-reactive protein Debby [place] Start: 04-19-2019 Comprehensive metabolic 2000 panel Debby Julia Start: 04-19-2019 Protein Electrophoresis + IF Serum Debby [place] Start: 04-19-2019 Sedimentation rate rbc automated Debby [place] Start: 04-19-2019 TSH WITH REFLEX TO FREE T4 IF ABNORMAL Debby Julia Start: 04-19-2019 Xray Bone Density, Dexa 1 or More Sites Debby [place] Start: 04-19-2019 Xray Ribs Unilateral 2 View [...] Detail Author Start: 07-22-2028 Urine microalbumin profile [facility] Start: 06-10-2027 Diabetes Screening Diabetes Screenin g [facility] Start: 03-22-2025 Evaluation of diagnostic study results [facility] Start: 02-15-2025 Patient referral [facility] Work Phone: Start: 02-09-2025 Walking distance 6 minutes [facility] Start: 11-09-2024 Patient referral [facility] Work Phone: Start: 06-22-2024 End: 06-22-2024 Patient encounter procedure 06/22/2024 8:00 AM EDT Office Visit General Surgery [address] [facility] [address] [place], [place] [id number] Henri Cr MD [address] [facility] [address] [place], [place] [id number] 2 wk LC General Surgery Comment on above: 2 wk LC Start: 06-08-2024 End: 09-07-2024 CBC panel - Blood by Automated count COMPLETE BLOOD COUNT Lab Routine Malaise and fatigue Expected: 06/08/2024, Expires: 09/07/2024 [facility] Work Phone: Comment on above: Expected: 06/08/2024 , Expires: 09/07/2024 Start: 06-08-2024 End: 09-07-2024 Comprehensive metabolic 2000 panel - Serum or Plasma COMPREHENSIVE METABOLIC PANEL Lab Routine Malaise and fatigue Expected: 06/08/2024, Expires: 09/07/2024 [facility] Comment on above: Expected: 06/08/2024 , Expires: 09/07/2024 Start: 06-08-2024 End: 09-07-2024 Ferritin [Mass/volume] in Serum or Plasma FERRITIN Lab Routine Malaise and fatigue Expected: 06/08/2024, Expires: 09/07/2024 [facility] Comment on above: Expected: 06/08/2024 , Expires: 09/07/2024 Start: 06-08-2024 End: 09-07-2024 Iron and Iron binding capacity panel - Serum or Plasma IRON AND TIBC Lab Routine Malaise and fatigue Expected: 06/08/2024, Expires: 09/07/2024 [facility] Comment on above: Expected: 06/08/2024 , Expires: 09/07/2024 Start: 06-05-2024 Covid-19 Vaccine ( season) Covid-19 Vaccine () [facility] Start: 06-05-2024 Covid-19 Vaccine () Covid-19 Vaccine () [facility] Start: 06-05-2024 Influenza vaccination [facility] Start: 06-02-2024 End: 06-02-2024 Patient encounter procedure 06/02/2024 1:45 PM EDT Office Visit General Surgery [address] [place] [id number] Mateo Lopez PA-C [address] [place] [address] Follow up Laparoscopic cholecystectomy with intraoperative cholangiograms 05/19 General Surgery Comment on above: Follow up Laparoscop ic cholecystectomy with intraoperative cholangiograms 05/19 Start: 05-19-2024 End: 05-19-2024 Laparoscopy surg cholecystectomy LAPAROSCOPIC CHOLECYSTECTOMY Gallstones 05/19/2024 7:42 AM EDT [facility] Start: 04-19-2024 Lipid panel Lipid Screening [facility] Start: 04-19-2024 LIPID SCREEN LIPID SCREEN [facility] Start: 03-11-2024 End: 03-11-2024 Patient encounter procedure 03/11/2024 5:00 PM EDT Appointment [facility] [address] [place] [id number] R10.11 RUQ pain [facility] Comment on above: R10.11 RUQ pain Start: 10-05-2023 Behavioral Health Screening Behavioral Health Screening [facility] Start: 06-05-2023 Covid-19 Vaccine ( season) Covid-19 Vaccine ( season) [facility] Start: 06-05-2023 Influenza vaccination INFLUENZ A (Season Ended) [facility] Start: 10-05-2022 DEPRESSION ASSESSMENT DEPRESSION ASS ESSMENT [facility] Start: 06-05-2022 Influenza vaccination INFLUENZ A (Season Ended) [facility] Start: 04-26-2022 DIABETES SCREEN DIABETES SCREEN [facility] Start: 04-26-2022 Diabetes Screening Diabetes Screenin g [facility] Start: 01-27-2022 Pneumococcal Vaccine : 50+ (1 of 1 - PCV) Pneumococcal Vaccine: 50+ (1 of 1 - PCV) [facility] Start: 01-27-2022 SHINGRIX VACCINE (1 of 2) SHINGRIX VACCINE (1 of 2) [facility] Start: 01-22-2022 PAP TESTING PAP TESTING [facility] Start: 01-22-2022 Screening for malign ant neoplasm of cervix Pap Testing [facility] Start: 06-05-2021 Influenza vaccination INFLUENZA (#1) [facility] Start: 02-23-2020 Mammography MAMMOGRAM [facility] Start: 02-23-2020 Screening for malign ant neoplasm of breast Mammogram Screening [facility] Start: 01-23-2020 Screening for malign ant neoplasm of cervix Cervical Cancer Screening [facility] Start: 12-29-2019 Adult depression screening assessment DEPRESSION SCREENING [facility] Start: 04-19-2019 Xray Bone Dens ity, Dexa 1 or More Sites [facility] Work Phone: Start: 01-27-2017 COLOGUARD (FIT-DNA) COLOGUARD (FIT-D NA) [facility] Start: 01-27-2017 Colonoscopy COLONOSCOPY [facility] Start: 01-27-2017 COLORECTAL CANCER SCREENING COLORECTAL CANCER SCREENING [facility] Start: 01-27-[address] COLONOGRAPHY [facility] Start: 01-27-2017 FECAL OCCULT BLOOD FECAL OCCULT BLOO D [facility] Start: 01-27-2017 Screening for malign ant neoplasm of colon [facility] Start: 01-27-2017 [facility]OSCOPY [facility] Start: 01-27-2002 HPV TESTING HPV TESTING [facility] Start: 01-27-2002 Screening for malign ant neoplasm of cervix HPV Testing [facility] Start: 01-27-1991 Hepatitis B Vaccine (1 of 3 - 19+ 3-dose series) Hepatitis B Vaccine (1 of 3 - 19+ 3-dose series) [facility] Start: 01-27-1990 Anxiety Screening Anxiety Screening [facility] Start: 01-27-1990 Depression Screening Depression Scre ening [facility] Start: 01-27-1990 HIV SCREENING HIV SCREENING [facility] Start: 01-27-1990 HIV screening HIV Screening [facility] Start: 01-27-1977 COVID-19 VACCINE (#1) COVID-19 VACCI NE (#1) [facility] Start: 01-27-1977 COVID-19 VACCINE (1) COVID-19 VACCIN E (1) [facility] Start: 1972 COVID-19 VACCINE (#1) COVID-19 VACCI NE (#1) [facility] Start: 1970 HEPATITIS B (1 of 3 - 3-dose series) HEPATITIS B (1 of 3 - 3-dose series) [facility] Complete blood count [facility] Comprehensive metabo lic 1999 panel - Serum or Plasma [facility] Continuous pulse oximetry [facility] CT Chest [facility] CT Chest [facility] CT for calcium scori ng WO contrast and CTA W contrast IV Heart and coronary arteries [facility] Lipid 1996 panel - Serum or Plasma [facility] Patient referral [facility] Work Phone: Thyroid stimulating hormone measurement [facility] US Carotid arteries [facility] Gallbladder [facility] Work Phone: US Heart [facility] End: 02-05-2024 XR SHOULDER GENERAL 3V OR MORE AP/TRUE AP/OTHER LEFT XR SHOULDER GENERAL 3V OR MORE AP/TRUE AP/OTHER LEFT Radiology Routine Pain 1 Occurrences starting 01/06/2023 until 02/05/2024 [facility] Work Phone: Comment on above: 1 Occurrences starti ng 01/06/2023 until 02/05/2024 [facility] Work Phone: [facility] NEGATED: Highlighted row has been ruled out! Planned Goals not documented [facility] Work Phone: Immunizations Immunization Date Immunization Notes Care Provider [facility] 07-22-2018 influenza virus vacc ine, unspecified formulation Us [facility] Payers Date Payer Category Payer Self-pay [id number] 2024 Unknown [id number] 2023 Private Health Insurance [id number] 2017 Unknown MMO MMO [employer] [id number] 2017-Present [phone] [address] [place] [address] PPO [id number] Unknown [id number] Unknown [facility] [address] [id number] Unknown [id number] 62 Unknown [id number] 62 Unknown [id number] [id number] 62 Unknown [id number] [id number] 62 Unknown [id number] [id number] 62 Unknown [id number] [id number] 62 Unknown [id number] [id number] 62 Unknown [id number] 2.16.840.1.182424.3.579.2.4 62 Unknown [id number] 2.16.840.1.431205.3.579.2.4 62 Unknown [id number] 2.16.840.1.471795.3.579.2.4 62 Unknown [id number] 2.16.840.1.652831.3.579.2.4 62 Unknown [id number] [id number] 62 Unknown [id number] 2.16.840.1.669684.3.579.2.4 62 Unknown [id number] [id number] 62 Unknown [id number] 62 Social History Date Type Detail Facility Start: 01-22-2017 End: 02-11-2023 Tobacco smoking status NHIS Ex-smoker [facility] Start: 10-05-1990 End: 10-05-2014 History of tobacco use Current smoker [facility] Start: 10-05-1990 End: 10-05-2014 History of tobacco use Cigarette Smoker [facility] Start: 01-22-2017 End: 02-11-2023 Cigarettes smoked current (pack per day) - Reported 0.5 [facility] Start: 01-22-2017 End: 02-11-2023 Tobacco use and exposure Smokeless tobacco non-user [facility] Start: 12-06-2021 End: 11-07-2024 Alcohol intake Current drinker of alcohol (finding) [facility] Start: 09-18-2021 History SDOH Alcohol Comment Ocassionally [facility] Start: 1970 Sex Assigned At Not on file [facility] Start: 12-08-2021 End: 12-18-2021 Exposure to SARS-CoV-2 (event) Unable to assess [facility] Start: 01-05-2022 End: 02-14-2022 Exposure to SARS-CoV-2 (event) Not sure [facility] Start: 1970 Sex Assigned At Female [facility] Start: 01-24-2021 End: 01-24-2021 Tobacco smoking status NHIS Unknown if ever smoked [facility] Start: 12-28-2018 End: 02-11-2023 Tobacco use panel [facility] Adult Depression Screening Assessment 0 [facility] Start: 02-21-2022 Gender identity Identifies as female gender (finding) [facility] NEGATED: Highlighted row - - [facility] Work Phone: Medical Equipment Procedure Code Equipment Code Equipment Origin al Text Equipment Identifier Dates Lnt Implant Syst em 4.75 [employer] [id number] Start: 08-27-2021 Lnt Implant Syst em 4.75 [employer] [id number] Start: 10-01-2021 Functional Status Date Assessment Result Facility 04-19-2019 IO PHQ9 IO PHQ9 11- Mode rate Depression [facility] Work Phone: NEGATED: Highlighted row Functional performance Functional status health issues are not documented Disease [facility] Work Phone: Mental Status Date Assessment Result Facility 04-26-2025 Cognitive function Awake;Alert;A [facility] Work Phone: NEGATED: Highlighted row Cognitive function [Interpretation] Cognitive status health issues are not documented Disease [facility] Work Phone: Clinical Notes 08-12-2021 to 05-01-2025 Note Date & Type Note Facility 05-01-2025 Radiology Diagnostic study note [facility] Imaging Services [address] [place], [place] [address] Limited Chest CT Cardiac Only MR#: [id number] Acct: [id number] Name: RORO BAZAN Rep #: [id number] : 1970 F 55 From: Jefe Duarte MD PCP: Yolis Dalton NP-C Status: REG CLI Study:Limited Chest CT Cardiac Only Date of E xam: 04/26/25 Exam# [id number] Ordering Dr: Carmelo Bernal MD PROCEDURE: LIMITED [...] coronary artery calcification is seen. Reading Location: [id number] CC: JORDI Dalton; Dr. Zeb Bernal MD ~ Microelectronics Assembler: Signed [facility] 04-29-2025 Radiology Diagnostic study note [facility] Imaging Services [address] [place] [address] 04/29/25 1150 MR#: [id number] Acct: [id number] Name: RORO BAZAN Rep #:[id number] : 1970 55 From: Reagan Brock [...] Cosigner Signature (if applicable): Date ___ CC: LARD MAKER-C Yolis Dalton; Dr. Zeb Bernal MD; Dr. Reagan Brock MD ~ Signed [facility] Work Phone: 03-22-2025 Progress note [facility] 03-22-2025 Progress note Note Date/Time March 22, 2025 9:25am [facility] [address] [place] [address]. [address] [place] [address] OFFICE VISIT Date of Service: 03/22/25 MR#: [id number] Acct: [id number] Name: RORO BAZAN Rep #: [id number] : 1970 Provider: Dr. Shyam Bernal MD Age/Sex: 55/F Location[facility] Status: Signed HPI HPI History of Present [...] room air Intake Visit Reasons: SOB/CP (JUAN) Front Office Associate Required: No Accompanied by: Self Is patient [...] (if applicable) CC: BLANCAC Yolis Dalton ~ [facility] Work Phone: 1(545) 800-131405-09-2025 Procedure [facility] Pulmonary Services/Neurology [address] [place] [address] MR#: [id number] Acct: [id number] Name: RORO BAZAN [place] Rep #:[id number] : 1970 55 From: Paul Coronel DO Referring Dr: Diana Ng LARD MAKER-C Status: REG CLI Location: N Date: Sex: [...] Dyspnea Tato Scale ( 0 0-10) Exertion Atto Scale 6 (6-20) 1st minute Oxygen Delivery [...] Dictated: 02/10/25 1210 Date Transcribed: 02/10/25 1210 Microelectronics Assembler: Dr. Paul Coronel DO Signed [facility]05-04-2025 Radiology Diagnostic study note [facility] Imaging Services [address] [place], [place] [address] Low Dose CT Lung Screening MR#: [id number] Acct: [id number] Name: RORO BAZAN Rep #: [id number] : 1970 F 55 From: Elsie Garnica MD PCP: JORDI Stauffer Status: REG CLI Study:Low Dose CT Lung Screening Date of Exam : 02/03/25 Exam# [id number] Ordering Dr: Diana NgC PROCEDURE: LOW DOSE [...] use of iterative reconstruction technique). REFERENCE LINK: [facility]RADS RADIATION DOSE SUMMARY: CTDlvol: 4.0 mGy [...] CC: JORDI Dalton; Diana Ng NP ~ Microelectronics Assembler: Signed [facility]04-09-2025 Evaluation note* Diagnosis Onset Date Resolution Status [...] Nicotine dependence chronic March 22, 2025 8:46am [facility] Work Phone: 1(249) 769-956302-05-2025 Chief complaint+Reason for visit Narrative * Chief [...] 20 pack years January 11, 2025 1:55pm [facility] Work Phone: 1(316) 606-961802-05-2025 Chief complaint+Reason for visit Narrative * Chief [...] 20 pack years January 11, 2025 1:55pm [facility] Work Phone: 1(441) 743-502302-05-2025 Chief complaint+Reason for visit Narrative * Chief [...] than 20 pack years February 022024 3:02pm [facility] Work Phone: 1(689) 677-827102-05-2025 Evaluation note* Diagnosis Onset Date Resolution Status Admit Date Shortness of breath acute u 2024 3:28pm Thoracic back pain acute 2024 3:28pm Shortness of breath acute January 11, 2025 1:55pm Smoking greater than 20 pack years acute January 11, 2025 1:55pm [facility] Work Phone: 1(178) 963-711002-05-2025 Evaluation note* Diagnosis Onset Date Resolution Status Admit Date Shortness of breath acute Febru 2024 3:28pm Thoracic back pain acute Februa 2024 3:28pm Shortness of breath acute January 11, 2025 1:55pm Smoking greater than 20 pack years acute January 11, 2025 1:55pm Shortness of breath acute February 022024 3:02pm Smoking greater than 20 pack years acute February 15, 2025 3 :02pm [facility] Work Phone: 1(654) 986-759002-03-2025 Instructions* Patient Instructions* Olga Jorge PA-C - [...] headache, and a fever. documented in this encounterOhio[facility]02-[facility]-2025 History of Present illness Narrative* Olga Jorge PA-C - 11/07/2024 9:38 AM EST Subjective Roro Bazan is a 54 year old female with a past medical history of bipolar disorder and ADHD who presents to [facility] care today for evaluation of right- sided [...] which included preparing to see the patient, [id number] patient care, completing clinical documentation, performing a medically appropriate examination, counseling and educating the patient/family/caregiver, and ordering medications, tests,or procedures. Olga Jorge PA-C documented in this encounterOhiohealth [facility] Center10-23-2024 History of Present illness Narrative* Luis Armando [...] PATIENT PRESENTS WITH AN IMPLANTABLE OR ATTACHED TIBCO DEVELOPER: No ALLERGIES: Reviewed and unchanged CONTRAST ALLERGY: [...] 2024 TIME: 3:58 PM documented in this encounterOhiohealth [facility]heastern [facility] Center10-23-2024 NoteHNO ID: [id number] Author: LUIS ARMANDO MOTA CT Service: Radiology [...] PATIENT PRESENTS WITH AN IMPLANTABLE OR ATTACHED TIBCO DEVELOPER: No ALLERGIES: Reviewed and unchanged CONTRAST ALLERGY: [...] Bazan DATE: July 27, 2024 TIME: 3:58 [facility]09-26-2024 History of Present illness Narrative* Henri [...] MD 06/30/2024 2:10 PM documented in this encounterOhiohealth [facility] Center09-04-2024 NoteHNO ID: [id number] Author: MATEO LOPEZ PA-C Service: ? Author Type: Physician Photo Equipment Technician Type: Progress Notes Filed: 06/08/2024 14:52 Note [...] ordered for nausea. Recommend follow up with PCP/AMBULATORY CARE COORDINATOR for additional fatigue work up. I have [...] with cholelithiasis and cholesterolosis Mateo Lopez PA-C 06/08/2024[facility]09-04-2024 History of Present illness Narrative* Mateo Lopez [...] ordered for nausea. Recommend follow up with PCP/AMBULATORY CARE COORDINATOR for additional fatigue work up. I have [...] Mateo Lopez PA-C 06/08/2024 documented in this encounterOhiohealth [facility] Center08-15-2024 NoteHNO ID: [id number] Author: EDELMIRA LÓPEZ APRN.CRNA Service: ? Author Type: Nurse Filing Machine Operator Type: Anesthesia Procedure Notes Filed: 05/19/2024 08:15 Note Text: ANESTHESIOLOGY PROCEDURE NOTE Airway General Information Procedure Start Time/Medication Administration: 05/19/2024 7:47 AM Procedure End Time: 05/19/2024 7:49 AM Patient location during procedure: OR Timeout Performed Pre-procedure: timeout performed Consent Obtained: Yes Patient identity confirmed: arm band and patient Staffing FIELD MARKETER: Edelmira López APRN.FIELD MARKETER Performed by: ANA LAURA Indications and Patient [...] May 19, 2024 TIME: 8:09 AM CSN: [id number] NoteHNO ID: [id number] Author: HENRI CR MD Service: ? Author [...] Father other (cholecystectomy) Brother Heart Maternal Aunt SC Heart Maternal Uncle two uncles with SC Ovarian cancer Other CURRENT MEDICATIONS: escitalopram oxalate [...] of gallbladder Henri Cr MD 05/18/2024 2:16 [facility]08-14-2024 History of Present illness Narrative * Henri [...] Father other (cholecystectomy) Brother Heart Maternal Aunt SC Heart Maternal Uncle two uncles with SC Ovarian cancer Other CURRENT MEDICATIONS: escitalopram oxalate [...] MD 05/18/2024 2:16 PM documented in this encounterOhiohealth [facility] Center06-12-2024 History of Present illness Narrative* Susana Ceja [...] PATIENT PRESENTS WITH AN IMPLANTABLE OR ATTACHED TIBCO DEVELOPER: No RADIOLOGY DEPARTMENT: Ultrasound PERIPHERAL IV DATA: Not applicable SIGNED BY: TECHNOLOGIST Nerissa March 16, 2024 5:06 PM documented in this encounterOhiohealth Southeastern Medical Center06-12-2024 NoteHNO ID: [id number] Author: SUSANA CEJA TECHNOLOGIST Service: ? Author [...] PATIENT PRESENTS WITH AN IMPLANTABLE OR ATTACHED TIBCO DEVELOPER: No RADIOLOGY DEPARTMENT: Ultrasound PERIPHERAL IV DATA: Not applicable SIGNED BY: Susana Ceja TECHNOLOGIST March 16, 2024 5:06 [facility]06-03-2024 History of Present illness Narrative* Sol [...] PATIENT PRESENTS WITH AN IMPLANTABLE OR ATTACHED TIBCO DEVELOPER: No RADIOLOGY DEPARTMENT: Ultrasound PERIPHERAL IV DATA: Not applicable SIGNED BY: Sol Hunter RDMS, RVT March 07, 2024 2:58 PM documented in this encounterOhiohealth Southeastern Medical Center06-03-2024 NoteHNO ID: [id number] Author: SOL HUNTER RT(Stephan) Service: ? Author [...] PATIENT PRESENTS WITH AN IMPLANTABLE OR ATTACHED TIBCO DEVELOPER: No RADIOLOGY DEPARTMENT: Ultrasound PERIPHERAL IV DATA: Not applicable SIGNED BY: Sol Hunter RDMS, RVT March 07, 2024 2:58 [facility]05-10-2023 History of Present illness Narrative* Vibha Delgado, DO - 02/11/2023 8:43 AM EDT Images from the original note were not included. Follow Up Visit Chief Complaint Roro Bazan is a 53 year old [...] plan. All questions answered. documented in this encounterOhiohealth [facility] Center05-10-2023 History of Present illness Narrative* Iliana Molina [...] 11, 2023 8:12 AM documented in this encounterOhiohealth [facility]heastern Medical Center05-27-2022 History of Present illness Narrative* Vibha Delgado, - 02/28/2022 10:32 AM EDT Images from [...] treatment plan as discussed. documented in this encounterOhiohealth [facility]heastern Medical Center04-13-2022 Instructions* Patient Instructions* Adri Whyte APRN.[facility] - 01/15/2022 3:41 PM EDT PATIENT PREOPERATIVE INSTRUCTIONS Vibha Delgado,* has scheduled you for your procedure at this surgery center: [facility]: [phone] -- [address] [address]. Please read below carefully for your personalized [...] Procedures: - YOU MUST HAVE A RESPONSIBLE PLANT ETIOLOGIST TAKE YOU HOME. A BOTTLED BEVERAGE INSPECTOR OR PLAN MANAGER CANNOT BE MADE A RESPONSIBLE PLANT ETIOLOGIST. - We recommend that a responsible person [...] Advance Directive, please fax a copy to [phone] or email to for it to be [...] day. Adri Whyte APRN.CNP documented in this encounterOhiohealth Southeastern Medical Center04-13-2022 History and physical note * Adri Whyte [...] or fevers. Neurological: Negative for: cerebral palsy, SERVICE LINE COORDINATOR tumor, headaches, impaired sensorium, multiple sclerosis, Parkinson's disease, seizures, TIA and strokes. Respiratory: +former smoker, currently vapes. No history of current cough or dyspnea, or pneumonia in the past 6 weeks. No history of respiratory/pulmonary symptoms or problems. Cardiovascular: Positive for: arrhythmia (Tachycardia - very occasional flutter) Negative for: anticoagulation therapy, atrial fibrillation, CAD, chest pain, CHF, DVT/PE, hyperlipidemia, hypertension, recent SC, murmur/valvular heart disease, open heart surgery and valve surgery. GI: No history of GI symptoms or problems. No history of esophageal varices, recent ascites, or ETOH greater than 2 drinks per day. : No history of dysuria, frequency or incontinence, stones or chronic kidney disease. No difficulty urinating, nocturia > 1 time per night or hematuria. AMBULATORY CARE COORDINATOR: Negative for abnormal vaginal bleeding, abnormal vaginal [...] Coronary Artery Disease Father Heart Maternal Aunt SC Heart Maternal Uncle two uncles with SC Ovarian cancer Other Social History Tobacco Use [...] or any previous visit (from the past 16975 hour(s)). Assessment Bipolar disorder with depression (HCC) [...] Airway History: No history of difficult airway [id number] Score: Age: <65 Sex: Female CHF history: [...] and consent discussed: yes. Patient / Responsible Constitution Party agrees to proceed: yes Patient / Surrogate [...] 3:40 PM PAGER/CONTACT #: documented in this encounterOhiohealth Southeastern Medical Center04-13-2022 History of Past illness Narrative* Problem Noted Date Resolved Date Biceps strain, right, subsequent encounter 01/1502/14/2022 Shoulder weakness 09/20/2021 02/14/2022 Impingement syndrome of shoulder region 08/12/20 21 08/27/2021 Acute lumbar back pain 06/20/2014 1 Essential hypertension 8 Dizziness 08/12/2021 documented as of this encounter (statuses as of 02/28/2022) [facility] History of Past illness Narrative* Problem Noted Date Resolved Date Biceps strain, right, subsequent encounter 01/1502/14/2022 Shoulder weakness 09/20/2021 02/14/2022 Impingement syndrome of shoulder region 08/12/20 21 08/27/2021 Acute lumbar back pain 06/20/2014 1 Essential hypertension 8 Dizziness 08/12/2021 documented as of this encounter (statuses as of 04/01/2022) [facility] History of Past illness Narrative* Problem Noted [...] of this encounter (statuses as of 01/06/2023) [facility] History of Past illness Narrative* Problem Noted [...] of this encounter (statuses as of 02/11/2023) [facility]03-25-[facility]22 Miscellaneous Notes* Telephone Encounter - Alona Naik - 12/27/2021 9:18 AM EDT Forms redone, fax sent. documented in this encounterOhiohealth Southeastern Medical Center03-21-2022 Miscellaneous Notes* Telephone Encounter - Nilam Gifford - 12/23/2021 8:18 AM EDT Team, 1. Yes off for 6-8 weeks 2. Patient cannot drive for 6 weeks 3. Not permitted to lift any weights at all with operative arm for 6 weeks. Vibha Delgado, DO Response for the additional information that needed added documented in this encounterOhiohealth Southeastern Medical Center11-08-2021 History of Past illness Narrative* Problem Noted Date Resolved Date Impingement syndrome of shoulder region 08/12/20 21 08/27/2021 Acute lumbar back pain 06/20/2014 1 Essential hypertension 8 Dizziness 08/12/2021 documented as of this encounter (statuses as of 12/27/2021) [facility] History of Past illness Narrative* Problem Noted Date Resolved Date Impingement syndrome of shoulder region 08/12/20 21 08/27/2021 Acute lumbar back pain 06/20/2014 1 Essential hypertension 8 Dizziness 08/12/2021 documented as of this encounter (statuses as of 12/27/2021) [facility] History of Past illness Narrative* Problem Noted Date Resolved Date Impingement syndrome of shoulder region 08/12/20 21 08/27/2021 Acute lumbar back pain 06/20/2014 1 Essential hypertension 8 Dizziness 08/12/2021 documented as of this encounter (statuses as of 01/03/2022) [facility] History of Past illness Narrative* Problem Noted Date Resolved Date Impingement syndrome of shoulder region 08/12/20 21 08/27/2021 Acute lumbar back pain 06/20/2014 1 Essential hypertension 8 Dizziness 08/12/2021 documented as of this encounter (statuses as of 01/15/2022) [facility]* Diagnosis Pre-operative examination- Primary Preoperative examination, unspecified Biceps strain, right, subsequent encounter Bipolar disorder with depression (HCC) Bipolar I disorder, most recent episode (or current) depressed, unspecified Nicotine dependence with current use Obesity, Class I, BMI 30-34.9 E66.9 Obesity, unspecified Tachycardia Tachycardia, unspecified Strain of right biceps, initial encounter documented in this encounter [facility] Center[facility]* Diagnosis Impingement syndrome of right shoulder- Primary Other affections of shoulder region, not elsewhere classified Chronic right shoulder pain Pain in joint, shoulder region [facility] Diagnosis Impingement syndrome of shoulder region, unspecified laterality [facility] Diagnosis Onset Date Resolution Status Bloating acute Epigastric abdominal pain ac celso RUQ abdominal pain acute [facility] Work Phone: Evaluation note* Diagnosis Pain- Primary Generalized pain [facility] Diagnosis Impingement syndrome of right shoulder- Primary Other affections of shoulder region, not elsewhere classified Impingement syndrome of shoulder region, unspecified laterality Strain of right biceps, initial encounter Strain of long head of biceps, left, initial encounter [facility] Diagnosis Onset Date Resolution Status Infected nailbed of finger a cute Swollen finger acute Anemia acute Bipolar 1 disorder acute Fatigue acute [facility] Work Phone: Evaluation note* Diagnosis Gallstones- Primary Calculus of gallbladder without mention of cholecystitis or obstruction documented in this encounter [facility] note* Diagnosis Preoperative examination- Primary Preoperative examination, [...] cholecystitis or obstruction documented in this encounter [facility] note* Diagnosis Preoperative examination- Primary Preoperative examination, [...] Pain Generalized pain documented in this encounter [facility] note* Diagnosis Preoperative examination- Primary Preoperative examination, [...] cholecystitis or obstruction [facility] Preoperative examination- Primary Preoperative examination, [...] pain Otalgia, unspecified documented in this encounter [facility] (narrative)* Diagnostic Procedure Only (Routine) - Authorized Specialty Diagnoses / Procedures Referred By Contac t Referred To Contact XR IMAGING Diagnoses Pain Procedures XR SHOULDER GENERAL 3V OR MORE AP/TRUE AP/OTHER LEFT RADEX SHOULDER COMPLETE MINIMUM 2 VIEWS Vibha Delgado DO [address] [facility] [address] [place] [id number] Xr Imaging Referral ID Status Reason Start Date Expiration Date Visits Requested Visits Authorized [id number] Authorized Auto-Generat ed Referral 01/06/2023 02/05/2024 1 1 [facility] (narrative)* Diagnostic Procedure Only (Routine) - Closed Specialty Diagnoses / Procedures Referred By Contac t Referred To Contact XR IMAGING Diagnoses Pain Procedures XR SHOULDER GENERAL 3V OR MORE AP/TRUE AP/OTHER LEFT RADEX SHOULDER COMPLETE MINIMUM 2 VIEWS Vibha Delgado DO [address] [place] [address] [place] [address] Referral ID Status Reason Start Date Expiration Date V isits Requested Visits Authorized [id number] Closed Auto-Generate d Referral 01/06/2023 02/05/2024 1 1 [facility] for visit Narrative* Diagnostic Procedure Only (Routine) - Closed Specialty Diagnoses / Procedures Referred By Nataliya quintero Referred To Contact XR IMAGING Diagnoses Pain Procedures XR SHOULDER GENERAL 3V OR MORE AP/TRUE AP/OTHER LEFT RADEX SHOULDER COMPLETE MINIMUM 2 VIEWS Vibha Delgado DO [address] [place] [address] [place] [address] Referral ID Status Reason Start Date Expiration Date V isits Requested Visits Authorized [id number] Closed Auto-Generate d Referral 01/06/2023 02/05/2024 1 1 [facility] Summary Purpose Family History No Family History [...] FoundDocuments on File Type Date Recorded 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 anation Advance Directive(s) 10/01/2021 6:10 AM Advance Directive(s) 08/09/2021 9:23 AM Advance Directive(s) 12/18/2017 7:46 AM Documents on File Type Date Recorded 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 anation Advance Directive(s) 01/09/2022 12:15 PM Advance Directive(s) 10/01/2021 6:10 AM Advance Directive(s) 08/09/2021 9:23 AM Advance Directive(s) 12/18/2017 7:46 AM Documents on File Type Date Recorded 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 Advance Directive(s) 02/14/2022 11:30 AM [...] HIGH COMPLEX 45 MINS Vibha Delgado DO [address] [facility] [address] [place] [address] [facility] [place] [address] [place] [address] Referral ID Status Reason Start Date Expiration Date Visits Requested Visits Authorized [id number] Pending Review Auto-Generat ed Referral 02/11/2023 02/11/2024 1 1 Additional Source Comments INFORMATION SOURCE (unrecogn ized section and content) DATE CREATED AUTHOR 04/24/2019 [employer] DATE CREATED AUTHOR AUTHOR'S ORGANIZ ATION 05/10/2019 [facility] DATE CREATED AUTHOR AUTHOR'S ORGANIZ ATION 09/15/2020 [facility] DATE CREATED AUTHOR AUTHOR'S ORGANIZ ATION 05/25/2024 [facility] DATE CREATED AUTHOR AUTHOR'S ORGANIZ ATION 06/24/2024 [facility] DATE CREATED AUTHOR AUTHOR'S ORGANIZ ATION 09/19/2024 [facility] DATE CREATED AUTHOR AUTHOR'S ORGANIZ ATION 05/24/2025 [facility] Source Comments (unrecognize d section and content) In the event this informatio n is protected by the Federal Confidentiality of Alcohol and Drug Abuse Patient Records regulations: The Federal rules restrict any use of the information to criminally investigate or prosecute any alcohol or drug abuse patient.[facility] the event this information is protected by the Federal Confidentiality of Alcohol and Drug Abuse Patient Records regulations: The Federal rules restrict any use of the information to criminally investigate or prosecute any alcohol or drug abuse patient.[facility] the event this information is protected by the Federal Confidentiality of Alcohol and Drug Abuse Patient Records regulations: The Federal rules restrict any use of the information to criminally investigate or prosecute any alcohol or drug abuse patient.[facility] the event this information is protected by the Federal Confidentiality of Alcohol and Drug Abuse Patient Records regulations: The Federal rules restrict any use of the information to criminally investigate or prosecute any alcohol or drug abuse patient.[facility] the event this information is protected by the Federal Confidentiality of Alcohol and Drug Abuse Patient Records regulations: The Federal rules restrict any use of the information to criminally investigate or prosecute any alcohol or drug abuse patient.[facility] the event this information is protected by the Federal Confidentiality of Alcohol and Drug Abuse Patient Records regulations: The Federal rules restrict any use of the information to criminally investigate or prosecute any alcohol or drug abuse patient.[facility] Center[facility] the event this information is protected by the Federal Confidentiality of Alcohol and Drug Abuse Patient Records regulations: The Federal rules restrict any use of the information to criminally investigate or prosecute any alcohol or drug abuse patient.[facility] Center[facility] the event this information is protected by the Federal Confidentiality of Alcohol and Drug Abuse Patient Records regulations: The Federal rules restrict any use of the information to criminally investigate or prosecute any alcohol or drug abuse patient.[facility] Center[facility] the event this information is protected by the Federal Confidentiality of Alcohol and Drug Abuse Patient Records regulations: The Federal rules restrict any use of the information to criminally investigate or prosecute any alcohol or drug abuse patient.[facility] Center[facility] the event this information is protected by the Federal Confidentiality of Alcohol and Drug Abuse Patient Records regulations: The Federal rules restrict any use of the information to criminally investigate or prosecute any alcohol or drug abuse patient.[facility] Center[facility] the event this information is protected by the Federal Confidentiality of Alcohol and Drug Abuse Patient Records regulations: The Federal rules restrict any use of the information to criminally investigate or prosecute any alcohol or drug abuse patient.[facility] Center[facility] the event this information is protected by the Federal Confidentiality of Alcohol and Drug Abuse Patient Records regulations: The Federal rules restrict any use of the information to criminally investigate or prosecute any alcohol or drug abuse patient.[facility] Center[facility] the event this information is protected by the Federal Confidentiality of Alcohol and Drug Abuse Patient Records regulations: The Federal rules restrict any use of the information to criminally investigate or prosecute any alcohol or drug abuse patient.[facility] Center[facility] the event this information is protected by the Federal Confidentiality of Alcohol and Drug Abuse Patient Records regulations: The Federal rules restrict any use of the information to criminally investigate or prosecute any alcohol or drug abuse patient.[facility] Center[facility] the event this information is protected by the Federal Confidentiality of Alcohol and Drug Abuse Patient Records regulations: The Federal rules restrict any use of the information to criminally investigate or prosecute any alcohol or drug abuse patient.[facility] Center[facility] the event this information is protected by the Federal Confidentiality of Alcohol and Drug Abuse Patient Records regulations: The Federal rules restrict any use of the information to criminally investigate or prosecute any alcohol or drug abuse patient.[facility] Center[facility] the event this information is protected by the Federal Confidentiality of Alcohol and Drug Abuse Patient Records regulations: The Federal rules restrict any use of the information to criminally investigate or prosecute any alcohol or drug abuse patient.[facility] Care Teams (unrecognized sec tion and content) Therapist Phys Relationship Specialty Start Date End Date Yolis Dalton, MENA.HIDE SORTER [address] [facility] [address] [place] [address] PCP - General Family Practice 08/09/21 Therapist Phys Relationship Specialty Start Date End Date Yolis Dalton APRN.HIDE SORTER [address] [place], [place] [phone] PCP - General Family Practice 08/09/21 Therapist Phys Relationship Specialty Start Date End Date Yolis Dalton, WHARF TENDER HELPER.HIDE SORTER [address] [place], [place] [phone] PCP - General Family Practice 08/09/21 Therapist Phys Relationship Specialty Start Date End Date Yolis Dalton, WHARF TENDER HELPER.HIDE SORTER [address] [place], [place] [phone] PCP - General Family Practice 08/09/21 Therapist Phys Relationship Specialty Start Date End Date Yolis Dalton, MENA.HIDE SORTER [address] [place] [phone] PCP - General Family Practice 08/09/21 Therapist Phys Relationship Specialty Start Date End Date Yolis Dalton, MENA.HIDE SORTER [address] [place] [phone] PCP - General Family Medicine 08/09/21 Therapist Phys Relationship Specialty Start Date End Date Yolis Dalton APRN.HIDE SORTER [address] [place] [phone] PCP - General Family Medicine 08/09/21 Team Status: Active Member Role Status Dates Yolis Dalton LARD MAKER, LARD MAKER-C Primary Care Provider Active Team Status: Inactive Member Role Status Dates Yolis Dalton LARD MAKER, LARD MAKER-C Primary Care Pr ovider, Attending Provider, Referring Provider Active Team Status: Inactive Member Role Status Dates Yolis Dalton LARD MAKER, LARD MAKER-C Primary Care Provider, Attend ing Provider Active Therapist Phys Relationship Specialty Start Date End Date Yolis Dalton, WHARF TENDER HELPER.HIDE SORTER [address] [place], [place] [phone] PCP - General Family Medicine 08/09/21 Therapist Phys Relationship Specialty Start Date End Date Yolis Dalton, WHARF TENDER HELPER.HIDE SORTER [address] [place], [place] [phone] PCP - General Family Medicine 08/09/21 Therapist Phys Relationship Specialty Start Date End Date Yolis Dalton, WHARF TENDER HELPER.HIDE SORTER [address] [place], [place] [phone] PCP - General Family Medicine 08/09/21 Therapist Phys Relationship Specialty Start Date End Date Yolis Dalton, WHARF TENDER HELPER.HIDE SORTER [address] [place], [place] [phone] PCP - General Family Medicine 08/09/21 Therapist Phys Relationship Specialty Start Date End Date Yolis Dalton, WHARF TENDER HELPER.HIDE SORTER [address] [place], [place] [phone] PCP - General Family Medicine 08/09/21 Therapist Phys Relationship Specialty Start Date End Date Yolis Dalton, WHARF TENDER HELPER.HIDE SORTER [address] [place], [place] [phone] PCP - General Family Medicine 08/09/21 Therapist Phys Relationship Specialty Start Date End Date Yolis Dalton, WHARF TENDER HELPER.HIDE SORTER [address] [place], [place] [phone] PCP - General Family Medicine 08/09/21 Team Status: Inactive Member Role Status Dates Yolis Dalton LARD MAKER, LARD MAKER-C Primary Care Provider Active Start: November 09, 2024 End: November 09, 2024 Yolis Dalton LARD MAKER, LARD MAKER-C Attending Provider Active Start: November 09, 2024 End: November 09, 2024 Yolis Dalton LARD MAKER, LARD MAKER-C Referring Provider Active Start: November 09, 2024 End: November 09, 2024 Team Status: Inactive Member Role Status Dates Yolis Dalton LARD MAKER, LARD MAKER-C Primary Care Provider Active Start: January 11, 2025 End: January 11, 2025 Yolis Dalton LARD MAKER, LARD MAKER-C Referring Provider Active Start: January 11, 2025 End: January 11, 2025 Diana Ng LARD MAKER-C Attending Provider Active Start: January 11, 2025 End: January 11, 2025 Team Status: Inactive Member Role Status Dates Yolis Dalton LARD MAKER, LARD MAKER-C Primary Care Provider Active Start: February 03, 2025 End: February 03, 2025 Diana Ng LARD MAKER-C Attending Provider Active Start: February 03, 2025 End: February 03, 2025 Diana Ng LARD MAKER-C Referring Provider Active Start: February 03, 2025 End: February 03, 2025 Team Status: Active Member Role Status Dates Yolis Dalton LARD MAKER, LARD MAKER-C Primary Care Provider Active Start: February 07, 2025 Diana Ng LARD MAKER-C Attending Provider Active Start: February 07, 2025 Diana Ng LARD MAKER-C Referring Provider Active Start: February 07, 2025 Team Status: Inactive Member Role Status Dates Yolis Dalton LARD MAKER, LARD MAKER-C Primary Care Provider Active Start: February 07, 2025 End: February 07, 2025 Diana Ng LARD MAKER-C Attending Provider Active Start: February 07, 2025 End: February 07, 2025 Diana Ng LARD MAKER-C Referring Provider Active Start: February 07, 2025 End: February 07, 2025 Team Status: Active Member Role Status Dates Yolis Dalton LARD MAKER, LARD MAKER-C Primary Care Provider Active Start: February 09, 2025 Diana Ng LARD MAKER-C Attending Provider Active Start: February 09, 2025 Diana Ng LARD MAKER-C Referring Provider Active Start: February 09, 2025 Team Status: Active Member Role Status Dates Yolis Dalton LARD MAKER, LARD MAKER-C Primary Care Provider Active Start: February 10, 2025 Diana Ng LARD MAKER-C Referring Provider Active Start: February 10, 2025 Diana Ng NP-C Other Provider Active St art: February 10, 2025 Dr. Paul Coronel , Attending Provider Active S tart: February 10, 2025 Team Status: Inactive Member Role Status Dates Yolis Dalton NP, LARD MAKER-C Primary Care Provider Active Start: February 09, 2025 End: February 09, 2025 Diana Ng LARD MAKER-C Attending Provider Active Start: February 09, 2025 End: February 09, 2025 Diana Ng LARD MAKER-C Referring Provider Active Start: February 09, 2025 End: February 09, 2025 Team Status: Inactive Member Role Status Dates Yolis Dalton LARD MAKER, LARD MAKER-C Primary Care Provider Active Start: February 15, 2025 End: February 15, 2025 Yolis Dalton NP, LARD MAKER-C Referring Provider Active Start: February 15, 2025 End: February 15, 2025 Diana Ng LARD MAKER-C Attending Provider Active Start: February 15, 2025 End: February 15, 2025 Team Status: Inactive Member Role Status Dates Yolis Dalton LARD MAKER, LARD MAKER-C Primary Care Provider Active Start: March 22, 2025 End: March 22, 2025 Yolis Dalton LARD MAKER, LARD MAKER-C Referring Provider Active Start: March 22, 2025 End: March 22, 2025 Dr. Zeb Bernal MD Attending Provider Active Start: March 22, 2025 End: March 22, 2025 Team Status: Active Member Role Status Dates Yolis Dalton NP, LARD MAKER-C Primary Care Provider Active Start: February 07, 2025 Dr. Paul Coronel , Attending Provider Active S tart: February 07, 2025 Diana Ng LARD MAKER-C Referring Provider Active Start: February 07, 2025 Team Status: Inactive Member Role Status Dates Yolis Dalton NP, LARD MAKER-C Primary Care Provider Active Start: March 22, 2025 End: March 22, 2025 Dr. Zeb Bernal MD Attending Provider Active Start: March 22, 2025 End: March 22, 2025 Dr. Zeb Bernal MD Referring Provider Active Start: March 22, 2025 End: March 22, 2025 Team Status: Active Member Role/Relationship Status Dates Yolis Dalton LARD MAKER, LARD MAKER-C Primary Care Provider Active Team Status: Inactive Member Role/Relationship Status Dates Yolis Dalton LARD MAKER, LARD MAKER-C Primary Care Provider Active Start: January 11, 2025 End: January 11, 2025 Yolis Dalton LARD MAKER, LARD MAKER-C Referring Provider Active Start: January 11, 2025 End: January 11, 2025 Diana Ng LARD MAKER-C Attending Provider Active Start: January 11, 2025 End: January 11, 2025 Team Status: Inactive Member Role/Relationship Status Dates Yolis Dalton LARD MAKER, LARD MAKER-C Primary Care Provider Active Start: February 03, 2025 End: February 03, 2025 Diana Ng LARD MAKER-C Attending Provider Active Start: February 03, 2025 End: February 03, 2025 Diana Ng LARD MAKER-C Referring Provider Active Start: February 03, 2025 End: February 03, 2025 Team Status: Inactive Member Role/Relationship Status Dates Yolis Dalton LARD MAKER, LARD MAKER-C Primary Care Provider Active Start: February 07, 2025 End: February 07, 2025 Diana Ng LARD MAKER-C Attending Provider Active Start: February 07, 2025 End: February 07, 2025 Diana Ng LARD MAKER-C Referring Provider Active Start: February 07, 2025 End: February 07, 2025 Team Status: Active Member Role/Relationship Status Dates Yolis Dalotn NP, LARD MAKER-C Primary Care Provider Active Start: February 07, 2025 Dr. Paul Coronel , DO Attending Provider Active S tart: February 07, 2025 Diana Ng LARD MAKER-C Referring Provider Active Start: February 07, 2025 Team Status: Inactive Member Role/Relationship Status Dates Yolis Dalton LARD MAKER, LARD MAKER-C Primary Care Provider Active Start: February 09, 2025 End: February 09, 2025 Diana Ng LARD MAKER-C Attending Provider Active Start: February 09, 2025 End: February 09, 2025 Diana Ng NP-C Referring Provider Active Start: February 09, 2025 End: February 09, 2025 Team Status: Active Member Role/Relationship Status Dates Yolis Dalton NP, LARD MAKER-C Primary Care Provider Active Start: February 10, 2025 Diana Ng LARD MAKER-C Referring Provider Active Start: February 10, 2025 Diana M Rufener , LARD MAKER-C Other Provider Active St art: February 10, 2025 Dr. Paul Coronel DO Attending Provider Active S tart: February 10, 2025 Team Status: Inactive Member Role/Relationship Status Dates Yolis Dalton LARD MAKER, LARD MAKER-C Primary Care Provider Active Start: February 15, 2025 End: February 15, 2025 Yolis Dalton LARD MAKER, LARD MAKER-C Referring Provider Active Start: February 15, 2025 End: February 15, 2025 Diana Ng , LARD MAKER-C Attending Provider Active Start: February 15, 2025 End: February 15, 2025 Team Status: Inactive Member Role/Relationship Status Dates Yolis Dalton LARD MAKER, LARD MAKER-C Primary Care Provider Active Start: March 22, 2025 End: March 22, 2025 Yolis Dalton LARD MAKER, LARD MAKER-C Referring Provider Active Start: March 22, 2025 End: March 22, 2025 Dr. Zeb Bernal MD Attending Provider Active Start: March 22, 2025 End: March 22, 2025 Team Status: Inactive Member Role/Relationship Status Dates Yolis Dalton LARD MAKER, LARD MAKER-C Primary Care Provider Active Start: March 22, 2025 End: March 22, 2025 Dr. Zeb Bernal MD Attending Provider Active Start: March 22, 2025 End: March 22, 2025 Dr. Zeb Bernal MD Referring Provider Active Start: March 22, 2025 End: March 22, 2025 Team Status: Inactive Member Role/Relationship Status Dates Yolis Dalton LARD MAKER, LARD MAKER-C Primary Care Provider Active Start: April 26, 2025 End: April 26, 2025 Dr. Zeb Bernal MD Attending Provider Active Start: April 26, 2025 End: April 26, 2025 Dr. Zeb Bernal MD Referring Provider Active Start: April 26, 2025 End: April 26, 2025 Team Status: Active Member Role/Relationship Status Dates Yolis Dalton LARD MAKER, LARD MAKER-C Primary Care Provider Active Start: April 26, 2025 Dr. Fercho Anderson MD Attending Provider Active S tart: April 26, 2025 Team Status: Active Member Role/Relationship Status Dates Yolis Dalton LARD MAKER, LARD MAKER-C Primary Care Provider Active Start: April 26, 2025 Dr. 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 [facility]. provides no warranty or guarantee of the accuracy or completeness of information in this document.
[2025-09-16 11:08] LABS: Lyme Scn Total Ab w/Rflx Negative (Negative)
== END | disposition home or self-care (01) ==
PROVIDERS: PCP Nurse Practitioner; Referring Provider Nurse Practitioner; Visit Provider Nurse Practitioner
DX: R76.0 Raised antibody titer (principal)
CPT/HCPCS: 86618